=== PATIENT | female | born 1985 | race Caucasian/White ===

== ENCOUNTER 2017-09-24 00:27 | Emergency (ER) | payer BC, SELFPAY ==
[2017-09-24 00:29] VITALS: BP 145/96; PULSE 96; RESP 15; TEMP 37.1; O2SAT 97; BMI 65.5
--- NOTE | 2017-09-24 00:56 | EKG12_ITS ---
Test Reason : DIZZY Blood Pressure : / mmHG Vent. Rate : 104 BPM Atrial Rate : 104 BPM P-R Int : 134 ms QRS Dur : 080 ms QT Int : 332 ms P-R-T Axes : 062 088 037 degrees QTc Int : 436 ms Sinus tachycardia Otherwise normal ECG Confirmed by CHASE MILLS MD ([id number]), staff editor JOHNY DURAN ([id number]) on 09/26/2017 1:01:14 PM Referred By: HENRRY Confirmed By:CHASE MILLS MD
[2017-09-24] MEDS: 0.9% Normal Saline 1,000 ML 1000 ML IV (01:32)
[2017-09-24 01:40] LABS: White Blood Cells 0 SEEN /hpf (0-5)
[2017-09-24 01:45] LABS: Color, Urine Yellow (Yellow); Glucose, Dipstick Normal (Normal); Ketone-Dipstick 15 mg/dl (Negative); Leukocyte Esterase-Dipstick Negative /ul (Negative); Nitrite-Dipstick Negative (Negative); Occult Blood-Urine 250 /ul (Negative); Protein-Dipstick 15 mg/dl (Negative); Specific Gravity, Urine 1.025 (1.002-1.030); Urine Bilirubin Dipstick Negative (Negative); Urine Clarity Sl. Cloudy (Clear); Urine Urobilinogen Normal (Normal)
[2017-09-24 02:04] LABS: Bacteria RARE /hpf (None Seen); Mucous, Urine RARE /hpf (<or=2+); Red Blood Cells-Urine 10-25 SEEN /hpf (0-5); Squamous Epithelial Cells - UA 0-5 SEEN /hpf (5-10)
[2017-09-24 02:13] LABS: Absolute Lymphocyte Count 2.19 X10^3/ul (0.83-4.51); Absolute Neutrophil Count 6.4 X10^3/uL (2.0-7.7); Basophil# 0.06 X10^3/uL; Basophil% 0.7 % (0-1); Eosinophil# 0.03 X10^3/uL; Eosinophils% 0.3 % (0-5); Hematocrit 36.4 % (37-47); Hemoglobin 11.6 g/dl (12.0-15.0); Lymphocyte # 2.19 X10^3/ul (4.0); Lymphocyte % 23.7 % (19-41); Mean Corp Hgb Conc 31.9 g/gl (32-36); Mean Corpuscular Hgb 26.7 pg (27.0-32.0); Mean Corpuscular Volume 83.7 fL (81-99); Mean Platelet Vol. 10.4 fl (6.2-12.0); Monocyte# 0.54 X10^3/uL; Monocyte% 5.9 % (0-10); Neutrophil # 6.38 X10^3/uL (2.7-7.7); Neutrophil % 69.1 % (47-70); Platelet Count 305 K/mm3 (150-450); RBC Distribution Width CV 14.9 % (11.6-14.6); RBC Distribution Width SD 44.5 fl (35.1-43.9); Red Blood Count 4.35 M/mm3 (4.2-5.4); White Blood Count 9.2 K/mm3 (4.4-11.0)
[2017-09-24 02:14] LABS: POSITIVE COUNT NO; POSITIVE DIFFERENTIAL NO; POSITIVE MORPHOLOGY NO
[2017-09-24 02:32] VITALS: BP 124/73; PULSE 76; RESP 17; O2SAT 97
[2017-09-24 02:45] LABS: Anion Gap 9 (5-15); BUN 16 mg/dL (7-18); BUN/Creat Ratio 18.9 RATIO (10-20); Calcium,Total 8.5 mg/dL (8.5-10.1); Chloride 108 mmol/L (98-107); Creatinine, Serum 0.85 mg/dL (0.55-1.02); EST Glomerular Filtration Rate 83 mL/min (>60); Est Glom Filt Rate - Afr Amer 101 mL/min (>60); Estimated Creatinine Clearance 72.36 ml/min; Glucose 111 mg/dL (74-106); Potassium 3.9 mmol/L (3.5-5.1); Sodium Level 141 mmol/L (136-145)
[2017-09-24 03:27] LABS: Pregnancy, Serum, hCG Quali. NEGATIVE Negative (0-9 Nonpreg)
--- NOTE | 2017-09-24 03:27 | ED.DCSUM_ITS ---
- ER Visit Summary Date of Service: 09/24/17 Chief Complaint: I do not feel my normal self. History of Present Illness: The patient is a [address] Lino. She was reports that she has not felt her normal self for the past 3 days. States this is continuous, but it does wax and wane. States that she feels as though her heart is racing. She has a nonproductive cough. She denies any fever, chills, chest pain, or shortness of breath. She has had nausea. No abdominal pain. No vomiting or diarrhea. No melena or hematochezia. No dysuria or frequency. She reports that she has tingling in her hands bilaterally. She denies any headache or weakness. She reports she is lightheaded. Does not change with standing. She has not passed out. Patient reports to begin taking Mucinex proximally 3 days ago. States this is similar to before she had a seizure when she was 17 years old. She has not had any seizure activity. Physical Examination: Vitals: Stable. Afebrile. General: Well-nourished and well-developed. Head: Normocephalic atraumatic. Neck: Supple, no lymphadenopathy. No JVD. Nontender. Cardiovascular: Regular rate and rhythm. No murmurs. Respiratory: No respiratory distress. Clear to auscultation bilaterally. Abdominal: Soft, nontender, nondistended, normal bowel sounds. No guarding, rebound, or peritoneal signs. Back: Nontender. Extremities: Nontender, no edema. Skin: Normal color, no rash. Neurologic: Alert and oriented ?3. Cranial nerves II through XII are intact. Normal strength and sensation. Psych: Normal affect. Test Results: She is sinus tach at 104 with no acute changes. UA is negative. There are 1025 red blood cells. However, she is on her menses. Patency test is negative. Chem-7 is more for chloride 108 and glucose 111. CBC is marked for an H&H of 11.6 and 36.4. TSH is normal. Emergency Department Course and Treatment: Patient is resting comfortably. After a liter of normal saline her heart rate is decreased into the 70s. Treatment Plan: Patient will be discharged instructions to push fluids. Follow- up Dr. Lino in 3-5 days for further evaluation. I did suggest to her that this may be due to the Mucinex and to stop taking this. Return to the emergency department for any worsening symptoms. Disposition: To home in improved and stable condition. Impression: 1. Palpitations. This note was generated with Zinc software dictation software. It may contain incorrect words, spelling, and punctuation that were not noted in review of the chart prior to signing ED Disposition - Plan for ED Patient: Disposition: Home or Assisted Living Chief Complaint: Dizziness Instructions: ED Palpitations Referrals: Andra Lino DO [Primary Care Provider] - 2 Days
[2017-09-24 03:45] VITALS: BP 111/77; PULSE 76; RESP 20; O2SAT 99
== END 2017-09-24 03:45 | disposition home or self-care (01) ==
LOC: ED 00:58
PROVIDERS: Emergency Provider Emergency Medicine; Family Provider Family Medicine; PCP Family Medicine
DX: R00.2 Palpitations (principal); R05 Cough; R11.0 Nausea; Z72.0 Tobacco use
CPT/HCPCS: 80048; 81001; 84443; 84703; 85025; 93005; 99285

== ENCOUNTER → 2017-10-06 07:57 | Outpatient (CLI) | payer BC, SELFPAY ==
--- NOTE | 2017-10-06 08:00 | US_ITS ---
US Pelvis Non-OB Complete INDICATION: menorrhagia COMPARISON: None TECHNIQUE: Ultrasonographic grayscale and Doppler duplex investigation of the pelvic structures by transabdominal or transvaginal approach. FINDINGS: The uterus is anteverted and measures 8 x 4 x 4 cm. Endometrial stripe measures 1.5 cm, prominent. The endometrium is hyperechoic and slightly heterogenous. There is no evidence of abnormal flow within the endometrium. The myometrium appears within normal limits. Nabothian cyst is seen at the cervix. The right ovary was not visualized. The left ovary measures 2.2 x 1.5 x 1.6 cm and demonstrates normal flow. There is no evidence of free pelvic fluid. US/Pelvic (Non ) IMPRESSION: Thickened endometrial stripe measuring 1.5 cm diameter. No abnormal mass vascularity seen. Nonvisualization of the right ovary. at 0017 Reported and signed by: Linda Desir MD Electronically Signed: Linda Desir MD at 23:16 EST Tel , Service support ,
--- NOTE | 2017-10-06 08:00 | US_ITS ---
US Pelvis Non-OB Complete INDICATION: menorrhagia COMPARISON: None TECHNIQUE: Ultrasonographic grayscale and Doppler duplex investigation of the pelvic structures by transabdominal or transvaginal approach. FINDINGS: The uterus is anteverted and measures 8 x 4 x 4 cm. Endometrial stripe measures 1.5 cm, prominent. The endometrium is hyperechoic and slightly heterogenous. There is no evidence of abnormal flow within the endometrium. The myometrium appears within normal limits. Nabothian cyst is seen at the cervix. The right ovary was not visualized. The left ovary measures 2.2 x 1.5 x 1.6 cm and demonstrates normal flow. There is no evidence of free pelvic fluid. US/Transvaginal Non- IMPRESSION: Thickened endometrial stripe measuring 1.5 cm diameter. No abnormal mass vascularity seen. Nonvisualization of the right ovary. at 0017 Reported and signed by: Linda Desir MD Electronically Signed: Linda Desir MD at 23:16 EST Tel , Service support ,
== END ==
PROVIDERS: Family Provider Family Medicine; PCP Family Medicine; Visit Provider Family Medicine
DX: N92.0 Excessive and frequent menstruation with regular cycle (principal)
CPT/HCPCS: 76830; 76856; 93976

== ENCOUNTER → 2017-10-27 07:34 | Outpatient (CLI) | payer BC, SELFPAY ==
[2017-10-27 11:26] LABS: Hemoglobin A1c 5.7 % (4.2-6.3)
[2017-10-27 11:29] LABS: Free T3 2.8 pg/mL (2.18-3.98); Glucose 97 mg/dL (74-106); Luteinizing Hormone 6.2 mIU/mL; Prolactin 5.2 ng/mL; T4 Free Direct 0.96 ng/dL (0.76-1.46); Thyroid Stim Hormone (TSH) 3.91 uIU/mL (0.358-3.74)
[2017-10-30 14:52] LABS: HPV Reflexed? NOT INDICATED
--- NOTE | 2017-11-03 12:11 | EEG ---
- Electroencephalogram Date of service 10/27/17 This is an 18 channel echoencephalogram performed on this 32-year-old female with a one-month history of abnormal sensations. There is a history of seizures 15 years prior. International 10-20 electrode placement protocol is utilized as well as photic stimulation, hyperventilation, and EKG rhythm strip. Patient remained awake throughout the recording. Background activity is 10 Hz symmetrically in the posterior leads which attenuates with eye opening. Hyperventilation is performed for 3 minutes with good effort with no lateralizing or epileptiform changes. The post hyperventilatory phase was unremarkable. Patient remained awake throughout the recording. Impression: Normal awake electroencephalogram.
== END ==
LOC: PSN 07:34 → WOBLAB 09:50
PROVIDERS: Visit Provider Obstetrics & Gynecology
DX: Z12.4 Encounter for screening for malignant neoplasm of cervix (principal); N92.1 Excessive and frequent menstruation with irregular cycle; R56.9 Unspecified convulsions
CPT/HCPCS: 36415; 82947; 83001; 83002; 83036; 84146; 84439; 84443; 84481; 88175; G0145

== ENCOUNTER → 2019-06-24 10:50 | Outpatient (CLI) | payer BC, SELFPAY ==
[2019-05-28 07:34] VITALS: BMI 65.5
== END ==
PROVIDERS: Family Provider Family Medicine; PCP Family Medicine; Visit Provider Family Medicine
DX: R31.9 Hematuria, unspecified (principal)
CPT/HCPCS: 87086; 87088

== ENCOUNTER → 2019-07-18 09:21 | Outpatient (CLI) | payer BC, SELFPAY ==
[2019-05-28 07:34] VITALS: BMI 65.5
--- NOTE | 2019-07-18 09:24 | RAD_ITS ---
STUDY: X-RAY CHEST REASON FOR EXAM: Female, 33 years old. Persistent cough and fever. TECHNIQUE: 2 views COMPARISON: None. FINDINGS: The lung loera are expanded with patchy multifocal parenchymal infiltrate in the anterior left upper lobe and lingula. There is no demonstrated pleural abnormality. Normal size heart. Normal mediastinum and britney. Normal visualized pulmonary arteries. Normal visualized aortic arch and descending thoracic aorta. Normal visualized thoracic spine. Normal visualized ribs, clavicles, and shoulders. There is no demonstrated abnormality of the visualized soft tissue structures of the upper abdomen. RAD/Chest PA and Lateral IMPRESSION: Left upper lobe pneumonia. Electronically Signed: Katheryn Rosales MD at 23:17 EST , Service support ,
== END ==
PROVIDERS: Family Provider Family Medicine; PCP Family Medicine; Referring Provider Family Medicine; Visit Provider Family Medicine
DX: J20.9 Acute bronchitis, unspecified (principal); R50.9 Fever, unspecified
CPT/HCPCS: 71046

== ENCOUNTER → 2020-06-12 | Outpatient (CLI) | payer BC, SELFPAY ==
[2019-05-28 07:34] VITALS: BMI 65.5
[2020-06-18 17:10] LABS: HPV APTIMA, High Risk Negative (Negative); HPV Reflexed? YES, CHARGE PATIENT
== END | disposition home or self-care (01) ==
LOC: LABSPEC 13:57
PROVIDERS: PCP Family Medicine; Visit Provider Student in an Organized Health Care Education/Training Program
DX: Z12.4 Encounter for screening for malignant neoplasm of cervix (principal)
CPT/HCPCS: 87624; 88175; G0145

== ENCOUNTER → 2020-06-17 12:57 | Outpatient (CLI) | payer BC, SELFPAY ==
[2019-05-28 07:34] VITALS: BMI 65.5
--- NOTE | 2020-06-17 12:59 | BI_ITS ---
MAMMOGRAPHY - BILATERAL SCREENING REASON FOR EXAM: Female, 34 years old. Routine annual screening examination. PERTINENT HISTORY: Grandmother with breast cancer. Aunt with breast cancer. TECHNIQUE: Digital bilateral breast den (3D mammographic acquisition) in the CC and MLO projections. 2-D mediolateral oblique (MLO) and craniocaudad (CC) views of both breasts were obtained. CAD: Full Field Digital Mammography with Computer Added Detection was performed. COMPARISON: None. Baseline examination. FINDINGS: Breast Composition: There are scattered areas of fibroglandular density. There are no dominant masses or suspicious calcifications. No other significant abnormalities are identified. There has been no significant change since the prior study. BI/SCREEN MAMM (CAD) W/DEN BILAT IMPRESSION: Stable bilateral screening mammogram. Yearly follow-up mammogram recommended. (A) ASSESSMENT CATEGORY: BIRADS Category 1: Negative. A letter regarding these results will be sent to the patient by the facility within 30 days. Approximately 10% of breast cancers are not detected by mammography. A normal mammogram should not delay biopsy of a clinically suspicious abnormality. [id number] Electronically Signed: Riccardo Gamez, at 13:47 EST , Service support ,
== END ==
PROVIDERS: PCP Family Medicine; Referring Provider Student in an Organized Health Care Education/Training Program; Visit Provider Student in an Organized Health Care Education/Training Program
DX: Z12.31 Encounter for screening mammogram for malignant neoplasm of breast (principal); Z80.3 Family history of malignant neoplasm of breast
CPT/HCPCS: 77063; 77067

== ENCOUNTER → 2020-08-25 10:03 | Outpatient (CLI) | payer BC, SELFPAY ==
[2019-05-28 07:34] VITALS: BMI 65.5
--- NOTE | 2020-08-25 | EMB_PTH ---
PATIENT: YULIANA BLACKBURN LOC: [facility] U#:[id number] AGE/SX: 39/F ROOM: RE08/25/[address]: Dr. Latoya Lind DO : 1985 BED: DIS: SPEC #: [id number] RECD: 08/25/20 12:37 STATUS: MITA REQ #: [id number] LINO: 08/25/20 00:[address]: Latoya Lind DEPT: SURGICAL PATHOLOGY RECD BY: Jose Doshi ENTERED: 08/25/20 12:38 SP TYPE: ENDOM BX/C DENISSE DR: Dr. Andra Lino DO Tissues: Endometrium, NOS Procedures: Surgery Specimen Level IV HEADER OPERATION: Endometrial biopsy PRE-OP DIAGNOSIS: Irregular heavy period; pelvic ultrasound showed 13 mm inhomogeneous echo texture TISSUE SUBMITTED: Endometrial curettings MICROSCOPIC DIAGNOSIS Endometrium, biopsy: Proliferative endometrium with focal glandular breakdown. AM:phuong 08/26/2020 MICROSCOPIC DESCRIPTION Slides are reviewed. GROSS DESCRIPTION Received in fixative is one container labeled with the patient's name and designated endometrial biopsy. The specimen consists of multiple fragments of hemorrhagic soft tissue mixed with mucoid tissue that in aggregate measure 3 x 2.5 x 0.2 cm. The specimen is totally submitted in one cassette. / SJ:phuong 08/25/19 TC:5 CPT: 80363
[2020-08-26 13:58] LABS: Cancer Antigen 125 18.8 U/mL (0.0-38.1)
== END ==
PROVIDERS: PCP Family Medicine; Visit Provider Student in an Organized Health Care Education/Training Program
DX: N92.6 Irregular menstruation, unspecified (principal)
CPT/HCPCS: 36415; 86304; 88305

== ENCOUNTER → 2020-10-28 08:26 | Outpatient (CLI) | payer BC, SELFPAY ==
[2019-05-28 07:34] VITALS: BMI 65.5
[2020-10-28 09:11] LABS: ALB/GLOB Ratio 0.7 RATIO (0.9-2.4); AST(SGOT) 36 U/L (15-37); Alanine Aminotransfer ALT/SGPT 43 U/L (13-56); Albumin, Serum 3.3 g/dL (3.2-5.0); Alkaline Phosphatase 85 U/L (45-117); Anion Gap 4 (5-15); BUN 15 mg/dL (7-18); BUN/Creat Ratio 16.6 RATIO (10-20); Calcium,Total 9.5 mg/dL (8.5-10.1); Chloride 105 mmol/L (98-107); Cholesterol 229 mg/dL (200); EST Glomerular Filtration Rate 76 mL/min (>60); Est Glom Filt Rate - Afr Amer 92 mL/min (>60); Globulin 4.8 g/dL (2.2-4.2); Glucose 99 mg/dL (74-106); High Density Lipoprotein 66 mg/dL; Potassium 4.7 mmol/L (3.5-5.1); Protein, Total 8.1 g/dL (6.4-8.2); Sodium Level 137 mmol/L (136-145); Triglycerides 118 mg/dL; Very Low Density Lipoprotein 24 mg/dL (5-40)
== END ==
PROVIDERS: PCP Family Medicine; Referring Provider Family Medicine; Visit Provider Family Medicine
DX: E78.5 Hyperlipidemia, unspecified (principal); E87.1 Hypo-osmolality and hyponatremia
CPT/HCPCS: 36415; 80053; 80061

== ENCOUNTER 2021-03-31 15:36 | Outpatient (RCR) | payer BC, SELFPAY ==
[2019-05-28 07:34] VITALS: BMI 65.5
== END 2021-04-13 23:59 ==
LOC: NS 15:36
PROVIDERS: PCP Family Medicine; Visit Provider Family Medicine
DX: Z00.00 Encounter for general adult medical examination without abnormal findings (principal)
CPT/HCPCS: 97802

== ENCOUNTER → 2021-05-13 | Outpatient (CLI) | payer BC, SELFPAY ==
[2021-05-18 00:06] LABS: Chlamydia By Nucleic Acid AMP Negative (Negative)
[2021-05-18 00:41] LABS: Gonococcus By Nucleic Acid AMP Negative (Negative)
== END | disposition home or self-care (01) ==
LOC: LABSPEC 12:06
PROVIDERS: PCP Family Medicine; Visit Provider Obstetrics & Gynecology
DX: O09.519 Supervision of elderly primigravida, unspecified trimester (principal); Z11.3 Encounter for screening for infections with a predominantly sexual mode of transmission; Z3A.00 Weeks of gestation of pregnancy not specified
CPT/HCPCS: 87491; 87591

== ENCOUNTER → 2021-05-17 13:11 | Outpatient (CLI) | payer BC, SELFPAY ==
[2021-05-17 13:42] LABS: Absolute Lymphocyte Count 1.98 X10^3/uL (0.83-4.51); Basophil# 0.02 X10^3/uL; Basophil% 0.2 % (0-1); Eosinophil# 0.01 X10^3/uL; Eosinophils% 0.1 % (0-5); Hematocrit 36.6 % (37-47); Hemoglobin 11.2 g/dL (12.0-15.0); Lymphocyte # 1.98 X10^3/ul (0.83-4.51); Lymphocyte % 20.5 % (19-41); Mean Corp Hgb Conc 30.6 g/dL (32-36); Mean Corpuscular Hgb 25.7 pg (27.0-32.0); Mean Corpuscular Volume 83.9 fL (81-99); Mean Platelet Vol. 10.9 fl (6.2-12.0); Monocyte# 0.62 X10^3/uL; Monocyte% 6.4 % (0-10); NRBC Flagged by Analyzer 0 % (0-5); Neutrophil # 6.99 X10^3/uL (2.7-7.7); Neutrophil % 72.5 % (47-70); Platelet Count 321 K/mm3 (150-450); RBC Distribution Width CV 15.7 % (11.6-14.6); RBC Distribution Width SD 48.1 fl (35.1-43.9); Red Blood Count 4.36 M/mm3 (4.2-5.4); White Blood Count 9.7 K/mm3 (4.4-11.0)
[2021-05-17 14:17] LABS: Glucose Challenge Gest 1H 50g 141 mg/dL (70-140)
[2021-05-17 15:02] LABS: HIV - WCH Non-Reactive (Nonreactive); Hepatitis B Surface Antigen Non-Reactive (Nonreactive); Rubella IgG Reactive (Nonreactive); Syphilis Antibodies Non-reactive
[2021-05-17 17:14] LABS: Hepatitis C Antibody REACTIVE (Nonreactive)
== END ==
PROVIDERS: PCP Family Medicine; Visit Provider Obstetrics & Gynecology
DX: Z34.81 Encounter for supervision of other normal pregnancy, first trimester (principal); Z3A.00 Weeks of gestation of pregnancy not specified
CPT/HCPCS: 82950; 85025; 86703; 86762; 86780; 86803; 87086; 87088; 87340; 87521

== ENCOUNTER → 2021-05-26 | Outpatient (CLI) | payer BC, SELFPAY ==
[2021-05-27 15:09] LABS: HCV Quant. RNA PCR HCV Not Detected IU/mL (.)
== END | disposition home or self-care (01) ==
LOC: LABSPEC 11:01
PROVIDERS: PCP Family Medicine; Referring Provider Student in an Organized Health Care Education/Training Program; Visit Provider Student in an Organized Health Care Education/Training Program
DX: B19.10 Unspecified viral hepatitis B without hepatic coma (principal)
CPT/HCPCS: 36415; 87522

== ENCOUNTER → 2021-06-01 07:08 | Outpatient (CLI) | payer BC, SELFPAY ==
[2021-06-01 08:10] LABS: Glucose GTT-Gestation. Fasting 94 mg/dL (<105)
[2021-06-01 09:23] LABS: Glucose GTT-Gestational 1 Hr 174 mg/dL (<190)
[2021-06-01 09:55] LABS: Glucose GTT-Gestational 2 Hr 142 mg/dL (<165)
[2021-06-01 11:17] LABS: Glucose GTT-Gestational 3 Hr 67 L (<145)
== END ==
PROVIDERS: PCP Family Medicine; Referring Provider Student in an Organized Health Care Education/Training Program; Visit Provider Student in an Organized Health Care Education/Training Program
DX: O24.912 Unspecified diabetes mellitus in pregnancy, second trimester (principal)
CPT/HCPCS: 36415; 82951; 82952

== ENCOUNTER 2021-07-03 10:01 | Outpatient (CLI) | payer BC, SELFPAY ==
[2021-07-03] MEDS: 0.9% Saline Lock 10 ML Syringe IV (10:25)
[2021-07-03 10:26] VITALS: BP 151/70; PULSE 91; RESP 18; TEMP 36.7; O2SAT 98; BMI 69.9
[2021-07-03 10:48] VITALS: BP 113/65; PULSE 97; RESP 18; TEMP 36.6; O2SAT 100
--- NOTE | 2021-07-03 10:48 | NURSING ---
Pt c/o joint pain and nausea and appears anxious. VSS. No rashes/hives noted. Infusion decreased to 160cc/hr. Will cont. to monitor.
--- NOTE | 2021-07-03 10:53 | NURSING ---
Pt reports feeling much better.
[2021-07-03 11:19] VITALS: BP 129/64; PULSE 80; RESP 16; TEMP 36.7; O2SAT 99
[2021-07-03 12:14] VITALS: BP 126/64; PULSE 76; RESP 16; TEMP 36.6; O2SAT 98
== END 2021-07-03 12:23 | disposition home or self-care (01) ==
LOC: MS3OUT 10:02 → MS3 10:02
PROVIDERS: PCP Family Medicine; Referring Provider Nurse Practitioner Acute Care; Visit Provider Nurse Practitioner Acute Care
DX: Z23 Encounter for immunization (principal); U07.1 COVID-19
CPT/HCPCS: J7050; M0245; Q0245; A4216

== ENCOUNTER → 2021-07-12 17:13 | Outpatient (CLI) | payer BC, SELFPAY ==
[2021-07-12 17:44] LABS: Hematocrit 33.3 % (37-47); Hemoglobin 10.7 g/dL (12.0-15.0); Mean Corp Hgb Conc 32.1 g/dL (32-36); Mean Corpuscular Hgb 27.3 pg (27.0-32.0); Mean Corpuscular Volume 84.9 fL (81-99); Platelet Count 297 K/mm3 (150-450); RBC Distribution Width CV 16.2 % (11.6-14.6); RBC Distribution Width SD 48.9 fl (35.1-43.9); Red Blood Count 3.92 M/mm3 (4.2-5.4); White Blood Count 9.9 K/mm3 (4.4-11.0)
[2021-07-12 18:03] LABS: Protein, Urine (Random) < 6.0 mg/dL (<11.9)
[2021-07-12 18:15] LABS: ALB/GLOB Ratio 0.5 RATIO (0.9-2.4); AST(SGOT) 10 U/L (15-37); Alanine Aminotransfer ALT/SGPT 17 U/L (13-56); Albumin, Serum 2.5 g/dL (3.2-5.0); Alkaline Phosphatase 58 U/L (45-117); Anion Gap 9 (5-15); BUN 11 mg/dL (7-18); Calcium,Total 10.3 mg/dL (8.5-10.1); Chloride 104 mmol/L (98-107); Creatinine, Serum 0.58 mg/dL (0.55-1.02); EST Glomerular Filtration Rate 126 mL/min (>60); Est Glom Filt Rate - Afr Amer 153 mL/min (>60); Globulin 4.9 g/dL (2.2-4.2); Glucose 108 mg/dL (74-106); LDH 145 U/L (84-246); Potassium 3.8 mmol/L (3.5-5.1); Protein, Total 7.4 g/dL (6.4-8.2); Sodium Level 136 mmol/L (136-145)
== END ==
PROVIDERS: PCP Family Medicine; Visit Provider Student in an Organized Health Care Education/Training Program
DX: O16.9 Unspecified maternal hypertension, unspecified trimester (principal); Z3A.00 Weeks of gestation of pregnancy not specified
CPT/HCPCS: 36415; 80053; 82570; 83615; 84156; 85027; 87086; 87088

== ENCOUNTER 2021-09-10 09:03 | Outpatient (CLI) | payer BC, SELFPAY ==
[2021-09-10 11:41] LABS: Glucose GTT-Gestational 2 Hr 176 mg/dL (<165)
[2021-09-10 11:41] LABS: Glucose GTT-Gestational 1 Hr 190 mg/dL (<190)
[2021-09-10 11:48] LABS: Glucose GTT-Gestation. Fasting 86 mg/dL (<105)
[2021-09-10 13:08] LABS: Glucose GTT-Gestational 3 Hr 94 L (<145)
[2021-09-10 13:14] LABS: Hepatitis C Antibody REACTIVE (Nonreactive)
== END 2021-09-10 23:59 | disposition short-term general hospital (02) ==
LOC: WOBLAB 09:06
PROVIDERS: PCP Family Medicine; Visit Provider Student in an Organized Health Care Education/Training Program
DX: Z34.82 Encounter for supervision of other normal pregnancy, second trimester (principal)
CPT/HCPCS: 36415; 82951; 82952; 86803

== ENCOUNTER 2021-10-12 14:18 | Outpatient (CLI) | payer BC, SELFPAY ==
[2021-10-12 15:44] LABS: Hematocrit 36.1 % (37-47); Hemoglobin 11.3 g/dL (12.0-15.0); Mean Corp Hgb Conc 31.3 g/dL (32-36); Mean Corpuscular Hgb 27.4 pg (27.0-32.0); Mean Corpuscular Volume 87.4 fL (81-99); Platelet Count 289 K/mm3 (150-450); RBC Distribution Width CV 15.9 % (11.6-14.6); RBC Distribution Width SD 49.6 fl (35.1-43.9); Red Blood Count 4.13 M/mm3 (4.2-5.4); White Blood Count 11.5 K/mm3 (4.4-11.0)
[2021-10-12 16:00] LABS: ALB/GLOB Ratio 0.5 RATIO (0.9-2.4); AST(SGOT) 12 U/L (15-37); Alanine Aminotransfer ALT/SGPT 21 U/L (13-56); Albumin, Serum 2.8 g/dL (3.2-5.0); Alkaline Phosphatase 107 U/L (45-117); Anion Gap 9 (5-15); BUN 17 mg/dL (7-18); BUN/Creat Ratio 24.1 RATIO (10-20); Calcium,Total 9.3 mg/dL (8.5-10.1); Chloride 103 mmol/L (98-107); Creatinine, Serum 0.71 mg/dL (0.55-1.02); EST Glomerular Filtration Rate 100 mL/min (>60); Est Glom Filt Rate - Afr Amer 121 mL/min (>60); Globulin 5.2 g/dL (2.2-4.2); Glucose 86 mg/dL (74-106); LDH 194 U/L (84-246); Potassium 4.2 mmol/L (3.5-5.1); Sodium Level 135 mmol/L (136-145)
[2021-10-12 16:08] LABS: Protein, Urine (Random) 58.9 mg/dL (<11.9); Protein:Creat Ratio 280 mg/g CRE (0-200)
== END 2021-10-12 23:59 | disposition home or self-care (01) ==
LOC: WOBLAB 14:19
PROVIDERS: PCP Family Medicine; Visit Provider Student in an Organized Health Care Education/Training Program
DX: O16.3 Unspecified maternal hypertension, third trimester (principal)
CPT/HCPCS: 36415; 80053; 82570; 83615; 84156; 85027; 87086; 87088

== ENCOUNTER 2021-10-26 17:32 | Outpatient (CLI) | payer BC, SELFPAY | END 2021-10-26 23:59 | disposition home or self-care (01) | LOC: LABSPEC 17:33 | PROVIDERS: PCP Family Medicine; Visit Provider Student in an Organized Health Care Education/Training Program | DX: Z36.85 Encounter for antenatal screening for Streptococcus B (principal) | CPT/HCPCS: 87081 ==

== ENCOUNTER 2021-11-02 16:15 | Outpatient (CLI) | payer BC, SELFPAY ==
[2021-11-04 21:07] LABS: HCV Quant. RNA PCR HCV Not Detected IU/mL (.)
== END 2021-11-02 23:59 | disposition home or self-care (01) ==
LOC: WOBLAB 16:16
PROVIDERS: PCP Family Medicine; Visit Provider Student in an Organized Health Care Education/Training Program
DX: R89.4 Abnormal immunological findings in specimens from other organs, systems and tissues (principal)
CPT/HCPCS: 36415; 87522

== ENCOUNTER 2021-11-12 16:25 | Outpatient (CLI) | payer BC, SELFPAY ==
[2021-11-12 16:44] VITALS: BMI 74.6
[2021-11-12 16:49] VITALS: PULSE 97; O2SAT 98
[2021-11-12 16:54] VITALS: BP 146/78; PULSE 93; O2SAT 98
--- NOTE | 2021-11-12 18:26 | OB.TRI.HP_ITS ---
HPI - General HPI Narrative YULIANA BLACKBURN, is a 36 F [facility] Medical History (Updated 11/13/21 @ 06:[address] Bi Lind MD) Fatigue hx of vaginal Incontinence Seizures SOB (shortness of breath) Home Medications aspirin 81 mg PO DAILY 07/03/21 [History Last Taken 11/12/21 06:00] [id number] fumarate-FA [] tab PO 11/12/21 [History Last Taken 11/12/21 06:00] insulin detemir U-100 [Levemir Flexpen] 35 unit SUBCUT QHS 11/12/21 [History Last Taken 11/11/21 21:00] valacyclovir [Valtrex] 1,000 mg PO DAILY 11/12/21 [History Last Taken 11/12/21 06:00] Allergy/AdvReac Type Severity Reaction Status Date / Time No Known Allergies Allergy Verified 11/12/21 16:47 Surgical History (Reviewed 07/01/21 @ 11:46 by Latoya Cherry HYDROMETEOROLOGICAL TECHNICIAN, HYDROMETEOROLOGICAL TECHNICIAN-C) History of tonsillectomy and adenoidectomy Social History (Reviewed 07/01/21 @ 11:46 by Latoya Cherry HYDROMETEOROLOGICAL TECHNICIAN, HYDROMETEOROLOGICAL TECHNICIAN-C) Smoking Status: Never smoker alcohol intake: never History Elective abortions Hx Para 0 Spontaneous abortions Hx # Term Pregnancies Ectopic pregnancies Hx # Pregnancies Multiple births # of living children NST FHR Rate Baby A Baseline: 130 Variability:: Moderate Accelerations:: 15 x 15 Decelerations:: None NST Reactive:: Yes Uterine Activity:: Quiet Assessment & Plan (1) : PLAN: Patient for NST, reactive. Reassuring. Okay to discharge home of all the scheduled appointments
== END 2021-11-12 23:59 | disposition home or self-care (01) ==
LOC: WPOUT 16:30 → WP 16:30
PROVIDERS: PCP Family Medicine; Referring Provider Obstetrics & Gynecology; Visit Provider Obstetrics & Gynecology
DX: O36.8390 Maternal care for abnormalities of the fetal heart rate or rhythm, unspecified trimester, not applicable or unspecified (principal); Z3A.00 Weeks of gestation of pregnancy not specified
CPT/HCPCS: 59025; 59050; 99218; G0378

== ENCOUNTER 2021-11-16 20:50 | Inpatient (IN) | payer BC, SELFPAY ==
[2021-11-16 19:17] VITALS: BMI 75.2
[2021-11-16 19:32] VITALS: O2SAT 98
[2021-11-16 19:33] VITALS: BP 133/75; PULSE 98; TEMP 36.6
[2021-11-16] MEDS: 0.9% Saline Lock 10 ML Syringe IV ×2 (19:45→21:25)
[2021-11-16 20:08] LABS: Absolute Lymphocyte Count 1.96 X10^3/uL (0.83-4.51); Absolute Neutrophil Count 8.9 X10^3/uL (2.0-7.7); Basophil# 0.02 X10^3/uL; Basophil% 0.2 % (0-1); Eosinophil# 0.01 X10^3/uL; Eosinophils% 0.1 % (0-5); Hematocrit 38.4 % (37-47); Hemoglobin 12.3 g/dL (12.0-15.0); Lymphocyte # 1.96 X10^3/ul (0.83-4.51); Lymphocyte % 16.9 % (19-41); Mean Corpuscular Hgb 27.6 pg (27.0-32.0); Mean Corpuscular Volume 86.1 fL (81-99); Mean Platelet Vol. 12.5 fl (6.2-12.0); Monocyte# 0.67 X10^3/uL; Monocyte% 5.8 % (0-10); NRBC Flagged by Analyzer 0 % (0-5); Neutrophil # 8.87 X10^3/uL (2.7-7.7); Neutrophil % 76.5 % (47-70); Platelet Count 285 K/mm3 (150-450); RBC Distribution Width CV 16.5 % (11.6-14.6); RBC Distribution Width SD 50.5 fl (35.1-43.9); Red Blood Count 4.46 M/mm3 (4.2-5.4); White Blood Count 11.6 K/mm3 (4.4-11.0)
[2021-11-16 20:10] LABS: Bedside Glucose 107 mg/dL (74-106)
[2021-11-16 20:30] LABS: ALB/GLOB Ratio 0.6 RATIO (0.9-2.4); AST(SGOT) 17 U/L (15-37); Alanine Aminotransfer ALT/SGPT 18 U/L (13-56); Albumin, Serum 2.8 g/dL (3.2-5.0); Alkaline Phosphatase 139 U/L (45-117); Anion Gap 9 (5-15); BUN 22 mg/dL (7-18); Calcium,Total 9.9 mg/dL (8.5-10.1); Chloride 108 mmol/L (98-107); Creatinine, Serum 0.82 mg/dL (0.55-1.02); EST Glomerular Filtration Rate 85 mL/min (>60); Est Glom Filt Rate - Afr Amer 103 mL/min (>60); Estimated Creatinine Clearance 72.26 ml/min; Globulin 4.9 g/dL (2.2-4.2); Glucose 89 mg/dL (74-106); LDH 188 U/L (84-246); Potassium 3.9 mmol/L (3.5-5.1); Protein, Total 7.7 g/dL (6.4-8.2); Sodium Level 138 mmol/L (136-145); Uric Acid 3.9 mg/dL (2.6-6.0)
[2021-11-16 20:37] LABS: Protein, Urine (Random) 39.2 mg/dL (<11.9); Protein:Creat Ratio 203 mg/g CRE (0-200)
[2021-11-16] MEDS: Lactated Ringers 1,000 ML 50 ML IV (21:25)
[2021-11-16] MEDS: miSOPROStol 25 MCG TABLET VAGINAL (21:35)
[2021-11-16 21:39] VITALS: TEMP 36.3; O2SAT 98
[2021-11-16 21:40] VITALS: BP 148/73; PULSE 100
[2021-11-16] MEDS: Insulin Glargine-YFGN 100 UNIT/ML Pen 35 UNIT SC (22:34)
[2021-11-16 23:30] LABS: Bedside Glucose 81 mg/dL (74-106)
--- NOTE | 2021-11-16 23:46 | PCM.HP.OB ---
HPI - General General Date of Admission: 11/16/21 HPI Narrative YULIANA BLACKBURN, is a 36 F who presents at 38 1/7 weeks gestation for IOL with hx gestational HTN and GDMA2, remote hx HSV. Speculum exam in the office earlier today was unremarkable and patient denies sx of HSV. US today with SHERIN 11.9cm, BPP 8/8, CEPHALIC presentation. EFW on 11/09/21 3579g (>90th%) with HC/AC 0.97 Issues: -AMA -BRCA1 positive -GDMA2 -Class III Obesity -HSV PFSH PFSH Medical History (Updated 11/16/21 @ 23:[address] Mallika Ryan MD) Fatigue Gestational diabetes Gestational hypertension hx of vaginal Incontinence Seizures SOB (shortness of breath) Home Medications aspirin 81 mg PO DAILY 07/03/21 [History Last Taken 11/16/21] [id number] fumarate-FA [] tab PO DAILY 11/12/21 [History Last Taken 11/16/21] insulin detemir U-100 [Levemir Flexpen] 35 unit SUBCUT QHS 11/12/21 [History Last Taken 11/15/21] valacyclovir [Valtrex] 1,000 mg PO DAILY 11/12/21 [History Last Taken 11/16/21] Allergy/AdvReac Type Severity Reaction Status Date / Time No Known Allergies Allergy Verified 11/16/21 19:40 Family History (Updated 11/16/21 @ 23:[address] Mallika Ryan MD) Father Diabetes Mother Thyroid disorder Surgical History History of tonsillectomy and adenoidectomy Social History (Reviewed 07/01/21 @ 11:46 by Latoya Cherry FUEL RETROFITTING TECHNICIAN, FUEL RETROFITTING TECHNICIAN-C) Smoking Status: Former smoker alcohol intake: never History 2 Elective abortions Hx Para 1 Spontaneous abortions Hx # Term Pregnancies Ectopic pregnancies Hx # Pregnancies Multiple births # of living children 1 NST FHR Rate Baby A Baseline: 140 Variability:: Moderate Accelerations:: 15 x 15 Decelerations:: Variable NST Reactive:: Yes FHR Category:: Category II Uterine Activity:: 1-2 Vital Signs Vital Signs Vital Signs: 11/16/21 19:32 11/16/21 19:33 11/16/21 21:39 Temperature 97.8 F 97.3 F L Temperature Source Temporal Temporal Pulse Rate 98 Blood Pressure 133/75 H BP Systolic 133 BP Diastolic 75 Pulse Ox 98 98 11/16/21 21:40 Temperature Temperature Source Pulse Rate 100 Blood Pressure 148/73 H BP Systolic 148 BP Diastolic 73 Pulse Ox Weight Weight: 180.711 kg Body Mass Index (BMI) 75.2 Physical Exam Const alert, oriented x3 and no apparent distress HEENT normocephalic Resp normal respiratory effort, normal air movement and clear to auscultation bilaterally Cardio regular rate and regular rhythm GI normal to inspection, nondistended, normoactive bowel sounds, soft to palpation, non-tender and non-distended Inspection: gravid Labs Labs Labs: Blood Type A POSITIVE Antibody Screen NEGATIVE Hct 38.4 % (37-47) Hgb 12.3 g/dL (12.0-15.0) Syphilis Total Ab Non-reactive Rubella IgG Antibody Reactive (Nonreactive) Hep Bs Antigen Non-Reactive (Nonreactive) Chlamydia DNA (CINDY) Negative (Negative) Neisseria gonorrhoeae DNA (CINDY) Negative (Negative) HIV 1&2 Antibody Non-Reactive (Nonreactive) Glucose 1 Hr 50 gm 141 mg/dL (70-140) H Group B Strep DNA Negative (Negative) Rhogam given: No Assessment & Plan (1) Gestational hypertension: QUALIFIERS: Trimester: third trimester Qualified Code(s): O13.3 - Gestational [-induced] hypertension without significant proteinuria, third trimester PLAN: Preeclampsia labs wnl (2) Gestational diabetes: QUALIFIERS: Gestational diabetes mellitus control: insulin-controlled Trimester: third trimester Qualified Code(s): O24.414 - Gestational diabetes mellitus in , insulin controlled PLAN: well controlled on Levemir q (3) : QUALIFIERS: Weeks of gestation: 38 weeks Qualified Code(s): Z3A.38 - 38 weeks gestation of PLAN: Misoprostol
[2021-11-17] VITALS (38 sets, daily range): BP systolic 92–181; BP diastolic 46–91; PULSE 68–109; RESP 16–24; TEMP 36.1–37.3; O2SAT 91–100
[2021-11-17 01:51] LABS: Bedside Glucose 98 mg/dL (74-106)
[2021-11-17] MEDS: miSOPROStol 50 MCG TABLET VAGINAL (02:12)
[2021-11-17] MEDS: Lactated Ringers 500 ML 999 ML IV ×2 (04:32→08:25)
[2021-11-17 05:31] LABS: Bedside Glucose 90 mg/dL (74-106)
--- NOTE | 2021-11-17 06:58 | PCM.PN.OB ---
Subjective Subjective Reports mild contractions. No complaints. Denies headache, vision changes or abdominal pain. Objective Data Objective Data Vital Signs: Vital Signs Temp Pulse BP Pulse Ox 98.0 F 95 132/62 H 99 11/17/21 05:23 11/17/21 06:54 11/17/21 05:23 11/17/21 06:54 Weight: 180.711 kg Body Mass Index (BMI) 75.2 Intake & Output: Intake and Output for Last 24 Hours 11/15/21 11/16/21 11/17/21 23:59 23:59 23:59 Intake Total 855.83 / 855.83 Balance 855.83 / 855.83 Lab / Micro Data Result Diagrams: 11/16/21 19:45 11/16/21 19:45 Labs: Laboratory Results - last 24 hr 11/16/21 19:45: WBC 11.6 H, RBC 4.46, Hgb 12.3, Hct 38.4, MCV 86.1, MCH 27.6, MCHC 32.0, RDW Std Deviation 50.5 H, RDW Coeff of Zac 16.5 H, Plt Count 285, MPV 12.5 H, Immature Gran % (Auto) 0.500, Neut % (Auto) 76.5 H, Lymph % (Auto) 16.9 L, [place] % (Auto) 5.8, Eos % (Auto) 0.1, Baso % (Auto) 0.2, Absolute Neuts (auto) 8.9 H, Absolute Lymphs (auto) 1.96, Nucleated RBC % 0 11/16/21 19:45: Sodium 138, Potassium 3.9, Chloride 108 H, Carbon Dioxide 21.0, Anion Gap 9, BUN 22 H, Creatinine 0.82, Estim Creat Clear Calc 72.26, Est GFR (MDRD) Af Amer 103, Est GFR (MDRD) Non-Af 85, BUN/Creatinine Ratio 27.0 H, Glucose 89, Uric Acid 3.9, Calcium 9.9, Total Bilirubin 0.20, AST 17, ALT 18, Alkaline Phosphatase 139 H, Lactate Dehydrogenase 188, Total Protein 7.7, Albumin 2.8 L, Globulin 4.9 H, Albumin/Globulin Ratio 0.6 L 11/16/21 19:45: Blood Type A POSITIVE, Antibody Screen NEGATIVE 11/16/21 19:53: POC Glucose 107 H 11/16/21 20:05: U Random Total Protein 39.2 H, Urine Creatinine 193.00, Protein/Creatinin Ratio 203 H 11/16/21 22:34: POC Glucose 81 11/17/21 01:43: POC Glucose 98 11/17/21 05:25: POC Glucose 90 Micro: Microbiology 11/16/21 21:05 Nasal Secretion SARS-CoV-2 Antigen (Rapid) - Final Physical Exam Narrative GEN - NAD, AAO x 3 FHR 135, moderate variability, prolonged deceleration to 60 bpm TOCO 4-5/10 min SVE 3.5/60/-2, moderate and anterior Assessment & Plan (1) Gestational hypertension: QUALIFIERS: Trimester: third trimester Qualified Code(s): O13.3 - Gestational [-induced] hypertension without significant proteinuria, third trimester PLAN: stable BPs No si/sx preeclampsia (2) Gestational diabetes: QUALIFIERS: Gestational diabetes mellitus control: insulin-controlled Trimester: third trimester Qualified Code(s): O24.414 - Gestational diabetes mellitus in , insulin controlled PLAN: controlled (3) : QUALIFIERS: Weeks of gestation: 38 weeks Qualified Code(s): Z3A.38 - 38 weeks gestation of PLAN: Amniotomy performed with meconium present ISE placed
[2021-11-17] MEDS: fentaNYL-bupivacaine (epidural) 100 ML BAG EPIDURAL (09:09)
[2021-11-17] MEDS: Terbutaline 1 MG/ML Vial 0.25 MG SC (09:31)
--- NOTE | 2021-11-17 09:40 | PLAC_PTH ---
PATIENT: YULIANA BLACKBURN LOC: [facility] U#:[id number] AGE/SX: 36/F ROOM: WP006 RE11/16/[address]: Dr. Mallika Ryan MD : 1985 BED: 1 DIS: 11/18/2021 SPEC #: [id number] RECD: 11/17/21 12:23 STATUS: MITA REPreston #: [id number] LINO: 11/17/21 09:[address]: Mallika Gold DEPT: SURGICAL PATHOLOGY RECD BY: Cathleen Osborne ENTERED: 11/18/21 08:40 SP TYPE: PLACENTA OTHR DR: Dr. Andra Lino, DO Tissues: Placenta, NOS Procedures: Surgery Specimen Level V HEADER OPERATION: Primary section PRE-OP DIAGNOSIS: Gestational hypertension TISSUE SUBMITTED: Placenta MICROSCOPIC DIAGNOSIS Claire placenta (548 gm): Umbilical cord ? trivascular with no inflammation. Placental membranes - No pathologic change. Placental disc ? mild Davey-Cristopher change. Intravillous and intervillous congestion. AM:phuong 11/19/2021 MICROSCOPIC DESCRIPTION Slides are reviewed. GROSS DESCRIPTION SPECIMEN: PLACENTA / CLINICAL INFORMATION: A. Weight: 3.45 kg B. Gestational Age: 38 weeks C. Sex: Male PLACENTAL WEIGHT (POST FIXATION): 548 gm PLACENTAL DIMENSIONS: 22 x 18 x 3.5 cm PLACENTAL SHAPE: Usual ovoid PLACENTAL WEIGHT FOR GESTATIONAL AGE: Over 99th percentile MEMBRANES - Present A. Insertion: Marginal B. Site of rupture from edge: 2 cm from edge of placental disc C. Color of membrane: Jimenez-sutherland D. Abnormalities: None UMBILICAL CORD - Present A. Color: Jimenez-sutherland B. Insertion: Paracentral C. Length: 61 cm D. Diameter: 1.3 cm E. Number of vessels: Three F. Abnormalities: None PLACENTAL DISC - Present A. Color of surface: Jimenez-sutherland B. surface abnormalities: None C. Maternal cotyledons: Intact with minimal tears D. Attached retro placental clot: No clot E. Cut surface: Dark red and spongy F. Lesions: None G. Separate clot: Absent SECTIONS SUBMITTED: 1. Membrane roll 2. Cord, maternal end 3. Cord, end 4. Placental disc, and maternal surfaces 5. Placental disc, and maternal surfaces 6. Placental disc, and maternal surfaces SJ:phuong 11/18/2021 TC:5 CPT: 32155
[2021-11-17] MEDS: Methylergonovine 0.2 MG/ML Ampul IM (09:45)
--- NOTE | 2021-11-17 10:32 | EX.PCM.OBRPT ---
Assessment & Plan (1) delivery delivered: (2) Gestational hypertension: QUALIFIERS: Trimester: third trimester Qualified Code(s): O13.3 - Gestational [-induced] hypertension without significant proteinuria, third trimester (3) Gestational diabetes: QUALIFIERS: Gestational diabetes mellitus control: insulin-controlled Trimester: third trimester Qualified Code(s): O24.414 - Gestational diabetes mellitus in , insulin controlled (4) 38 weeks gestation of : Details Operative Information Date of Procedure: 11/17/21 Pre-Operative Diagnosis: 1. 38 2/7 weeks gestational age 2. Gestational hypertension 3. Gestational diabetes, insulin controlled 4. Nonreassuring heart rate tracing 5. Maternal obesity Post-Operative Diagnosis: 1. 38 2/7 weeks gestational age 2. Gestational hypertension 3. Gestational diabetes, insulin controlled 4. Nonreassuring heart rate tracing 5. 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 Patient had progressed to 3 to 4 cm following misoprostol and amniotomy was performed with early meconium noted. The patient had a prolonged deceleration down to the 60s beats per minute shortly after her epidural was placed with associated maternal hypotension. She was brought to the operating room and found to be 9 cm with anterior lip, fetus at +1 station. With maternal pushing efforts she progressed to fully dilated and I advised vacuum assistance. Vacuum was placed at the flexion point. 1 pull was done with a pop-off and 2 additional pulls were done with no significant descent. I advised patient to proceed with emergent section with review of section risks and indication. Patient agreed to proceed. The patient was transferred to the OR bed and the abdominal retraction system applied, Gardner catheter was placed and the abdomen was prepped and draped in sterile fashion. The epidural was found to be adequate. A Pfannenstiel incision was made using a scalpel and brought down to incise the subcutaneous tissue and rectus fascia at the midline. Subcutaneous tissue was bluntly dissected off the fascia laterally. The fascial incision was dissected laterally and cephalad using curved Calvin scissors. The superior leaflet of the rectus fascia was grasped using Maxime clamps and bluntly dissected and sharply dissected from the underlying rectus muscle. In a similar fashion the inferior rectus fascia was dissected from the underlying muscle. The rectus muscles were bluntly at the midline. The peritoneum was identified and entered [sharply]. The bladder blade was placed into the abdomen and the vesicouterine peritoneal fold identified. The fold was incised and a bladder flap created. Bladder blade was then repositioned to the abdomen. A low transverse hysterotomy was made using the [Metzenbaum scissors] to level of the membranes. The hysterotomy was extended bluntly cephalad and caudad. The membranes were then ruptured revealing clear fluid. The head was elevated and brought to the level of the hysterotomy and the delivered revealing a [male] infant. The cord was doubly clamped and cut immediately. The was passed to awaiting [nursery personnel]. The placenta was [expressed] from the uterus and appeared intact on inspection. The uterus was exteriorized and cleared of debris. The hysterotomy was then repaired using 0 Vicryl running lock suture. A second imbricating layer was also placed for additional hemostasis. Additional bleeding from the hysterotomy was controlled by figure of eight 0 Vicryl suture and a horizontal mattress suture. The bladder blade was removed. The anterior cul-de-sac was cleared of debris. The peritoneum and rectus muscles were reapproximated using 2-0 Vicryl running suture. The rectus fascia was closed using 0 Stratafix running suture. The subcutaneous tissue was reapproximated using 2-0 Vicryl. The skin was closed using 4-0 Monocryl subcuticularly. A Mepilex occlusive dressing was placed over the incision. The fundus was firm. The patient was then transferred to the recovery room without complication. Sponge, instrument, and needle counts were correct ?2. Infant 3600g Cord ABG pH 6.94, pCO2 90.5, pO2 6, HCO3 20, Base excess -13 Cord VBG pH 7.02, pCO2 73.9, pO2 15, HCO3 19, Base excess -12 Presentation: Positive for Vertex Amniotic Membrane Rupture Type: Artificial Amniotic Fluid Description: Lightly stained meconium Placental Delivery Description: Expressed Placenta Disposition: [facility] Specimen(s) Sent to Pathology: Placenta Cord Vessel Description: 3 Vessels Cord Entanglement: Around neck x 1, loose Nuchal Cord Compression: Without compression Cord Gases: VBG Infant A Gender: Male (1 minute): 2 (5 minute): 8 Delayed Cord Clamping: No Complications Risks of Surgery Discussed w/Patient: Bleeding, Anesthesia Risks, Infection and Injury to surrounding structure(s) including bowel and bladder
[2021-11-17] MEDS: Oxytocin 30 units/NS 500 ml 30 UNITS/500 ML IV.SOLN 167 UNITS IV (11:07)
[2021-11-17] MEDS: Ketorolac 30 MG/ML Syringe IV ×3 (11:16→23:12)
[2021-11-17] MEDS: Acetaminophen 500 MG Tablet 1000 MG PO ×3 (11:16→23:12)
[2021-11-17 11:21] LABS: Bedside Glucose 169 mg/dL (74-106)
[2021-11-17 12:22] LABS: Pathology Specimen OB SEE PATHOLOGY REPORT
[2021-11-17] MEDS: Lactated Ringers 1,000 ML 100 ML IV (14:27)
[2021-11-17] MEDS: Cefazolin 1 GM/50 ML BAG IV (17:03)
[2021-11-17] MEDS: Enoxaparin 40 MG/0.4 ML Syringe SC (22:00)
[2021-11-17] MEDS: 0.9% Saline Lock 10 ML Syringe IV (23:11)
[2021-11-18 00:55] VITALS: BP 116/51; PULSE 92; RESP 16; TEMP 36.3; O2SAT 96
[2021-11-18] MEDS: Cefazolin 1 GM/50 ML BAG IV (02:23)
[2021-11-18] MEDS: 0.9% Saline Lock 10 ML Syringe IV ×2 (02:24→05:24)
[2021-11-18 04:44] VITALS: BP 147/72; PULSE 97; RESP 18; TEMP 36.3; O2SAT 95
[2021-11-18] MEDS: Acetaminophen 500 MG Tablet 1000 MG PO ×2 (05:24→11:01)
[2021-11-18] MEDS: Ketorolac 30 MG/ML Syringe IV (05:24)
[2021-11-18 06:26] LABS: Bedside Glucose 109 mg/dL (74-106)
[2021-11-18 06:36] LABS: Hematocrit 28.7 % (37-47); Hemoglobin 9.1 g/dL (12.0-15.0); Mean Corp Hgb Conc 31.7 g/dL (32-36); Mean Corpuscular Hgb 27.4 pg (27.0-32.0); Mean Corpuscular Volume 86.4 fL (81-99); Mean Platelet Vol. 11.1 fl (6.2-12.0); Platelet Count 203 K/mm3 (150-450); RBC Distribution Width CV 16.5 % (11.6-14.6); RBC Distribution Width SD 51.3 fl (35.1-43.9); Red Blood Count 3.32 M/mm3 (4.2-5.4); White Blood Count 8.9 K/mm3 (4.4-11.0)
--- NOTE | 2021-11-18 07:05 | PCM.DC.BLA ---
Discharge Summary Date of Admission: 11/16/21 Date of Discharge: 11/18/21 Summary: Patient arrived on 11/16/2021 for induction of labor at 38 weeks for gestational hypertension. Induction of labor pursued with prolonged deceleration noted to be near complete dilation vacuum-assisted vaginal delivery was attempted with multiple pop offs and decided for primary section on 11/17/21. Blood pressures nonsevere range. Pain well controlled. Patient with routine postoperative recovery. Discharge home on 11/18/2021 Meaningful Use Info Meaningful Use Diagnoses (Choose all that apply): None applicable Discharge Plan Admission Admit Date/Time: 11/16/21 20:50 Primary Reason for Your Visit: Induction of labor Attending Provider: Mallika Gold Primary Care Provider: Andra Lino Instructions Additional Instructions / Restrictions: Okay for regular diet. No lifting over 25 pounds for 2 to 3 weeks. No tub baths for 2 weeks. No intercourse for 4 to 6 weeks. Okay to shower. Follow-up 1 week for blood pressure check, 2 weeks for postoperative visit, 4 to 6 weeks Discharge Orders/Prescriptions Prescriptions: New oxycodone 5 mg Tablet 5 mg PO Q6H PRN PRN (Reason: Pain Score 7-10) 4 Days Qty: 16 RF: 0 Discontinued aspirin 81 mg tablet,delayed release (DR/EC) 81 mg PO DAILY RF: 0 28-800 mg-mcg Tablet PO DAILY RF: 0 valacyclovir [Valtrex] 1 gram Tablet 1,000 mg PO DAILY RF: 0 Levemir Flexpen 100 unit/mL (3 mL) Insulin Pen 35 unit SUBCUT QHS RF: 0 Referrals / Follow Up: Andra Lino DO [Primary Care Provider] - Disposition Disposition (needs filled in before D/C Order can be placed): Home, Self Care
--- NOTE | 2021-11-18 07:07 | PCM.PN.OB ---
Subjective Subjective No overnight complaints. Denies headache, visual changes, chest pain, shortness of breath, nausea vomiting, right upper quadrant pain. Objective Data Objective Data Vital Signs: Vital Signs Temp Pulse Resp BP Pulse Ox 97.4 F L 97 18 147/72 H 95 11/18/21 04:44 11/18/21 04:44 11/18/21 04:44 11/18/21 04:44 11/18/21 04:44 Oxygen Delivery Method Room Air Weight: 398 lb 6.4 oz Body Mass Index (BMI) 75.2 Intake & Output: Intake and Output for Last 24 Hours 11/16/21 11/17/21 11/18/21 23:59 23:59 23:59 Intake Total 2910.66 / 2910.66 50 / 50 Output Total 605 / 605 Balance 2305.66 / 2305.66 / Lab / Micro Data Result Diagrams: 11/18/21 06:20 11/16/21 19:45 Labs: Laboratory Results - last 24 hr 11/17/21 10:59: POC Glucose 169 H 11/18/21 06:08: POC Glucose 109 H 11/18/21 06:20: WBC 8.9, RBC 3.32 L, Hgb 9.1 L, Hct 28.7 L, MCV 86.4, MCH 27.4, MCHC 31.7 L, RDW Std Deviation 51.3 H, RDW Coeff of Zac 16.5 H, Plt Count 203, MPV 11.1 Micro: Microbiology 11/16/21 21:05 Nasal Secretion SARS-CoV-2 Antigen (Rapid) - Final Physical Exam Const alert, oriented x3, no apparent distress, average body habitus, healthy appearing and well nourished HEENT normocephalic and moist oral mucous membranes Head and Scalp: atraumatic Face and Sinus: normal facial exam Neck full ROM Resp normal respiratory effort, no retractions and no use of accessory muscles GI GI Narrative: Soft, nontender, bandage clean dry and intact Extremity normal to inspection, full ROM and no clubbing, cyanosis or edema Psych mental status grossly normal, affect normal, speech normal and activity/motor behavior normal Assessment & Plan (1) delivery delivered: PLAN: Postop day 1 status post primary section. Pain well controlled. Breast-feeding. Gestational hypertension, blood pressures nonsevere range and patient asymptomatic. Okay to discharge home if okay with asset protection associate
[2021-11-18 10:47] VITALS: BP 151/68; PULSE 88; RESP 18; TEMP 37.2; O2SAT 99
[2021-11-18] MEDS: Ibuprofen 600 MG Tablet PO (11:01)
[2021-11-18] MEDS: Enoxaparin 40 MG/0.4 ML Syringe SC (11:01)
[2021-11-18] MEDS: Senna/Docusate Sodium 1 Tablet PO (11:01)
[2021-11-18 14:35] LABS: Free T3 1.6 pg/mL (2.18-3.98); Thyroid Stim Hormone (TSH) 4.63 uIU/mL (0.358-3.74)
[2021-11-18 15:43] VITALS: BP 140/71; PULSE 92; RESP 18; TEMP 36.4
== END 2021-11-18 16:00 | disposition home or self-care (01) | DRG 788 ==
LOC: WPOUT 20:53 → WP 11-17 09:25
PROVIDERS: Admitting Provider Obstetrics & Gynecology; PCP Family Medicine; Visit Provider Obstetrics & Gynecology
DX: O13.4 Gestational [pregnancy-induced] hypertension without significant proteinuria, complicating childbirth (principal); O66.5 Attempted application of vacuum extractor and forceps; O24.424 Gestational diabetes mellitus in childbirth, insulin controlled; O76 Abnormality in fetal heart rate and rhythm complicating labor and delivery; O69.81X0 Labor and delivery complicated by cord around neck, without compression, not applicable or unspecified; O99.214 Obesity complicating childbirth; E66.9 Obesity, unspecified; O77.0 Labor and delivery complicated by meconium in amniotic fluid; Z20.822 Contact with and (suspected) exposure to COVID-19; Z79.82 Long term (current) use of aspirin; Z87.891 Personal history of nicotine dependence; Z3A.38 38 weeks gestation of pregnancy; Z37.0 Single live birth
CPT/HCPCS: 59025; 59050; 80053; 82570; 82962; 83615; 84156; 84439; 84443; 84481; 84550; 85025; 85027; 86850; 86900; 86901; 87426; 88307; 99218; J7120; A4216; G0378

== ENCOUNTER → 2021-12-21 | Outpatient (CLI) | payer BC, SELFPAY ==
[2021-12-23 21:07] LABS: Chlamydia By Nucleic Acid AMP Negative (Negative)
[2021-12-24 13:40] LABS: Gonococcus By Nucleic Acid AMP Negative (Negative)
== END | disposition home or self-care (01) ==
LOC: LABSPEC 12-22 10:03
PROVIDERS: PCP Family Medicine; Visit Provider Student in an Organized Health Care Education/Training Program
DX: Z11.3 Encounter for screening for infections with a predominantly sexual mode of transmission (principal)
CPT/HCPCS: 87491; 87591

== ENCOUNTER → 2022-01-04 | Outpatient (CLI) | payer BC, SELFPAY ==
[2022-01-04 11:24] LABS: Free T3 2.3 pg/mL (2.18-3.98); T4 Free Direct 0.86 ng/dL (0.76-1.46); Thyroid Stim Hormone (TSH) 1.57 uIU/mL (0.358-3.74)
[2022-01-04 13:30] LABS: Glucose 2 Hour Postprandial 134 mg/dL (<140)
== END | disposition home or self-care (01) ==
LOC: WOBLAB 09:11
PROVIDERS: PCP Family Medicine; Visit Provider Obstetrics & Gynecology
DX: E03.9 Hypothyroidism, unspecified (principal)
CPT/HCPCS: 36415; 82950; 84439; 84443; 84481

== ENCOUNTER → 2022-02-18 | Outpatient (CLI) | payer BC, SELFPAY ==
--- NOTE | 2022-02-18 08:46 | BI_ITS ---
MAMMOGRAPHY - BILATERAL SCREENING REASON FOR EXAM: Female, 36 years old. Routine annual screening examination. PERTINENT HISTORY: Grandmother with breast cancer . Aunt with breast cancer. TECHNIQUE: Digital bilateral breast den (3D mammographic acquisition) in the CC and MLO projections. 2-D mediolateral oblique (MLO) and craniocaudad (CC) views of both breasts were obtained. CAD: Full Field Digital Mammography with Computer Added Detection was performed. COMPARISON: Comparison is made with prior study dated 06/17/2020. FINDINGS: Breast Composition: The breasts are heterogeneously dense, which may obscure small masses. There are no dominant masses or suspicious calcifications. Since prior study, there has been progressive increase in the amount of breast tissue bilaterally. Small benign-appearing bilateral axillary lymph nodes. No other significant abnormalities are identified. BI/SCRN MAMM (CAD)W/DEN BILAT IMPRESSION: There has been an increase in the amount of breast tissues in both breasts as compared to prior study. Yearly follow-up mammogram recommended. (A) ASSESSMENT CATEGORY: BIRADS Category 2: Benign. A letter regarding these results will be sent to the patient by the facility within 30 days. Approximately 10% of breast cancers are not detected by mammography. A normal mammogram should not delay biopsy of a clinically suspicious abnormality. [id number] Electronically Signed: Riccardo Gamez MD at 9:49 EDT ,
== END | disposition home or self-care (01) ==
LOC: OPBI 08:44
PROVIDERS: PCP Family Medicine; Referring Provider Student in an Organized Health Care Education/Training Program; Visit Provider Student in an Organized Health Care Education/Training Program
DX: Z12.31 Encounter for screening mammogram for malignant neoplasm of breast (principal)
CPT/HCPCS: 77063; 77067

== ENCOUNTER → 2022-06-20 | Outpatient (CLI) | payer OTHER, SELFPAY ==
[2022-06-22 19:05] LABS: Cancer Antigen 125 17.6 U/mL (0.0-38.1)
== END | disposition home or self-care (01) ==
LOC: WOBLAB 15:00
PROVIDERS: PCP Family Medicine; Visit Provider Student in an Organized Health Care Education/Training Program
DX: Z15.01 Genetic susceptibility to malignant neoplasm of breast (principal)
CPT/HCPCS: 86304

== ENCOUNTER → 2022-06-24 | Outpatient (CLI) | payer OTHER, SELFPAY ==
[2022-06-24 15:35] LABS: Free T3 2.3 pg/mL (2.18-3.98); T4 Free Direct 1.24 ng/dL (0.76-1.46); Thyroid Stim Hormone (TSH) 1.03 uIU/mL (0.358-3.74)
[2022-06-28 13:39] LABS: Anti-Thyroglobulin AB < 1.0 IU/mL (0.0-0.9); Thyroglobulin, Serum Qt. 5.9 ng/mL (1.5-38.5); Thyroid Peroxidase AB 10 IU/mL (0-34)
== END | disposition home or self-care (01) ==
LOC: BFHLAB 11:41
PROVIDERS: PCP Family Medicine; Visit Provider Family Medicine
DX: E03.9 Hypothyroidism, unspecified (principal)
CPT/HCPCS: 36415; 84432; 84439; 84443; 84481; 86376; 86800

== ENCOUNTER → 2022-12-23 | Outpatient (CLI) | payer OTHER, SELFPAY | END | disposition home or self-care (01) | LOC: MRI 13:18 | PROVIDERS: PCP Family Medicine; Referring Provider Student in an Organized Health Care Education/Training Program; Visit Provider Student in an Organized Health Care Education/Training Program | DX: R92.2 Inconclusive mammogram (principal); Z15.01 Genetic susceptibility to malignant neoplasm of breast ==

== ENCOUNTER → 2023-02-02 | Outpatient (CLI) | payer OTHER, SELFPAY ==
[2023-02-02 13:48] LABS: Hepatitis C Antibody REACTIVE (Nonreactive)
[2023-02-07 13:08] LABS: HCV Quant. RNA PCR HCV Not Detected IU/mL (.)
== END | disposition home or self-care (01) ==
LOC: LAB 11:55
PROVIDERS: PCP Family Medicine; Referring Provider Internal Medicine Gastroenterology; Visit Provider Internal Medicine Gastroenterology
DX: R76.8 Other specified abnormal immunological findings in serum (principal)
CPT/HCPCS: 36415; 86803; 87522; 87902

== ENCOUNTER → 2023-02-13 | Outpatient (CLI) | payer OTHER, SELFPAY ==
[2023-02-14 04:07] LABS: Cancer Antigen 125 17.1 U/mL (0.0-38.1)
== END | disposition home or self-care (01) ==
LOC: WOBLAB 10:32
PROVIDERS: PCP Family Medicine; Visit Provider Student in an Organized Health Care Education/Training Program
DX: Z15.01 Genetic susceptibility to malignant neoplasm of breast (principal); Z15.02 Genetic susceptibility to malignant neoplasm of ovary
CPT/HCPCS: 36415; 86304

== ENCOUNTER → 2023-03-09 | Outpatient (CLI) | payer OTHER, SELFPAY ==
--- NOTE | 2023-03-09 07:55 | US_ITS ---
STUDY: ABDOMINAL ULTRASOUND - RIGHT UPPER QUADRANT; ELASTOGRAPHY REASON FOR VISIT: Female, 37 years old. Fatty infiltration of the liver. TECHNIQUE: Ultrasound evaluation of the right upper quadrant was performed with real-time and static sutherland-scale imaging. Point quantification shear wave elastography was performed ([employer]). TECHNICAL QUALITY: Adequate. COMPARISON: None. FINDINGS: Liver: The liver is enlarged and measures 19.9 cm. There is increased echogenicity consistent with fatty infiltration. The bile ducts are within normal limits. There is hepatic color flow. The direction of portal flow is hepatopetal. There is no demonstrated mass lesion. Median liver stiffness measured 11.6 kPa. Gallbladder: Normal distended gallbladder. The gallbladder wall measures 3 mm. There is a negative sonographic Davis''s sign. There is no pericholecystic fluid. There are multiple echogenic structures within the gallbladder, consistent with multiple gallstones. Common Bile Duct (C.B.D.): The common bile duct measures 4 mm. Pancreas: There is normal echogenicity of the visualized pancreas. There is no demonstrated pancreatic mass or cyst. Right Kidney: Normal size of the right kidney. The right kidney measures 12.6 cm x 6.1 cm x 3.9 cm. Normal renal cortex. The right cortex measures 1.7 cm. There is no demonstrated renal mass or cyst. There is no right hydronephrosis. US/ABD Limited w/ Elastography IMPRESSION: 1. Liver stiffness measures 11.6 kPa compatible with F2-F3 (Mild to moderate liver fibrosis) Metavir score. Electronically Signed: Riccardo Gamez MD at 12:21 EDT ,
--- NOTE | 2023-03-09 09:45 | BI_ITS ---
MAMMOGRAPHY - BILATERAL SCREENING REASON FOR EXAM: Female, 37 years old. Routine annual screening examination. PERTINENT HISTORY: Grandmother with breast cancer. Aunt with breast cancer. TECHNIQUE: Digital bilateral breast den (3D mammographic acquisition) in the CC and MLO projections. 2-D mediolateral oblique (MLO) and craniocaudad (CC) views of both breasts were obtained. CAD: Full Field Digital Mammography with Computer Added Detection was performed. COMPARISON: Comparison is made with prior study dated February 18, 2022 and June 17, 2020. FINDINGS: Breast Composition: There are scattered areas of fibroglandular density. There are no dominant masses or suspicious calcifications. No other significant abnormalities are identified. There has been no significant change since the prior study. BI/SCRN MAMM (CAD)W/DEN BILAT IMPRESSION: Stable bilateral screening mammogram. Yearly follow-up mammogram recommended. (A) ASSESSMENT CATEGORY: BIRADS Category 1: Negative. A letter regarding these results will be sent to the patient by the facility within 30 days. Approximately 10% of breast cancers are not detected by mammography. A normal mammogram should not delay biopsy of a clinically suspicious abnormality. [id number] Electronically Signed: Riccardo Gamez MD at 10:53 EDT ,
== END | disposition home or self-care (01) ==
PROVIDERS: PCP Family Medicine; Referring Provider Internal Medicine Gastroenterology; Visit Provider Student in an Organized Health Care Education/Training Program
DX: Z12.31 Encounter for screening mammogram for malignant neoplasm of breast (principal); K76.0 Fatty (change of) liver, not elsewhere classified
CPT/HCPCS: 76705; 76981; 77063; 77067

== ENCOUNTER → 2023-05-17 | Outpatient (CLI) | payer OTHER, SELFPAY | END | disposition home or self-care (01) | LOC: SL 20:00 | PROVIDERS: PCP Family Medicine; Referring Provider Family Medicine; Visit Provider Family Medicine | DX: G47.10 Hypersomnia, unspecified (principal); R53.83 Other fatigue; E66.9 Obesity, unspecified | CPT/HCPCS: 95810 ==

== ENCOUNTER → 2023-06-07 | Outpatient (CLI) | payer OTHER, SELFPAY | END | disposition home or self-care (01) | LOC: SL 12:26 | PROVIDERS: PCP Family Medicine; Visit Provider Family Medicine | DX: Z00.00 Encounter for general adult medical examination without abnormal findings (principal) ==

== ENCOUNTER → 2023-07-13 | Outpatient (CLI) | payer OTHER, SELFPAY ==
[2023-07-13 17:16] LABS: Absolute Lymphocyte Count 2.89 X10^3/uL (0.83-4.51); Absolute Neutrophil Count 3.9 X10^3/uL (2.0-7.7); Basophil# 0.03 X10^3/uL; Basophil% 0.4 % (0-1); Eosinophil# 0.01 X10^3/uL; Eosinophils% 0.1 % (0-5); Hematocrit 42.4 % (37-47); Hemoglobin 13.4 g/dL (12.0-15.0); Lymphocyte # 2.89 X10^3/ul (0.83-4.51); Lymphocyte % 38.3 % (19-41); Mean Corp Hgb Conc 31.6 g/dL (32-36); Mean Corpuscular Hgb 27.6 pg (27.0-32.0); Mean Corpuscular Volume 87.4 fL (81-99); Mean Platelet Vol. 10.9 fl (6.2-12.0); Monocyte# 0.66 X10^3/uL; Monocyte% 8.8 % (0-10); NRBC Flagged by Analyzer 0 % (0-5); Neutrophil # 3.92 X10^3/uL (2.7-7.7); Platelet Count 327 K/mm3 (150-450); RBC Distribution Width CV 14.1 % (11.6-14.6); RBC Distribution Width SD 44.9 fl (35.1-43.9); Red Blood Count 4.85 M/mm3 (4.2-5.4); White Blood Count 7.5 K/mm3 (4.4-11.0)
[2023-07-13 17:41] LABS: Erythrocyte Sedimentation Rate 34 mm/hr (0-30)
[2023-07-13 17:47] LABS: International Normalized Ratio 1.1; Prothrombin Time (Protime)PT. 13.9 SECONDS (11.7-14.9)
[2023-07-13 17:51] LABS: ALB/GLOB Ratio 0.7 RATIO (0.9-2.4); AST(SGOT) 28 U/L (15-37); Alanine Aminotransfer ALT/SGPT 42 U/L (13-56); Albumin, Serum 3.5 g/dL (3.2-5.0); Alkaline Phosphatase 75 U/L (45-117); Anion Gap 5 (5-15); BUN 15 mg/dL (7-18); BUN/Creat Ratio 18.9 RATIO (10-20); Calcium,Total 8.9 mg/dL (8.5-10.1); Chloride 104 mmol/L (98-107); Cholesterol 209 mg/dL (200); Creatinine, Serum 0.79 mg/dL (0.55-1.02); EST Glomerular Filtration Rate 87 mL/min (>60); Est Glom Filt Rate - Afr Amer 105 mL/min (>60); Ferritin 33 ng/mL (8-252); Globulin 4.8 g/dL (2.2-4.2); Glucose 94 mg/dL (74-106); High Density Lipoprotein 41 mg/dL; Iron Binding Capacity,Total 357 ug/dL (250-450); LDH 241 U/L (84-246); Potassium 3.9 mmol/L (3.5-5.1); Protein, Total 8.3 g/dL (6.4-8.2); Sodium Level 138 mmol/L (136-145); Triglycerides 176 mg/dL; Very Low Density Lipoprotein 35 mg/dL (5-40)
[2023-07-13 17:53] LABS: Hemoglobin A1c 5.6 % (3.8-5.6)
[2023-07-13 18:19] LABS: HIV - WCH Non-Reactive (Nonreactive)
[2023-07-17 14:08] LABS: Anti-Centromere B Ab <0.2 AI (0.0-0.9); Anti-Chromatin <0.2 AI (0.0-0.9); Anti-Jo <0.2 AI (0.0-0.9); Anti-Mitochondrial AB <20.0 Units (0.0-20.0); Anti-Scleroderma-70 AB <0.2 AI (0.0-0.9); Anti-dsDNA Ab <1 IU/mL (0-9); RNP Ab <0.2 AI (0.0-0.9); SJOGREN'S Anti-SS-A test < 0.2 AI (0.0-0.9); SJOGREN'S Anti-SS-B test < 0.2 AI (0.0-0.9); Smith Ab <0.2 AI (0.0-0.9)
== END | disposition home or self-care (01) ==
LOC: LAB 15:36
PROVIDERS: PCP Family Medicine; Referring Provider Internal Medicine Gastroenterology; Visit Provider Internal Medicine Gastroenterology
DX: K76.9 Liver disease, unspecified (principal)
CPT/HCPCS: 36415; 80053; 80061; 80074; 82105; 82140; 82164; 82390; 82525; 82728; 83010; 83036; 83516; 83550; 83615; 84466; 85025; 85610; 85652; 86140; 86225; 86235; 86256; 86703

== ENCOUNTER → 2024-03-11 | Outpatient (CLI) | payer OTHER, SELFPAY ==
--- NOTE | 2024-03-11 08:10 | BI_ITS ---
MAMMOGRAPHY - BILATERAL SCREENING REASON FOR EXAM: Female, 38 years old. Routine annual screening examination. PERTINENT HISTORY: Mother with breast cancer. Grandmother with breast cancer. Aunt with breast cancer. The patient is BRCA positive. TECHNIQUE: Digital bilateral breast den (3D mammographic acquisition) in the CC and MLO projections. 2-D mediolateral oblique (MLO) and craniocaudad (CC) views of both breasts were obtained. CAD: Full Field Digital Mammography with Computer Added Detection was performed. COMPARISON: Comparison is made with prior study dated March 09, 2023 and February 18, 2022. FINDINGS: Breast Composition: There are scattered areas of fibroglandular density. There are no dominant masses or suspicious calcifications. No other significant abnormalities are identified. There has been no significant change since the prior study. BI/SCRN MAMM (CAD)W/DEN BILAT IMPRESSION: Stable bilateral screening mammogram. Yearly follow-up mammogram recommended. (A) ASSESSMENT CATEGORY: BIRADS Category 1: Negative. A letter regarding these results will be sent to the patient by the facility within 30 days. Approximately 10% of breast cancers are not detected by mammography. A normal mammogram should not delay biopsy of a clinically suspicious abnormality. [id number] Electronically Signed: Riccardo Gamez MD at 10:06 EDT ,
== END | disposition home or self-care (01) ==
LOC: OPBI 08:08
PROVIDERS: PCP Family Medicine; Referring Provider Nurse Practitioner Family; Visit Provider Nurse Practitioner Family
DX: Z12.31 Encounter for screening mammogram for malignant neoplasm of breast (principal); Z80.3 Family history of malignant neoplasm of breast
CPT/HCPCS: 77063; 77067

== ENCOUNTER → 2024-04-18 | Outpatient (CLI) | payer OTHER, SELFPAY ==
--- NOTE | 2024-04-18 08:23 | US_ITS ---
STUDY: ABDOMINAL ULTRASOUND - RIGHT UPPER QUADRANT; ELASTOGRAPHY REASON FOR VISIT: Female, 38 years old. NAFL D TECHNIQUE: Ultrasound evaluation of the right upper quadrant was performed with real-time and static sutherland-scale imaging. Point quantification shear wave elastography was performed ([employer]). TECHNICAL QUALITY: Limited. Examination limited due to obesity. COMPARISON: Comparison is made with prior study dated March 09, 2023. FINDINGS: Liver: The liver is enlarged and measures 20 cm. There is increased echogenicity consistent with fatty infiltration. The bile ducts are within normal limits. There is hepatic color flow. The direction of portal flow is hepatopetal. There is no demonstrated mass lesion. Median liver stiffness measured 6.8 kPa. Gallbladder: Normal distended gallbladder. The gallbladder wall measures 1.9 mm. There is a negative sonographic Davis''s sign. There is no pericholecystic fluid. There are multiple echogenic structures within the gallbladder, consistent with multiple gallstones. Common Bile Duct (C.B.D.): The common bile duct measures 3.2 mm. Pancreas: There is normal echogenicity of the visualized pancreas. There is no demonstrated pancreatic mass or cyst. Right Kidney: Normal size of the right kidney. The right kidney measures 12.2 cm x 5.6 cm x 4 cm. Normal renal cortex. The right cortex measures 1.4 cm. There is no demonstrated renal mass or cyst. There is no right hydronephrosis. US/ABD Limited w/ Elastography IMPRESSION: 1. Liver stiffness measures 6.8 kPa compatible with F2-F3 (Mild to moderate liver fibrosis) Metavir score. Electronically Signed: Riccardo Gamez MD at 11:11 EDT ,
[2024-04-18 09:09] LABS: Absolute Lymphocyte Count 2.37 X10^3/uL (0.83-4.51); Absolute Neutrophil Count 5.3 X10^3/uL (2.0-7.7); Basophil# 0.04 X10^3/uL; Basophil% 0.5 % (0-1); Eosinophil# 0.06 X10^3/uL; Eosinophils% 0.7 % (0-5); Hematocrit 38.6 % (37-47); Hemoglobin 12.2 g/dL (12.0-15.0); Lymphocyte # 2.37 X10^3/ul (0.83-4.51); Lymphocyte % 28.1 % (19-41); Mean Corp Hgb Conc 31.6 g/dL (32-36); Mean Corpuscular Volume 88.5 fL (81-99); Mean Platelet Vol. 11.1 fl (6.2-12.0); Monocyte# 0.58 X10^3/uL; Monocyte% 6.9 % (0-10); NRBC Flagged by Analyzer 0 % (0-5); Neutrophil # 5.33 X10^3/uL (2.7-7.7); Neutrophil % 63.1 % (47-70); Platelet Count 315 K/mm3 (150-450); RBC Distribution Width CV 13.8 % (11.6-14.6); RBC Distribution Width SD 44.3 fl (35.1-43.9); Red Blood Count 4.36 M/mm3 (4.2-5.4); White Blood Count 8.4 K/mm3 (4.4-11.0)
[2024-04-18 09:31] LABS: Vitamin D,25 Hydroxy 30.8 ng/mL
[2024-04-18 09:40] LABS: ALB/GLOB Ratio 0.7 RATIO (0.9-2.4); AST(SGOT) 17 U/L (15-37); Alanine Aminotransfer ALT/SGPT 27 U/L (13-56); Albumin, Serum 3.1 g/dL (3.2-5.0); Alkaline Phosphatase 73 U/L (45-117); Anion Gap 7 (5-15); BUN 12 mg/dL (7-18); BUN/Creat Ratio 15.6 RATIO (10-20); Calcium,Total 9.1 mg/dL (8.5-10.1); Chloride 108 mmol/L (98-107); Cholesterol 199 mg/dL (200); Creatinine, Serum 0.77 mg/dL (0.55-1.02); EST Glomerular Filtration Rate 90 mL/min (>60); Est Glom Filt Rate - Afr Amer 109 mL/min (>60); Globulin 4.6 g/dL (2.2-4.2); Glucose 109 mg/dL (74-106); High Density Lipoprotein 44 mg/dL; Potassium 3.7 mmol/L (3.5-5.1); Protein, Total 7.7 g/dL (6.4-8.2); Sodium Level 139 mmol/L (136-145); T4 Free Direct 1.08 ng/dL (0.76-1.46); Triglycerides 94 mg/dL; Very Low Density Lipoprotein 19 mg/dL (5-40)
[2024-04-18 10:12] LABS: Hemoglobin A1c 5.2 % (3.8-5.6)
[2024-04-19 14:09] LABS: ANTINUCLEAR ANTIBODIES DIRECT Negative (Negative)
[2024-04-21 01:06] LABS: Ceruloplasmin 35.9 mg/dL (19.0-39.0); Copper, Serum or Plasma 143 ug/dL (80-158); Haptoglobin 355 mg/dL (33-278)
== END | disposition home or self-care (01) ==
PROVIDERS: PCP Family Medicine; Referring Provider Internal Medicine; Visit Provider Internal Medicine
DX: K76.0 Fatty (change of) liver, not elsewhere classified (principal)
CPT/HCPCS: 36415; 76705; 76981; 80053; 80061; 82306; 82390; 82525; 83010; 83036; 84439; 84443; 85025; 86038; 86140; 86225; 86235

== ENCOUNTER → 2024-09-20 | Outpatient (CLI) | payer BC, SELFPAY ==
[2024-09-20 08:51] LABS: Absolute Neutrophil Count 6.2 X10^3/uL (2.0-7.7); Basophil# 0.04 X10^3/uL; Basophil% 0.4 % (0-1); Eosinophil# 0.03 X10^3/uL; Eosinophils% 0.3 % (0-5); Hematocrit 42.8 % (37-47); Hemoglobin 13.5 g/dL (12.0-15.0); Lymphocyte % 24.7 % (19-41); Mean Corp Hgb Conc 31.5 g/dL (32-36); Mean Corpuscular Hgb 27.9 pg (27.0-32.0); Mean Corpuscular Volume 88.4 fL (81-99); Mean Platelet Vol. 10.6 fl (6.2-12.0); Monocyte# 0.69 X10^3/uL; Monocyte% 7.4 % (0-10); NRBC Flagged by Analyzer 0 % (0-5); Neutrophil # 6.19 X10^3/uL (2.7-7.7); Neutrophil % 66.6 % (47-70); Platelet Count 351 K/mm3 (150-450); RBC Distribution Width CV 13.7 % (11.6-14.6); RBC Distribution Width SD 44.2 fl (35.1-43.9); Red Blood Count 4.84 M/mm3 (4.2-5.4); White Blood Count 9.3 K/mm3 (4.4-11.0)
[2024-09-20 09:12] LABS: International Normalized Ratio 1.1
[2024-09-20 10:06] LABS: ALB/GLOB Ratio 0.7 RATIO (0.9-2.4); AST(SGOT) 22 U/L (15-37); Alanine Aminotransfer ALT/SGPT 31 U/L (13-56); Albumin, Serum 3.5 g/dL (3.2-5.0); Alkaline Phosphatase 75 U/L (45-117); Anion Gap 7 (5-15); BUN 21 mg/dL (7-18); BUN/Creat Ratio 24.6 RATIO (10-20); Calcium,Total 9.6 mg/dL (8.5-10.1); Chloride 107 mmol/L (98-107); Creatinine, Serum 0.85 mg/dL (0.55-1.02); EST Glomerular Filtration Rate 79 mL/min (>60); Est Glom Filt Rate - Afr Amer 96 mL/min (>60); Glucose 94 mg/dL (74-106); Potassium 4.3 mmol/L (3.5-5.1); Protein, Total 8.5 g/dL (6.4-8.2); Sodium Level 139 mmol/L (136-145)
== END | disposition home or self-care (01) ==
LOC: LAB 08:31
PROVIDERS: PCP Family Medicine; Referring Provider Internal Medicine; Visit Provider Internal Medicine
DX: K76.0 Fatty (change of) liver, not elsewhere classified (principal)
CPT/HCPCS: 36415; 80053; 85025; 85610; 86140

== ENCOUNTER → 2025-03-18 | Outpatient (CLI) | payer BC, SELFPAY ==
--- NOTE | 2025-03-18 11:52 | BI_ITS ---
EXAM: SCRN MAMM (CAD)W/DEN BILAT DATE: 03/18/2025 CLINICAL HISTORY: F, Age 39 y/o , SCREENING Mother with breast cancer. Grandmother with breast cancer. Aunt with breast cancer. The patient is BRCA positive. TECHNIQUE: SCRN MAMM (CAD)W/DEN BILAT COMPARISON: Prior exam(s) dated prior study dated March 11, 2024.. FINDINGS: TISSUE DENSITY: There are scattered areas of fibroglandular density. Bilateral Breast Mammographic Findings: No significant masses, calcifications or other abnormalities are identified. No suspicious masses, areas of developing architectural distortion, or suspicious calcifications. There has been no significant interval change. BI/SCRN MAMM (CAD)W/DEN BILAT IMPRESSION: Stable examination. OVERALL FINAL ASSESSMENT BI-RADS 1: NEGATIVE. RECOMMENDATION: Routine annual follow-up in 1 Year A letter with findings and recommendations will be mailed to the patient. Reading Location: [facility]
== END | disposition home or self-care (01) ==
LOC: OPBI 11:50
PROVIDERS: PCP Family Medicine; Referring Provider Obstetrics & Gynecology; Visit Provider Obstetrics & Gynecology
DX: Z12.31 Encounter for screening mammogram for malignant neoplasm of breast (principal); Z80.3 Family history of malignant neoplasm of breast
CPT/HCPCS: 77063; 77067

== ENCOUNTER → 2025-04-05 | Outpatient (CLI) | payer BC, SELFPAY ==
--- OUTSIDE RECORDS SUMMARY | 2025-04-05 10:13 | XMS RPT_ITS | CCD ---
Author Organization [facility] Care Team Providers Care Server Assistant Name Role Phone Provider, External Unavailable Charisse Milner Unavailable Andra Lino Primary Care Provider [phone] Zoie, Dr. Silverman Primary Care Provider Zoie, Dr. Silverman Referring Provider [phone] Michael SHOTGUN SHELL ASSEMBLY MACHINE OPERATOR, SHOTGUN SHELL ASSEMBLY MACHINE OPERATOR-C Jade Attending Provider [phone] Alexandra Attending Provider [phone] Dr. Andra Lino Primary Care Provider [phone] Zoie, Dr. Silverman Referring Provider [phone] Ibrahima Bansal Attending Provider [phone] Zoie, Dr. Silverman Primary Care Provider Zoie, Dr. Silverman Referring Provider FriendDr. Alexandra Attending Provider Unavailable Primary Care Provider Unavailabl e Unavailable Primary Care Provider Unavailabl e PROVIDER, UNKNOWN Referring Unavailable PROVIDER, UNKNOWN Referring Unavailable ASTON MENESES Attending Unavailable ASTON MENESES Attending Unavailable ASTON MENESES Attending Unavailable ASTON MENESES Attending Unavailable JOCELIN CONLEY Attending Unavailable CHARISSE VERGARA Attending Unavailable JOCELIN CONLEY Attending Unavailable VIDHI SAEZ Attending Unavailable VIDHI SAEZ Attending Unavailable TOM CAROLINA Attending Unavailable Dr. Andra Lino DO Primary Care Provider Assessment, Health Risk Attending Provider Unava ilable Assessment, Health Risk Referring Provider Unava ilable Jai HERNANDEZ, Dr. Mcqueen Attending Provider Dr. Charisse Vergara MD Referring Provider [phone] Miguel Sy Attending Unavailable Yossi, Miguel Referring Unavailable Malys, Andra Primary Care Unavailable Assessment, Health Risk Attending Unavaila ble Assessment, Health Risk Referring Unavaila ble Malys, Andra Primary Care Unavailable Assessment, Health Risk Attending Unavaila ble Assessment, Health Risk Referring Unavaila ble Malys, Andra Primary Care Unavailable Yossi, Miguel Referring Unavailable Yossi, Miguel Attending Unavailable Malys, Andra Primary Care Unavailable Malys, Andra Primary Care Unavailable Malys, Andra Referring Unavailable Yossi, Miguel Attending Unavailable Malys, Andra Primary Care Unavailable Malys, Andra Referring Unavailable Yossi, Miguel Attending Unavailable Yossi, Migule Referring Unavailable Malys, Andra Primary Care Unavailable Yossi, Miguel Attending Unavailable Charisse Vergara Referring Unavailable Malys, Andra Primary Care Unavailable Charisse Vergara Attending Unavailable Medications Current Medications Medication Drug Class(es) Dates Sig (Normalized) Sig (Original) cholecalciferol 0.25 mg oral capsule (12 sources) Vitamin D Start: 09-26-2024 take 1 capsule by mouth once daily Cholecalciferol (Vitamin D3) 250 mcg (10,000 unit) capsule Active 1000 U PO daily 30 0 September 26, 2024 9:32am Start: 09-26-2024 End: 09-26-2024 take 1 capsule by mouth once daily Cholecalciferol (Vitamin D3) 25 mcg (1,000 unit) capsule Discontinued 1000 U PO daily September 26, 2024 9:15am September 26, 2024 9:33am Start: 04-23-2024 End: 09-26-2024 take 1 capsule by mouth once daily Cholecalciferol (Vitamin D3) 25 mcg (1,000 unit) capsule Discontinued 25 ug PO daily April 23, 2024 12:00am September 26, 2024 9:29am Start: 10-23-2023 End: 10-08-2024 Cholecalciferol, Vitamin D3, (D3-2000) 50 mcg (2,000 unit) cap 10/23/2023 10/08/2024 Discontinued cholecalciferol, vitD3,/vit K2 (VITAMIN D3-VITAMIN K2) 250 mcg (10,000 unit)-45 mcg cap (2 sources) cholecalciferol, vitD3,/vit K2 (VITAMIN D3-VITAMIN K2) 250 mcg (10,000 unit)-45 mcg cap Active ferrous sulfate 325 mg oral tablet (1 source) Start: take 1 tablet by mouth once daily Ferrous Sulfate 325 mg (65 mg iron) tablet Active 325 mg PO daily September 26, 2024 1:00am iron bg/vit C/vit B12/folic ac (IRON BIS GLYCINAT-VIT C-B12-FA ORAL) (2 sources) iron bg/vit C/vi t B12/folic ac (IRON BIS GLYCINAT-VIT C-B12-FA ORAL) Active levonorgestrel 0.605373 mg/hr intrauterine system (15 sources) Progestin, Progestin-containin g Intrauterine Device levonorgestrel (LILETTA) 20.4 mcg/24 hrs (8 yrs) 52 mg IUD by INTRAUTERINE route. Active Comment on above: by INTRAUTERINE rout e. multivitamin/iron/folic acid (CENTRUM WOMEN ORAL) (9 sources) Start: End: multivitamin/iron/folic acid (CENTRUM WOMEN ORAL) 10/01/2023 10/08/2024 Discontinued Start: 10-01-2023 multivitamin/i wayne/folic acid (CENTRUM WOMEN ORAL) OZEMPIC 2 mg/dose (8 mg/3 mL) pen injector (2 sources) inject 2 mg by subcutaneous injection every week OZEMPIC 2 mg/dose (8 mg/3 mL) pen injector Inject 2 mg subcutaneously one time a week. Active psyllium seed, with sugar, (FIBER ORAL) (2 sources) psyllium seed, w ith sugar, (FIBER ORAL) Take by mouth. Active 0.25 mg, 0.5 mg dose 1.5 ml semaglutide 1.34 mg/ml pen injector (12 sources) End: semaglutide (OZEMPIC) 0.25 mg or 0.5 mg(2 mg/1.5 mL) pen Inject 0.25 mg subcutaneously one time a week. 10/08/2024 Discontinued Comment on above: Inject 0.25 mg subcu taneously one time a week. Semaglutide (2 sources) Start: 02-13-2 025 Semaglutide (Ozempic) 0.25 mg or 0.5 mg (2 mg/3 mL) pen injector Active 2 mg SC EVERY WEEK September 26, 2024 9:32am for 4 weeks Start: 04-23-2024 End: 09-26-2024 Semaglutide (Ozempic) 0.25 m g or 0.5 mg (2 mg/3 mL) pen injector Discontinued 0.25 mg SC EVERY WEEK April 23, 2024 12:00am September 26, 2024 9:33am for 4 weeks Completed/Discontinued Medications Medication Drug Class(es) Dates Sig (Normalized) Sig (Original) aspirin 81 mg delayed release oral tablet (13 sources) Platelet Aggregation Inhibitor, Nonsteroidal Anti-inflammatory Drug Start: 07-03-2021 End: 11-18-2021 take 1 tablet by mouth once daily Aspirin 81 mg tablet,delayed release (DR/EC) Discontinued 81 mg PO DAILY July 03, 2021 1:00am November 18, 2021 7:02am guaiFENesin 20 mg/ml oral solution (13 sources) Start: 09-10-2014 End: 09-20-2017 take 1 mL by mouth every four hours as needed for cough Guaifenesin 10 ML liquid Discontinued 10 mL PO EVERY 4 HOURS NEEDED as needed for Cough September 10, 2014 1:00am September 20, 2017 7:42am Start: 09-10-2014 End: 09-20-2017 take 1 mL by mouth every four hours as needed Guaifenesin Discontinued 10 ML PO EVERY 4 HOURS NEEDED September 10, 2014 12:00am September 20, 2017 6:42am hydrocortisone 10 mg/ml / neomycin 3.5 mg/ml / polymyxin b [id number] unt/ml otic suspension (13 sources) Aminoglycoside Antibacterial, Polymyxin-class Antibacterial, Corticosteroid Start: 05-28-2019 End: 06-08-2019 Fknwibvl-Zawrlamoz-Zr 3.5-10,000-1 mg/mL-unit/mL-% drops,suspension Discontinued 3 NMA OTIC Q4H 10 10 0 May 28, 2019 12:00am June 06, 2019 12:00am June 08, 2019 12:08am Diffuse otitis externa, right ear apply to (cotton) wick; replace wick every 24 hours Start: 05-28-2019 End: 06-08-2019 Llhffjkv-Xgsaxgumw-No Discon tinued 3 DRP OTIC Q4H 10 May 27, 2019 11:00pm June 07, 2019 11:08pm apply to (cotton) wick; replace wick every 24 hours 3 ml insulin detemir 100 unt/ml pen injector (11 sources) Insulin Analog Start: 11-12-2021 End: 11-18-2021 Insulin Detemir U-100 (Levemir Flexpen) 100 unit/mL (3 mL) Insulin Pen Discontinued 35 U SC AT BEDTIME November 12, 2021 12:00am November 18, 2021 7:02am GDM 2 levothyroxine sodium 0.088 mg oral capsule (8 sources) l-Thyroxine Start: 12-31-2021 End: 04-23-2024 take 1 capsule by mouth once daily Levothyroxine 88 mcg capsule Discontinued 88 ug PO DAILY December 31, 2021 12:00am April 23, 2024 9:59am metFORMIN hydrochloride 500 mg oral tablet (14 sources) Biguanide Start: 11-27-2023 End: 02-26-2025 take 1 tablet by mouth twice daily Metformin 500 mg tablet Discontinued 500 mg PO TWICE A DAY 180 90 1 May 03, 2024 7:33am September 26, 2024 9:38am naproxen 250 mg oral tablet (13 sources) Nonsteroidal Anti-inflammatory Drug Start: 09-12-2014 End: 09-20-2017 take 250-500 mg by mouth every eight hours as needed for pain Naproxen 250 MG tablet Discontinued 250 - 500 mg PO EVERY 8 HOURS NEEDED as needed for MILD PAIN (1-3/10) 40 1 September 12, 2014 1:00am September 20, 2017 7:41am oxyCODONE hydrochloride 5 mg oral tablet (20 sources) Opioid Agonist Start: 11-18-2021 End: 09-26-2024 take 1 tablet by mouth every six hours as needed for pain Oxycodone 5 mg Tablet Discontinued 5 mg PO EVERY 6 HOURS NEEDED as needed for Pain Score 7-10 16 4 0 November 18, 2021 September 26, 2024 9:03am Acute postoperative pain Other acute postprocedural pain Start: 09-12-2014 End: 09-20-2017 take 5-10 mg by mouth every four hours as needed for pain Oxycodone 5 MG tablet Discontinued 5 - 10 mg PO EVERY 4 HOURS NEEDED as needed for MODERATE PAIN (4-5/10) 20 0 September 12, 2014 1:00am September 20, 2017 7:41am Iud452-Drftzxa Fumarate-Fa () 28-800 mg-mcg Tablet (11 sources) Start: 11-12-2021 End: 11-18-2021 take 1 tablet by mouth once daily Fmo306-Xarfblb Fumarate-Fa () 28-800 mg-mcg Tablet Discontinued TABLET PO DAILY November 12, 2021 4:58pm November 18, 2021 7:03am Start: 11-12-2021 Mqb330-Lfetfry Fumarate-Fa () 28-800 mg-mcg Tablet Active TABLET PO November 12, 2021 4:58pm Start: 11-12-2021 End: 11-18-2021 Jpd474-Uhbchde Fumarate-Fa ( ) 28-800 mg-mcg Tablet Discontinued {tbl} PO DAILY November 12, 2021 12:00am November 18, 2021 7:03am Start: 11-12-2021 End: 11-18-2021 take 1 tablet by mouth once daily Lyj283-Cvmiuxw Fumarate-Fa () 28-800 mg-mcg Tablet Discontinued TABLET PO DAILY November 11, 2021 11:00pm November 18, 2021 6:03am Start: 11-12-2021 End: 11-18-2021 take 1 tablet by mouth once daily Ihk384-Nsjrryv Fumarate-Fa () 28-800 mg-mcg Tablet Discontinued TABLET PO DAILY November 12, 2021 12:00am November 18, 2021 7:03am Vit,Zskc58-Balz-Zwbxh (12 sources) Start: 09-12-2014 End: 09-20-2017 take 1 tablet by mouth once daily Vit,Kzbj06-Fisl-Kqozi Discontinued 1 TABLET PO DAILY September 12, 2014 10:10am September 20, 2017 6:42am Start: 09-12-2014 End: 09-20-2017 take 1 tablet by mouth once daily Vit,Yutd54-Xfsb-Nnumd Discontinued 1 TABLET PO DAILY September 12, 2014 11:10am September 20, 2017 7:42am Vit,Ljpp85-Gyjv-Xzisw (Prenatabs Fa ) 1 TABLET tablet (13 sources) Start: 09-10-2014 End: 09-12-2014 take 1 tablet by mouth once daily Vit,Jhmp73-Vgql-Jftal (Prenatabs Fa ) 1 TABLET tablet Discontinued 1 TABLET PO DAILY September 10, 2014 9:04pm September 12, 2014 11:10am Start: 09-10-2014 End: 09-12-2014 take 1 tablet by mouth once daily Vit,Eird93-Xcpk-Mchhg (Prenatab s Fa ) 1 TABLET tablet Discontinued 1 {tbl} PO DAILY September 10, 2014 1:00am September 12, 2014 11:10am Start: 09-10-2014 End: 09-12-2014 take 1 tablet by mouth once daily Vit,Oagn89-Ffdu-Dtasd (Prenatab s Fa ) 1 TABLET tablet Discontinued 1 TABLET PO DAILY September 10, 2014 12:00am September 12, 2014 10:10am Start: 09-10-2014 End: 09-12-2014 take 1 tablet by mouth once daily Vit,Dzdy22-Uyid-Gaikz (Prenatab s Fa ) 1 TABLET tablet Discontinued 1 TABLET PO DAILY September 10, 2014 1:00am September 12, 2014 11:10am Vit,Jzlp39-Ebcw-Wdjdl 1 TABLET tablet (1 source) Start: 09-12-2014 End: 09-20-2017 take 1 tablet by mouth once daily Vit,Jnav68-Apfw-Oztbv 1 TABLET tablet Discontinued 1 {tbl} PO DAILY 30 September 12, 2014 11:10am September 20, 2017 7:42am rosuvastatin calcium 10 mg oral tablet (1 source) HMG-CoA Reductase Inhibitor Start: 04-23-2024 End: 09-26-2024 take 1 tablet by mouth once daily Rosuvastatin 10 mg tablet Discontinued 10 mg PO DAILY April 23, 2024 12:00am September 26, 2024 9:03am semaglutide (OZEMPIC) 0.25 mg or 0.5 mg (2 mg/3 mL) pen (3 sources) Start: 06-19-2023 End: 10-16-2023 semaglutide (OZEMPIC) 0.25 mg or 0.5 mg (2 mg/3 mL) pen Start: 06-19-2023 semaglutide (O ZEMPIC) 0.25 mg or 0.5 mg (2 mg/3 mL) pen spironolactone 100 mg oral tablet (15 sources) Aldosterone Antagonist Start: 04-23-2024 End: 10-08-2024 take 1 tablet by mouth once daily in the morning Spironolactone 100 mg tablet Discontinued 100 mg PO EVERY MORNING April 23, 2024 12:00am September 26, 2024 9:03am Comment on above: Take 100 mg by mouth once daily. valACYclovir 1000 mg oral tablet (20 sources) Herpesvirus Nucleoside Analog DNA Polymerase Inhibitor, Herpes Simplex Virus Nucleoside Analog DNA Polymerase Inhibitor, Herpes Zoster Virus Nucleoside Analog DNA Polymerase Inhibitor Start: 11-12-2021 End: 11-18-2021 Valacyclovir (Valtrex) 1 gram Tablet Discontinued 1000 mg PO DAILY November 12, 2021 12:00am November 18, 2021 7:03am hx of herpes; no active Start: 09-10-2014 End: 09-20-2017 take 1 tablet by mouth once daily Valacyclovir 500 MG tablet Discontinued 500 mg PO DAILY September 10, 2014 1:00am September 20, 2017 7:42am Problems Active Problems Problem Classification Problem Date Documented Date Episodic/Chronic Administrative/social admission (2 sources) Patient encounter status; Translations: [Dietary counseling and surveillance] 10-26-2023 Episodic Anxiety disorders (1 source) Social phobia, unspecified; Translations: [Social anxiety disorder] Onset: 12-19-2023 Chronic Chronic obstructive pulmonary disease and bronchiectasis (13 sources) Bronchitis; Translations: [Bronchitis, not specified as acute or chronic] 11-16-2021 Episodic Diabetes or abnormal glucose tolerance complicating ; childbirth; or the puerperium (20 sources) Gestational diabetes mellitus; Translations: [Gestational diabetes mellitus in , unspecified control] Onset: 08-25-2023 Resolved: 08-25-2023 Episodic Hypertension complicating ; childbirth and the puerperium (14 sources) -induced hypertension; Translations: [Gestational [-induced] hypertension without significant proteinuria, unspecified trimester] Episodic Immunizations and screening for infectious disease (12 sources) Hepatitis C antibody test positive; Translations: [Other specified abnormal immunological findings in serum] Episodic Miscellaneous mental health disorders (2 sources) Other specified eating disorder; Translations: [Psychological and behavioral factors associated with disorders or diseases classified elsewhere] Onset: 12-19-2023 Chronic Mood disorders (1 source) Major depressive disorder, recurrent, in full remission; Translations: [Major depressive disorder, recurrent episode, in full remission (HCC)] Onset: 12-19-2023 Chronic Other complications of ; puerperium affecting management of mother (4 sources) delivery - delivered; Translations: [Encounter for delivery without indication] Episodic Other complications of ; puerperium affecting management of mother (4 sources) Encounter for delivery without indication; Translations: [ delivery, without mention of indication, delivered, with or without mention of antepartum condition] Episodic Other complications of ; puerperium affecting management of mother (1 source) Other disorders of ; Translations: [Other disorders of , unspecified as to episode of care or not applicable] Episodic Other complications of ; puerperium affecting management of mother (6 sources) Deliveries by ; Translations: [Encounter for delivery without indication] 11-17-2021 Episodic Other ear and sense organ disorders (13 sources) Diffuse otitis externa, right ear; Translations: [Diffuse otitis externa of right ear] 11-16-2021 Episodic Other liver diseases (2 sources) Disease of liver; Translations: [Liver disease, unspecified] 07-13-2023 Chronic Other liver diseases (3 sources) Liver disease, unspecified; Translations: [Unspecified disorder of liver] Onset: 09-26-2024 07-13-2023 Chronic Other liver diseases (3 sources) Fatty (change of) liver, not elsewhere classified; Translations: [Metabolic dysfunction-associate d steatotic liver disease (MASLD)] Onset: 10-05-2024 04-23-2024 Chronic Other nervous system disorders (10 sources) Acute postoperative pain; Translations: [Other acute postprocedural pain] 11-18-2021 Episodic Other nutritional; endocrine; and metabolic disorders (16 sources) Severe obesity; Translations: [Morbid (severe) obesity due to excess calories] Onset: 10-16-2023 09-20-2023 Chronic Other nutritional; endocrine; and metabolic disorders (3 sources) Morbid obesity; Translations: [Body mass index (BMI) 70 or greater, adult] 10-26-2023 Chronic Other nutritional; endocrine; and metabolic disorders (3 sources) Morbid (severe) obesity due to excess calories; Translations: [Class 3 severe obesity due to excess calories without serious comorbidity with body mass index (BMI) greater than or equal to 70 in adult ([facility])] Onset: 10-16-2023 Chronic Other nutritional; endocrine; and metabolic disorders (1 source) Body mass index (BMI) 70 or greater, adult; Translations: [Class 3 severe obesity due to excess calories without serious comorbidity with body mass index (BMI) greater than or equal to 70 in adult ([facility])] Onset: 10-16-2023 Chronic Other and delivery including normal (20 sources) ; Translations: [Encounter for supervision of normal , unspecified, unspecified trimester] Episodic Other screening for suspected conditions (not mental disorders or infectious disease) (2 sources) Cancer cervix screening status; Translations: [Encounter for screening for malignant neoplasm of cervix] Onset: 03-23-2025 10-08-2024 Episodic Other upper respiratory infections (13 sources) Upper respiratory infection; Translations: [Acute upper respiratory infection, unspecified] 11-16-2021 Episodic Residual codes; unclassified (14 sources) Obstructive sleep apnea syndrome; Translations: [Obstructive sleep apnea (adult) (pediatric)] Onset: 10-16-2023 10-16-2023 Chronic Residual codes; unclassified (1 source) Family history of breast cancer; Translations: [Family history of breast cancer] Episodic Residual codes; unclassified (1 source) Family history of malignant neoplasm of pancreas; Translations: [Family history of pancreatic cancer] Episodic Residual codes; unclassified (10 sources) Gestation period, 38 weeks; Translations: [38 weeks gestation of ] 11-20-2021 Episodic Residual codes; unclassified (4 sources) 38 weeks gestation of ; Translations: [ state, incidental] Episodic Residual codes; unclassified (1 source) BRCA1 gene mutation positive; Translations: [Genetic susceptibility to malignant neoplasm of breast] 09-20-2023 Episodic Viral infection (15 sources) Genital herpes simplex; Translations: [Herpesviral infection of urogenital system, unspecified] Onset: 10-20-2010 10-20-2010 Chronic Viral infection (13 sources) Disease caused by 2019-nCoV; Translations: [COVID-19] 11-16-2021 Episodic Past or Other Problems Problem Classification Problem Date Documented Date Episodic/Chronic Other skin disorders (13 sources) Acne; Translations: [Acne, unspecified] Onset: 10-16-2023 10-16-2023 Episodic Residual codes; unclassified (15 sources) Breast cancer genetic marker of susceptibility positive; Translations: [Genetic susceptibility to malignant neoplasm of breast] Onset: 08-25-2023 08-25-2023 Episodic Screening and history of mental health and substance abuse codes (13 sources) Tobacco use and exposure - finding; Translations: [Personal history of nicotine dependence] Onset: 10-16-2023 10-16-2023 Episodic Unclassified (6 sources) hx of vaginal 03-03-2022 Results Test Name Value Interpretation Reference Range Facility Breast imaging reportOrdered By: Riccardo Gamez on 03-18-2025 Study report [facility] Imaging Services [address] [place] [address] SCRN MAMM (CAD)W/DEN BILAT MR#: [id number] Acct: [id number] Name: ALEXANDRIA CONTRERAS Rep #: [id number] : 1985 F 39 From: Lew Gamez MD PCP: Dr. Andra Lino, Status: [facility] Study:SCRN MAMM (CAD)W/DEN BILAT Date of Exa m: 03/18/25 Exam# [id number] Ordering Dr: Yanci Vergara MD EXAM: SCRN MAMM (CAD)W/DEN BILAT DATE: 03/18/2025 CLINICAL HISTORY: F, Age 39 y/o , SCREENING Mother with breast cancer. Grandmother with breast cancer. Aunt with breast cancer. The patient is BRCA positive. TECHNIQUE: SCRN MAMM (CAD)W/DEN BILAT COMPARISON: Prior exam(s) dated prior study dated March 11, 2024.. FINDINGS: TISSUE DENSITY: There are scattered areas of fibroglandular density. Bilateral Breast Mammographic Findings: No significant masses, calcifications or other abnormalities are identified. No suspicious masses, areas of developing architectural distortion, or suspicious calcifications. There has been no significant interval change. BI/SCRN MAMM (CAD)W/DEN BILAT IMPRESSION: Stable examination. OVERALL FINAL ASSESSMENT BI-RADS 1: NEGATIVE. RECOMMENDATION: Routine annual follow-up in 1 Year A letter with findings and recommendations will be mailed to the patient. Reading Location: [facility] CC: Dr. Charisse Vergara MD; Dr. Andra Lino DO ~ Pesticide Control Inspector: Signed [facility] SCRN MAMM (CAD)W/DEN BILATo n 03-18-2025 SCRN MAMM (CAD)W/DEN BILAT [facility] Imaging Services [address] [place] [address] SCRN MAMM (CAD)W/DEN BILAT MR#: [id number] Acct: [id number] Name: ALEXANDRIA CONTRERAS Rep #: [id number] : 1985 F 39 From: Riccardo felipe MD PCP: Dr. Andra Lino DO Status: [facility] Study: SCRN MAMM (CAD)W/DEN BILAT Date of Exam: 01/05 Exam# [id number] Ordering Dr: Charisse Vergara MD EXAM: SCRN MAMM (CAD)W/DEN BILAT DATE: 03/18/2025 CLINICAL HISTORY: F, Age 39 y/o , SCREENING Mother with breast cancer. Grandmother with breast cancer. Aunt with breast cancer. The patient is BRCA positive. TECHNIQUE: SCRN MAMM (CAD)W/DEN BILAT COMPARISON: Prior exam(s) dated prior study dated March 11, 2024.. FINDINGS: TISSUE DENSITY: There are scattered areas of fibroglandular density. Bilateral Breast Mammographic Findings: No significant masses, calcifications or other abnormalities are identified. No suspicious masses, areas of developing architectural distortion, or suspicious calcifications. There has been no significant interval change. BI/SCRN MAMM (CAD)W/DEN BILAT IMPRESSION: Stable examination. OVERALL FINAL ASSESSMENT BI-RADS 1: NEGATIVE. RECOMMENDATION: Routine annual follow-up in 1 Year A letter with findings and recommendations will be mailed to the patient. Reading Location: [facility] CC: Dr. Charisse Vergara MD; Dr. Andra Lino DO Pesticide Control Inspector: Signed Normal [facility] Absolute lymphocyte countOrd ered By: HEALTH ASSESSMENT on 03-05-2025 Lymphocytes Auto (Unsp spec) [#/Vol] 1.93 10*3/uL 0.83-4.51 [facility] Absolute neutrophil countOrd ered By: HEALTH ASSESSMENT on 03-05-2025 Neutrophils (Bld) [#/Vol] 4.6 10*3/uL 2.0-7.7 [facility] Absolute nucleated red blood cell countOrdered By: HEALTH ASSESSMENT on 03-05-2025 Nucleated RBC (Bld) [#/Vol] 0.00 10*3/uL 0-5 [facility] Anion gap in Serum or Plasma Ordered By: HEALTH ASSESSMENT on 03-05-2025 Anion gap [Moles/Vol] 12 mmol/L 5-15 [facility] BUN/creatinine ratioOrdered By: HEALTH ASSESSMENT on 03-05-2025 Urea nitrogen/Creatinine [Mass ratio] 18.2 mg/mg 10-20 [facility] Bilirubin directOrdered By: HEALTH ASSESSMENT on 03-05-2025 Bilirubin.direct [Mass/Vol] mg/dL 0.00-0.30 [facility] Bilirubin, totalOrdered By: HEALTH ASSESSMENT on 03-05-2025 Bilirubin [Mass/Vol] mg/dL 0.00-1.30 [facility] CBC, Employeeon 03-05-2025 Absolute Lymph 1.93 X10 3/uL Normal 0.83-4.51 [facility] Comment on above: Performed By: #### L 100.0200, L500.2900 #### [facility] [address] [place], [address] Absolute Neut 4.6 X10 3/uL Normal 2.0-7.7 [facility] Comment on above: Performed By: #### L 100.0200, L500.2900 #### [facility] [address] [place], [address] Basophils/100 WBC (Bld) 0.3 % Normal 0-1 [facility] Comment on above: Performed By: #### L 100.0200, L500.2900 #### [facility] [address] [place], [address] Eosinophils/100 WBC (Bld) 0.1 % Normal 0-5 [facility] Comment on above: Performed By: #### L 100.0200, L500.2900 #### [facility] [address] [place], [address] Erythrocyte distribution width (RBC) [Ratio] 13.9 % Normal 11.6-14.6 [facility] Comment on above: Performed By: #### L 100.0200, L500.2900 #### [facility] [address] [place], [address] Hematocrit (Bld) [Volume fraction] 36.8 % Low 37-47 [facility] Comment on above: Performed By: #### L 100.0200, L500.2900 #### [facility] [address] [place], [address] Hemoglobin (Bld) [Mass/Vol] 11.6 g/dL Low 12.0-15.0 [facility] Comment on above: Performed By: #### L 100.0200, L500.2900 #### [facility] [address] [place], [address] Lymphocytes/100 WBC (Bld) 27.5 % Normal 19-41 [facility] Comment on above: Performed By: #### L 100.0200, L500.2900 #### [facility] [address] [place], [address] MCH (RBC) [Entitic mass] 27.8 pg Normal 27.0-32.0 [facility] Comment on above: Performed By: #### L 100.0200, L500.2900 #### [facility] [address] [place], [address] MCHC (RBC) [Mass/Vol] 31.5 g/dL Low 32-36 [facility] Comment on above: Performed By: #### L 100.0200, L500.2900 #### [facility] [address] [place], [address] MCV (RBC) [Entitic vol] 88.0 fL Normal 81-99 [facility] Comment on above: Performed By: #### L 100.0200, L500.2900 #### [facility] [address] [place], [address] Monocytes/100 WBC (Bld) 6.1 % Normal 0-10 [facility] Comment on above: Performed By: #### L 100.0200, L500.2900 #### [facility] [address] [place], [address] Neutrophils/100 WBC (Bld) 65.6 % Normal 47-70 [facility] Comment on above: Performed By: #### L 100.0200, L500.2900 #### [facility] [address] [place], [address] NRBC # 0.00 10 3/uL Normal 0-5 [facility] Comment on above: Performed By: #### L 100.0200, L500.2900 #### [facility] [address] [place], [address] Nucleated RBC (Bld) [#/Vol] 0 10*3/uL Normal 0-5 [facility] Comment on above: Performed By: #### L 100.0200, L500.2900 #### [facility] [address] [place], [address] Platelet mean volume (Bld) [Entitic vol] 12.1 fL High 6.2-12.0 [facility] Comment on above: Performed By: #### L 100.0200, L500.2900 #### [facility] [address] [place], [address] Platelets (Bld) [#/Vol] 282 10*3/uL Normal 150-450 [facility] Comment on above: Performed By: #### L 100.0200, L500.2900 #### [facility] [address] [place], [address] RBC (Bld) [#/Vol] 4.18 10*6/uL Low 4.2-5.4 [facility] Comment on above: Performed By: #### L 100.0200, L500.2900 #### [facility] [address] [place], [address] RDW SD 44.4 fl High 35.1-43.9 [facility] Comment on above: Performed By: #### L 100.0200, L500.2900 #### [facility] [address] [place], [address] WBC (Bld) [#/Vol] 7.0 10*3/uL Normal 4.4-11.0 [facility] Comment on above: Performed By: #### L 100.0200, L500.2900 #### [facility] [address] [place], [address] Calculated very low density lipoprotein (VLDL) cholesterol measurementOrdered By: HEALTH ASSESSMENT on 03-05-2025 Calculated very low density lipoprotein (VLDL) cholesterol measurement 25 mg/dL 5-40 [facility] Carbon dioxide, total [Moles /volume] in Central venous bloodOrdered By: HEALTH ASSESSMENT on 03-05-2025 CO2 [Moles/Vol] 23.5 mmol/L 21.0-32.0 [facility] Chloride assayOrdered By: ALTH ASSESSMENT on 03-05-2025 Chloride [Moles/Vol] 103 mmol/L 98-108 [facility] Employee Profileon Cholesterol in LDL [Mass/Vol] 125 mg/dL Normal 0-130 [facility] Comment on above: Performed By: #### L 100.0200, L500.2900 #### [facility] [address] [place], [address] Erythrocyte distribution wid th ratioOrdered By: HEALTH ASSESSMENT on 03-05-2025 Erythrocyte distribution width (RBC) [Ratio] 13.9 % 11.6-14.6 [facility] Erythrocyte distribution wid th standard deviationOrdered By: HEALTH ASSESSMENT on 03-05-2025 Erythrocyte distribution width (RBC) [Ratio] 44.4 fl High 35.1-43.9 [facility] Glomerular filtration rate ( GFR) estimation/1.73 sq m using serum, plasma, or whole bOrdered By: HEALTH ASSESSMENT on 03-05-2025 GFR/1.73 sq M.predicted among non-blacks MDRD (S/P/Bld) [Vol rate/Area] 102 mL/min/{1.73_m2} >60 [facility] Comment on above: mL/min/1.73m2 CKD-EP I Creatinine Equation (2020) Hematocrit Auto (Bld) [Volum e fraction]Ordered By: HEALTH ASSESSMENT on 03-05-2025 Hematocrit (Bld) [Volume fraction] 36.8 % Low 37-47 [facility] Hemoglobin measurementOrdere d By: HEALTH ASSESSMENT on 03-05-2025 Hemoglobin (Bld) [Mass/Vol] 11.6 g/dL Low 12.0-15.0 [facility] - Chemistry and C hemistry - challengeOrdered By: HEALTH ASSESSMENT on 03-05-2025 AST [Catalytic activity/Vol] 22 U/L <32 [facility] Lactate dehydrogenase (LDH) measurementOrdered By: HEALTH ASSESSMENT on 03-05-2025 LDH [Catalytic activity/Vol] 165 U/L 84-246 [facility] MCV (mean corpuscular volume ) determinationOrdered By: HEALTH ASSESSMENT on 03-05-2025 MCV (RBC) [Entitic vol] 88.0 fL 81-99 [facility] Mean corpuscular hemoglobin (MCH) determinationOrdered By: HEALTH ASSESSMENT on 03-05-2025 MCH (RBC) [Entitic mass] 27.8 pg 27.0-32.0 [facility] Mean corpuscular hemoglobin concentration (MCHC) determinationOrdered By: HEALTH ASSESSMENT on 03-05-2025 MCHC (RBC) [Mass/Vol] 31.5 g/dL Low 32-36 [facility] Mean platelet volume determi nationOrdered By: HEALTH ASSESSMENT on 03-05-2025 Platelet mean volume (Bld) [Entitic vol] 12.1 fL High 6.2-12.0 [facility] Neutrophil percentageOrdered By: HEALTH ASSESSMENT on 03-05-2025 Neutrophils/100 WBC (Bld) 65.6 % 47-70 [facility] Nucleated red blood cell per centageOrdered By: HEALTH ASSESSMENT on 03-05-2025 Nucleated RBC/100 WBC (Bld) [Ratio] 0 % 0-5 [facility] Platelet countOrdered By: HE ALTH ASSESSMENT on 03-05-2025 Platelets (Bld) [#/Vol] 282 10*3/uL 150-450 [facility] Potassium measurement (mass/ volume)Ordered By: HEALTH ASSESSMENT on 03-05-2025 Potassium (Unsp spec) [Mass/Vol] 4.0 mmol/L 3.3-5.1 [facility] RBC Auto (Bld) [#/Vol]Ordere d By: HEALTH ASSESSMENT on 03-05-2025 RBC (Bld) [#/Vol] 4.18 10*6/uL Low 4.2-5.4 [facility] Screening total cholesterol/ high density lipoprotein (HDL) cholesterol ratioOrdered By: HEALTH ASSESSMENT on 03-05-2025 Cholesterol.total/Chol esterol in HDL [Mass ratio] 4.46 {ratio} [facility] Serum creatinine measurement (mass/volume)Ordered By: HEALTH ASSESSMENT on 03-05-2025 Creatinine [Mass/Vol] 0.76 mg/dL 0.70-1.20 [facility] Serum globulin measurementOr dered By: HEALTH ASSESSMENT on 03-05-2025 Globulin (S) [Mass/Vol] 3.3 g/dL 2.2-4.2 [facility] Serum glucose measurement (m ass/volume)Ordered By: HEALTH ASSESSMENT on 03-05-2025 Glucose [Mass/Vol] 94 mg/dL 70-99 [facility] Serum or plasma alanine singh otransferase (ALT) measurementOrdered By: HEALTH ASSESSMENT on 03-05-2025 ALT [Catalytic activity/Vol] 24 U/L <35 [facility] Serum or plasma albumin jeane urement (mass/volume)Ordered By: HEALTH ASSESSMENT on 03-05-2025 Albumin [Mass/Vol] 3.7 g/dL 3.5-5.0 [facility] Serum or plasma albumin/glob ulin mass ratioOrdered By: HEALTH ASSESSMENT on 03-05-2025 Albumin/Globulin [Mass ratio] 1.1 {ratio} 0.9-2.4 [facility] Serum or plasma alkaline debbie sphatase measurementOrdered By: HEALTH ASSESSMENT on 03-05-2025 ALP [Catalytic activity/Vol] 59 U/L 35-104 [facility] Serum or plasma calcium jeane urement (mass/volume)Ordered By: HEALTH ASSESSMENT on 03-05-2025 Calcium [Mass/Vol] 9.2 mg/dL 7.6-11.0 [facility] Serum or plasma cholesterol in HDL measurement (mass/volume)Ordered By: HEALTH ASSESSMENT on 03-05-2025 Cholesterol in HDL [Mass/Vol] 44 mg/dL >40 [facility] Comment on above: National Cholesterol Education Program (NCEP) guidelines:<40 mg/dL: Low HDL-cholesterol (major risk factor for CHD)>= 60 mg/dL: High HDL-cholesterol (negative risk factor for CHD)HDL-cholesterol is affected by a number of factors, e.g. smoking, exercise, hormones, sex and age. Serum or plasma cholesterol in LDL measurement (mass/volume)Ordered By: HEALTH ASSESSMENT on 03-05-2025 Cholesterol in LDL [Mass/Vol] 125 mg/dL 0-130 [facility] Serum or plasma cholesterol measurement (mass/volume)Ordered By: HEALTH ASSESSMENT on 03-05-2025 Cholesterol [Mass/Vol] 194 mg/dL <201 [facility] Comment on above: Cholesterol level, D esirable <200 mg/dLBorderline high cholesterol 200-239 mg/dLHigh cholesterol >=240 mg/dLRecommendations of the NCEP Adult Treatment Panel for the following risk-cutoff thresholds for the [place] population. Serum or plasma urea nitroge n measurement (mass/volume)Ordered By: HEALTH ASSESSMENT on 03-05-2025 Urea nitrogen [Mass/Vol] 14 mg/dL 4-19 [facility] Serum or plasma uric acid me asurement (mass/volume)Ordered By: HEALTH ASSESSMENT on 03-05-2025 Urate [Mass/Vol] 5.4 mg/dL 2.6-6.0 [facility] Comment on above: The drugs N-Acetylcy steine and Metamizole may falsely depress this assay. Sodium levelOrdered By: [facility] ASSESSMENT on 03-05-2025 Sodium [Moles/Vol] 139 mmol/L 133-145 [facility] Total proteinOrdered By: [facility] ASSESSMENT on 03-05-2025 Protein [Mass/Vol] 7.0 g/dL 5.9-8.4 [facility] Triglycerides measurementOrd ered By: HEALTH ASSESSMENT on 03-05-2025 Triglyceride [Mass/Vol] 124 mg/dL <199 [facility] Comment on above: The drugs N-Acetylcy steine and Metamizole may falsely depress this assay. 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 Alexandria is a 39 year old who presents for an annual gynecologic exam without complaints. Gets yearly mammogram for BRCA positive. Would like MRI but needs open MRI and has not found a facility yet Has lost 50 lbs so far. 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 PAST MEDICAL HISTORY Diagnosis Date Acne BRCA gene mutation positive in female Genital herpes 10/20/2010 Gestational diabetes mellitus (GDM) 08/25/2023 Localization-related (focal) (partial) epilepsy and epileptic syndromes with simple partial seizures, without mention of intractable epilepsy PAST SURGICAL HISTORY Procedure Laterality Date SECTION HX TONSILLECTOMY PRIMARY/SECONDARY Tonsillectomy FAMILY HISTORY Problem Relation Age of Onset Thyroid Mother Coronary Artery Disease Father Hypertension Father Lipids Father High Cholesterol Heart Father NV Diabetes Father type 2 No Known Problems Brother Stroke Maternal Grandmother Mild Stroke Breast Cancer Maternal Grandmother Diabetes Maternal Grandfather Cancer Paternal Grandmother Pancreatic Diabetes Paternal Grandmother type 2 Coronary Artery Disease Paternal Grandfather Hypertension Paternal Grandfather Heart Paternal Grandfather NV () SOCIAL HISTORY Social History Tobacco Use Smoking status: Former Current packs/day: 0.00 Types: Cigarettes Quit date: 2021 Years since quittin.1 Passive exposure: Never Smokeless tobacco: Never Tobacco comments: 5 cigs/day Vaping Use Vaping status: Never Used Substance Use Topics Alcohol use: Yes Comment: Rarely Drug use: No REVIEW OF SYSTEMS Abdomen: No abdominal pain, nausea, vomiting, diarrhea, or constipation. No bloating, early satiety, indigestion, or increased flatulence. Bladder: No dysuria, gross hematuria, urinary frequency, urinary urgency, or incontinence. Breast: No breast lumps, nipple d/c, overlying skin changes, redness or skin retraction. Allergies and current medication updated:Yes SENSITIVE EXAM: The sensitive examination was discussed with the Patient or Patient's Authorized Aerotriangulation Specialist. As applicable, any other physician, advance practice provider, medical student, or other health professional student that will be observing or involved in the sensitive examination for educational or training purposes was discussed with the Patient or Authorized Aerotriangulation Specialist. The Patient or Authorized Aerotriangulation Specialist has agreed to proceed with the sensitive examination. (Sensitive examination includes inspection and/or palpation of the breasts, pelvis, prostate and anorectal regions). EXAM: BP 110/70 Ht 5' 1 (1.55m) Wt 341 lb 12.8 oz (155.0kg) LMP 09/24/2012 BMI 64.62 kg/(m2). GENERAL: pleasant, female in no apparent distress HEENT: Normocephalic, atraumatic, mucus membranes moist, and no lesions NECK: Supple, full range of motion, no adenopathy, and thyroid normal DERMATOLOGY: Normal, without lesions, non-icteric, and non-hirsute BREAST: soft, non-tender, symmetric, no dominant mass, normal nipple-areolar complex, no lymphadenopathy, and no nipple discharge CHEST: Normal inspiratory effort ABDOMEN: soft, non-tender, and no masses PELVIC: external genitalia normal, normal Bartholin's glands, urethra, Conshohocken's glands, no vulvar lesions, no cervical lesions, good vaginal support, physiologic discharge present, normal appearing perineal body and perianal region, IUD strings visible BIMANUAL: deferred RECTOVAGINAL: deferred. NEURO: alert and oriented x3,exam grossly non-focal EXTREMITIES: normal ASSESSMENT/PLAN: 1) Health maintenance: Pap done with HPV. Mammogram ordered. 2) Contraception: IUD. Contraceptive options reviewed and information provided. 3) STD screening: Declined STD check. 4) Follow up one year or sooner as needed Charisse Vergara MD Allergies As (more content not included)... Normal [facility] HIGH RISK HUMAN PAPILLOMA NELLI (HPV), PCR FOR DETECTION AND GENOTYPINGon 10-08-2024 HPV 16 Ag Ql (Unsp spec) Not detected Normal Not detected [facility] Comment on above: Order Comment: Speci men Type: FLUID SPECIMENOrdering Facility: [facility] Address: [address] [place] [address] Performed By: #### H PVHRT ####[facility] [id number] [place] [address] [place] HPV 18 Ag Ql (Unsp spec) Not detected Normal Not detected [facility] Comment on above: Order Comment: Speci men Type: FLUID SPECIMENOrdering Facility: [facility] Address: [address] [place] [address] Performed By: #### H PVHRT ####[facility] [id number] [place] [address] [place] HPV 31+33+35+39+45+51+52+5 6+58+59+66+68 DNA CINDY+probe Ql (Cvx) Not detected Normal Not detected [facility] Comment on above: Order Comment: Speci men Type: FLUID SPECIMENOrdering Facility: [facility] Address: [address] [place] [address] Result Comment: High Risk HPV Other Type includes HPV types 31, 33, 35, 39, 45, 51, 52, 56, 58, 59, 66 and 68. Performed By: #### H PVHRT ####[facility] [id number] [place] [address] [place] PAP TESTon 10-08-2024 ADEQUACY Normal [facility] Comment on above: Order Comment: Speci men Type: FLUID SPECIMENOrdering Facility: [facility] Address: [address] [place] [address] Result Comment: Sati sfactory for interpretation. No endocervical component Performed By: #### L [id number] ####[facility] [id number] [place] [address] [place] CASE REPORT Normal [facility] Comment on above: Order Comment: Speci men Type: FLUID SPECIMENOrdering Facility: [facility] Address: [address] [place] [address] Result Comment: Gyne cologic Cytology Report Case: [id number] Authorizing Provider: Charisse Vergara MD Collected: 10/08/2024 09:00 AM Ordering Location: OB/Gynecology Received: 10/08/2024 12:02 PM First Screen: Kathie Ly Pathologist: Irene Barcenas MD Specimen: Pap Test, ThinPrep, Cervix Performed By: #### L [id number] ####[facility] [id number] [place] [address] [place] [facility] CLINICAL HISTORY, CYTOLOGY, RATTAN WORKER Routine Exam Normal [facility] Comment on above: Order Comment: Speci men Type: FLUID SPECIMENOrdering Facility: [facility] Address: [address] [place] [address] Result Comment: Intr a Uterine Device, No Menses Performed By: #### L [id number] ####[facility] [id number] [address] [place] [facility] FINAL PERFORMING LAB Normal [facility] Comment on above: Order Comment: Speci men Type: FLUID SPECIMENOrdering Facility: [facility] Address: [address] [place] [address] Result Comment: Tech nical component, pattern hanger screening performed at [facility], [address] [place] [address] CLIA# [id number] Diagnostic interpretation performed at [facility], [address] [place] [address] CLIA# [id number] Tomography Technologist: Ildefonso Hernandez M.D. Performed By: #### L [id number] ####[facility] [id number] [address] [place] [facility] INTERPRETATION, CYTOLOGY, RATTAN WORKER Normal [facility] Comment on above: Order Comment: Speci men Type: FLUID SPECIMENOrdering Facility: [facility] Address: [address] [place] [address] Result Comment: Nega tive for intraepithelial lesion or malignancy. at 1424 EST Performed By: #### L [id number] ####[facility]ORY[facility] [id number] [place] [id number] [facility] PAP DISCLAIMER COMMENT The Pap Smear is a screening test for cervical cancer. False negative results occur with all screening tests, emphasizing the need for rescreening at recommended intervals, and clinical correlation. Normal [facility] Comment on above: Order Comment: Speci men Type: FLUID SPECIMENOrdering Facility: [facility] Address: [address] [place] [address] Performed By: #### L [id number] ####[facility]ORY[facility] [id number] [place] [id number] [facility] PAP RESIDENCY PROGRAM COORDINATOR COMMENT This specimen has be en analyzed by the ThinPrep Imaging System, an automated imaging and review system, which assists the laboratory in evaluating cells on ThinPrep Pap tests. Following automated imaging, selected loera from every slide are reviewed by a pattern hanger. Normal [facility] Comment on above: Order Comment: Speci men Type: FLUID SPECIMENOrdering Facility: [facility] Address: [address] [place] [address] Performed By: #### L [id number] ####[facility]ORY[facility]IA [id number] [place] [id number] [facility] Gastroenterology Visit Repor ton 09-26-2024 Gastroenterology Visit Report [facility] [address] [place] [address] OFFICE VISIT Date of Service: 09/26/24 MR#: [id number] Acct: [id number] Name: ALEXANDRIA CONTRERAS Rep #: [id number] : 1985 Provider: Dr. Miguel trinidad MD Age/Sex: 39/F Location: [facility] Status: Signed with Addenda ADDENDUM by Dr. Miguel Sy MD on 09/30/24 at 0721 HPI Details: ALEXANDRIA CONTRERAS, is a 39 F who presents to the office today for Addendum Addendum for typographical mistake In ROS: Patient does not have loss of appetite. She lost 13 pounds in 5 months since last visit Physical exam: There is no rash. No wound noted. Normal skin 09/30/24719 Date Miguel Sy MD cc: Dr. Andra Lino, DO * Signed Intake Vital Signs 04/23/24 09:08 09/26/24 08:00 Height 5 ft 1 in 5 ft 1 in Weight: 355 lb 342 lb BMI 67.1 64.6 BP 138/79 H 138/88 H Blood Pressure Location Lt radial Rt radial Position Sitting Sitting Pulse 90 96 Pulse Oximetry (%) 97 96 Oxygen Delivery Method room air room air Intake Visit Reasons: 5 M FU Chief Complaint: NAFLD Allergies No Known Allergies Allergy (Verified 09/26/24 08:00) Medications ???Medication ???Instructions ???Recorded ???Confirmed ???Type metformin 500 mg tablet 500 mg PO BID 90 days #180 tabs 09/26/24 Rx cholecalciferol (vitamin D3) 250 1,000 unit PO QDAY #30 caps 09/26/24 Rx mcg (10,000 unit) capsule ferrous sulfate 325 mg (65 mg 325 mg PO QDAY 09/26/24 09/26/24 H istory iron) tablet semaglutide 0.25 mg or 0.5 mg (2 2 mg subcut QWEEK 09/26/24 5 History mg/3 mL) subcutaneous pen injector (Ozempic) COUNT INCLUDES THE [facility] Medical History HCV antibody positive Gestational diabetes Gestational hypertension hx of vaginal Incontinence Seizures Fatigue SOB (shortness of breath) Surgical History History of tonsillectomy and adenoidectomy Family History Father Diabetes Hyperlipidemia Mother Thyroid disorder Grandmother Pancreatic cancer Aunt Breast cancer Social History Smoking Status: Former smoker alcohol intake: never HPI HPI Chief Complaint: NAFLD Details: ALEXANDRIA CONTRERAS, is a 39 F who presents to the office today for follow up. *I established 02.11.22 for further evaluation of HCV antibody (reactive on 05.17.21 and 09.10.21), RNA quantitative (not detected), HCV RNA qualitative (not detected). HCV detected during workup for . One tattoo received in a parlor that she feels was reputable. No previous knowledge of this or treatment. No FH of HCV. She is BRCA1 gene mutation +. Biochemical HCV ab +, Quant neg. Genotype not performed. OV 7.. doing well without active symptoms. US/elastography 03.09. hepatomegaly 19.9cm fatty infiltration, stiffness 11.6kPa OV 11.30.23 reports she is doing well without active symptoms. OV 4..24 Patient came for follow-up for lab tests and evaluation. Morbid obesity. No acute issues. No abdominal pain. Patient has been started on Ozempic 0.25 mg q. weekly by PCP 9.5.24- Fib-4 0.38 US abd/ elastography 9..24- Liver measures 20cm Stiffness 6.8 kPa OV 9.10.24- Pt well since last visit. Denies any active GI issues. BM are normal. Continues with Ozempic and Metformin. No acute complaint or symptoms 2.7.7.25 Fib-4 0.43 OV 2.13.25- Pt well since last visit. Denies abdominal pain, heartburn, nausea or bowel changes. No concerns today. The patient on semaglutide 2 mg weekly dose ROS Const Constitutional: Positive for anorexia and weight change (Positive loss of weight); No fatigue or weakness Eyes Eyes: No blurry vision, change in vision or double vision ENT ENT: No difficulty swallowing Resp Respiratory: No shortness of breath or wheezing Cardio Cardiology: No chest pain at rest or dyspnea on exertion Gastro GI: No abdominal pain, belching, bloating, change in bowel habits, change in stool character, coffee ground emesis, constipation, cramping, diarrhea, heartburn, difficulty swallowing, feeling full early, excessive flatus, incontinent of stools, Vomiting blood/hematemesis, Blood in stool, loose stools, Black,tarry stools, nausea/dyspepsia, pain with swallowing, vomiting or other Genitourinary-Female: No difficulty urinating or burning urination Musc Musculoskeletal: No joint pain Skin Skin: No yellowing of the eye or itchy eyes Neuro Neurology: No abnormal movements, behavioral changes, weakness or lack of coordination Psych Psychiatric: No anxiety, No beh (more content not included)... Normal [facility] CBC W/Diff, Automatedon 020 -2024 Absolute Lymph 2.30 X10 3/uL Normal 0.83-4.51 [facility] Comment on above: Performed By: #### L 100.0200, L500.2900 #### [facility] [address] [place], [address] Absolute Neut 6.2 X10 3/uL Normal 2.0-7.7 [facility] Comment on above: Performed By: #### L 100.0200, L500.2900 #### [facility] [address] [place], [address] Basophils/100 WBC (Bld) 0.4 % Normal 0-1 [facility] Comment on above: Performed By: #### L 100.0200, L500.2900 #### [facility] [address] [place], [address] Eosinophils/100 WBC (Bld) 0.3 % Normal 0-5 [facility] Comment on above: Performed By: #### L 100.0200, L500.2900 #### [facility] [address] [place], [address] Erythrocyte distribution width (RBC) [Ratio] 13.7 % Normal 11.6-14.6 [facility] Comment on above: Performed By: #### L 100.0200, L500.2900 #### [facility] [address] [place], [address] Hematocrit (Bld) [Volume fraction] 42.8 % Normal 37-47 [facility] Comment on above: Performed By: #### L 100.0200, L500.2900 #### [facility] [address] [place], [address] Hemoglobin (Bld) [Mass/Vol] 13.5 g/dL Normal 12.0-15.0 [facility] Comment on above: Performed By: #### L 100.0200, L500.2900 #### [facility] [address] [place], [address] IG% 0.600 Normal 0.0-0.9 [facility] Comment on above: Result Comment: IG% - Immature Granulocytes (promyelocytes, myelocytes and metamyelocytes) > 1% indicates that a LEFT SHIFT is Present. Performed By: #### L 100.0200, L500.2900 #### [facility] [address] [place], [address] Lymphocytes/100 WBC (Bld) 24.7 % Normal 19-41 [facility] Comment on above: Performed By: #### L 100.0200, L500.2900 #### [facility] [address] [place], [address] MCH (RBC) [Entitic mass] 27.9 pg Normal 27.0-32.0 [facility] Comment on above: Performed By: #### L 100.0200, L500.2900 #### [facility] [address] [place], [address] MCHC (RBC) [Mass/Vol] 31.5 g/dL Low 32-36 [facility] Comment on above: Performed By: #### L 100.0200, L500.2900 #### [facility] [address] [place], [address] MCV (RBC) [Entitic vol] 88.4 fL Normal 81-99 [facility] Comment on above: Performed By: #### L 100.0200, L500.2900 #### [facility] [address] [place], [address] Monocytes/100 WBC (Bld) 7.4 % Normal 0-10 [facility] Comment on above: Performed By: #### L 100.0200, L500.2900 #### [facility] [address] [place], [address] Neutrophils/100 WBC (Bld) 66.6 % Normal 47-70 [facility] Comment on above: Performed By: #### L 100.0200, L500.2900 #### [facility] [address] [place], [address] Nucleated RBC (Bld) [#/Vol] 0 10*3/uL Normal 0-5 [facility] Comment on above: Performed By: #### L 100.0200, L500.2900 #### [facility] [address] [place], [address] Platelet mean volume (Bld) [Entitic vol] 10.6 fL Normal 6.2-12.0 [facility] Comment on above: Performed By: #### L 100.0200, L500.2900 #### [facility] [address] [place], [address] Platelets (Bld) [#/Vol] 351 10*3/uL Normal 150-450 [facility] Comment on above: Performed By: #### L 100.0200, L500.2900 #### [facility] [address] [place], [address] RBC (Bld) [#/Vol] 4.84 10*6/uL Normal 4.2-5.4 [facility] Comment on above: Performed By: #### L 100.0200, L500.2900 #### [facility] [address] [place], [address] RDW SD 44.2 fl High 35.1-43.9 [facility] Comment on above: Performed By: #### L 100.0200, L500.2900 #### [facility] [address] [place], [address] WBC (Bld) [#/Vol] 9.3 10*3/uL Normal 4.4-11.0 [facility] Comment on above: Performed By: #### L 100.0200, L500.2900 #### [facility] [address] [place], [address] CRPon 09-20-2024 C-REACTIVE PROT 45.70 mg/L High 0.0-3.0 [facility] Comment on above: Result Comment: C-Re active Protein (CRP) provides useful information for the diagnosis, therapy and monitoring of inflammatory processes and associated diseases. For the evaluation of Relative Risk for Cardiovascular Disease, a High Sensitivity CRP (HSCRP) should be ordered. Performed By: #### L 100.0100, L300.3900, L500.4050, L501.6710 ####[facility] [address] [place], [address] Comprehensive Metabolic Prof ilon 09-20-2024 Albumin [Mass/Vol] 3.5 g/dL Normal 3.2-5.0 [facility] Comment on above: Performed By: #### L 100.0100, L300.3900, L500.4050, L501.6710 ####[facility] [address] [place], [address] Albumin/Globulin [Mass ratio] 0.7 {ratio} Low 0.9-2.4 [facility] Comment on above: Performed By: #### L 100.0100, L300.3900, L500.4050, L501.6710 ####[facility] [address] [place], [address] ALK P 75 U/L Normal 45-117 [facility] Comment on above: Performed By: #### L 100.0100, L300.3900, L500.4050, L501.6710 ####[facility] [address] [place], [address] ALT [Catalytic activity/Vol] 31 U/L Normal 13-56 [facility] Comment on above: Performed By: #### L 100.0100, L300.3900, L500.4050, L501.6710 ####[facility] [address] [place], [address] AST [Catalytic activity/Vol] 22 U/L Normal 15-37 [facility] Comment on above: Performed By: #### L 100.0100, L300.3900, L500.4050, L501.6710 ####[facility] [address] [place], [address] Bilirubin [Mass/Vol] 0.20 mg/dL Normal 0.20-1.00 [facility] Comment on above: Result Comment: For patients on eltrombopag therapy, use of Dimension [place] TBIL is not recommended. Performed By: #### L 100.0100, L300.3900, L500.4050, L501.6710 ####[facility] [address] [place], [address] BUN/CRE 24.6 RATIO High 10-20 [facility] Comment on above: Performed By: #### L 100.0100, L300.3900, L500.4050, L501.6710 ####[facility] [address] [place], [address] CA,Total 9.6 mg/dL Normal 8.5-10.1 [facility] Comment on above: Performed By: #### L 100.0100, L300.3900, L500.4050, L501.6710 ####[facility] [address] [place], [address] Chloride [Moles/Vol] 107 mmol/L Normal 98-107 [facility] Comment on above: Performed By: #### L 100.0100, L300.3900, L500.4050, L501.6710 ####[facility] [address] [place], [address] CO2 [Moles/Vol] 25.0 mmol/L Normal 21.0-32.0 [facility] Comment on above: Performed By: #### L 100.0100, L300.3900, L500.4050, L501.6710 ####[facility] [address] [place], [address] Creatinine [Mass/Vol] 0.85 mg/dL Normal 0.55-1.02 [facility] Comment on above: Result Comment: The validity of the calculated GFR GFRAA in patients over 70 years has not been determined. Clinical correlation is essential. Performed By: #### L 100.0100, L300.3900, L500.4050, L501.6710 ####[facility] [address] [place], [address] EST GFR - AA 96 mL/min Normal >60 [facility] Comment on above: Result Comment: Afri can Moz[place]ican GFR Calc Performed By: #### L 100.0100, L300.3900, L500.4050, L501.6710 ####[facility] [address] [place], [address] GAP 7 Normal 5-15 [facility] Comment on above: Performed By: #### L 100.0100, L300.3900, L500.4050, L501.6710 ####[facility] [address] [place], [address] GFR/1.73 sq M.predicted among non-blacks MDRD (S/P/Bld) [Vol rate/Area] 79 mL/min/{1.73_m2} Normal >60 [facility] Comment on above: Result Comment: Non- GFR Calc Performed By: #### L 100.0100, L300.3900, L500.4050, L501.6710 ####[facility] [address] [place], [address] Globulin (S) [Mass/Vol] 5.0 g/dL High 2.2-4.2 [facility] Comment on above: Performed By: #### L 100.0100, L300.3900, L500.4050, L501.6710 ####[facility] [address] [place], [address] Glucose [Mass/Vol] 94 mg/dL Normal 74-106 [facility] Comment on above: Performed By: #### L 100.0100, L300.3900, L500.4050, L501.6710 ####[facility] [address] [place], [address] Potassium [Moles/Vol] 4.3 mmol/L Normal 3.5-5.1 [facility] Comment on above: Performed By: #### L 100.0100, L300.3900, L500.4050, L501.6710 ####[facility] [address] [place], [address] Sodium [Moles/Vol] 139 mmol/L Normal 136-145 [facility] Comment on above: Performed By: #### L 100.0100, L300.3900, L500.4050, L501.6710 ####[facility] [address] [place], [address] T PROT 8.5 g/dL High 6.4-8.2 [facility] Comment on above: Performed By: #### L 100.0100, L300.3900, L500.4050, L501.6710 ####[facility] [address] [place], [address] Urea nitrogen [Mass/Vol] 21 mg/dL High 7-18 [facility] Comment on above: Performed By: #### L 100.0100, L300.3900, L500.4050, L501.6710 ####[facility] [address] [place], [address] Prothrombin Time w/INRon INR Coag (PPP) [Relative time] 1.1 {INR} Normal [facility] Comment on above: Performed By: #### L 100.0200, L500.2900 #### [facility] [address] [place], [address] PT Coag (PPP) [Time] 14.0 s Normal 11.7-14.9 [facility] Comment on above: Performed By: #### L 100.0200, L500.2900 #### [facility] [address] [place], [address] Gastroenterology Visit Repor ton 04-23-2024 Gastroenterology Visit Report [facility] [address] [place] [address] OFFICE VISIT Date of Service: 04/23/24 MR#: [id number] Acct: [id number] Name: ALEXANDRIA CONTRERAS Rep #: [id number] : 1985 Provider: Dr. Miguel trinidad MD Age/Sex: 38/F Location: [facility] Status: Signed Intake Vital Signs 11/16/21 19:17 04/23/24 09:08 Height 5 ft 1 in 5 ft 1 in Weight: 355 lb BMI 67.1 BP 138/79 H Blood Pressure Location Lt radial Position Sitting Pulse 90 Pulse Oximetry (%) 97 Oxygen Delivery Method room air Intake Visit Reasons: 5M FU Chief Complaint: NAFLD Accompanied by: Self Allergies No Known Allergies Allergy (Verified 04/23/24 09:08) Medications ???Medication ???Instructions ???Recorded ???Confirmed ???Type oxycodone 5 mg tablet 5 mg PO Q6H PRN PRN Pain Score 11/18/21 04/23/24 Rx 7-10 4 days #16 tabs metformin 500 mg tablet 500 mg PO BID 90 days #180 tabs 11/27/23 04/23/24 Rx cholecalciferol (vitamin D3) 25 25 mcg PO QDAY 04/23/24 04/23/24 History mcg (1,000 unit) capsule rosuvastatin 10 mg tablet 10 mg PO DAILY 1 month #30 tabs 04/23/24 04/23/24 Rx semaglutide 0.25 mg or 0.5 mg (2 0.25 mg subcut QWEEK 04/23/24 04/23/24 History mg/3 mL) subcutaneous pen injector (Ozempic) spironolactone 100 mg tablet 100 mg PO QAM 04/23/24 04/23/24 History PFSH Medical History HCV antibody positive Gestational diabetes Gestational hypertension hx of vaginal Incontinence Seizures Fatigue SOB (shortness of breath) Surgical History History of tonsillectomy and adenoidectomy Family History Father Diabetes Hyperlipidemia Mother Thyroid disorder Grandmother Pancreatic cancer Aunt Breast cancer Social History Smoking Status: Former smoker alcohol intake: never HPI HPI Chief Complaint: NAFLD Details: ALEXANDRIA CONTRERAS, is a 38 F who presents to the office today for follow up. *BGI established 02.11.22 for further evaluation of HCV antibody (reactive on 05.17.21 and 09.10.21), RNA quantitative (not detected), HCV RNA qualitative (not detected). HCV detected during workup for . One tattoo received in a parlor that she feels was reputable. No previous knowledge of this or treatment. No FH of HCV. She is BRCA1 gene mutation +. Biochemical HCV ab +, Quant neg. Genotype not performed. OV 7 doing well without active symptoms. US/elastography 03.09.23 hepatomegaly 19.9cm fatty infiltration, stiffness 11.6kPa OV 07.13.23 reports she is doing well without active symptoms. OV 11.26.23 Patient came for follow-up for lab tests and evaluation. Morbid obesity. No acute issues. No abdominal pain. Patient has been started on Ozempic 0.25 mg q. weekly by PCP 04.18.24- Fib-4 0.38 US abd/ elastography 04.18.24- Liver measures 20cm Stiffness 6.8 kPa OV 9- Pt well since last visit. Denies any active GI issues. BM are normal. Continues with Ozempic and Metformin. No acute complaint or symptoms ROS Const Constitutional: No fatigue, fever(s), weakness or weight change Eyes Eyes: No blurry vision, change in vision or double vision ENT ENT: No difficulty swallowing Resp Respiratory: No shortness of breath or wheezing Cardio Cardiology: No chest pain at rest or dyspnea on exertion Gastro GI: No abdominal pain, belching, bloating, change in bowel habits, change in stool character, coffee ground emesis, constipation, cramping, diarrhea, heartburn, difficulty swallowing, feeling full early, excessive flatus, incontinent of stools, Vomiting blood/hematemesis, Blood in stool, loose stools, Black,tarry stools, nausea/dyspepsia, pain with swallowing, vomiting or other Genitourinary-Female: No difficulty urinating or burning urination Musc Musculoskeletal: No joint pain Skin Skin: No yellowing of the eye or itchy eyes Neuro Neurology: No abnormal movements, behavioral changes, weakness or lack of coordination Psych Psychiatric: No anxiety, No behavioral changes and No depression Endo Endocrine: No fatigue or weight change Aller/Imm Allergy/Immunologic: No itchy eyes or wheezing Valente/Lymp Hematologic/Lymphatic: No easy bleeding or easy bruising Exam Const General: cooperative, no acute distress and well developed Nutritional Appearance: overweight Orientation: alert, awake and oriented x3 Other: Weight 395 BMI high 72.4 kg/m??? in November 2023. Current 67.1 kg/m???, weight 355 pounds. Patient stated she was feeling 90 pounds in June 2023. She lost about 50 pounds in 5 to 6 months. [facility] Head: normocephalic and atraumatic Nose: (more content not included)... Normal [facility] Ceruloplasminon 04-21-2024 CERULOPLASMIN 35.9 mg/dL Normal 19.0-39.0 [facility] Comment on above: Order Comment: Test( s) 113185-Fhneji, Serum or Plasmawas developed and its performance characteristicsdetermined by mig33. It has not been cleared or approvedby the Food and Drug Administration. Performed By: #### L 100.0200, L500.2900 #### [facility] [address] [place], [address] Copper, Serum or Plasmaon COPPER, SERUM 143 ug/dL Normal 80-158 [facility] Comment on above: Order Comment: Test( s) 218199-Cfrlwr, Serum or Plasmawas developed and its performance characteristicsdetermined by mig33. It has not been cleared or approvedby the Food and Drug Administration. Result Comment: Dete ction Limit = 5 Performed By: #### L 100.0200, L500.2900 #### [facility] [address] [place], [address] Haptoglobinon 04-21-2024 HAPTOGLOBIN 355 mg/dL High 33-278 [facility] Comment on above: Order Comment: Test( s) 504624-Fcmjlw, Serum or Plasmawas developed and its performance characteristicsdetermined by mig33. It has not been cleared or approvedby the Food and Drug Administration. Result Comment: Perf ormed at: [facility] [address] [id number] Fleecer: Wayne Norton PhD, Phone: [phone] Performed at: [facility] [address] [id number] Fleecer: Ana María Romo MD, Phone: [phone] Performed By: #### L 100.0200, L500.2900 #### [facility] [address] [place], [place], [address] ROXANNE w/ Reflex Mult Confirmon 04-19-2024 ROXANNE,DIRECT Negative Normal Negative [facility] Comment on above: Result Comment: Perf ormed at: - [facility] [address] [id number] Fleecer: Wayne Norton PhD, Phone: [phone] Performed By: #### L 100.2555, L591.4543 #### [facility] [address] [place], [place], [address] ABD Limited w/ Elastographyo n 04-18-2024 ABD Limited w/ Elastography [facility] [address] [place] [address] ABD Limited w/ Elastography MR#: [id number] Acct: [id number] Name: ALEXANDRIA CONTRERAS Rep #: [id number] : 1985 F 38 From: Riccardo felipe MD PCP: Dr. Andra Lino, DO Status: [facility] Study: ABD Limited w/ Elastography Date of Exam: 01/04 Exam# [id number] Ordering Dr: Miguel Sy MD [id number] STUDY: ABDOMINAL ULTRASOUND - RIGHT UPPER QUADRANT; ELASTOGRAPHY REASON FOR VISIT: Female, 38 years old. NAFL D TECHNIQUE: Ultrasound evaluation of the right upper quadrant was performed with real-time and static sutherland-scale imaging. Point quantification shear wave elastography was performed ([email or web address]). TECHNICAL QUALITY: Limited. Examination limited due to obesity. COMPARISON: Comparison is made with prior study dated March 09, 2023. FINDINGS: Liver: The liver is enlarged and measures 20 cm. There is increased echogenicity consistent with fatty infiltration. The bile ducts are within normal limits. There is hepatic color flow. The direction of portal flow is hepatopetal. There is no demonstrated mass lesion. Median liver stiffness measured 6.8 kPa. Gallbladder: Normal distended gallbladder. The gallbladder wall measures 1.9 mm. There is a negative sonographic Davis''s sign. There is no pericholecystic fluid. There are multiple echogenic structures within the gallbladder, consistent with multiple gallstones. Common Bile Duct (C.B.D.): The common bile duct measures 3.2 mm. Pancreas: There is normal echogenicity of the visualized pancreas. There is no demonstrated pancreatic mass or cyst. Right Kidney: Normal size of the right kidney. The right kidney measures 12.2 cm x 5.6 cm x 4 cm. Normal renal cortex. The right cortex measures 1.4 cm. There is no demonstrated renal mass or cyst. There is no right hydronephrosis. US/ABD Limited w/ Elastography IMPRESSION: 1. Liver stiffness measures 6.8 kPa compatible with F2-F3 (Mild to moderate liver fibrosis) Metavir score. Electronically Signed: Riccardo Gamez MD at 11:11 EDT Reading Location ID and State: [facility] / [place] , Service support , CC: Dr. Andra Lino DO; Dr. Miguel Sy MD Pesticide Control Inspector: Signed Normal [facility] CBC W/Diff, Automatedon 09 Absolute Lymph 2.37 X10 3/uL Normal 0.83-4.51 [facility] Comment on above: Performed By: #### L 501.9520, L506.0400, L501.9985, L3100.5450, L3100.1850, L3300.0100, L3400.0700, L100.0100, L506.1000, L500.4050, L500.4100, L501.6710 #### [facility] [address] [place], [address] Absolute Neut 5.3 X10 3/uL Normal 2.0-7.7 [facility] Comment on above: Performed By: #### L 501.9520, L506.0400, L501.9985, L3100.5450, L3100.1850, L3300.0100, L3400.0700, L100.0100, L506.1000, L500.4050, L500.4100, L501.6710 #### [facility] [address] [place], [place], [phone] ([phone]) Basophils/100 WBC (Bld) 0.5 % Normal 0-1 [facility] Comment on above: Performed By: #### L 501.9520, L506.0400, L501.9985, L3100.5450, L3100.1850, L3300.0100, L3400.0700, L100.0100, L506.1000, L500.4050, L500.4100, L501.6710 #### [facility] [address] [place], [place], [phone] (122) Eosinophils/100 WBC (Bld) 0.7 % Normal 0-5 [facility] Comment on above: Performed By: #### L 501.9520, L506.0400, L501.9985, L3100.5450, L3100.1850, L3300.0100, L3400.0700, L100.0100, L506.1000, L500.4050, L500.4100, L501.6710 #### [facility] [address] [place], [place], [phone] ([address]) Erythrocyte distribution width (RBC) [Ratio] 13.8 % Normal 11.6-14.6 [facility] Comment on above: Performed By: #### L 501.9520, L506.0400, L501.9985, L3100.5450, L3100.1850, L3300.0100, L3400.0700, L100.0100, L506.1000, L500.4050, L500.4100, L501.6710 #### [facility] [address] [place], [address] Hematocrit (Bld) [Volume fraction] 38.6 % Normal 37-47 [facility] Comment on above: Performed By: #### L 501.9520, L506.0400, L501.9985, L3100.5450, L3100.1850, L3300.0100, L3400.0700, L100.0100, L506.1000, L500.4050, L500.4100, L501.6710 #### [facility] [address] [place], [address] Hemoglobin (Bld) [Mass/Vol] 12.2 g/dL Normal 12.0-15.0 [facility] Comment on above: Performed By: #### L 501.9520, L506.0400, L501.9985, L3100.5450, L3100.1850, L3300.0100, L3400.0700, L100.0100, L506.1000, L500.4050, L500.4100, L501.6710 #### [facility] [address] [place], [address] IG% 0.700 Normal 0.0-0.9 [facility] Comment on above: Result Comment: IG% - Immature Granulocytes (promyelocytes, myelocytes and metamyelocytes) > 1% indicates that a LEFT SHIFT is Present. Performed By: #### L 501.9520, L506.0400, L501.9985, L3100.5450, L3100.1850, L3300.0100, L3400.0700, L100.0100, L506.1000, L500.4050, L500.4100, L501.6710 #### [facility] [address] [place], [address] Lymphocytes/100 WBC (Bld) 28.1 % Normal 19-41 [facility] Comment on above: Performed By: #### L 501.9520, L506.0400, L501.9985, L3100.5450, L3100.1850, L3300.0100, L3400.0700, L100.0100, L506.1000, L500.4050, L500.4100, L501.6710 #### [facility] [address] [place], [address] MCH (RBC) [Entitic mass] 28.0 pg Normal 27.0-32.0 [facility] Comment on above: Performed By: #### L 501.9520, L506.0400, L501.9985, L3100.5450, L3100.1850, L3300.0100, L3400.0700, L100.0100, L506.1000, L500.4050, L500.4100, L501.6710 #### [facility] [address] [place], [address] MCHC (RBC) [Mass/Vol] 31.6 g/dL Low 32-36 [facility] Comment on above: Performed By: #### L 501.9520, L506.0400, L501.9985, L3100.5450, L3100.1850, L3300.0100, L3400.0700, L100.0100, L506.1000, L500.4050, L500.4100, L501.6710 #### [facility] [address] [place], [address] MCV (RBC) [Entitic vol] 88.5 fL Normal 81-99 [facility] Comment on above: Performed By: #### L 501.9520, L506.0400, L501.9985, L3100.5450, L3100.1850, L3300.0100, L3400.0700, L100.0100, L506.1000, L500.4050, L500.4100, L501.6710 #### [facility] [address] [place], [address] Monocytes/100 WBC (Bld) 6.9 % Normal 0-10 [facility] Comment on above: Performed By: #### L 501.9520, L506.0400, L501.9985, L3100.5450, L3100.1850, L3300.0100, L3400.0700, L100.0100, L506.1000, L500.4050, L500.4100, L501.6710 #### [facility] [address] [place], [place], [phone] ([address]) Neutrophils/100 WBC (Bld) 63.1 % Normal 47-70 [facility] Comment on above: Performed By: #### L 501.9520, L506.0400, L501.9985, L3100.5450, L3100.1850, L3300.0100, L3400.0700, L100.0100, L506.1000, L500.4050, L500.4100, L501.6710 #### [facility] [address] [place], [place], [phone] Nucleated RBC (Bld) [#/Vol] 0 10*3/uL Normal 0-5 [facility] Comment on above: Performed By: #### L 501.9520, L506.0400, L501.9985, L3100.5450, L3100.1850, L3300.0100, L3400.0700, L100.0100, L506.1000, L500.4050, L500.4100, L501.6710 #### [facility] [address] [place], [place], [id number] Platelet mean volume (Bld) [Entitic vol] 11.1 fL Normal 6.2-12.0 [facility] Comment on above: Performed By: #### L 501.9520, L506.0400, L501.9985, L3100.5450, L3100.1850, L3300.0100, L3400.0700, L100.0100, L506.1000, L500.4050, L500.4100, L501.6710 #### [facility] [address] [place], [address] Platelets (Bld) [#/Vol] 315 10*3/uL Normal 150-450 [facility] Comment on above: Performed By: #### L 501.9520, L506.0400, L501.9985, L3100.5450, L3100.1850, L3300.0100, L3400.0700, L100.0100, L506.1000, L500.4050, L500.4100, L501.6710 #### [facility] [address] [place], [address] RBC (Bld) [#/Vol] 4.36 10*6/uL Normal 4.2-5.4 [facility] Comment on above: Performed By: #### L 501.9520, L506.0400, L501.9985, L3100.5450, L3100.1850, L3300.0100, L3400.0700, L100.0100, L506.1000, L500.4050, L500.4100, L501.6710 #### [facility] [address] [place], [address] RDW SD 44.3 fl High 35.1-43.9 [facility] Comment on above: Performed By: #### L 501.9520, L506.0400, L501.9985, L3100.5450, L3100.1850, L3300.0100, L3400.0700, L100.0100, L506.1000, L500.4050, L500.4100, L501.6710 #### [facility] [address] [place], [address] WBC (Bld) [#/Vol] 8.4 10*3/uL Normal 4.4-11.0 [facility] Comment on above: Performed By: #### L 501.9520, L506.0400, L501.9985, L3100.5450, L3100.1850, L3300.0100, L3400.0700, L100.0100, L506.1000, L500.4050, L500.4100, L501.6710 #### [facility] [address] [place], [address] CBC, Employeeon 04-18-2024 Absolute Lymph 2.34 X10 3/uL Normal 0.83-4.51 [facility] Comment on above: Result Comment: . Performed By: #### L 400.0100, L100.0200, L500.2900 ####[facility] [address] [place], [address] Absolute Neut 5.2 X10 3/uL Normal 2.0-7.7 [facility] Comment on above: Result Comment: . Performed By: #### L 400.0100, L100.0200, L500.2900 ####[facility] [address] [place], [address] BASO# 0.03 X10 3/uL Normal [facility] Comment on above: Result Comment: . Performed By: #### L 400.0100, L100.0200, L500.2900 ####[facility] [address] [place], [address] Basophils/100 WBC (Bld) 0.4 % Normal 0-1 [facility] Comment on above: Result Comment: . Performed By: #### L 400.0100, L100.0200, L500.2900 ####[facility] [address] [place], [address] EOS# 0.06 X10 3/uL Normal [facility] Comment on above: Result Comment: . Performed By: #### L 400.0100, L100.0200, L500.2900 ####[facility] [address] [place], [address] Eosinophils/100 WBC (Bld) 0.7 % Normal 0-5 [facility] Comment on above: Result Comment: . Performed By: #### L 400.0100, L100.0200, L500.2900 ####[facility] [address] [place], [address] Erythrocyte distribution width (RBC) [Ratio] 13.8 % Normal 11.6-14.6 [facility] Comment on above: Result Comment: . Performed By: #### L 400.0100, L100.0200, L500.2900 ####[facility] [address] [place], [address] Hematocrit (Bld) [Volume fraction] 38.9 % Normal 37-47 [facility] Comment on above: Result Comment: . Performed By: #### L 400.0100, L100.0200, L500.2900 ####[facility] [address] [place], [address] Hemoglobin (Bld) [Mass/Vol] 12.2 g/dL Normal 12.0-15.0 [facility] Comment on above: Result Comment: . Performed By: #### L 400.0100, L100.0200, L500.2900 ####[facility] [address] [place], [address] LYMPH# 2.34 X10 3/ul Normal [facility] Comment on above: Result Comment: . Performed By: #### L 400.0100, L100.0200, L500.2900 ####[facility] [address] [place], [address] Lymphocytes/100 WBC (Bld) 28.6 % Normal 19-41 [facility] Comment on above: Result Comment: . Performed By: #### L 400.0100, L100.0200, L500.2900 ####[facility] [address] [place], [address] MCH (RBC) [Entitic mass] 27.9 pg Normal 27.0-32.0 [facility] Comment on above: Result Comment: . Performed By: #### L 400.0100, L100.0200, L500.2900 ####[facility] [address] [place], [address] MCHC (RBC) [Mass/Vol] 31.4 g/dL Low 32-36 [facility] Comment on above: Result Comment: . Performed By: #### L 400.0100, L100.0200, L500.2900 ####[facility] [address] [place], [address] MCV (RBC) [Entitic vol] 89.0 fL Normal 81-99 [facility] Comment on above: Result Comment: . Performed By: #### L 400.0100, L100.0200, L500.2900 ####[facility] [address] [place], [address] MONO # 0.52 X10 3/uL Normal [facility] Comment on above: Result Comment: . Performed By: #### L 400.0100, L100.0200, L500.2900 ####[facility] [address] [place], [address] Monocytes/100 WBC (Bld) 6.4 % Normal 0-10 [facility] Comment on above: Result Comment: . Performed By: #### L 400.0100, L100.0200, L500.2900 ####[facility] [address] [place], [address] Neutrophil # 5.18 X10 3/uL Normal 2.7-7.7 [facility] Comment on above: Result Comment: . Performed By: #### L 400.0100, L100.0200, L500.2900 ####[facility] [address] [place], [address] Neutrophils/100 WBC (Bld) 63.4 % Normal 47-70 [facility] Comment on above: Result Comment: . Performed By: #### L 400.0100, L100.0200, L500.2900 ####[facility] [address] [place], [address] NRBC # 0.00 10 3/uL Normal 0-5 [facility] Comment on above: Result Comment: . Performed By: #### L 400.0100, L100.0200, L500.2900 ####[facility] [address] [place], [address] Nucleated RBC (Bld) [#/Vol] 0 10*3/uL Normal 0-5 [facility] Comment on above: Result Comment: . Performed By: #### L 400.0100, L100.0200, L500.2900 ####[facility] [address] [place], [address] Platelet mean volume (Bld) [Entitic vol] 10.9 fL Normal 6.2-12.0 [facility] Comment on above: Result Comment: . Performed By: #### L 400.0100, L100.0200, L500.2900 ####[facility] [address] [place], [address] Platelets (Bld) [#/Vol] 318 10*3/uL Normal 150-450 [facility] Comment on above: Result Comment: . Performed By: #### L 400.0100, L100.0200, L500.2900 ####[facility] [address] [place], [address] RBC (Bld) [#/Vol] 4.37 10*6/uL Normal 4.2-5.4 [facility] Comment on above: Result Comment: . Performed By: #### L 400.0100, L100.0200, L500.2900 ####[facility] [address] [place], [address] RDW SD 44.7 fl High 35.1-43.9 [facility] Comment on above: Result Comment: . Performed By: #### L 400.0100, L100.0200, L500.2900 ####[facility] [address] [place], [address] WBC (Bld) [#/Vol] 8.2 10*3/uL Normal 4.4-11.0 [facility] Comment on above: Result Comment: . Performed By: #### L 400.0100, L100.0200, L500.2900 ####[facility] [address] [place], [address] CRPon 04-18-2024 C-REACTIVE PROT 42.80 mg/L High 0.0-3.0 [facility] Comment on above: Result Comment: C-Re active Protein (CRP) provides useful information for the diagnosis, therapy and monitoring of inflammatory processes and associated diseases. For the evaluation of Relative Risk for Cardiovascular Disease, a High Sensitivity CRP (HSCRP) should be ordered. Performed By: #### L 100.0200, L500.2900 #### [facility] [address] [place], [address] Comprehensive Metabolic Prof ilon 04-18-2024 Albumin [Mass/Vol] 3.1 g/dL Low 3.2-5.0 [facility] Comment on above: Performed By: #### L 501.9520, L506.0400, L501.9985, L3100.5450, L3100.1850, L3300.0100, L3400.0700, L100.0100, L506.1000, L500.4050, L500.4100, L501.6710 #### [facility] [address] [place], [address] Albumin/Globulin [Mass ratio] 0.7 {ratio} Low 0.9-2.4 [facility] Comment on above: Performed By: #### L 501.9520, L506.0400, L501.9985, L3100.5450, L3100.1850, L3300.0100, L3400.0700, L100.0100, L506.1000, L500.4050, L500.4100, L501.6710 #### [facility] [address] [place], [place], [address] ALK P 73 U/L Normal 45-117 [facility] Comment on above: Performed By: #### L 501.9520, L506.0400, L501.9985, L3100.5450, L3100.1850, L3300.0100, L3400.0700, L100.0100, L506.1000, L500.4050, L500.4100, L501.6710 #### [facility] [address] [place], [place], [address] ALT [Catalytic activity/Vol] 27 U/L Normal 13-56 [facility] Comment on above: Performed By: #### L 501.9520, L506.0400, L501.9985, L3100.5450, L3100.1850, L3300.0100, L3400.0700, L100.0100, L506.1000, L500.4050, L500.4100, L501.6710 #### [facility] [address] [place], [place], [id number] AST [Catalytic activity/Vol] 17 U/L Normal 15-37 [facility] Comment on above: Performed By: #### L 501.9520, L506.0400, L501.9985, L3100.5450, L3100.1850, L3300.0100, L3400.0700, L100.0100, L506.1000, L500.4050, L500.4100, L501.6710 #### [facility] [address] [place], [place], [address] Bilirubin [Mass/Vol] 0.20 mg/dL Normal 0.20-1.00 [facility] Comment on above: Result Comment: For patients on eltrombopag therapy, use of Dimension [place] TBIL is not recommended. Performed By: #### L 501.9520, L506.0400, L501.9985, L3100.5450, L3100.1850, L3300.0100, L3400.0700, L100.0100, L506.1000, L500.4050, L500.4100, L501.6710 #### [facility] [address] [place], [address] (914) BUN/CRE 15.6 RATIO Normal 10-20 [facility] Comment on above: Performed By: #### L 501.9520, L506.0400, L501.9985, L3100.5450, L3100.1850, L3300.0100, L3400.0700, L100.0100, L506.1000, L500.4050, L500.4100, L501.6710 #### [facility] [address] [place], [address] (373) CA,Total 9.1 mg/dL Normal 8.5-10.1 [facility] Comment on above: Performed By: #### L 501.9520, L506.0400, L501.9985, L3100.5450, L3100.1850, L3300.0100, L3400.0700, L100.0100, L506.1000, L500.4050, L500.4100, L501.6710 #### [facility] [address] [place], [address] (834) Chloride [Moles/Vol] 108 mmol/L High 98-107 [facility] Comment on above: Performed By: #### L 501.9520, L506.0400, L501.9985, L3100.5450, L3100.1850, L3300.0100, L3400.0700, L100.0100, L506.1000, L500.4050, L500.4100, L501.6710 #### [facility] [address] [place], [place], [id number] (494) CO2 [Moles/Vol] 24.0 mmol/L Normal 21.0-32.0 [facility] Comment on above: Performed By: #### L 501.9520, L506.0400, L501.9985, L3100.5450, L3100.1850, L3300.0100, L3400.0700, L100.0100, L506.1000, L500.4050, L500.4100, L501.6710 #### [facility] [address] [place], [address] (110) Creatinine [Mass/Vol] 0.77 mg/dL Normal 0.55-1.02 [facility] Comment on above: Result Comment: The validity of the calculated GFR GFRAA in patients over 70 years has not been determined. Clinical correlation is essential. Performed By: #### L 501.9520, L506.0400, L501.9985, L3100.5450, L3100.1850, L3300.0100, L3400.0700, L100.0100, L506.1000, L500.4050, L500.4100, L501.6710 #### [facility] [address] [place], [place], [address] EST GFR - AA 109 mL/min Normal >60 [facility] Comment on above: Result Comment: Afri can [place] GFR Calc Performed By: #### L 501.9520, L506.0400, L501.9985, L3100.5450, L3100.1850, L3300.0100, L3400.0700, L100.0100, L506.1000, L500.4050, L500.4100, L501.6710 #### [facility] [address] [place], [address] GAP 7 Normal 5-15 [facility] Comment on above: Performed By: #### L 501.9520, L506.0400, L501.9985, L3100.5450, L3100.1850, L3300.0100, L3400.0700, L100.0100, L506.1000, L500.4050, L500.4100, L501.6710 #### [facility] [address] [place], [address] GFR/1.73 sq M.predicted among non-blacks MDRD (S/P/Bld) [Vol rate/Area] 90 mL/min/{1.73_m2} Normal >60 [facility] Comment on above: Result Comment: Non- GFR Calc Performed By: #### L 501.9520, L506.0400, L501.9985, L3100.5450, L3100.1850, L3300.0100, L3400.0700, L100.0100, L506.1000, L500.4050, L500.4100, L501.6710 #### [facility] [address] [place], [address] Globulin (S) [Mass/Vol] 4.6 g/dL High 2.2-4.2 [facility] Comment on above: Performed By: #### L 501.9520, L506.0400, L501.9985, L3100.5450, L3100.1850, L3300.0100, L3400.0700, L100.0100, L506.1000, L500.4050, L500.4100, L501.6710 #### [facility] [address] [place], [address] Glucose [Mass/Vol] 109 mg/dL High 74-106 [facility] Comment on above: Result Comment: Fast ing Glucose result from 100 to 125 mg/dL suggests IMPAIRED HOMEOSTASIS per A.D.A. criteria. Performed By: #### L 501.9520, L506.0400, L501.9985, L3100.5450, L3100.1850, L3300.0100, L3400.0700, L100.0100, L506.1000, L500.4050, L500.4100, L501.6710 #### [facility] [address] [place], [place], [phone] (054) Potassium [Moles/Vol] 3.7 mmol/L Normal 3.5-5.1 [facility] Comment on above: Performed By: #### L 501.9520, L506.0400, L501.9985, L3100.5450, L3100.1850, L3300.0100, L3400.0700, L100.0100, L506.1000, L500.4050, L500.4100, L501.6710 #### [facility] [address] [place], [place], [id number] (211) Sodium [Moles/Vol] 139 mmol/L Normal 136-145 [facility] Comment on above: Performed By: #### L 501.9520, L506.0400, L501.9985, L3100.5450, L3100.1850, L3300.0100, L3400.0700, L100.0100, L506.1000, L500.4050, L500.4100, L501.6710 #### [facility] [address] [place], [place], [phone] (041) T PROT 7.7 g/dL Normal 6.4-8.2 [facility] Comment on above: Performed By: #### L 501.9520, L506.0400, L501.9985, L3100.5450, L3100.1850, L3300.0100, L3400.0700, L100.0100, L506.1000, L500.4050, L500.4100, L501.6710 #### [facility] [address] [place], [address] (326) Urea nitrogen [Mass/Vol] 12 mg/dL Normal 7-18 [facility] Comment on above: Performed By: #### L 501.9520, L506.0400, L501.9985, L3100.5450, L3100.1850, L3300.0100, L3400.0700, L100.0100, L506.1000, L500.4050, L500.4100, L501.6710 #### [facility] [address] [place], [address] Employee Profile[employer] 4 Albumin [Mass/Vol] 3.1 g/dL Low 3.2-5.0 [facility] Comment on above: Result Comment: . Performed By: #### L 400.0100, L100.0200, L500.2900 ####[facility] [address] [place], [address] Albumin/Globulin [Mass ratio] 0.7 {ratio} Low 0.9-2.4 [facility] Comment on above: Result Comment: . Performed By: #### L 400.0100, L100.0200, L500.2900 ####[facility] [address] [place], [address] ALK P 72 U/L Normal 45-117 [facility] Comment on above: Result Comment: . Performed By: #### L 400.0100, L100.0200, L500.2900 ####[facility] [address] [place], [address] ALT [Catalytic activity/Vol] 29 U/L Normal 13-56 [facility] Comment on above: Result Comment: . Performed By: #### L 400.0100, L100.0200, L500.2900 ####[facility] [address] [place], [address] AST [Catalytic activity/Vol] 19 U/L Normal 15-37 [facility] Comment on above: Result Comment: . Performed By: #### L 400.0100, L100.0200, L500.2900 ####[facility] [address] [place], [address] Bilirubin [Mass/Vol] 0.30 mg/dL Normal 0.20-1.00 [facility] Comment on above: Result Comment: . For patients on eltrombopag therapy, use of Dimension [place] TBIL is not recommended. Performed By: #### L 400.0100, L100.0200, L500.2900 ####[facility] [address] [place], [address] Bilirubin.direct [Mass/Vol] 0.11 mg/dL Normal 0.00-0.30 [facility] Comment on above: Result Comment: . Performed By: #### L 400.0100, L100.0200, L500.2900 ####[facility] [address] [place], [address] BUN/CRE 14.3 RATIO Normal 10-20 [facility] Comment on above: Result Comment: . Performed By: #### L 400.0100, L100.0200, L500.2900 ####[facility] [address] [place], [address] CA,Total 9.2 mg/dL Normal 8.5-10.1 [facility] Comment on above: Result Comment: . Performed By: #### L 400.0100, L100.0200, L500.2900 ####[facility] [address] [place], [address] Chloride [Moles/Vol] 108 mmol/L High 98-107 [facility] Comment on above: Result Comment: . Performed By: #### L 400.0100, L100.0200, L500.2900 ####[facility] [address] [place], [address] CHOL:HDL 4.30 Normal [facility] Comment on above: Result Comment: . Performed By: #### L 400.0100, L100.0200, L500.2900 ####[facility] [address] [place], [address] Cholesterol [Mass/Vol] 196 mg/dL Normal 200 [facility] Comment on above: Result Comment: . <200 mg/dL Desirable 200-240 mg/dL Borderline >240 mg/dL High Risk Performed By: #### L 400.0100, L100.0200, L500.2900 ####[facility] [address] [place], [address] Cholesterol in HDL [Mass/Vol] 46 mg/dL Normal [facility] Comment on above: Result Comment: . The drugs N-Acetylcysteine and Metamizole may falsely depress this assay. Reference Range HDL <40 mg/dL Low HDL Cholesterol HDL >or= 60 mg/dL High HDL Cholesterol Performed By: #### L 400.0100, L100.0200, L500.2900 ####[facility] [address] [place], [address] Cholesterol in LDL [Mass/Vol] 131 mg/dL High 0-130 [facility] Comment on above: Result Comment: . Performed By: #### L 400.0100, L100.0200, L500.2900 ####[facility] [address] [place], [address] Cholesterol in VLDL [Mass/Vol] 19 mg/dL Normal 5-40 [facility] Comment on above: Result Comment: . Performed By: #### L 400.0100, L100.0200, L500.2900 ####[facility] [address] [place], [address] CO2 [Moles/Vol] 25.0 mmol/L Normal 21.0-32.0 [facility] Comment on above: Result Comment: . Performed By: #### L 400.0100, L100.0200, L500.2900 ####[facility] [address] [place], [address] Creatinine [Mass/Vol] 0.84 mg/dL Normal 0.55-1.02 [facility] Comment on above: Result Comment: . The validity of the calculated GFR GFRAA in patients over 70 years has not been determined. Clinical correlation is essential. Performed By: #### L 400.0100, L100.0200, L500.2900 ####[facility] [address] [place], [address] EST GFR - AA 98 mL/min Normal >60 [facility] Comment on above: Result Comment: . GFR Calc Performed By: #### L 400.0100, L100.0200, L500.2900 ####[facility] [address] [place], [address] GAP 7 Normal 5-15 [facility] Comment on above: Result Comment: . Performed By: #### L 400.0100, L100.0200, L500.2900 ####[facility] [address] [place], [address] GFR/1.73 sq M.predicted among non-blacks MDRD (S/P/Bld) [Vol rate/Area] 81 mL/min/{1.73_m2} Normal >60 [facility] Comment on above: Result Comment: . Non- GFR Calc Performed By: #### L 400.0100, L100.0200, L500.2900 ####[facility] [address] [place], [address] Globulin (S) [Mass/Vol] 4.7 g/dL High 2.2-4.2 [facility] Comment on above: Result Comment: . Performed By: #### L 400.0100, L100.0200, L500.2900 ####[facility] [address] [place], [address] Glucose [Mass/Vol] 113 mg/dL High 74-106 [facility] Comment on above: Result Comment: . Fasting Glucose result from 100 to 125 mg/dL suggests IMPAIRED HOMEOSTASIS per A.D.A. criteria. Performed By: #### L 400.0100, L100.0200, L500.2900 ####[facility] [address] [place], [address] LDH 272 U/L High 84-246 [facility] Comment on above: Result Comment: . Performed By: #### L 400.0100, L100.0200, L500.2900 ####[facility] [address] [place], [address] Phosphate [Mass/Vol] 2.9 mg/dL Normal 2.5-4.9 [facility] Comment on above: Result Comment: . Performed By: #### L 400.0100, L100.0200, L500.2900 ####[facility] [address] [place], [address] Potassium [Moles/Vol] 3.7 mmol/L Normal 3.5-5.1 [facility] Comment on above: Result Comment: . Performed By: #### L 400.0100, L100.0200, L500.2900 ####[facility] [address] [place], [address] Sodium [Moles/Vol] 140 mmol/L Normal 136-145 [facility] Comment on above: Result Comment: . Performed By: #### L 400.0100, L100.0200, L500.2900 ####[facility] [address] [place], [address] T PROT 7.8 g/dL Normal 6.4-8.2 [facility] Comment on above: Result Comment: . Performed By: #### L 400.0100, L100.0200, L500.2900 ####[facility] [address] [place], [address] Triglyceride [Mass/Vol] 97 mg/dL Normal [facility] Comment on above: Result Comment: . The drugs N-Acetylcysteine and Metamizole may falsely depress this assay. Serum Triglycerides Reference Interval Normal <150 mg/dL Borderline high 150 - 199 mg/dL High 200 - 499 mg/dL Very High > or = 500 mg/dL Performed By: #### L 400.0100, L100.0200, L500.2900 ####[facility] [address] [place], [address] Urea nitrogen [Mass/Vol] 12 mg/dL Normal 7-18 [facility] Comment on above: Result Comment: . Performed By: #### L 400.0100, L100.0200, L500.2900 ####[facility] [address] [place], [address] URIC 5.3 mg/dL Normal 2.6-6.0 [facility] Comment on above: Result Comment: . The drugs N-Acetylcysteine and Metamizole may falsely depress this assay. Performed By: #### L 400.0100, L100.0200, L500.2900 ####[facility] [address] [place], [address] Hemoglobin A1con 04-18-2024 HbA1c (Bld) [Mass fraction] 5.2 % Normal 3.8-5.6 [facility] Comment on above: Result Comment: Norm al < 5.7 % Prediabetic 5.7 - 6.4 % Diabetic >or= 6.5 % Please note range changes. Performed By: #### L 100.0200, L500.2900 #### [facility] [address] [place], [address] Lipid Profileon 04-18-2024 Cholesterol [Mass/Vol] 199 mg/dL Normal 200 [facility] Comment on above: Result Comment: <200 mg/dL Desirable 200-240 mg/dL Borderline >240 mg/dL High Risk Performed By: #### L 501.9520, L506.0400, L501.9985, L3100.5450, L3100.1850, L3300.0100, L3400.0700, L100.0100, L506.1000, L500.4050, L500.4100, L501.6710 #### [facility] [address] [place], [address] Cholesterol in HDL [Mass/Vol] 44 mg/dL Normal [facility] Comment on above: Result Comment: The drugs N-Acetylcysteine and Metamizole may falsely depress this assay. Reference Range HDL <40 mg/dL Low HDL Cholesterol HDL >or= 60 mg/dL High HDL Cholesterol Performed By: #### L 501.9520, L506.0400, L501.9985, L3100.5450, L3100.1850, L3300.0100, L3400.0700, L100.0100, L506.1000, L500.4050, L500.4100, L501.6710 #### [facility] [address] [place], [address] Cholesterol in LDL [Mass/Vol] 136 mg/dL High 0-130 [facility] Comment on above: Performed By: #### L 501.9520, L506.0400, L501.9985, L3100.5450, L3100.1850, L3300.0100, L3400.0700, L100.0100, L506.1000, L500.4050, L500.4100, L501.6710 #### [facility] [address] [place], [address] Cholesterol in VLDL [Mass/Vol] 19 mg/dL Normal 5-40 [facility] Comment on above: Performed By: #### L 501.9520, L506.0400, L501.9985, L3100.5450, L3100.1850, L3300.0100, L3400.0700, L100.0100, L506.1000, L500.4050, L500.4100, L501.6710 #### [facility] [address] [place], [address] Triglyceride [Mass/Vol] 94 mg/dL Normal [facility] Comment on above: Result Comment: The drugs N-Acetylcysteine and Metamizole may falsely depress this assay. Serum Triglycerides Reference Interval Normal <150 mg/dL Borderline high 150 - 199 mg/dL High 200 - 499 mg/dL Very High > or = 500 mg/dL Performed By: #### L 501.9520, L506.0400, L501.9985, L3100.5450, L3100.1850, L3300.0100, L3400.0700, L100.0100, L506.1000, L500.4050, L500.4100, L501.6710 #### [facility] [address] [place], [address] T4 Free Directon 04-18-2024 T4 FREE DIRECT 1.08 ng/dL Normal 0.76-1.46 [facility] Comment on above: Performed By: #### L 100.0200, L500.2900 #### [facility] [address] [place], [address] Thyroid Stim Hormone (TSH)on 04-18-2024 TSH 3.780 uIU/mL High 0.358-3.740 [facility] Comment on above: Performed By: #### L 100.0200, L500.2900 #### [facility] [address] [place], [address] Urinalysis, Employeeon 04-18 BILIRUBIN URINE Normal Negative [facility] Comment on above: Result Comment: . Performed By: #### L 400.0100, L100.0200, L500.2900 ####[facility] [address] [place], [address] Clarity (U) Normal Clear [facility] Comment on above: Result Comment: . Performed By: #### L 400.0100, L100.0200, L500.2900 ####[facility] [address] [place], [address] Color (U) Normal Yellow [facility] Comment on above: Result Comment: . Performed By: #### L 400.0100, L100.0200, L500.2900 ####[facility] [address] [place], [address] GLUCOSE, UR Normal Normal [facility] Comment on above: Result Comment: . Performed By: #### L 400.0100, L100.0200, L500.2900 ####[facility] [address] [place], [address] KETONE UR Normal Negative [facility] Comment on above: Result Comment: . Performed By: #### L 400.0100, L100.0200, L500.2900 ####[facility] [address] [place], [address] LEUK ESTERASE Normal Negative [facility] Comment on above: Result Comment: . Performed By: #### L 400.0100, L100.0200, L500.2900 ####[facility] [address] [place], [address] Nitrite Ql (U) Normal Negative [facility] Comment on above: Result Comment: . Performed By: #### L 400.0100, L100.0200, L500.2900 ####[facility] [address] [place], [address] OCCULT BLOOD-UR Normal Negative [facility] Comment on above: Result Comment: . Performed By: #### L 400.0100, L100.0200, L500.2900 ####[facility] [address] [place], [address] pH UR Normal 5.0 - 8.0 [facility] Comment on above: Result Comment: . Performed By: #### L 400.0100, L100.0200, L500.2900 ####[facility] [address] [place], [address] PROT DIPSTX Normal Negative [facility] Comment on above: Result Comment: . Performed By: #### L 400.0100, L100.0200, L500.2900 ####[facility] [address] [place], [address] SP.GR. DIPSTX Normal 1.002-1.030 [facility] Comment on above: Result Comment: . Performed By: #### L 400.0100, L100.0200, L500.2900 ####[facility] [address] [place], [address] UR Preservative Normal [facility] Comment on above: Result Comment: . Performed By: #### L 400.0100, L100.0200, L500.2900 ####[facility] [address] [place], [address] UROBILI Normal Normal [facility] Comment on above: Result Comment: . Performed By: #### L 400.0100, L100.0200, L500.2900 ####[facility] [address] [place], [address] Vitamin D,25 Hydroxyon 04-18 Vitamin D 25-OH 30.8 ng/mL Normal [facility] Comment on above: Result Comment: Frida min D 25(OH) Status Range Deficiency <20 ng/mL (50nmol/L) Insufficiency 20 - 30 ng/mL (50 - 75 nmol/L) Sufficiency 30 - 100 ng/mL (75 - 250 nmol/L) Toxicity >100 ng/mL (>250 nmol/L) Performed By: #### L 501.6108, L506.0400, L501.9985, L3100.5450, L3100.1850, L3300.0100, L3400.0700, L100.0100, L506.1000, L500.4050, L500.4100, L501.6710 #### [facility] [place], [address] [facility] 02-20-2024 [facility] Telephone (GENBMI) -- ALEXANDRIA CONTRERAS ([id number]) 1985 F Date Time Provider Department 02/20/24 REINA ADAN [facility] During your visit today, we recorded the following information about you: Reina Adan, RN 02/20/2024 4:29 PM Signed [facility] SPECIALTY CARE COORDINATION TELEPHONE ENCOUNTER Third attempt to contact pt and r/s bariatric procedure. Pt was scheduled and cxd and asked project scheduler to be given another date. Unable to reach pt. LVM and contact info requesting to be notified if still interested in surgical intervention. Updated navigator and scheduling team. Allergies As of Date: 02/20/2024 (No Known Allergies) Date Reviewed: 12/08/2023 Reviewed by: Daysi Washington MA - Fully Assessed Prescriptions as of 02/20/2024 - metFORMIN (GLUCOPHAGE) 500 mg tablet - Cholecalciferol, Vitamin D3, (D3-2000) 50 mcg (2,000 unit) cap - multivitamin/iron/folic acid (CENTRUM WOMEN ORAL) - semaglutide (OZEMPIC) 0.25 mg or 0.5 mg(2 mg/1.5 mL) pen Inject 0.25 mg subcutaneously one time a week. - spironolactone (ALDACTONE) 100 mg tablet Take 100 mg by mouth once daily. - levonorgestrel (LILETTA) 20.4 mcg/24 hrs (8 yrs) 52 mg IUD by INTRAUTERINE route. Problem List As Of Date 02/20/2024 Noted Resolved Genital herpes [A60.00] 10/20/2010 BRCA gene mutation positive [Z15.01, Z15.09] 08/25/2023 Gestational diabetes mellitus (GDM) [O24.419] 08/25/2023 08/25/2023 Class 3 severe obesity due to excess calories w*10/16/2023 Acne [L70.9] 10/16/2023 Smoking history [Z87.891] 10/16/2023 MUSHTAQ on CPAP [G47.33] 10/16/2023 Encounter Status:Closed [facility]GENBMI[facility] -- ALEX[place]RIA CONTRERAS ([id number]) 1985 F Date Time Provider Department 02/19/24 REINA ADAN [facility] During your visit today, we recorded the following information about you: Reina Adan, RN 02/19/2024 5:13 PM Signed [facility] SPECIALTY CARE COORDINATION TELEPHONE ENCOUNTER Second attempt to r/s sleeve gastrectomy. Pt contacted the office to request procedure be cancelled. LVM x2 without return call. Will try again. Team advised. Allergies As of Date: 02/19/2024 (No Known Allergies) Date Reviewed: 12/08/2023 Reviewed by: Daysi Washington MA - Fully Assessed Prescriptions as of 02/19/2024 - metFORMIN (GLUCOPHAGE) 500 mg tablet - Cholecalciferol, Vitamin D3, (D3-2000) 50 mcg (2,000 unit) cap - multivitamin/iron/folic acid (CENTRUM WOMEN ORAL) - semaglutide (OZEMPIC) 0.25 mg or 0.5 mg(2 mg/1.5 mL) pen Inject 0.25 mg subcutaneously one time a week. - spironolactone (ALDACTONE) 100 mg tablet Take 100 mg by mouth once daily. - levonorgestrel (LILETTA) 20.4 mcg/24 hrs (8 yrs) 52 mg IUD by INTRAUTERINE route. Problem List As Of Date 02/19/2024 Noted Resolved Genital herpes [A60.00] 10/20/2010 BRCA gene mutation positive [Z15.01, Z15.09] 08/25/2023 Gestational diabetes mellitus (GDM) [O24.419] 08/25/2023 08/25/2023 Class 3 severe obesity due to excess calories w*10/16/2023 Acne [L70.9] 10/16/2023 Smoking history [Z87.891] 10/16/2023 MUSHTAQ on CPAP [G47.33] 10/16/2023 Encounter Status:Closed by REINA ADAN on 02/19/24 [facility] 01-22-2024 CNPN Telephone (GENBMI) -- BENALEXANDRIA ([id number]) 1985 F Date Time Provider Department 01/22/24 REINA ADAN GENI During your visit today, we recorded the following information about you: Reina Adan RN 01/23/2024 11:03 AM Signed [facility] SPECIALTY CARE COORDINATION SURGERY APPROVAL CALL Received e-mail confirmation of insurance approval for bariatric surgery.Pre-operative call placed to the patient, this RN spoke with patient and agreed upon a surgery date of March 04 2024. Surgical episode request sent to [facility] surgery scheduling. Patient understands that the surgery type is Sleeve Gastrectomy as approved by insurance. Creatinine level 0.72 Patient instructed to start pre-op 800 calorie total protein liquid diet Atkins (5) daily beginning 2 weeks prior to surgery. - Stop all ASA and NSAID products, [place] 3 fish oil, herbal products such as ginko etc. Stop vitamins EXCEPT B COMPLEX- take this up to the day before surgery - Medication List reviewed and patient will contact prescribing physician regarding use of diuretics - Talk with your prescribing MD- stop when doing the unaltered LD because of ketosis while on pre-operative diet. - Patient denies use of estrogen products . IUD Talk with your prescribing MD if you take the following - should be monitored closely during the preoperative liquid diet with most held at the start of the diet given them. ALL of these medications should AT LEAST be held the day prior to surgery Actos Amaryl Glipizide Glucophage Metformin Anti-obesity medications - stop 1 week before surgery Phentermine Qsymia Contrave Vyvanse Diethylproprion Phendimetrazine Saxenda Wegovy SGLT2 inhibitors should be stopped 3-4 days before surgery - avoid using during the first weeks following bariatric surgery because of the risk of dehydration Jardiance Farxiga Invokana Sleep apnea requiring treatment? Yes, Patient tolerating C-PAP and advised to bring C-PAP mask and tubing DOS. If you have been diagnosed with moderate/severe sleep apnea you must wear CPAP/BIPAP a minimum of 4 hours nightly 2 weeks before surgery,. It is very important to treat MUSHTAQ pre op as well as continuing to use the CPAP post operatively- Do not stop using the machine without prior testing. Patient will require FMLA forms to be completed? Yes, Pt instructed to fax FMLA forms to [phone] and allow 7-10 days for completion. - Helen video assigned. 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 - Patient case reviewed. All nutrition appointments completed, psychology clearance obtained, surgeon visit and procedure type verified, medical optimization obtained and all testing complete. Does patient have Con ABO? No, patient does not have Con ABO and it has been ordered. [facility] BioRepository - a research program mentioned to patient and the [place] points below reviewed: o Voluntary participation won?t impact your care o You are being asked to donate your leftover blood and other bodily fluids that are collected during treatment and are normally thrown out to instead be collected and stored for future research o Future research could include genetic testing o Future research with your samples may be done by scientists or scientists at other institutions o All samples are stored without any identifiable private information, and your identity will not be released to anyone outside of without a special review process that is required by law Study Explained: Yes Patient info sent via My Chart: Yes Reina Adan RN Allergies As of Date: 01/22/2024 (No Known Allergies) Date Reviewed: 12/08/2023 Reviewed by: Daysi Washington MA - Fully Assessed Reason for Visit: Approval [Other] Prescriptions as of 01/31/2024 - metFORMIN (GLUCOPHAGE) 500 mg tablet - Cholecalciferol, Vitamin D3, (D3-2000) 50 mcg (2,000 unit) cap - multivitamin/iron/folic acid (CENTRUM WOMEN ORAL) - semaglutide (OZEMPIC) 0.25 mg or 0.5 mg(2 mg/1.5 mL) pen Inject 0.25 mg subcutaneously one time a week. - spironolactone (ALDACTONE) 100 mg tablet Take 100 mg by mouth once daily. - levonorgestrel (LILETTA) 20.4 mcg/24 hrs (8 yrs) 52 mg IUD by INTRAUTERINE route. Problem List As Of Date 01/22/2024 Noted Resolved Genital herpes [A60.00] 10/20/2010 BRCA gene mutation positive [Z15.01, Z15.09] 08/25/2023 Gestational diabetes mellitus (GDM) [O24.419] 08/25/2023 08/25/2023 Class 3 severe obesity due to excess calories w*10/16/2023 Acne [L70.9] 10/16/2023 Smoking history [Z87.891] 10/16/2023 MUSHTAQ on CPAP [G47.33] 10/16/2023 Encounter Status:Closed by REINA ADAN on 01/31/24 [facility]CO[facility] 01-17-2024 CNCO Letter Text [facility] CNOVon 12-08-2023 CNOV Office Visit (GENBMI ) -- ALEXANDRIA CONTRERAS ([id number]) 1985 F Date Time Provider Department 12/08/23 10:10 AM TOM CAROLINA During your visit today, we recorded the following information about you: Pulse Blood pressure Weight Height 113/minute 133/80 169.3 kg 1.57 m Tom Carolina MD 12/08/2023 1:21 PM Signed BARIATRIC SURGERY NEW PATIENT CONSULTATION HISTORY AND PHYSICAL Date: December 08, 2023 Name: Alexandria Contreras BMI Surgical Pathway Visit type: Bariatric Surgeon Visit This is a 38 year old female with obesity (Body mass index is 68.72 kg/m?.) who presents to clinic for consideration of bariatric surgery. Past medical history significant for MUSHTAQ on CPAP, preDM. Past surgical history significant for x1. Denies reflux. Not a smoker, or exposed to secondhand smoke. Occasionally takes NSAIDs, but believes she is able to stop. Currently undecided on procedure PAST MEDICAL HISTORY: PAST MEDICAL HISTORY Diagnosis Date Acne BRCA gene mutation positive in female Genital herpes 10/20/2010 Gestational diabetes mellitus (GDM) 08/25/2023 Localization-related (focal) (partial) epilepsy and epileptic syndromes with simple partial seizures, without mention of intractable epilepsy PAST SURGICAL HISTORY: PAST SURGICAL HISTORY Procedure Laterality Date SECTION HX TONSILLECTOMY PRIMARY/SECONDARY Tonsillectomy FAMILY HISTORY: FAMILY HISTORY Problem Relation Age of Onset Thyroid Mother Coronary Artery Disease Father Hypertension Father Lipids Father High Cholesterol Heart Father NV Diabetes Father type 2 No Known Problems Brother Stroke Maternal Grandmother Mild Stroke Breast Cancer Maternal Grandmother Diabetes Maternal Grandfather Cancer Paternal Grandmother Pancreatic Diabetes Paternal Grandmother type 2 Coronary Artery Disease Paternal Grandfather Hypertension Paternal Grandfather Heart Paternal Grandfather NV () SOCIAL HISTORY: Social History Tobacco Use Smoking status: Former Packs/day: .5 Types: Cigarettes Quit date: 2021 Years since quittin.3 Passive exposure: Never Smokeless tobacco: Never Tobacco comments: 5 cigs/day Vaping Use Vaping Use: Never used Substance Use Topics Alcohol use: Yes Comment: Rarely Drug use: No MEDICATIONS: Prior to Admission Medications: metFORMIN (GLUCOPHAGE) 500 mg tablet Cholecalciferol, Vitamin D3, (D3-2000) 50 mcg (2,000 unit) cap multivitamin/iron/folic acid (CENTRUM WOMEN ORAL) semaglutide (OZEMPIC) 0.25 mg or 0.5 mg(2 mg/1.5 mL) pen Inject 0.25 mg subcutaneously one time a week. spironolactone (ALDACTONE) 100 mg tablet Take 100 mg by mouth once daily. levonorgestrel (LILETTA) 20.4 mcg/24 hrs (8 yrs) 52 mg IUD by INTRAUTERINE route. ALLERGIES: ALLERGIES No Known Allergies REVIEW OF SYSTEMS: Negative other than in HPI PHYSICAL EXAM: BP 133/80 Pulse 113 Ht 157 cm (5' 1.8) Wt (!) 169.3 kg (373 lb 4.8 oz) LMP 09/24/2012 BMI 68.72 kg/m? Physical Exam Constitutional: Appearance: She is obese. HENT: Head: Normocephalic and atraumatic. Mouth/Throat: Mouth: Mucous membranes are moist. Pharynx: Oropharynx is clear. Eyes: Extraocular Movements: Extraocular movements intact. Conjunctiva/sclera: Conjunctivae normal. Cardiovascular: Rate and Rhythm: Normal rate and regular rhythm. Pulmonary: Effort: Pulmonary effort is normal. Breath sounds: Normal breath sounds. Abdominal: General: Abdomen is flat. Palpations: Abdomen is soft. Musculoskeletal: General: Normal range of motion. Cervical back: Normal range of motion. Skin: General: Skin is warm. Neurological: Mental Status: She is alert. Mental status is at baseline. LABS AND IMAGING: WBC (k/uL) Date Value 10/17/2023 8.79 RBC (m/uL) Date Value 10/17/2023 4.52 Hemoglobin (g/dL) Date Value 10/17/2023 12.4 Hematocrit (%) Date Value 10/17/2023 40.1 MCV (fL) Date Value 10/17/2023 88.7 MCH (pg) Date Value 10/17/2023 27.4 MCHC (g/dL) Date Value 10/17/2023 30.9 RDW-CV (%) Date Value 10/17/2023 14.6 Platelet Count (k/uL) Date Value 10/17/2023 334 MPV (fL) Date Value 10/17/2023 11.6 Glucose (mg/dL) Date Value 10/17/2023 104 (H) BUN (mg/dL) Date Value 10/17/2023 16 Creatinine (mg/dL) Date Value 10/17/2023 0.72 Sodium (mmol/L) Date Value 10/17/2023 138 Potassium (mmol/L) Date Value 10/17/2023 4.3 Chloride (mmol/L) Date Value 10/17/2023 103 CO2 (mmol/L) Date Value 10/17/2023 22 Protein, Total (g/dL) Date Value 10/17/2023 7.6 Albumin (g/dL) Date Value 10/17/2023 3.9 Calcium, Total (mg/dL) Date Value 10/17/2023 9.4 Alkaline Phosphatase (U/L) Date Value 10/17/2023 75 Bilirubin, Total (mg/dL) Date Value 10/17/2023 0.3 AST (U/L) Date Value 10/17/2023 27 (more content not included)... Normal [facility] EKGon 11-10-2023 Electrocardiogram Ventricular Rate : 8 8 BPM Atrial Rate : 88 BPM P-R Interval : 144 ms QRS Duration : 84 ms Q-T Interval : 346 ms QTC Calculation(Bazett) : 418 ms Calculated P [place] : 60 degrees Calculated R [place] : 68 degrees Calculated T [place] : 11 degrees NORMAL SINUS RHYTHM NORMAL ECG NO PREVIOUS ECGS AVAILABLE Confirmed by MD RAI GREGORY () on 01/07/2024 3:34:11 PM NAME : ALEXANDRIA CONTRERAS PID : [id number] : 1985 Gender : Female Race : ORD : Procedure Date : Nov 10 2023 09:19:54 Edit Date : Jan 07 2024 15:34:12 Diagnosis: NORMAL SINUS RHYTHM NORMAL ECG NO PREVIOUS ECGS AVAILABLE Confirmed by MD RAI GREGORY () on 01/07/2024 3:34:11 PM Test Reason : Location : 0 : CARD Overread By : MD RAI GREGORY Edited By : MD RAI GREGORY Referred By : INES JAFFE Acquired by : Dawn Prescott [facility] XR CHEST 2V FRONTAL/LATon XR CHEST 2V FRONTAL/LAT * * *Final Report* * * DATE OF EXAM: Nov 10 2023 9:00AM MDX [id number] - XR CHEST 2V FRONTAL/LAT / PROCEDURE REASON: multiple diagnoses * * * * Physician Interpretation * * * * EXAMINATION: CHEST RADIOGRAPH (2 VIEW FRONTAL and LATERAL) CLINICAL HISTORY: Class 3 severe obesity due to excess calories without serious comorbidity with body mass index (BMI) greater than or equal to 70 in adult (HCC) Class 3 severe obesity due to excess calories without serious comorbidity with body mass index (BMI) greater than or equal to 70 in adult (HCC) MQ: XC2_6 EXAM DATE/TIME: 11/10/2023 9:00 AM COMPARISON: No relevant prior studies available. RESULT: Lines, tubes, and devices: None. Lungs and pleura: No consolidation. No lung mass. No pleural effusion. No pneumothorax. Cardiomediastinal silhouette: Normal cardiomediastinal silhouette. Bones and soft tissues: Unremarkable. IMPRESSION: No acute radiographic abnormality. Pesticide Control Inspector: CHIQUITA Transcribe Date/Time: Nov 11 2023 1:21P Dictated by : LALO ELI MD This examination was interpreted and the report reviewed and electronically signed by: LALO ELI MD on Nov 11 2023 1:21PM EST [id number] Normal [facility] Absolute lymphocyte countOrd ered By: Ibrahima Bansal on 07-13-2023 Lymphocytes Auto (Unsp spec) [#/Vol] 2.89 10*3/uL 0.83-4.51 [facility] Basophil percentageOrdered B y: Ibrahima Bansal on 07-13-2023 Ammonia (P) [Moles/Vol] 25.0 umol/L -32 [facility] Basophil percentage < 0.2 AI 0.0-0.9 [facility] Basophils/100 WBC (Bld) 0.4 % 0-1 [facility] Bilirubin [Mass/Vol] 0.20 mg/dL 0.20-1.00 [facility] Comment on above: For patients on eltr ombopag therapy, use of Dimension [place] TBIL is not recommended. Chloride [Moles/Vol] 104 mmol/L 98-107 [facility] Cholesterol [Mass/Vol] 209 mg/dL <200 [facility] Comment on above: <200 mg/dL Desirable 200-240 mg/dL Borderline >240 mg/dL High Risk Eosinophils/100 WBC (Bld) 0.1 % 0-5 [facility] Glucose [Mass/Vol] 94 mg/dL 74-106 [facility] LDH [Catalytic activity/Vol] 241 U/L 84-246 [facility] Neutrophils (Bld) [#/Vol] 3.9 10*3/uL 2.0-7.7 [facility] Neutrophils/100 WBC (Bld) 52.0 % 47-70 [facility] Potassium [Moles/Vol] 3.9 mmol/L 3.5-5.1 [facility] Protein [Mass/Vol] 8.3 g/dL 6.4-8.2 [facility] Sodium [Moles/Vol] 138 mmol/L 136-145 [facility] Triglyceride [Mass/Vol] 176 mg/dL <199 [facility] Comment on above: The drugs N-Acetylcy steine and Metamizole may falsely depress this assay.Serum Triglycerides Reference Interval Normal <150 mg/dL Borderline high 150 - 199 mg/dL High 200 - 499 mg/dL Very High > or = 500 mg/dL WBC (Bld) [#/Vol] 7.5 10*3/uL 4.4-11.0 [facility] Blood erythrocytes count (nu mber/volume)Ordered By: Ibrahima Bansal on 07-13-2023 RBC (Bld) [#/Vol] 4.85 10*6/uL 4.2-5.4 [facility] Blood hemoglobin measurement (mass/volume)Ordered By: Ibrahima Bansal on 07-13-2023 Hemoglobin (Bld) [Mass/Vol] 13.4 g/dL 12.0-15.0 [facility] Blood lymphocytes/100 leukoc ytesOrdered By: Ibrahima Bansal on 07-13-2023 Lymphocytes/100 WBC (Bld) 38.3 % 19-41 [facility] Blood monocytes/100 leukocyt esOrdered By: Ibrahima Bansal on 07-13-2023 Monocytes/100 WBC (Bld) 8.8 % 0-10 [facility] Blood platelet mean volumeOr dered By: Ibrahima Bansal on 07-13-2023 Platelet mean volume (Bld) [Entitic vol] 10.9 fL 6.2-12.0 [facility] Determination of erythrocyte mean corpuscular volume (MCV)Ordered By: Ibrahima Bansal on 07-13-2023 MCV (RBC) [Entitic vol] 87.4 fL 81-99 [facility] Erythrocyte sedimentation ra teOrdered By: Ibrahima Bansal on 07-13-2023 ESR (Bld) [Velocity] 34 mm/h 0-30 [facility] HIV 1 and HIV-2 antibody ass ay with HIV-1 p24 antigen detectionOrdered By: Ibrahima Bansal on 07-13-2023 HIV 1+2 Ab+HIV1 p24 Ag IA Ql Non-Reactive Nonreactive [facility] Hematocrit Auto (Bld) [Volum e fraction]Ordered By: Ibrahima Bansal on 07-13-2023 Hematocrit (Bld) [Volume fraction] 42.4 % 37-47 [facility] INR in Blood by Coagulation assayOrdered By: Ibrahima Bansal on 07-13-2023 INR Coag (Bld) [Relative time] 1.1 {INR} [facility] - Chemistry and C hemistry - challengeOrdered By: Ibrahima Bansal on 07-13-2023 ALP [Catalytic activity/Vol] 75 U/L 45-117 [facility] ALT [Catalytic activity/Vol] 42 U/L 13-56 [facility] CO2 [Moles/Vol] 29.0 mmol/L 21.0-32.0 [facility] Globulin (S) [Mass/Vol] 4.8 g/dL 2.2-4.2 [facility] Urea nitrogen/Creatinine [Mass ratio] 18.9 mg/mg 10-20 [facility] - CoagulationOrde red By: Ibrahima Bansal on 07-13-2023 PT Coag (PPP) [Time] 13.9 s 11.7-14.9 [facility] - Hematology and Cell countsOrdered By: Ibrahima Bansal on 07-13-2023 Erythrocyte distribution width (RBC) [Entitic vol] 44.9 fL 35.1-43.9 [facility] Erythrocyte distribution width (RBC) [Ratio] 14.1 % 11.6-14.6 [facility] Immature granulocytes/100 WBC (Bld) 0.400 % 0.0-0.9 [facility] Comment on above: IG% - Immature Granu locytes (promyelocytes, myelocytes and metamyelocytes) > 1% indicates that a LEFT SHIFT is Present. MCH (RBC) [Entitic mass] 27.6 pg 27.0-32.0 [facility] Nucleated RBC/100 WBC (Bld) [Ratio] 0 % 0-5 [facility] MCHC Auto (RBC) [Mass/Vol]Or dered By: Ibrahima Bansal on 07-13-2023 MCHC (RBC) [Mass/Vol] 31.6 g/dL 32-36 [facility] No Panel InformationOrdered By: Ibrahima Bansal on 07-13-2023 Centromere B Antibody <0.2 AI 0.0-0.9 [facility] Estimated GFR (MDRD) Amer 105 mL/min >60 [facility] Comment on above: GFR Calc Estimated GFR (MDRD) Non-Af Amer 87 mL/min >60 [facility] Comment on above: Non- GFR Calc COMMERCIAL ATTORNEY Antibody <0.2 AI 0.0-0.9 [facility] Total Iron Binding Capacity 357 ug/dL 250-450 [facility] Platelets bldOrdered By: Lius Bansal on 07-13-2023 Platelets (Bld) [#/Vol] 327 10*3/uL 150-450 [facility] Serum DNA double strand anti body assay (units/volume)Ordered By: Ibrahima Bansal on 07-13-2023 DNA double strand Ab Qn (S) [IU]/mL 0-9 [facility] Comment on above: Negative <5 Equivoca l 5 - 9 Positive >9 Serum Sugey-1 antibody assay (u nits/volume)Ordered By: Ibrahima Bansal on 07-13-2023 Sugey-1 extractable nuclear Ab Qn (S) <0.2 AI 0.0-0.9 [facility] Serum Scl-70 extractable nuc lear antibody assay (units/volume)Ordered By: Ibrahima Bansal on 07-13-2023 SCL-70 extractable nuclear Ab Qn (S) <0.2 AI 0.0-0.9 [facility] Serum Hernandez extractable nucl ear antibody detectionOrdered By: Ibrahima Bansal on 07-13-2023 Hernandez extractable nuclear Ab Ql (S) <0.2 AI 0.0-0.9 [facility] Serum mitochondria antibody detectionOrdered By: Ibrahima Bansal on 07-13-2023 Mitochondria Ab Ql (S) <20.0 Units 0.0-20.0 [facility] Comment on above: Negative 0.0 - 20.0 Equivocal 20.1 - 24.9 Positive >24.9Mitochondrial (M2) Antibodies are found in 90-96% ofpatients with primary biliary cirrhosis.Performed at: [facility] [id number] Director: Wayne Norton PhD, Phone: [phone] Serum or plasma C reactive p rotein measurement (mass/volume)Ordered By: Ibrahima Bansal on 07-13-2023 CRP [Mass/Vol] 44.20 mg/L 0.0-3.0 [facility] Comment on above: C-Reactive Protein ( CRP) provides useful information for thediagnosis, therapy and monitoring of inflammatory processesand associated diseases. For the evaluation of Relative Riskfor Cardiovascular Disease, a High Sensitivity CRP (HSCRP)should be ordered. Serum or plasma albumin jeane urement (mass/volume)Ordered By: Ibrahima Bansal on 07-13-2023 Albumin [Mass/Vol] 3.5 g/dL 3.2-5.0 [facility] Serum or plasma albumin/glob ulin mass ratioOrdered By: Ibrahima Bansal on 07-13-2023 Albumin/Globulin [Mass ratio] 0.7 {ratio} 0.9-2.4 [facility] Serum or plasma calcium jeane urement (mass/volume)Ordered By: Ibrahima Bansal on 07-13-2023 Calcium [Mass/Vol] 8.9 mg/dL 8.5-10.1 [facility] Serum or plasma cholesterol in HDL measurement (mass/volume)Ordered By: Ibrahima Bansal on 07-13-2023 Cholesterol in HDL [Mass/Vol] 41 mg/dL >40 [facility] Comment on above: The drugs N-Acetylcy steine and Metamizole may falsely depress this assay. Reference Range HDL <40 mg/dL Low HDL Cholesterol HDL >or= 60 mg/dL High HDL Cholesterol Serum or plasma cholesterol in VLDL measurement (mass/volume)Ordered By: Ibrahima Bansal on 07-13-2023 Cholesterol in VLDL [Mass/Vol] 35 mg/dL 5-40 [facility] Serum or plasma creatinine m easurement (mass/volume)Ordered By: Ibrahima Bansal on 07-13-2023 Creatinine [Mass/Vol] 0.79 mg/dL 0.55-1.02 [facility] Comment on above: The validity of the calculated GFR & GFRAA in patients over 70 years has not been determined. Clinical correlation is essential. Serum or plasma ferritin kevin surement (mass/volume)Ordered By: Ibrahima Bansal on 07-13-2023 Ferritin [Mass/Vol] 33 ng/mL 8-252 [facility] Serum or plasma low density lipoprotein (LDL) cholesterol measurement (mass/volume)Ordered By: Ibrahima Bansal on 07-13-2023 Cholesterol in LDL [Mass/Vol] 133 mg/dL 0-130 [facility] Serum or plasma urea nitroge n measurement (mass/volume)Ordered By: Ibrahima Bansal on 07-13-2023 Urea nitrogen [Mass/Vol] 15 mg/dL 7-18 [facility] Thin prep Papanicolaou smear with manual screeningOrdered By: Ibrahima Bansal on 07-13-2023 Thin prep Papanicolaou smear with manual screening 28 U/L 15-37 [facility] Thin prep Papanicolaou smear with manual screening 5 5-15 [facility] Whole blood hemoglobin A1c/t otal hemoglobin ratio (mass fraction)Ordered By: Ibrahima Bansal on 07-13-2023 HbA1c (Bld) [Mass fraction] 5.6 % 3.8-5.6 [facility] Comment on above: Normal < 5.7 % Predi abetic 5.7 - 6.4 % Diabetic >or= 6.5 % Please note range changes. Absolute lymphocyte countOrd ered By: HEALTH ASSESSMENT on 03-10-2023 Lymphocytes Auto (Unsp spec) [#/Vol] 2.90 10*3/uL 0.83-4.51 [facility] Absolute reticulocyte countO rdered By: HEALTH ASSESSMENT on 03-10-2023 Reticulocytes (Bld) [#/Vol] 0.00 10*3/uL 0-5 [facility] Basophil percentageOrdered B y: HEALTH ASSESSMENT on 03-10-2023 Basophil percentage 3.4 mg/dL 2.5-4.9 [facility] Bilirubin [Mass/Vol] 0.30 mg/dL 0.20-1.00 [facility] Comment on above: For patients on eltr ombopag therapy, use of Dimension [place] TBIL is not recommended. Chloride [Moles/Vol] 103 mmol/L 98-107 [facility] Cholesterol [Mass/Vol] 220 mg/dL <200 [facility] Comment on above: <200 mg/dL Desirable 200-240 mg/dL Borderline >240 mg/dL High Risk Glucose [Mass/Vol] 78 mg/dL 74-106 [facility] LDH [Catalytic activity/Vol] 199 U/L 84-246 [facility] Neutrophils (Bld) [#/Vol] 6.4 10*3/uL 2.0-7.7 [facility] Potassium [Moles/Vol] 4.0 mmol/L 3.5-5.1 [facility] Protein [Mass/Vol] 8.2 g/dL 6.4-8.2 [facility] Sodium [Moles/Vol] 138 mmol/L 136-145 [facility] Triglyceride [Mass/Vol] 122 mg/dL <199 [facility] Comment on above: The drugs N-Acetylcy steine and Metamizole may falsely depress this assay.Serum Triglycerides Reference Interval Normal <150 mg/dL Borderline high 150 - 199 mg/dL High 200 - 499 mg/dL Very High > or = 500 mg/dL WBC (Bld) [#/Vol] 10.0 10*3/uL 4.4-11.0 [facility] Bilirubin Test strip Ql (U)O rdered By: HEALTH ASSESSMENT on 03-10-2023 Bilirubin Ql (U) Negative Negative [facility] Blood erythrocytes count (nu mber/volume)Ordered By: HEALTH ASSESSMENT on 03-10-2023 RBC (Bld) [#/Vol] 4.74 10*6/uL 4.2-5.4 [facility] Blood hemoglobin measurement (mass/volume)Ordered By: HEALTH ASSESSMENT on 03-10-2023 Hemoglobin (Bld) [Mass/Vol] 12.5 g/dL 12.0-15.0 [facility] Blood platelet mean volumeOr dered By: HEALTH ASSESSMENT on 03-10-2023 Platelet mean volume (Bld) [Entitic vol] 11.5 fL 6.2-12.0 [facility] Determination of erythrocyte mean corpuscular volume (MCV)Ordered By: HEALTH ASSESSMENT on 03-10-2023 MCV (RBC) [Entitic vol] 87.3 fL 81-99 [facility] Direct bilirubinOrdered By: HEALTH ASSESSMENT on 03-10-2023 Bilirubin.direct [Mass/Vol] 0.11 mg/dL 0.00-0.30 [facility] Hematocrit Auto (Bld) [Volum e fraction]Ordered By: HEALTH ASSESSMENT on 03-10-2023 Hematocrit (Bld) [Volume fraction] 41.4 % 37-47 [facility] Ketones Test strip Ql (U)Ord ered By: HEALTH ASSESSMENT on 03-10-2023 Ketones Ql (U) Negative Negative [facility] Laboratory - Chemistry and C hemistry - challengeOrdered By: HEALTH ASSESSMENT on 03-10-2023 ALP [Catalytic activity/Vol] 82 U/L 45-117 [facility] ALT [Catalytic activity/Vol] 39 U/L 13-56 [facility] Cholesterol.total/Chol esterol in HDL [Mass ratio] 4.40 {ratio} [facility] CO2 [Moles/Vol] 26.0 mmol/L 21.0-32.0 [facility] Globulin (S) [Mass/Vol] 4.9 g/dL 2.2-4.2 [facility] Urea nitrogen/Creatinine [Mass ratio] 19.1 mg/mg 10-20 [facility] Laboratory - Hematology and Cell countsOrdered By: HEALTH ASSESSMENT on 03-10-2023 Erythrocyte distribution width (RBC) [Entitic vol] 46.9 fL 35.1-43.9 [facility] Erythrocyte distribution width (RBC) [Ratio] 14.6 % 11.6-14.6 [facility] MCH (RBC) [Entitic mass] 26.4 pg 27.0-32.0 [facility] Nucleated RBC/100 WBC (Bld) [Ratio] 0 % 0-5 [facility] MCHC Auto (RBC) [Mass/Vol]Or dered By: HEALTH ASSESSMENT on 03-10-2023 MCHC (RBC) [Mass/Vol] 30.2 g/dL 32-36 [facility] Nitrite Test strip Ql (U)Ord ered By: HEALTH ASSESSMENT on 03-10-2023 Nitrite Ql (U) Negative Negative [facility] No Panel InformationOrdered By: HEALTH ASSESSMENT on 03-10-2023 Estimated GFR (MDRD) Amer 115 mL/min >60 [facility] Comment on above: GFR Calc Estimated GFR (MDRD) Non-Af Amer 95 mL/min >60 [facility] Comment on above: Non- GFR Calc Platelets bldOrdered By: [facility] ASSESSMENT on 03-10-2023 Platelets (Bld) [#/Vol] 333 10*3/uL 150-450 [facility] Protein Test strip Ql (U)Ord ered By: HEALTH ASSESSMENT on 03-10-2023 Protein Ql (U) 15 mg/dl Negative [facility] Segmented neutrophils/100 WB C Auto (Bld)Ordered By: HEALTH ASSESSMENT on 03-10-2023 Segmented neutrophils/100 WBC (Bld) 63.7 % 47-70 [facility] Serum or plasma albumin jeane urement (mass/volume)Ordered By: HEALTH ASSESSMENT on 03-10-2023 Albumin [Mass/Vol] 3.3 g/dL 3.2-5.0 [facility] Serum or plasma albumin/glob ulin mass ratioOrdered By: HEALTH ASSESSMENT on 03-10-2023 Albumin/Globulin [Mass ratio] 0.7 {ratio} 0.9-2.4 [facility] Serum or plasma calcium jeane urement (mass/volume)Ordered By: HEALTH ASSESSMENT on 03-10-2023 Calcium [Mass/Vol] 9.3 mg/dL 8.5-10.1 [facility] Serum or plasma cholesterol in HDL measurement (mass/volume)Ordered By: HEALTH ASSESSMENT on 03-10-2023 Cholesterol in HDL [Mass/Vol] 50 mg/dL >40 [facility] Comment on above: The drugs N-Acetylcy steine and Metamizole may falsely depress this assay. Reference Range HDL <40 mg/dL Low HDL Cholesterol HDL >or= 60 mg/dL High HDL Cholesterol Serum or plasma cholesterol in VLDL measurement (mass/volume)Ordered By: HEALTH ASSESSMENT on 03-10-2023 Cholesterol in VLDL [Mass/Vol] 24 mg/dL 5-40 [facility] Serum or plasma creatinine m easurement (mass/volume)Ordered By: HEALTH ASSESSMENT on 03-10-2023 Creatinine [Mass/Vol] 0.73 mg/dL 0.55-1.02 [facility] Comment on above: The validity of the calculated GFR & GFRAA in patients over 70 years has not been determined. Clinical correlation is essential. Serum or plasma low density lipoprotein (LDL) cholesterol measurement (mass/volume)Ordered By: HEALTH ASSESSMENT on 03-10-2023 Cholesterol in LDL [Mass/Vol] 146 mg/dL 0-130 [facility] Serum or plasma urea nitroge n measurement (mass/volume)Ordered By: HEALTH ASSESSMENT on 03-10-2023 Urea nitrogen [Mass/Vol] 14 mg/dL 7-18 [facility] Serum or plasma uric acid me asurement (mass/volume)Ordered By: HEALTH ASSESSMENT on 03-10-2023 Urate [Mass/Vol] 5.9 mg/dL 2.6-6.0 [facility] Comment on above: The drugs N-Acetylcy steine and Metamizole may falsely depress this assay. Thin prep Papanicolaou smear with manual screeningOrdered By: HEALTH ASSESSMENT on 03-10-2023 Thin prep Papanicolaou smear with manual screening 30 U/L 15-37 [facility] Thin prep Papanicolaou smear with manual screening 9 5-15 [facility] Urine blood detectionOrdered By: HEALTH ASSESSMENT on 03-10-2023 RBC Ql (U) 10 /ul Negative [facility] Urine clarityOrdered By: [facility] ASSESSMENT on 03-10-2023 Clarity (U) Sl. Cloudy Clear [facility] Urine color determinationOrd ered By: HEALTH ASSESSMENT on 03-10-2023 Color (U) Yellow Yellow [facility] Urine glucose detectionOrder ed By: HEALTH ASSESSMENT on 03-10-2023 Glucose Ql (U) Normal mg/dl Normal [facility] Urine leukocyte esterase det ection by dipstickOrdered By: HEALTH ASSESSMENT on 03-10-2023 Leukocyte esterase Test strip Ql (U) 500 /ul Negative [facility] Urine pHOrdered By: HEALTH A SSESSMENT on 03-10-2023 pH (U) 6.0 [pH] 5.0 - 8.0 [facility] Urine specific gravity measu rementOrdered By: [facility] ASSESSMENT on 03-10-2023 Specific gravity (U) [Rel density] 1.015 1.002-1.030 [facility] Urobilinogen Auto test strip Ql (U)Ordered By: HEALTH ASSESSMENT on 03-10-2023 Urobilinogen Ql (U) Normal mg/dl Normal [facility] No Panel InformationOrdered By: Latoya Lind on 02-13-2023 CA 125 Antigen 17.1 U/mL 0.0-38.1 [facility] Comment on above: [employer] El ectrochemiluminescence Immunoassay(ECLIA)Values obtained with different assay methods or kits cannotbe used interchangeably. Results cannot be interpreted asabsolute evidence of the presence or absence of malignantdisease.Performed at: [facility] [employer] [id number] Director: Wayne Norton PhD, Phone: [phone] Basophil percentageOrdered B y: Ibrahima Bansal on 02-02-2023 Basophil percentage TNP [facility] Comment on above: Test not performed Laboratory - Miscellaneous t estsOrdered By: Ibrahima Bansal on 02-02-2023 Service comment (Unsp spec) [Interp] Comment . [facility] Comment on above: This test was develo ped and its performance characteristicsdetermined by [employer]. It has not been cleared or approvedby the U.S. Food and Drug Administration.The FDA has determined that such clearance or approval isnot necessary. This test is used for clinical purposes. Itshould not be regarded as investigational or for research.Performed at: [address] [id number] Director: Ana María Romo MD, Phone: [phone] No Panel InformationOrdered By: Ibrahima Bansal on 02-02-2023 Addendum Document Comment . [facility] Comment on above: The quantitative ran ge of this assay is 15 IU/mL to 100million IU/mL. Hepatitis C Antibody Reactive Nonreactive [facility] Comment on above: Non Reactive: < 0.8 Equivocal: >/= 0.8 to < 1.0 Reactive: >/= 1.0The CDC recommends that a reactive/equivocal HCV antibody result be followed up by the HCV Nucleic Acid Amplificationtest (238230) Hepatitis C Genotype TNP [facility] Comment on above: Test not performedTe st not performed. Unable to provide an HCV genotype forthis sample. The most common reason an HCV genotype cannotbe determined is due to a viral load of <1,000 IU/mL, ormore rarely, the presence of an untypable HCV genotype. Serum or plasma hepatitis C virus RNA measurement by probe and target amplification mOrdered By: Ibrahima Bansal on 02-02-2023 HCV RNA CINDY+probe Qn Not detected . [facility] Laboratory - Chemistry and C hemistry - challengeon 01-04-2022 Free T4 [Mass/Vol] 0.86 ng/dL 0.76-1.46 [facility] Work Phone: No Panel Informationon 01-04 Free Triiodothyronine (T3) pg/dL 2.3 pg/mL 2.18-3.98 [facility] Work Phone: Glucose 2 Hour 75 gm Load See comment [facility] Work Phone: Comment on above: GLUC PPG 134 Col: 1112 Thyroid Stimulating Hormone (TSH) 1.57 uIU/mL 0.358-3.74 [facility] Work Phone: Chlamydia trachomatis rRNA d etection by probe and target amplification methodon 12-21-2021 C. trachomatis rRNA CINDY+probe Ql (Unsp spec) Negative Negative [facility] Work Phone: Laboratory - Microbiology an d Antimicrobial susceptibilityon 12-21-2021 N. gonorrhoeae DNA CINDY+probe Ql (Unsp spec) Negative Negative [facility] Work Phone: Comment on above: Performed at: =[facility] [address], [place] [id number] Director: Ema Sales MD, Phone: [phone] Basophil percentageon 2021 WBC (Bld) [#/Vol] 8.9 10*3/uL 4.4-11.0 [facility] Work Phone: Blood erythrocytes count (nu mber/volume)on 11-18-2021 RBC (Bld) [#/Vol] 3.32 10*6/uL 4.2-5.4 [facility] Work Phone: Blood hemoglobin measurement (mass/volume)on 11-18-2021 Hemoglobin (Bld) [Mass/Vol] 9.1 g/dL 12.0-15.0 [facility] Work Phone: Blood platelet mean volumeon 11-18-2021 Platelet mean volume (Bld) [Entitic vol] 11.1 fL 6.2-12.0 [facility] Work Phone: Determination of erythrocyte mean corpuscular volume (MCV)on 11-18-2021 MCV (RBC) [Entitic vol] 86.4 fL 81-99 [facility] Work Phone: Glucose Glucometer (dC) [M ass/Vol]on 11-18-2021 Glucose [Mass/Vol] 109 mg/dL 74-106 [facility] Work Phone: Comment on above: MANAGEMENT OF PATIEN T CARE PER NURSING PROTOCOL Hematocrit Auto (Bld) [Volum e fraction]on 11-18-2021 Hematocrit (Bld) [Volume fraction] 28.7 % 37-47 [facility] Work Phone: Laboratory - Chemistry and C hemistry - challengeon 11-18-2021 Free T4 [Mass/Vol] 0.80 ng/dL 0.76-1.46 [facility] Work Phone: Laboratory - Hematology and Cell countson 11-18-2021 Erythrocyte distribution width (RBC) [Entitic vol] 51.3 fL 35.1-43.9 [facility] Work Phone: Erythrocyte distribution width (RBC) [Ratio] 16.5 % 11.6-14.6 [facility] Work Phone: [phone] MCH (RBC) [Entitic mass] 27.4 pg 27.0-32.0 [facility] Work Phone: MCHC Auto (RBC) [Mass/Vol]on 11-18-2021 MCHC (RBC) [Mass/Vol] 31.7 g/dL 32-36 [facility] Work Phone: No Panel Informationon 11-18 Free Triiodothyronine (T3) pg/dL 1.6 pg/mL 2.18-3.98 [facility] Work Phone: [phone] Thyroid Stimulating Hormone (TSH) 4.63 uIU/mL 0.358-3.74 [facility] Work Phone: Platelets bldon 11-18-2021 Platelets (Bld) [#/Vol] 203 10*3/uL 150-450 [facility] Work Phone: Absolute lymphocyte counton 11-16-2021 Lymphocytes Auto (Unsp spec) [#/Vol] 1.96 10*3/uL 0.83-4.51 [facility] Work Phone: Basophil percentageon 2021 Basophils/100 WBC (Bld) 0.2 % 0-1 [facility] Work Phone: [phone] Bilirubin [Mass/Vol] 0.20 mg/dL 0.20-1.00 [facility] Work Phone: Comment on above: For patients on eltr ombopag therapy, use of Dimension [place] TBIL is not recommended. Chloride [Moles/Vol] 108 mmol/L 98-107 [facility] Work Phone: Eosinophils/100 WBC (Bld) 0.1 % 0-5 [facility] Work Phone: Glucose [Mass/Vol] 89 mg/dL 74-106 [facility] Work Phone: Neutrophils (Bld) [#/Vol] 8.9 10*3/uL 2.0-7.7 [facility] Work Phone: Neutrophils/100 WBC (Bld) 76.5 % 47-70 [facility] Work Phone: Potassium [Moles/Vol] 3.9 mmol/L 3.5-5.1 [facility] Work Phone: Protein [Mass/Vol] 7.7 g/dL 6.4-8.2 [facility] Work Phone: Sodium [Moles/Vol] 138 mmol/L 136-145 [facility] Work Phone: Blood lymphocytes/100 leukoc yteson 11-16-2021 Lymphocytes/100 WBC (Bld) 16.9 % 19-41 [facility] Work Phone: Blood monocytes/100 leukocyt eson 11-16-2021 Monocytes/100 WBC (Bld) 5.8 % 0-10 [facility] Work Phone: [phone] Laboratory - Chemistry and C hemistry - challengeon 11-16-2021 ALP [Catalytic activity/Vol] 139 U/L 45-117 [facility] Work Phone: ALT [Catalytic activity/Vol] 18 U/L 13-56 [facility] Work Phone: CO2 [Moles/Vol] 21.0 mmol/L 21.0-32.0 [facility] Work Phone: Globulin (S) [Mass/Vol] 4.9 g/dL 2.2-4.2 [facility] Work Phone: Urea nitrogen/Creatinine [Mass ratio] 27.0 mg/mg 10-20 [facility] Work Phone: Laboratory - Hematology and Cell countson 11-16-2021 Immature granulocytes/100 WBC (Bld) 0.500 % 0.0-0.9 [facility] Work Phone: Comment on above: IG% - Immature Granu locytes (promyelocytes, myelocytes and metamyelocytes) > 1% indicates that a LEFT SHIFT is Present. Nucleated RBC/100 WBC (Bld) [Ratio] 0 % 0-5 [facility] Work Phone: No Panel Informationon 11-16 Estimated Creatinine Clearance Calc 72.26 ml/min [facility] Work Phone: Estimated GFR (MDRD) Amer 103 mL/min >60 [facility] Work Phone: Comment on above: GFR Calc Estimated GFR (MDRD) Non-Af Amer 85 mL/min >60 [facility] Work Phone: Comment on above: Non- GFR Calc Serum or plasma albumin jeane urement (mass/volume)on 11-16-2021 Albumin [Mass/Vol] 2.8 g/dL 3.2-5.0 [facility] Work Phone: Serum or plasma albumin/glob ulin mass ratioon 11-16-2021 Albumin/Globulin [Mass ratio] 0.6 {ratio} 0.9-2.4 [facility] Work Phone: Serum or plasma calcium jeane urement (mass/volume)on 11-16-2021 Calcium [Mass/Vol] 9.9 mg/dL 8.5-10.1 [facility] Work Phone: Serum or plasma creatinine m easurement (mass/volume)on 11-16-2021 Creatinine [Mass/Vol] 0.82 mg/dL 0.55-1.02 [facility] Work Phone: Comment on above: The validity of the calculated GFR & GFRAA in patients over 70 years has not been determined. Clinical correlation is essential. Serum or plasma urea nitroge n measurement (mass/volume)on 11-16-2021 Urea nitrogen [Mass/Vol] 22 mg/dL 7-18 [facility] Work Phone: Serum or plasma uric acid me asurement (mass/volume)on 11-16-2021 Urate [Mass/Vol] 3.9 mg/dL 2.6-6.0 [facility] Work Phone: Comment on above: The drugs N-Acetylcy steine and Metamizole may falsely depress this assay. Thin prep Papanicolaou smear with manual screeningon 11-16-2021 Thin prep Papanicolaou smear with manual screening 17 U/L 15-37 [facility] Work Phone: Thin prep Papanicolaou smear with manual screening 9 5-15 [facility] Work Phone: Thin prep Papanicolaou smear with manual screening 188 U/L 84-246 [facility] Work Phone: Urine creatinine measurement (mass/volume)on 11-16-2021 Creatinine (U) [Mass/Vol] 193.00 mg/dL NO RANGE EST. [facility] Work Phone: Urine protein measurement (m ass/volume)on 11-16-2021 Protein (U) [Mass/Vol] 39.2 mg/dL 0.0-11.8 [facility] Work Phone: Urine protein/creatinine mas s ratioon 11-16-2021 Protein/Creatinine (U) [Mass ratio] 203 mg/g CRE 0-200 [facility] Work Phone: Basophil percentageon 2021 Basophil percentage TNP [facility] Work Phone: Comment on above: Test not performed No Panel Informationon 11-02 Addendum Document Comment . [facility] Work Phone: Comment on above: The quantitative ran ge of this assay is 15 IU/mL to 100million IU/mL.Performed at: - [facility] [id number] Director: Ana María Romo MD, Phone: [phone] Serum or plasma hepatitis C virus RNA measurement by probe and target amplification mon 11-02-2021 HCV RNA CINDY+probe Qn Not detected . [facility] Work Phone: No Panel Informationon 10-26 Group B Streptococcus Culture Group B Beta Streptococcus is not isolated. [facility] Work Phone: Basophil percentageon 2021 Bilirubin [Mass/Vol] 0.30 mg/dL 0.20-1.00 [facility] Work Phone: Comment on above: For patients on eltr ombopag therapy, use of Dimension [place] TBIL is not recommended. Chloride [Moles/Vol] 103 mmol/L 98-107 [facility] Work Phone: Glucose [Mass/Vol] 86 mg/dL 74-106 [facility] Work Phone: Potassium [Moles/Vol] 4.2 mmol/L 3.5-5.1 [facility] Work Phone: Protein [Mass/Vol] 8.0 g/dL 6.4-8.2 [facility] Work Phone: Sodium [Moles/Vol] 135 mmol/L 136-145 [facility] Work Phone: WBC (Bld) [#/Vol] 11.5 10*3/uL 4.4-11.0 [facility] Work Phone: Blood erythrocytes count (nu mber/volume)on 10-12-2021 RBC (Bld) [#/Vol] 4.13 10*6/uL 4.2-5.4 [facility] Work Phone: Blood hemoglobin measurement (mass/volume)on 10-12-2021 Hemoglobin (Bld) [Mass/Vol] 11.3 g/dL 12.0-15.0 [facility] Work Phone: Blood platelet mean volumeon 10-12-2021 Platelet mean volume (Bld) [Entitic vol] 11.0 fL 6.2-12.0 [facility] Work Phone: Culture, urineon 10-12-2021 Bacteria identified Cx Nom (U) Positive [facility] Work Phone: Determination of erythrocyte mean corpuscular volume (MCV)on 10-12-2021 MCV (RBC) [Entitic vol] 87.4 fL 81-99 [facility] Work Phone: Hematocrit Auto (Bld) [Volum e fraction]on 10-12-2021 Hematocrit (Bld) [Volume fraction] 36.1 % 37-47 [facility] Work Phone: Laboratory - Chemistry and C hemistry - challengeon 10-12-2021 ALP [Catalytic activity/Vol] 107 U/L 45-117 [facility] Work Phone: ALT [Catalytic activity/Vol] 21 U/L 13-56 [facility] Work Phone: CO2 [Moles/Vol] 23.0 mmol/L 21.0-32.0 [facility] Work Phone: Globulin (S) [Mass/Vol] 5.2 g/dL 2.2-4.2 [facility] Work Phone: Urea nitrogen/Creatinine [Mass ratio] 24.1 mg/mg 10-20 [facility] Work Phone: Laboratory - Hematology and Cell countson 10-12-2021 Erythrocyte distribution width (RBC) [Entitic vol] 49.6 fL 35.1-43.9 [facility] Work Phone: Erythrocyte distribution width (RBC) [Ratio] 15.9 % 11.6-14.6 [facility] Work Phone: MCH (RBC) [Entitic mass] 27.4 pg 27.0-32.0 [facility] Work Phone: MCHC Auto (RBC) [Mass/Vol]on 10-12-2021 MCHC (RBC) [Mass/Vol] 31.3 g/dL 32-36 [facility] Work Phone: No Panel Informationon 10-12 Estimated GFR (MDRD) Amer 121 mL/min >60 [facility] Work Phone: Comment on above: GFR Calc Estimated GFR (MDRD) Non-Af Amer 100 mL/min >60 [facility] Work Phone: Comment on above: Non- GFR Calc Platelets bldon 10-12-2021 Platelets (Bld) [#/Vol] 289 10*3/uL 150-450 [facility] Work Phone: Serum or plasma albumin jeane urement (mass/volume)on 10-12-2021 Albumin [Mass/Vol] 2.8 g/dL 3.2-5.0 [facility] Work Phone: Serum or plasma albumin/glob ulin mass ratioon 10-12-2021 Albumin/Globulin [Mass ratio] 0.5 {ratio} 0.9-2.4 [facility] Work Phone: Serum or plasma calcium jeane urement (mass/volume)on 10-12-2021 Calcium [Mass/Vol] 9.3 mg/dL 8.5-10.1 [facility] Work Phone: Serum or plasma creatinine m easurement (mass/volume)on 10-12-2021 Creatinine [Mass/Vol] 0.71 mg/dL 0.55-1.02 [facility] Work Phone: Comment on above: The validity of the calculated GFR & GFRAA in patients over 70 years has not been determined. Clinical correlation is essential. Serum or plasma urea nitroge n measurement (mass/volume)on 10-12-2021 Urea nitrogen [Mass/Vol] 17 mg/dL 7-18 [facility] Work Phone: Thin prep Papanicolaou smear with manual screeningon 10-12-2021 Thin prep Papanicolaou smear with manual screening 12 U/L 15-37 [facility] Work Phone: Thin prep Papanicolaou smear with manual screening 9 5-15 [facility] Work Phone: Thin prep Papanicolaou smear with manual screening 194 U/L 84-246 [facility] Work Phone: Urine creatinine measurement (mass/volume)on 10-12-2021 Creatinine (U) [Mass/Vol] 210.00 mg/dL NO RANGE EST. [facility] Work Phone: Urine protein measurement (m ass/volume)on 10-12-2021 Protein (U) [Mass/Vol] 58.9 mg/dL 0.0-11.8 [facility] Work Phone: Urine protein/creatinine mas s ratioon 10-12-2021 Protein/Creatinine (U) [Mass ratio] 280 mg/g CRE 0-200 [facility] Work Phone: No Panel Informationon 09-10 Hepatitis C Antibody Reactive Nonreactive [facility] Work Phone: Comment on above: CRITICAL VALUE VERIF IED. CALLED TO MYAEOSEBQ35/28/22 Danny3 Kailyn Donis.RESULTS READ BACK BY SAME . Non Reactive: < 0.8 Equivocal: >/= 0.8 to < 1.0 Reactive: >/= 1.0The [facility] recommends that a reactive/equivocal HCV antibody result be followed up by the HCV Nucleic Acid Amplificationtest (052051) Quantitative serum or plasma 3 hour gestational glucose tolerance panelon 09-10-2021 Glucose tolerance 3 hours gestational panel See comment [facility] Work Phone: Comment on above: FASTING 86 Col: 08/15 04/04 0847GLUCOSE TOLERANCE TEST FOR Reference Interval GESTATIONAL DIABETES Fasting <105 mg/dL 1 hour <190 mg/dl 2 hour <165 mg/dl 3 hour <145 mg/dl 1 HR GLU 190 Col: 09/10/21 0947 2 HR GLU 176 H Col: 09/10/21 1047 3 HR GLU 94 Col: 09/10/21 1147 Basophil percentageon 2020 Bilirubin [Mass/Vol] 0.20 mg/dL 0.20-1.00 [facility] Work Phone: Comment on above: For patients on eltr ombopag therapy, use of Dimension [place] TBIL is not recommended. Chloride [Moles/Vol] 104 mmol/L 98-107 [facility] Work Phone: Glucose [Mass/Vol] 108 mg/dL 74-106 [facility] Work Phone: Comment on above: Fasting Glucose resu lt from 100 to 125 mg/dL suggests IMPAIRED HOMEOSTASIS per A.D.A. criteria.Please note revised GLUCOSE reference range effective 2017. Potassium [Moles/Vol] 3.8 mmol/L 3.5-5.1 [facility] Work Phone: Protein [Mass/Vol] 7.4 g/dL 6.4-8.2 [facility] Work Phone: Sodium [Moles/Vol] 136 mmol/L 136-145 [facility] Work Phone: WBC (Bld) [#/Vol] 9.9 10*3/uL 4.4-11.0 [facility] Work Phone: Blood erythrocytes count (nu mber/volume)on 07-12-2021 RBC (Bld) [#/Vol] 3.92 10*6/uL 4.2-5.4 [facility] Work Phone: Blood hemoglobin measurement (mass/volume)on 07-12-2021 Hemoglobin (Bld) [Mass/Vol] 10.7 g/dL 12.0-15.0 [facility] Work Phone: Blood platelet mean volumeon 07-12-2021 Platelet mean volume (Bld) [Entitic vol] 11.0 fL 6.2-12.0 [facility] Work Phone: Culture, urineon 07-12-2021 Bacteria identified Cx Nom (U) Positive [facility] Work Phone: Determination of erythrocyte mean corpuscular volume (MCV)on 07-12-2021 MCV (RBC) [Entitic vol] 84.9 fL 81-99 [facility] Work Phone: Hematocrit Auto (Bld) [Volum e fraction]on 07-12-2021 Hematocrit (Bld) [Volume fraction] 33.3 % 37-47 [facility] Work Phone: Laboratory - Chemistry and C hemistry - challengeon 07-12-2021 ALP [Catalytic activity/Vol] 58 U/L 45-117 [facility] Work Phone: ALT [Catalytic activity/Vol] 17 U/L 13-56 [facility] Work Phone: [phone] CO2 [Moles/Vol] 23.0 mmol/L 21.0-32.0 [facility] Work Phone: [phone] Globulin (S) [Mass/Vol] 4.9 g/dL 2.2-4.2 [facility] Work Phone: Urea nitrogen/Creatinine [Mass ratio] 19.0 mg/mg 10-20 [facility] Work Phone: Laboratory - Hematology and Cell countson 07-12-2021 Erythrocyte distribution width (RBC) [Entitic vol] 48.9 fL 35.1-43.9 [facility] Work Phone: Erythrocyte distribution width (RBC) [Ratio] 16.2 % 11.6-14.6 [facility] Work Phone: MCH (RBC) [Entitic mass] 27.3 pg 27.0-32.0 [facility] Work Phone: MCHC Auto (RBC) [Mass/Vol]on 07-12-2021 MCHC (RBC) [Mass/Vol] 32.1 g/dL 32-36 [facility] Work Phone: No Panel Informationon 07-12 Estimated GFR (MDRD) Amer 153 mL/min >60 [facility] Work Phone: Comment on above: GFR Calc Estimated GFR (MDRD) Non-Af Amer 126 mL/min >60 [facility] Work Phone: Comment on above: Non- GFR Calc Platelets bldon 07-12-2021 Platelets (Bld) [#/Vol] 297 10*3/uL 150-450 [facility] Work Phone: Serum or plasma albumin jeane urement (mass/volume)on 07-12-2021 Albumin [Mass/Vol] 2.5 g/dL 3.2-5.0 [facility] Work Phone: Serum or plasma albumin/glob ulin mass ratioon 07-12-2021 Albumin/Globulin [Mass ratio] 0.5 {ratio} 0.9-2.4 [facility] Work Phone: Serum or plasma calcium jeane urement (mass/volume)on 07-12-2021 Calcium [Mass/Vol] 10.3 mg/dL 8.5-10.[address] [facility] Work Phone: Serum or plasma creatinine m easurement (mass/volume)on 07-12-2021 Creatinine [Mass/Vol] 0.58 mg/dL 0.55-1.[address] [facility] Work Phone: Comment on above: The validity of the calculated GFR & GFRAA in patients over 70 years has not been determined. Clinical correlation is essential. Serum or plasma urea nitroge n measurement (mass/volume)on 07-12-2021 Urea nitrogen [Mass/Vol] 11 mg/dL 7-18 [facility] Work Phone: Thin prep Papanicolaou smear with manual screeningon 07-12-2021 Thin prep Papanicolaou smear with manual screening 10 U/L 15-37 [facility] Work Phone: Thin prep Papanicolaou smear with manual screening 9 5-15 [facility] Work Phone: Thin prep Papanicolaou smear with manual screening 145 U/L 84-246 [facility] Work Phone: Urine creatinine measurement (mass/volume)on 07-12-2021 Creatinine (U) [Mass/Vol] 18.20 mg/dL NO RANGE EST. [facility] Work Phone: [phone] Urine protein measurement (m ass/volume)on 07-12-2021 Protein (U) [Mass/Vol] mg/dL 0.0-11.8 [facility] Work Phone: Urine protein/creatinine mas s ratioon 07-12-2021 Protein/Creatinine (U) [Mass ratio] TNP [facility] Work Phone: Comment on above: Test not performed No Panel Information Group B Streptococcus Culture Group B Beta Streptococcus is not isolated. [facility] Work Phone: Vital Signs Date Time Vital Sign Value Performing Clinician Facility 10-08-2024 08:32-0500 Body height 154.9 cm Charisse Vergara MD Work Phone: [facility] 10-08-2024 08:32-0500 Body mass index (BMI) [Ratio] 64.58 kg/m2 Charisse Vergara MD Work Phone: [facility] 10-08-2024 08:32-0500 Body weight 155.04 kg Charisse Vergara MD Work Phone: [facility] 10-08-2024 08:32-0500 Diastolic blood pressure 70 mm[Hg] Charisse Vergara MD Work Phone: [facility] 10-08-2024 08:32-0500 Systolic blood pressure 110 mm[Hg] Charisse Vergara MD Work Phone: [facility] 12-08-2023 10:39-0400 Body height 157 cm Tom Carolina MD Work Phone: [facility] 12-08-2023 10:39-0400 Body mass index (BMI) [Ratio] 68.72 kg/m2 Tom Carolina MD Work Phone: [facility] 12-08-2023 10:39-0400 Body weight 169.33 kg Tom Carolina MD Work Phone: [facility] 12-08-2023 10:39-0400 Diastolic blood pressure 80 mm[Hg] Tom Carolina MD Work Phone: [facility] 12-08-2023 10:39-0400 Heart rate 113 /min Tom Carolina MD Work Phone: [facility] 12-08-2023 10:39-0400 Systolic blood pressure 133 mm[Hg] Tom Carolina MD Work Phone: [facility] 12-07-2023 10:27-0400 Body height 153.[address] Work Phone: [facility] 12-07-2023 10:27-0400 Body mass index (BMI) [Ratio] 70.66 kg/m2 Vidhi Nadja RD Work Phone: [facility] 12-07-2023 10:27-0400 Body weight 166.[address] Work Phone: [facility] Comment on above: verbal 10-26-2023 14:04-0400 Body height 153.[address] Work Phone: [facility] 10-26-2023 14:04-0400 Body weight 168.[address] Work Phone: [facility] 10-16-2023 09:59-0500 Body weight 168.74 kg Ines Jaffe APRN.CNP Work Phone: [facility] 09-20-2023 08:45-0500 Body weight 172.55 kg Belkys Nj MD Work Phone: [facility] 09-20-2023 08:45-0500 Diastolic blood pressure 74 mm[Hg] Belkys Nj MD Work Phone: [facility] 09-20-2023 08:45-0500 Systolic blood pressure 110 mm[Hg] Belkys Nj MD Work Phone: [facility] 11-18-2021 15:43-0400 Body temperature 97.5 [degF] [facility] Work Phone: 11-18-2021 15:43-0400 Diastolic blood pressure 71 mm[Hg] [facility] Work Phone: 11-18-2021 15:43-0400 Heart rate 92 /min [facility] Work Phone: 11-18-2021 15:43-0400 Respiratory rate 18 /min [facility] Work Phone: 11-18-2021 15:43-0400 Systolic blood pressure 140 mm[Hg] [facility] Work Phone: 11-18-2021 10:47-0400 SaO2% (BldA) [Mass fraction] 99 % [facility] Work Phone: 11-16-2021 19:17-0400 Body height 154.94 cm [facility] Work Phone: 11-16-2021 19:17-0400 Body mass index (BMI) [Ratio] 75.2 kg/m2 [facility] Work Phone: 11-16-2021 19:17-0400 Body weight 180.71 kg [facility] Work Phone: 11-12-2021 16:54-0400 Diastolic blood pressure 78 mm[Hg] [facility] Work Phone: 11-12-2021 16:54-0400 Heart rate 93 /min [facility] Work Phone: 11-12-2021 16:54-0400 SaO2% (BldA) [Mass fraction] 98 % [facility] Work Phone: 11-12-2021 16:54-0400 Systolic blood pressure 146 mm[Hg] [facility] Work Phone: 11-12-2021 16:44-0400 Body height 154.94 cm [facility] Work Phone: 11-12-2021 16:44-0400 Body mass index (BMI) [Ratio] 74.6 kg/m2 [facility] Work Phone: 11-12-2021 16:44-0400 Body weight 179.16 kg [facility] Work Phone: Encounters Encounter Date Encounter Type Care Provider Facility Start: 04-11-2025 ambulatory [facility] Facility: [facility] Start: 03-18-2025 End: 03-18-[address] Andra Lino DO Work Phone: -Outpatient Breast Imaging Start: 03-18-2025 End: 03-18-[address] Charisse Vergara MD -Outpatient Breast Imaging Work Phone: Start: 03-18-2025 End: 03-18-2025 ambulatory Charisse Vergara Facility:[facility] Start: 03-05-2025 Registered [facility] R[facility] K ASSESSMENT -[facility] [place] Work Phone: Start: 03-05-2025 ambulatory Health Risk Assessment Facility:[facility] Start: 10-17-2024 End: 12-17-2024 Follow-up encounter Charisse Vergara MD Work Phone: OB/Gynecology Start: 10-08-2024 End: 10-08-2024 ambulatory CHARISSE VERGARA Facility:[facility] Start: 10-08-2024 End: 10-08-2024 Patient encounter status Charisse Vergara MD Work Phone: [facility] Start: 10-08-2024 End: 10-08-2024 Periodic preventive med est patient 18-39 yrs Charisse Vergara MD Work Phone: OB/Gynecology Comment on above: Encounter for gyneco logical examination (general) (routine) without abnormal findings (Primary Dx); Screening for cervical cancer; Encounter for screening for human papillomavirus (HPV) Start: 09-26-2024 End: 09-26-2024 ambulatory [facility] Facility:[facility] Start: 09-20-2024 End: 09-20-2024 ambulatory [facility] Facility:[facility] Start: 04-23-2024 End: 04-23-2024 ambulatory [facility] Facility:[facility] Start: 04-18-2024 ambulatory Health Risk Assessment Facility:[facility] Start: 04-18-2024 End: 04-18-2024 ambulatory [facility] Facility:[facility] Start: 02-20-2024 Telephone encounter Reina Adan RN General Surgery Start: 02-19-2024 Telephone encounter Reina Adan RN General Surgery Start: 01-22-2024 Telephone encounter Reina Adan RN General Surgery Comment on above: Approval Start: 01-15-2024 Admission to [facility] Reina Adan RN General Surgery Comment on above: 03/04/2024 Start: 01-15-2024 End: 01-15-2024 ambulatory Reina Adan RN General Surgery Start: 01-15-2024 Preprocedural examination done Reina Adan RN [facility] Start: 01-11-2024 End: 01-11-2024 ambulatory [facility] Facility:[facility] Start: 01-04-2024 Admission to [facility] center Edith Mitchell RN General Surgery Comment on above: Scheduling EGD Start: 01-04-2024 E-mail encounter fro m caregiver Edith Mitchell RN General Surgery Start: 01-03-2024 Admission to [facility] da surgery la jose Ines Jaffe APRN.DEPARTMENT HELPER Work Phone: General Surgery Comment on above: Clearance Start: 01-03-2024 ambulatory [facility] TOBACCO CHECKOUT CLERK.DEPARTMENT HELPER Work Phone: General Surgery Start: 01-02-2024 [facility] Tom Carolina MD Work Phone: General Surgery Comment on above: Requirements Start: 01-02-2024 End: 01-02-2024 ambulatory Tom Carolina MD Work Phone: General Surgery Start: 12-26-2023 End: 12-26-2023 ambulatory [facility] Facility:[facility] Start: 12-19-2023 End: 12-19-2023 ambulatory [facility] Facility:[facility] Start: 12-08-2023 End: 12-08-2023 Patient encounter procedure Tom Carolina MD Work Phone: General Surgery Comment on above: Morbid obesity due t o excess calories (HCC) (Primary Dx) Start: 12-08-2023 End: 12-08-2023 ambulatory TOM CAROLINA Facility:[facility] Start: 12-07-2023 End: 12-07-2023 Admission to same day surgery center Vidhi Saez RD Work Phone: General Surgery Comment on above: Body mass index (BMI ) greater than 70 in adult (HCC) (Primary Dx); Dietary counseling and surveillance Start: 12-07-2023 End: 12-07-2023 ambulatory VIDHI SAEZ Facility:[facility] Start: 12-07-2023 End: 12-07-2023 Telemedicine consultation with patient Vidhi Saez RD Work Phone: General Surgery Start: 11-10-2023 ambulatory UNKNOWN PROVIDER Facili ty:[facility] Start: 11-10-2023 Encounter for other preprocedural examination UNKNOWN PROVIDER [facility] Start: 10-26-2023 End: 10-26-[address] Work Phone: General Surgery Comment on above: Body mass index (BMI ) greater than 70 in adult (HCC) (Primary Dx); Dietary counseling and surveillance Start: 10-26-2023 End: 10-26-2023 Telemedicine consultation with patient Vidhi Saez RD Work Phone: [facility] Start: 10-24-2023 End: 10-24-2023 ambulatory JOCELIN CONLEY Facility:[facility] Start: 10-16-2023 End: 10-16-2023 ambulatory Ines Luisshama DEPARTMENT HELPER Work Phone: General Surgery Comment on above: Class 3 severe obesi ty due to excess calories without serious comorbidity with body mass index (BMI) greater than or equal to 70 in adult (HCC) (Primary Dx); Pre-op testing; MUSHTAQ on CPAP Start: 10-16-2023 End: 10-16-2023 Patient encounter status Ines Ld GRIFFINDEPARTMENT HELPER Work Phone: [facility] Work Phone: Start: 10-16-2023 End: 10-16-2023 Telemedicine consultation with patient Ines Lemega RAMESH.DEPARTMENT HELPER Work Phone: [facility] Start: 09-21-2023 Telephone encounter Belkys Nj MD Work Phone: OB/Gynecology Comment on above: Received Outside [facility] Records Start: 09-20-2023 End: 09-20-2023 Patient encounter procedure Belkys Nj MD Work Phone: OB/Gynecology Comment on above: Class 3 severe obesi ty due to excess calories without serious comorbidity with body mass index (BMI) greater than or equal to 70 in adult (HCC) (Primary Dx); BRCA1 genetic carrier Start: 07-13-2023 End: 07-13-[address] Andra Lino Work Phone: [facility] Work Phone: Start: 07-13-2023 End: 07-13-[address] Andra Lino Work Phone: [facility] Gastroenterology Work Phone: Start: 06-07-2023 End: 06-07-[address] Andra Lino Work Phone: [facility] Work Phone: Start: 06-07-2023 End: 06-07-[address] Andra Lino Work Phone: [facility] Work Phone: Start: 05-17-2023 End: 05-17-[address] Andra Lino Work Phone: [facility] Work Phone: Start: 03-10-[address] Andra pineda Work Phone: [facility] Start: 03-09-2023 End: 03-09-[address] Andra Lino Work Phone: [facility] Work Phone: Start: 03-09-2023 End: 03-09-[address] Andra Lino Work Phone: [facility] Work Phone: Start: 02-13-2023 End: 02-13-[address] Andra Lino Work Phone: [facility] Gastroenterology Work Phone: Start: 02-13-2023 End: 02-13-[address] Andra Lino Work Phone: [facility] Work Phone: Start: 02-13-2023 End: 02-13-[address] Andra Lino Work Phone: [facility]-Laboratory, [place] purchasing engineer Off Start: 02-02-2023 End: 02-02-2023 ambulatory [facility] Work Phone: Start: 02-02-2023 End: 02-02-2023 Patient encounter procedure [facility] Start: 12-23-2022 End: 12-23-2022 Patient encounter procedure [facility] - [facility] Start: 02-18-2022 End: 02-18-[address] Andra Lino Work Phone: [facility]-Outpatient Breast Imaging Start: 02-11-2022 End: 02-11-[address] Andra Lino Work Phone: [facility] Gastroenterology Start: 01-04-2022 End: 01-04-[address] Andra Lino Work Phone: [facility]-Laboratory, [place] purchasing engineer Off Start: 12-21-2021 End: 12-21-[address] [facility] Start: 11-21-2021 End: 11-21-[address] Andra Lino Work Phone: [facility] Care Start: 11-16-2021 End: 11-18-2021 Evaluation and management of inpatient [facility] Start: 11-12-2021 End: 11-12-2021 Patient encounter procedure [facility], Outpatients Start: 11-02-2021 End: 11-02-2021 Patient encounter procedure [facility], [place] purchasing engineer Off Start: 10-26-2021 End: 10-26-2021 Patient encounter procedure [facility], Specimen Start: 10-12-2021 End: 10-12-2021 Patient encounter procedure [facility], [place] purchasing engineer Off Start: 09-10-2021 End: 09-10-2021 Patient encounter procedure [facility], [place] purchasing engineer Off Start: 07-12-2021 Patient encounter procedure [facility], [place] purchasing engineer Off Start: 06-25-2020 End: 06-25-2020 Subsequent hospital visit by physician Delores Dominguez Work Phone: [facility] Comment on above: Family history of br east cancer; Family history of pancreatic cancer Procedures Date Procedure Procedure Detail Performing Clinician Start: 03-18-2025 Screening mammography Ki Lino DO Work Phone: Start: 03-05-2025 Serum inorganic phos phate measurement Dr. Andra Lino DO Work Phone: Start: 01-11-2024 Adult depression scr eening assessment Charisse Vergara MD Work Phone: Start: 03-09-2023 Screening mammography Ki Lino Work Phone: Start: 03-09-[address] Ul[address]ound elastogra phy of liver Dr. Andra Lino Work Phone: Start: 02-18-2022 Screening mammography Ki Lino Work Phone: Start: 11-16-2021 End: 11-16-2021 Viral antigen assay Start: 10-26-2021 Group B Streptococcu s Culture Start: 10-12-2021 Urine culture Start: 07-12-2021 Urine culture Group B Streptococcu s Culture Dr. Andra Lino Work Phone: Viral antigen assay Dr. Andra Lino Work Phone: Plan of Treatment Date Care Activity Detail Author Start: 10-08-2029 Screening for malign ant neoplasm of cervix Cervical Cancer Screening [facility] Start: 10-09-2025 End: 10-09-2025 Patient encounter procedure 10/09/2025 9:40 AM EST Office Visit OB/Gynecology [address] [place] [address] Otilia Pat MD [address] [place] [address] Annual OB/Gynecology Comment on above: Annual Start: 03-11-2025 Screening for malign ant neoplasm of breast Mammogram Screening [facility] Start: 01-10-2025 Anxiety Screening Anxiety Screening [facility] Start: 01-10-2025 Depression Screening Depression Scre ening [facility] Start: 08-27-2024 End: 08-27-2024 Patient encounter procedure 08/27/2024 10:00 AM EST Office Visit OB/Gynecology [address] [place] [address] Jazmyn Pope, TOBACCO CHECKOUT CLERK.DEPARTMENT HELPER [address] [place] [address] ANNUAL OB/Gynecology Comment on above: ANNUAL Start: 06-03-2024 End: 06-03-2024 Admission to same day surgery center 06/03/2024 3:[address] PM [address] [facility] General Surgery [address] [place] [address] Kary Burrell, TOBACCO CHECKOUT CLERK.[facility] [address] [place], [place] [id number] post op three months/ lap sleeve gastrectomy 03/04/2024 General Surgery Comment on above: post op three months / lap sleeve gastrectomy 03/04/2024 Start: 04-14-2024 Covid-19 Vaccine ( season) Covid-19 Vaccine ( season) [facility] Start: 04-14-2024 Influenza vaccination Influenza Vacc ine (#1) [facility] Start: 04-05-2024 End: 04-05-2024 Admission to same day surgery center 04/05/2024 1:00 PM EDT [facility] Surgery [address] [place] [address] Mynor Harrison PA-C [address] [place] [address] post op one month/ lap sleeve gastectomy 03/04/2024 General Surgery Comment on above: post op one month/ l ap sleeve gastectomy 03/04/2024 Start: 04-04-2024 End: 04-04-2024 Admission to same day surgery center 04/04/2024 1:45 PM EDT [facility] General Surgery [address] [place] [id number] Bassam Gallegos, RD [address] [place] [address] post op one month/ lap sleeve gastrectomy 03/04/2024 General Surgery Comment on above: post op one month/ l ap sleeve gastrectomy 03/04/2024 Start: 03-18-2024 End: 03-18-2024 Admission to same day surgery center 03/18/2024 2:45 PM EDT [facility] General Surgery [address] [place] [address] Vidhi Saez, RD [address] [address] post op refresher General Surgery Comment on above: post op refresher Start: 03-13-2024 End: 03-13-2024 Admission to same day surgery center 03/13/2024 9:30 AM EDT [address] [address] Mynor Harrison PA-C [address] [place] [address] post op 7-10 day/ lrygb 03/04/2024 General Surgery Comment on above: post op 7-10 day/ lr ygb 03/04/2024 Start: 03-04-2024 End: 03-04-2024 Admission to same day surgery center 03/04/2024 7:30 AM EDT - 03/04/2024 10:11 AM EDT Surgery Admitting [address] [place] [address] Tom Carolina MD [address] [place] [address] LAPAROSCOPIC LONGITUDINAL GASTRECTOMY, GASTRIC RESTRICTIVE PROCEDURE Admitting Comment on above: LAPAROSCOPIC LONGITU DINAL GASTRECTOMY, GASTRIC RESTRICTIVE PROCEDURE Start: 03-04-2024 End: 03-04-2024 Laps gstrc rstrictiv px longitudinal gastrectomy LAPAROSCOPIC LONGITUDINAL GASTRECTOMY, GASTRIC RESTRICTIVE PROCEDURE Class 3 severe obesity due to excess calories with body mass index (BMI) of 60.0 to 69.9 in adult, unspecified whether serious comorbidity present (HCC) Preoperative examination 03/04/2024 7:30 AM EDT [facility] Start: 03-04-2024 Subsequent hospital visit by physician 03/04/2024 7:30 AM EDT Hospital Encounter Admitting [address] [place] [address] Tom Carolina MD [address] [place] [address] Class 3 severe obesity due to excess calories with body mass index (BMI) of 60.0 to 69.9 in adult, unspecified whether serious comorbidity present (HCC) [E66.01, Z68.44] Admitting Comment on above: Class 3 severe obesi ty due to excess calories with body mass index (BMI) of 60.0 to 69.9 in adult, unspecified whether serious comorbidity present (HCC) [E66.01, Z68.44] Start: 02-16-2024 End: 02-16-2024 Patient encounter procedure 02/16/2024 1:45 PM EDT [facility] Draw Station [address] [address] preop/ lap sleeve gastrectomy 03/04/2024 [place] [id number] Draw Station Comment on above: preop/ lap sleeve ga strectomy 03/04/2024 Start: 02-16-2024 End: 02-16-2024 Anesthesia consultation 02/16/2024 12:50 PM EDT PAT Pre Anesthesia [address] [place] [address] 3, Pacc Main [address] [place] [address] preop/ lap sleeve gastrectomy 03/04/2024 Pre Anesthesia Comment on above: preop/ lap sleeve ga strectomy 03/04/2024 Start: 02-16-2024 End: 02-16-2024 Patient encounter procedure General Surgery Comment on above: preop/ lap sleeve ga strectomy 03/04/2024 + RUQ asymptomatic preop/ lap sleeve ga strectomy 03/04/2024 Start: 02-16-2024 End: 02-16-2024 Nursing evaluation of patient and report 02/16/2024 11:00 AM EDT Nurse Visit General Surgery [address] [place] [address] Bmi, Nurse [facility] [address] [place] [address] preop/ lap sleeve gastrectomy 03/04/2024 General Surgery Comment on above: preop/ lap sleeve ga strectomy 03/04/2024 Start: 02-14-2024 End: 02-14-2024 Patient encounter procedure 02/14/2024 9:45 AM EDT Office Visit Financial Clearance Phone Screening [facility] preop/lap sleeve gastectomy 03/04/2024 Financial Clearance Phone Screening Comment on above: preop/lap sleeve gas tectomy 03/04/2024 Start: 02-13-2024 End: 02-13-2024 Admission to same day surgery center 02/13/2024 12:45 PM EDT Education General Surgery [address] [place] [address] Patricia Cross, RD [address] [place] [address] preop refresher General Surgery Comment on above: preop refresher Start: 02-03-2024 End: 02-03-2024 ambulatory 02/03/2024 8:30 AM EDT Results Only [place] [facility] Draw Station [address] [facility] [place] [address] N[place] [facility] Draw Station Start: 01-24-2024 End: 01-23-2025 CBC W Auto Differential panel - Blood COMPLETE BLOOD COUNT AND DIFFERENTIAL Lab Routine Class 3 severe obesity due to excess calories with body mass index (BMI) of 60.0 to 69.9 in adult, unspecified whether serious comorbidity present (HCC) Preoperative examination Expected: 01/24/2024 (Approximate), Expires: 01/23/2025 [facility] Comment on above: Expected: 01/24/2024 (Approximate), Expires: 01/23/2025 Start: 01-24-2024 End: 01-23-2025 Comprehensive metabolic 2000 panel - Serum or Plasma COMPREHENSIVE METABOLIC PANEL Lab Routine Class 3 severe obesity due to excess calories with body mass index (BMI) of 60.0 to 69.9 in adult, unspecified whether serious comorbidity present (HCC) Preoperative examination Expected: 01/24/2024 (Approximate), Expires: 01/23/2025 [facility] Work Phone: Comment on above: Expected: 01/24/2024 (Approximate), Expires: 01/23/2025 Start: 01-24-2024 End: 01-23-2025 CONFIRM BLOOD TYPE CONFIRM BLOOD TYPE Blood Bank Routine Class 3 severe obesity due to excess calories with body mass index (BMI) of 60.0 to 69.9 in adult, unspecified whether serious comorbidity present (HCC) Preoperative examination Expected: 01/24/2024, Expires: 01/23/2025 [facility] Comment on above: Expected: 01/24/2024 , Expires: 01/23/2025 Start: 01-24-2024 End: 01-23-2025 TYPE AND SCREEN,30 DAY TYPE AND SCREEN,30 DAY Blood Bank Routine Class 3 severe obesity due to excess calories with body mass index (BMI) of 60.0 to 69.9 in adult, unspecified whether serious comorbidity present (HCC) Preoperative examination Expected: 01/24/2024, Expires: 01/23/2025 [facility] Comment on above: Expected: 01/24/2024 , Expires: 01/23/2025 Start: 12-08-2023 End: 12-08-2023 Patient encounter procedure 12/08/2023 10:10 AM EDT Office Visit General Surgery [address] [place] [address] Tom Carolina MD [address] [place] [address] Red/Kroh/0 Diet/Cigna BMI 71 h/o MUSHTAQ-CPAP General Surgery Comment on above: Red/Kroh/0 Diet/Cign a BMI 71 h/o MUSHTAQ-CPAP Start: 10-16-2023 End: 01-15-2024 25-hydroxyvitamin D3 [Mass/volume] in Serum or Plasma VITAMIN D 25 HYDROXY Lab Routine Class 3 severe obesity due to excess calories without serious comorbidity with body mass index (BMI) greater than or equal to 70 in adult ([facility]) Pre-op testing Expected: 10/16/2023, Expires: 01/15/2024 [facility] Work Phone: Comment on above: Expected: 10/16/2023 , Expires: 01/15/2024 Start: 10-16-2023 End: 01-15-2024 CBC W Auto Differential panel - Blood CBC + DIFF Lab Routine Class 3 severe obesity due to excess calories without serious comorbidity with body mass index (BMI) greater than or equal to 70 in adult ([facility]) Pre-op testing Expected: 10/16/2023, Expires: 01/15/2024 [facility] Work Phone: Comment on above: Expected: 10/16/2023 , Expires: 01/15/2024 Start: 10-16-2023 End: 01-15-2024 Cobalamin (Vitamin B12) [Mass/volume] in Serum or Plasma VITAMIN B12 BLOOD Lab Routine Class 3 severe obesity due to excess calories without serious comorbidity with body mass index (BMI) greater than or equal to 70 in adult ([facility]) Pre-op testing Expected: 10/16/2023, Expires: 01/15/2024 [facility] Work Phone: Comment on above: Expected: 10/16/2023 , Expires: 01/15/2024 Start: 10-16-2023 End: 01-15-2024 Comprehensive metabolic 2000 panel - Serum or Plasma COMP METABOLIC PANEL Lab Routine Class 3 severe obesity due to excess calories without serious comorbidity with body mass index (BMI) greater than or equal to 70 in adult ([facility]) Pre-op testing Expected: 10/16/2023, Expires: 01/15/2024 [facility] Work Phone: Comment on above: Expected: 10/16/2023 , Expires: 01/15/2024 Start: 10-16-2023 End: 01-15-2024 Ferritin [Mass/volume] in Serum or Plasma FERRITIN BLD Lab Routine Class 3 severe obesity due to excess calories without serious comorbidity with body mass index (BMI) greater than or equal to 70 in adult ([facility]) Pre-op testing Expected: 10/16/2023, Expires: 01/15/2024 [facility] Work Phone: Comment on above: Expected: 10/16/2023 , Expires: 01/15/2024 Start: 10-16-2023 End: 01-15-2024 Folate [Mass/volume] in Serum or Plasma FOLATE SERUM Lab Routine Class 3 severe obesity due to excess calories without serious comorbidity with body mass index (BMI) greater than or equal to 70 in adult ([facility]) Pre-op testing Expected: 10/16/2023, Expires: 01/15/2024 [facility] Work Phone: Comment on above: Expected: 10/16/2023 , Expires: 01/15/2024 Start: 10-16-2023 End: 01-15-2024 Hemoglobin A1c in Blood HGB A1C Lab Routine Class 3 severe obesity due to excess calories without serious comorbidity with body mass index (BMI) greater than or equal to 70 in adult ([facility]) Pre-op testing Expected: 10/16/2023, Expires: 01/15/2024 [facility] Work Phone: Comment on above: Expected: 10/16/2023 , Expires: 01/15/2024 Start: 10-16-2023 End: 01-15-2024 Iron and Iron binding capacity panel - Serum or Plasma IRON + TIBC Lab Routine Class 3 severe obesity due to excess calories without serious comorbidity with body mass index (BMI) greater than or equal to 70 in adult ([facility]) Pre-op testing Expected: 10/16/2023, Expires: 01/15/2024 [facility] Work Phone: Comment on above: Expected: 10/16/2023 , Expires: 01/15/2024 Start: 10-16-2023 End: 01-15-2024 Lipid 1996 panel - Serum or Plasma LIPID PANEL BASIC Lab Routine Class 3 severe obesity due to excess calories without serious comorbidity with body mass index (BMI) greater than or equal to 70 in adult (HCC) Pre-op testing Expected: 10/16/2023, Expires: 01/15/2024 [facility] Work Phone: Comment on above: Expected: 10/16/2023 , Expires: 01/15/2024 Start: 10-16-2023 End: 01-15-2024 Natriuretic peptide.B prohormone N-Terminal [Mass/volume] in Serum or Plasma NT PRO BNP Lab Routine Class 3 severe obesity due to excess calories without serious comorbidity with body mass index (BMI) greater than or equal to 70 in adult ([facility]) Pre-op testing Expected: 10/16/2023, Expires: 01/15/2024 [facility] Work Phone: Comment on above: Expected: 10/16/2023 , Expires: 01/15/2024 Start: 10-16-2023 End: 01-15-2024 Thyrotropin [Units/volume] in Serum or Plasma TSH BLD Lab Routine Class 3 severe obesity due to excess calories without serious comorbidity with body mass index (BMI) greater than or equal to 70 in adult ([facility]) Pre-op testing Expected: 10/16/2023, Expires: 01/15/2024 [facility] Work Phone: Comment on above: Expected: 10/16/2023 , Expires: 01/15/2024 Start: 10-16-2023 End: 01-15-2024 VITAMIN B1 (THIAMINE), WHOLE BLOOD VITAMIN B1 (THIAMINE), WHOLE BLOOD Lab Routine Class 3 severe obesity due to excess calories without serious comorbidity with body mass index (BMI) greater than or equal to 70 in adult (HCC) Pre-op testing Expected: 10/16/2023, Expires: 01/15/2024 [facility] Work Phone: Comment on above: Expected: 10/16/2023 , Expires: 01/15/2024 Start: 08-14-2023 Depression Assessment Depression Ass essment [facility] Start: 07-13-2023 Acute hepatitis 2000 panel - Serum [facility] Start: 07-13-2023 Rcera-0-bnkwdufseyz. tumor marker [Units/volume] in Serum or Plasma [facility] Start: 07-13-2023 Angiotensin converti ng enzyme [Enzymatic activity/volume] in Serum or Plasma [facility] Start: 07-13-2023 Ceruloplasmin [Mass/volume] in Serum or Plasma [facility] Start: 07-13-2023 Copper [Moles/volume ] in Serum or Plasma [facility] Start: 07-13-2023 Haptoglobin [Mass/vo lume] in Serum or Plasma [facility] Start: 07-13-2023 Smooth muscle Ab [Presence] in Serum [facility] Start: 07-13-2023 Transferrin [Mass/vo lume] in Serum or Plasma [facility] Start: 07-13-2023 [facility] Start: 04-14-2023 Covid-19 Vaccine ( season) Covid-19 Vaccine () [facility] Start: 11-18-2021 Application of abdom inal corset [facility] Work Phone: Start: 11-18-2021 Patient discharge [facility] Work Phone: Start: 11-17-2021 Administration of medication [facility] Work Phone: Start: 11-17-2021 Ambulation therapy management [facility] Work Phone: Start: 11-17-2021 Application of device W [facility] Work Phone: Start: 11-17-2021 Application of intermittent pneumatic compression device [facility] Work Phone: Start: 11-17-2021 Assessment of risk o f venous thromboembolism [facility] Work Phone: Start: 11-17-2021 Catheterization of vein [facility] Work Phone: Start: 11-17-2021 Deep breathing and coughing exercises [facility] Work Phone: Start: 11-17-2021 Exercises [facility] Work Phone: Start: 11-17-2021 Incentive spirometry [facility] Work Phone: Start: 11-17-2021 Introduction of urin jonathan catheter [facility] Work Phone: Start: 11-17-2021 Measuring intake and output [facility] Work Phone: Start: 11-17-2021 Notification of physician [facility] Work Phone: Start: 11-17-2021 Procedure discontinued [facility] Work Phone: Start: 11-17-2021 Provision of activit y privileges [facility] Work Phone: Start: 11-17-2021 Vital signs measurements [facility] Work Phone: Start: 11-17-2021 Wound care [facility] Work Phone: Start: 11-17-2021 [facility] Work Phone: Start: 11-17-2021 Application of abdom inal corset [facility] Work Phone: Start: 11-17-2021 [facility] Work Phone: Start: 11-16-2021 Admission procedure [facility] Work Phone: Start: 11-12-2021 Nonstress test [facility] Work Phone: Start: 07-31-2020 End: 07-31-2020 Clinical Support 07/31/2020 Clinical Support Charisse Aviles, [facility] [place] [address] [phone] Genetics - Chirag Start: 04-14-2020 FLU (#1) FLU (#1) [facility] Start: 09-15-2016 Screening for malign ant neoplasm of cervix Pap Testing [facility] Start: 2016 Screening for malign ant neoplasm of cervix HPV Testing [facility] Start: 09-15-2014 Screening for malign ant neoplasm of cervix Cervical Cancer Screening [facility] Start: 2005 Hepatitis B (1 of 3 - Risk 3-dose series) Hepatitis B (1 of 3 - Risk 3-dose series) [facility] Start: 2005 Hepatitis B Vaccine (1 of 3 - 19+ 3-dose series) Hepatitis B Vaccine (1 of 3 - 19+ 3-dose series) [facility] Start: 2005 Urine microalbumin profile DTaP,Tdap,Td Vaccine (1 - Tdap) [facility] Start: 2004 Hepatitis C screening Hepatitis C Sc reening [facility] Start: 2002 MenB (1 of 2 - MenB 2-Dose Series) MenB (1 of 2 - MenB 2-Dose Series) [facility] Start: 1993 Tetanus Diphtheria a nd Pertussis Vaccines (1 - Tdap) Tetanus Diphtheria and Pertussis Vaccines (1 - Tdap) [facility] Start: 1987 Hepatitis A (1 of 2 - Risk 2-dose series) Hepatitis A (1 of 2 - Risk 2-dose series) [facility] Start: 1987 MMR (1 of 1 - Standa rd series) MMR (1 of 1 - Standard series) [facility] Start: 1987 Varicella (1 of 2 - 2-dose childhood series) Varicella (1 of 2 - 2-dose childhood series) [facility] Start: 1986 Hepatitis B Vaccine (1 of 3 - 3-dose series) Hepatitis B Vaccine (1 of 3 - 3-dose series) [facility] End: 10-15-2024 ECG COMPLETE ECG COMPLETE ECG Routine Class 3 severe obesity due to excess calories without serious comorbidity with body mass index (BMI) greater than or equal to 70 in adult (HCC) Pre-op testing 1 Occurrences starting 10/16/2023 until 10/15/2024 [facility] Work Phone: Comment on above: 1 Occurrences starti ng 10/16/2023 until 10/15/2024 End: 06-25-2020 Genetic Sendout: CancerNext Panel with RNA testing Genetic Sendout: CancerNext Panel with RNA testing Lab Timed Family history of breast cancer Family history of pancreatic cancer 1 Occurrences starting 06/25/2020 until 06/25/2020 [facility] Comment on above: 1 Occurrences starti ng 06/25/2020 until 06/25/2020 Genetic Sendout: CancerNext Panel with RNA testing Genetic Sendout: CancerNext Panel with RNA testing Lab Routine Family history of breast cancer Family history of pancreatic cancer 06/25/2020 12:19 PM EST [facility] Hepatitis A virus Ig M Ab [Presence] in Serum [facility] Hepatitis B core ant ibody measurement, IgM type [facility] Hepatitis B surface antigen measurement [facility] Hepatitis B virus genotype [Identifier] in Serum or Plasma by CINDY with probe detection [facility] Work Phone: Hepatitis C antibody measurement [facility] Work Phone: Hepatitis C antibody measurement [facility] Hepatitis C virus genotype [Identifier] in Blood by CINDY with probe detection [facility] Hepatitis C virus RN A assay [facility] Work Phone: Imaging of liver [facility] Neutrophil cytoplasm ic Ab.classic [Units/volume] in Serum [facility] P-ANCA measurement [facility] PAP TEST PAP TEST Lab Lalit franco Encounter for gynecological examination (general) (routine) without abnormal findings Screening for cervical cancer Encounter for screening for human papillomavirus (HPV) 10/08/2024 9:00 AM EST [facility] Work Phone: Patient Education [facility] ED False Labor OB Triage: Return to Hospital or Notify Physician if you Experience: [facility] Work Phone: Patient referral [facility] Work Phone: PCR for Hepatitis C [facility] REFER FOR ADMIT INTERVIEW REFER FOR ADMIT INTERVIEW Procedures Routine Class 3 severe obesity due to excess calories with body mass index (BMI) of 60.0 to 69.9 in adult, unspecified whether serious comorbidity present (HCC) Preoperative examination Ordered: 01/24/2024 [facility] Comment on above: Ordered: 01/24/2024 End: 11-14-2024 US Abdomen RUQ US ABD RIGHT UPPER QUADRANT Radiology Routine Class 3 severe obesity due to excess calories without serious comorbidity with body mass index (BMI) greater than or equal to 70 in adult ([facility]) Pre-op testing 1 Occurrences starting 10/16/2023 until 11/14/2024 [facility] Work Phone: Comment on above: 1 Occurrences starti ng 10/16/2023 until 11/14/2024 End: 11-14-2024 XR Chest PA and Lateral XR CHEST 2V FRONTAL/LAT Radiology Routine Class 3 severe obesity due to excess calories without serious comorbidity with body mass index (BMI) greater than or equal to 70 in adult ([facility]) Pre-op testing 1 Occurrences starting 10/16/2023 until 11/14/2024 [facility] Work Phone: Comment on above: 1 Occurrences starti ng 10/16/2023 until 11/14/2024 [facility] Immunizations Immunization Date Immunization Notes Care Provider [facility] 05-17-2024 influenza, seasonal, injectable, preservative free Dr. Andra Lino DO Work Phone: [facility] 06-08-2023 influenza, injectabl e, quadrivalent, preservative free Dr. Andra Lino Work Phone: [facility] 06-08-2023 influenza virus vaccine, unspecified formulation Reina Adan RN [facility] 06-06-2022 influenza, injectabl e, quadrivalent, preservative free Dr. Andra Lino Work Phone: [facility] 06-06-2022 influenza, seasonal, injectable [facility] 06-24-2021 influenza, injectabl e, quadrivalent, preservative free Dr. Andra Lino Work Phone: [facility] 06-24-2021 influenza, seasonal, injectable [facility] 10-01-2020 influenza, injectabl e, quadrivalent, preservative free Dr. Andra Lino Work Phone: [facility] 10-01-2020 influenza, seasonal, injectable [facility] 09-14-2020 Covid (Moderna) [facility] 08-17-2020 Covid (Moderna) [facility] 06-26-2019 influenza, injectabl e, quadrivalent, preservative free Dr. Andra Lino Work Phone: [facility] 06-26-2019 influenza, seasonal, injectable [facility] 05-28-2018 influenza, injectabl e, quadrivalent, preservative free Dr. Andra Lino Work Phone: [facility] 05-28-2018 influenza, seasonal, [facility] 06-07-2017 influenza, injectabl e, quadrivalent, preservative free Dr. Andra Lino Work Phone: [facility] 06-07-2017 influenza, seasonal, injectable [facility] 05-12-2016 influenza, injectabl e, quadrivalent, preservative free Dr. Andra Lino Work Phone: [facility] 05-12-2016 influenza, seasonal, injectable [facility] 06-29-2015 influenza, injectabl e, quadrivalent, preservative free Dr. Andra Lino Work Phone: [facility] 06-29-2015 influenza, seasonal, injectable [facility] 05-14-2014 influenza, injectabl e, quadrivalent, preservative free Dr. Andra Lino Work Phone: [facility] 05-14-2014 influenza, seasonal, injectable [facility] 06-13-2013 Influenza virus vaccine W [facility] 10-28-2008 human papilloma viru s vaccine, quadrivalent Belkys Nj MD Work Phone: [facility] Work Phone: 06-30-2008 human papilloma viru s vaccine, quadrivalent Belkys Nj MD Work Phone: [facility] Work Phone: 04-29-2008 human papilloma viru s vaccine, quadrivalent Belkys Nj MD Work Phone: [facility] Work Phone: Payers Date Payer Category Payer [facility] [id number] 2024 Self-pay [id number] 2022 Private Health Insurance DEO BAUM OAP [id number] 2022-Present [phone] [address] [place] [address] Open Access [id number] 2022 Private Health Insurance [id number] 2020 Unknown [id number] 2018 Unknown RAQUEL GARCÍA BC BS PPO [id number] 2018-Present [address] [place] [address] [id number] 2013 Unknown [id number] Unknown [id number] Unknown [id number] Unknown [id number] 62 Unknown [id number] 62 Unknown [id number] 62 Unknown [id number] 62 Unknown [id number] 62 Unknown [id number] 62 Unknown [id number] 62 Unknown [id number] 62 Social History Date Type Detail Facility Start: 06-25-2020 End: 11-27-2023 Tobacco smoking status NHIS Former smoker [facility] End: 08-14-2021 History of tobacco use Current smoker [facility] Start: 06-25-2020 End: 10-08-2024 Tobacco use and exposure Never used [facility] Start: 06-25-2020 Tobacco Comment social smoking in past [facility] Start: 1985 Sex Assigned At Not on file A [facility] Exposure to SARS-CoV -2 (event) Not sure [facility] Start: 07-01-2021 End: 07-13-2023 Tobacco smoking status [facility] Unknown if ever smoked [facility] Start: 1985 Sex Assigned At Female W [facility] End: 08-14-2021 History of tobacco use Cigarette Smoker [facility] Start: 08-25-2023 End: 01-08-2024 Cigarettes smoked current (pack per day) - Reported 0.5 [facility] Start: 09-20-2023 End: 10-08-2024 Alcohol intake Current drinker of alcohol (finding) [facility] Start: 08-25-2023 End: 09-20-2023 Tobacco use panel [facility] National Score (1-100), lower number is lower risk 64 [facility] Start: 08-25-2023 Education 17 [facility] Start: 08-25-2023 Tobacco Comment 5 cigs/day [facility] NEGATED: Highlighted rowStart: NINF History of tobacco use Passive smoker [facility] Goals Date Patient Goal Desired Activity /State Clinical Notes 08-25-2023 to 10-08-2024 Charisse Vergara MD - 10/08/2024 8:26 AM ESTTelephone Encounter - Reina Adan RN - 02/20/2024 4:27 PM EDTTelephone Encounter - Reina Adan RN - 02/20/2024 4:27 PM EDT Note Date & Type Note Facility 10-08-2024 Note HNO ID: [id number] Author: CHARISSE VERGARA MD Service: ? Author Type: Physician Type: Progress Notes Filed: 10/08/2024 08:56 Note Text: Boat Finisher offered: Patient declines. [place] is a 39 year old who presents for an annual gynecologic exam without complaints. Gets yearly mammogram for BRCA positive. Would like MRI but needs open MRI and has not found a facility yet Has lost 50 lbs so far. 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 PAST MEDICAL HISTORY Diagnosis Date Acne BRCA gene mutation positive in female Genital herpes 10/20/2010 Gestational diabetes mellitus (GDM) 08/25/2023 Localization-related (focal) (partial) epilepsy and epileptic syndromes with simple partial seizures, without mention of intractable epilepsy PAST SURGICAL HISTORY Procedure Laterality Date SECTION HX TONSILLECTOMY PRIMARY/SECONDARY Tonsillectomy FAMILY HISTORY Problem Relation Age of Onset Thyroid Mother Coronary Artery Disease Father Hypertension Father Lipids Father High Cholesterol Heart Father NV Diabetes Father type 2 No Known Problems Brother Stroke Maternal Grandmother Mild Stroke Breast Cancer Maternal Grandmother Diabetes Maternal Grandfather Cancer Paternal Grandmother Pancreatic Diabetes Paternal Grandmother type 2 Coronary Artery Disease Paternal Grandfather Hypertension Paternal Grandfather Heart Paternal Grandfather NV () SOCIAL HISTORY Social History Tobacco Use Smoking status: Former Current packs/day: 0.00 Types: Cigarettes Quit date: 2021 Years since quittin.1 Passive exposure: Never Smokeless tobacco: Never Tobacco comments: 5 cigs/day Vaping Use Vaping status: Never Used Substance Use Topics Alcohol use: Yes Comment: Rarely Drug use: No REVIEW OF SYSTEMS Abdomen: No abdominal pain, nausea, vomiting, diarrhea, or constipation. No bloating, early satiety, indigestion, or increased flatulence. Bladder: No dysuria, gross hematuria, urinary frequency, urinary urgency, or incontinence. Breast: No breast lumps, nipple d/c, overlying skin changes, redness or skin retraction. Allergies and current medication updated:Yes SENSITIVE EXAM: The sensitive examination was discussed with the Patient or Patient's Authorized Aerotriangulation Specialist. As applicable, any other physician, advance practice provider, medical student, or other health professional student that will be observing or involved in the sensitive examination for educational or training purposes was discussed with the Patient or Authorized Aerotriangulation Specialist. The Patient or Authorized Aerotriangulation Specialist has agreed to proceed with the sensitive examination. (Sensitive examination includes inspection and/or palpation of the breasts, pelvis, prostate and anorectal regions). EXAM: BP 110/70 Ht 5' 1 (1.55m) Wt 341 lb 12.8 oz (155.0kg) LMP 09/24/2012 BMI 64.62 kg/(m2). GENERAL: pleasant, female in no apparent distress HEENT: Normocephalic, atraumatic, mucus membranes moist, and no lesions NECK: Supple, full range of motion, no adenopathy, and thyroid normal DERMATOLOGY: Normal, without lesions, non-icteric, and non-hirsute BREAST: soft, non-tender, symmetric, no dominant mass, normal nipple-areolar complex, no lymphadenopathy, and no nipple discharge CHEST: Normal inspiratory effort ABDOMEN: soft, non-tender, and no masses PELVIC: external genitalia normal, normal Bartholin's glands, urethra, Conshohocken's glands, no vulvar lesions, no cervical lesions, good vaginal support, physiologic discharge present, normal appearing perineal body and perianal region, IUD strings visible BIMANUAL: deferred RECTOVAGINAL: deferred. NEURO: alert and oriented x3,exam grossly non-focal EXTREMITIES: normal ASSESSMENT/PLAN: 1) Health maintenance: Pap done with HPV. Mammogram ordered. 2) Contraception: IUD. Contraceptive options reviewed and information provided. 3) STD screening: Declined STD check. 4) Follow up one year or sooner as needed Charisse Vergara MD [facility] 10-08-2024 History of Presen t illness Narrative Boat Finisher offered: Patient declines. Alexandria is a 39 year old who presents for an annual gynecologic exam without complaints. Gets yearly mammogram for BRCA positive. Would like MRI but needs open MRI and has not found a facility yet Has lost 50 lbs so far. 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 PAST MEDICAL HISTORY Diagnosis Date Acne BRCA gene mutation positive in female Genital herpes 10/20/2010 Gestational diabetes mellitus (GDM) 08/25/2023 Localization-related (focal) (partial) epilepsy and epileptic syndromes with simple partial seizures, without mention of intractable epilepsy PAST SURGICAL HISTORY Procedure Laterality Date SECTION HX TONSILLECTOMY PRIMARY/SECONDARY <AGE 13 Tonsillectomy FAMILY HISTORY Problem Relation Age of Onset Thyroid Mother Coronary Artery Disease Father Hypertension Father Lipids Father High Cholesterol Heart Father [place] Diabetes Father type 2 No Known Problems Brother Stroke Maternal Grandmother Mild Stroke Breast Cancer Maternal Grandmother Diabetes Maternal Grandfather Cancer Paternal Grandmother Pancreatic Diabetes Paternal Grandmother type 2 Coronary Artery Disease Paternal Grandfather Hypertension Paternal Grandfather Heart Paternal Grandfather [place] () SOCIAL HISTORY Social History Tobacco Use Smoking status: Former Current packs/day: 0.00 Types: Cigarettes Quit date: 2021 Years since quittin.1 Passive exposure: Never Smokeless tobacco: Never Tobacco comments: 5 cigs/day Vaping Use Vaping status: Never Used Substance Use Topics Alcohol use: Yes Comment: Rarely Drug use: No REVIEW OF SYSTEMS Abdomen: No abdominal pain, nausea, vomiting, diarrhea, or constipation. No bloating, early satiety, indigestion, or increased flatulence. Bladder: No dysuria, gross hematuria, urinary frequency, urinary urgency, or incontinence. Breast: No breast lumps, nipple d/c, overlying skin changes, redness or skin retraction. Allergies and current medication updated:Yes SENSITIVE EXAM: The sensitive examination was discussed with the Patient or Patient's Authorized Aerotriangulation Specialist. As applicable, any other physician, advance practice provider, medical student, or other health professional student that will be observing or involved in the sensitive examination for educational or training purposes was discussed with the Patient or Authorized Aerotriangulation Specialist. The Patient or Authorized Aerotriangulation Specialist has agreed to proceed with the sensitive examination. (Sensitive examination includes inspection and/or palpation of the breasts, pelvis, prostate and anorectal regions). EXAM: BP 110/70 Ht 5' 1 (1.55m) Wt 341 lb 12.8 oz (155.0kg) LMP 09/24/2012 BMI 64.62 kg/(m^2). GENERAL: pleasant, female in no apparent distress HEENT: Normocephalic, atraumatic, mucus membranes moist, and no lesions NECK: Supple, full range of motion, no adenopathy, and thyroid normal DERMATOLOGY: Normal, without lesions, non-icteric, and non-hirsute BREAST: soft, non-tender, symmetric, no dominant mass, normal nipple-areolar complex, no lymphadenopathy, and no nipple discharge CHEST: Normal inspiratory effort ABDOMEN: soft, non-tender, and no masses PELVIC: external genitalia normal, normal Bartholin's glands, urethra, Conshohocken's glands, no vulvar lesions, no cervical lesions, good vaginal support, physiologic discharge present, normal appearing perineal body and perianal region, IUD strings visible BIMANUAL: deferred RECTOVAGINAL: deferred. NEURO: alert and oriented x3,exam grossly non-focal EXTREMITIES: normal ASSESSMENT/PLAN: 1) Health maintenance: Pap done with HPV. Mammogram ordered. 2) Contraception: IUD. Contraceptive options reviewed and information provided. 3) STD screening: Declined STD check. 4) Follow up one year or sooner as needed Charisse Vergara MD documented in this encounter [facility] 02-20-2024 Telephone encounter Note BMI SPECIALTY CARE COORDINATION TELEPHONE ENCOUNTER Third attempt to contact pt and r/s bariatric procedure. Pt was scheduled and cxd and asked project scheduler to be given another date. Unable to reach pt. LVM and contact info requesting to be notified if still interested in surgical intervention. Updated navigator and scheduling team. [facility] 02-20-2024 Miscellaneous Notes BMI SPECIALTY CARE COORDINATION TELEPHONE ENCOUNTER Third attempt to contact pt and r/s bariatric procedure. Pt was scheduled and cxd and asked project scheduler to be given another date. Unable to reach pt. LVM and contact info requesting to be notified if still interested in surgical intervention. Updated navigator and scheduling team. documented in this encounter [facility] 02-19-2024 Telephone encounter Note BMI SPECIALTY CARE COORDINATION TELEPHONE ENCOUNTER Second attempt to r/s sleeve gastrectomy. Pt contacted the office to request procedure be cancelled. LVM x2 without return call. Will try again. Team advised. [facility] 02-19-2024 Miscellaneous Notes [facility] SPECIALTY CARE COORDINATION TELEPHONE ENCOUNTER Second attempt to r/s sleeve gastrectomy. Pt contacted the office to request procedure be cancelled. LVM x2 without return call. Will try again. Team advised. documented in this encounter [facility] 01-22-2024 Telephone encounter Note [facility] SPECIALTY CARE COORDINATION SURGERY APPROVAL CALL Received e-mail confirmation of insurance approval for bariatric surgery.Pre-operative call placed to the patient, this RN spoke with patient and agreed upon a surgery date of March 04 2024. Surgical episode request sent to [facility] surgery scheduling. Patient understands that the surgery type is Sleeve Gastrectomy as approved by insurance. Creatinine level 0.72 Patient instructed to start pre-op 800 calorie total protein liquid diet Atkins (5) daily beginning 2 weeks prior to surgery. - Stop all ASA and NSAID products, [place] 3 fish oil, herbal products such as ginko etc. Stop vitamins EXCEPT B COMPLEX- take this up to the day before surgery - Medication List reviewed and patient will contact prescribing physician regarding use of diuretics - Talk with your prescribing MD- stop when doing the unaltered LD because of ketosis while on pre-operative diet. - Patient denies use of estrogen products . IUD Talk with your prescribing MD if you take the following - should be monitored closely during the preoperative liquid diet with most held at the start of the diet given them. ALL of these medications should AT LEAST be held the day prior to surgery Actos Amaryl Glipizide Glucophage Metformin Anti-obesity medications - stop 1 week before surgery Phentermine Qsymia Contrave Vyvanse Diethylproprion Phendimetrazine Saxenda Wegovy SGLT2 inhibitors should be stopped 3-4 days before surgery - avoid using during the first weeks following bariatric surgery because of the risk of dehydration Jardiance Farxiga Invokana Sleep apnea requiring treatment? Yes, Patient tolerating C-PAP and advised to bring C-PAP mask and tubing DOS. If you have been diagnosed with moderate/severe sleep apnea you must wear CPAP/BIPAP a minimum of 4 hours nightly 2 weeks before surgery,. It is very important to treat MUSHTAQ pre op as well as continuing to use the CPAP post operatively- Do not stop using the machine without prior testing. Patient will require FMLA forms to be completed? Yes, Pt instructed to fax FMLA forms to [phone] and allow 7-10 days for completion. - Helen video assigned. 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 - Patient case reviewed. All nutrition appointments completed, psychology clearance obtained, surgeon visit and procedure type verified, medical optimization obtained and all testing complete. Does patient have Con ABO? No, patient does not have Con ABO and it has been ordered. [facility] BioRepository - a research program mentioned to patient and the tipton points below reviewed: o Voluntary participation won t impact your care o You are being asked to donate your leftover blood and other bodily fluids that are collected during treatment and are normally thrown out to instead be collected and stored for future research o Future research could include genetic testing o Future research with your samples may be done by scientists or scientists at other institutions o All samples are stored without any identifiable private information, and your identity will not be released to anyone outside of without a special review process that is required by law Study Explained: Yes Patient info sent via My Chart: Yes Reina Adan RN [facility] 01-22-2024 Miscellaneous Notes [facility] SPECIALTY CARE COORDINATION SURGERY APPROVAL CALL Received e-mail confirmation of insurance approval for bariatric surgery.Pre-operative call placed to the patient, this RN spoke with patient and agreed upon a surgery date of March 04 2024. Surgical episode request sent to [facility] surgery scheduling. Patient understands that the surgery type is Sleeve Gastrectomy as approved by insurance. Creatinine level 0.72 Patient instructed to start pre-op 800 calorie total protein liquid diet Atkins (5) daily beginning 2 weeks prior to surgery. - Stop all ASA and NSAID products, [place] 3 fish oil, herbal products such as ginko etc. Stop vitamins EXCEPT B COMPLEX- take this up to the day before surgery - Medication List reviewed and patient will contact prescribing physician regarding use of diuretics - Talk with your prescribing MD- stop when doing the unaltered LD because of ketosis while on pre-operative diet. - Patient denies use of estrogen products . IUD Talk with your prescribing MD if you take the following - should be monitored closely during the preoperative liquid diet with most held at the start of the diet given them. ALL of these medications should AT LEAST be held the day prior to surgery Actos Amaryl Glipizide Glucophage Metformin Anti-obesity medications - stop 1 week before surgery Phentermine Qsymia Contrave Vyvanse Diethylproprion Phendimetrazine Saxenda Wegovy SGLT2 inhibitors should be stopped 3-4 days before surgery - avoid using during the first weeks following bariatric surgery because of the risk of dehydration Jardiance Farxiga Invokana Sleep apnea requiring treatment? Yes, Patient tolerating C-PAP and advised to bring C-PAP mask and tubing DOS. If you have been diagnosed with moderate/severe sleep apnea you must wear CPAP/BIPAP a minimum of 4 hours nightly 2 weeks before surgery,. It is very important to treat MUSHTAQ pre op as well as continuing to use the CPAP post operatively- Do not stop using the machine without prior testing. Patient will require FMLA forms to be completed? Yes, Pt instructed to fax FMLA forms to [phone] and allow 7-10 days for completion. - Helen video assigned. 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 - Patient case reviewed. All nutrition appointments completed, psychology clearance obtained, surgeon visit and procedure type verified, medical optimization obtained and all testing complete. Does patient have Con ABO? No, patient does not have Con ABO and it has been ordered. [facility] BioRepository - a research program mentioned to patient and the [place] points below reviewed: o Voluntary participation won t impact your care o You are being asked to donate your leftover blood and other bodily fluids that are collected during treatment and are normally thrown out to instead be collected and stored for future research o Future research could include genetic testing o Future research with your samples may be done by scientists or scientists at other institutions o All samples are stored without any identifiable private information, and your identity will not be released to anyone outside of without a special review process that is required by law Study Explained: Yes Patient info sent via My Chart: Yes Reina Adan RN documented in this encounter [facility] 01-15-2024 Note HNO ID: [id number] Author: JOCELIN CONLEY, PhD Service: ? Author Type: Psychologist Type: Progress Notes Filed: 01/15/2024 09:52 Note Text: Bariatric Behavioral Services Progress Note [facility] Name: Alexandria Contreras Date of service: 01/15/2024 Time: 9:14 AM - 9:46 AM Cost center: [facility] Billing code: Dread CPT code: - [id number] Virtual Psychotherapy 16-37 minutes Date of first session: 10/24/23 (initial evaluation) Session #: 2 I have communicated my name and active licensure. The patient's identity (name, ) and physical location were verified at the time of this visit. Either the patient or their legal market survey representative has been informed of the risks and benefits of -- and alternatives to -- treatment through a remote evaluation and consents to proceed with the evaluation remotely. Upon completion of risk/benefit analysis, the patient's presenting problem and apparent condition are considered appropriate for virtual format. The patient does appear to have sufficient knowledge and skills in the use of relevant technology to benefit from virtual format. Platform: [employer] Address of patient during visit: home Collateral parties present: none Subjective Type of therapy: Cognitive behavioral therapy Supportive therapy Modality: Individual Therapy Pt was given the following pre-surgical psychological requirements: Complete [facility] group (or equivalent individual treatment) to address disordered eating and INDIVIDUAL [facility] PSYCHOLOGY APPOINTMENT AFTER COMPLETION OF GROUP (To schedule with [facility] group, call [phone]) -completed Additional requirements may be necessary if further psychological contraindications arise during the process of behavioral health evaluation. Previously noted concerns: Subclinical symptoms of binge-eating disorder and night eating syndrome Emotional eating Graze eating Pt reports having made the following changes since last session: Keeping food diaries with MFP (doing mindfulness and motivation plan) Using protein shake as meal replacement for breakfast Increasing activity Watching portions Pt completed [facility] group. Per Dr. Meneses's session 4 note: Scores on objective measures of depression and anxiety suggest stability/improvements with symptoms. Scores on an objective measure of binge eating attitudes and behaviors suggest improvement from the moderate to minimal range. She tended to meet her behavioral goals. Patient increased her frequency of keeping food records, but noted not all were complete records. While she is more confident in her decision for surgery, she noted some concerns about sharing this decision with family andfriends; pt will try to role play these conversations with her to help her prepare. Alexandria was a great addition to this group and was open in sharing struggles and successes. Pt reports, It was really helpful. I actually really enjoyed it. Since I've been doing that, I've become more cognizant and mindful of decisions throughout the day. Developing a routine, planning, and self-monitoring have been helpful. Pt describes current mood as good. I think it's been more positive. Feels more motivated and optimistic. 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 Interactions were all positive, and she did not feel how I thought I was going to feel Psych meds: none reported Therapy: none reported Checked-in re: eating behaviors over the last 4 weeks: Emotional eating: I don't do it every day, but I do still have days where I have done it Meal skippin protein shake + 2 meals per day Graze eating: most likely to occur on weekends, especially if they are home/do not have plans; more mindful/aware of the behavior; using delay-distract (doing dishes, putting away laundry, playing with kids, planting kilpatrick) with success Eating between dinner and bedtime: kitchen closed at 8 PM; did have ice cream the other night but got a smaller serving Eating during nighttime awakenings: none reported Sleep: averages 6-8 hours/night; MUSHTAQ: Yes; CPAP: Has not been using as often, as she was awaiting new mask--arrived last week Checked-in re: substance use over the last 4 weeks: Alcohol: 1 mixed drink at graduation constitution party yesterday; I went back there with the intetion of saying, 'no, thanks' but made the choice to have 1, and it's not something I normally do; has been thinking about how to manage similar situations postop, as she does not wish to share her decision to pursue MBS with everyone Other substances: none reported Exercise: wa (more content not included)... [facility] 01-11-2024 Note HNO ID: [id number] Author: ASTON MENESES, PhD Service: ? Author Type: Physician Type: Progress Notes Filed: 01/11/2024 16:00 Note Text: Alexandria Contreras [id number] January 11, 2024 [facility] Bariatric and Metabolic [facility] M61 Binge Eating Group Cost Center: [facility] CPT: [id number] Virtual PSYTX PT AND/FAMILY 60 MINS (90 minute group intervention delivered individually) 6:00PM-7:35PM I have communicated my name and active licensure. The patient's identity and physical location were verified at the time of this visit. Either the patient or their legal market survey representative has been informed of the risks and benefits of -- and alternatives to -- treatment through a remote evaluation/session and consents to proceed with the group intervention remotely. Platform: [employer] Session 4: Coping with Social Situations (INDIVIDUAL Make up session from earlier this week) Reviewed food diaries with an emphasis on reviewing techniques to prevent binge eating. Discussed becoming mentally prepared for life after surgery and coping with relationship issues. Discussed how to make good food choices in social and restaurant situations and assertive communication. Summarized [place] strategies covered during the group. Guest speaker one year post-surgery discussed their weight loss journey. Ms. Contreras was an active participant in the session. She did verbalize an understanding of the material presented. Patient was adherent with keeping food diaries (6 records with [facility] since we last met). The past holiday weekend was also her 's birthday; she reportedly ate everything that I wanted but did not over-indulge. Over the course of this intervention, patient stated she has learned the importance of mindful eating, and identifying and addressing cognitive distortions (e.g., mind reading). She will continue to work on increasing mindfulness in the moment, food records, closing the kitchen, and continuing to learn. She hasn't shared this journey with many family members or friends (other than her ), but will do so once she is ready to submit to insurance for a surgery date (e.g., when she is sure surgery is happening!). S.M.A.R.T. Goal (session 1): Close the kitchen at 8:00 PM, 5x/week --MET S.M.A.R.T. Goal (session 2): Close the kitchen at 8:00 PM, 5x/week --MET Keep food records, 5x/week --MET with partial records S.M.A.R.T. Goal (session 3): Close the kitchen at 8:00 PM, 5x/week:-- MET Keep food records, 5x/week:-- MET Plan dinner, 3x/week:-- MET Objective: Administered post-session questionnaires. Patient Data Binge Eating Scale (BES) 10/23/2023 01/11/2024 Eating Habits Checklist Total Score 19 11 <18 = minimal binge eating, 18-26 = moderate binge eating, >27 = severe binge eating Generalized Anxiety Disorder Scale (TESS-7) 10/23/2023 12/12/2023 01/08/2024 TESS - 7 SCORES Score 3 2 2 2 (0-4) minimal anxiety, (5-9) mild anxiety, (10-14) moderate anxiety, (15-21) severe anxiety Patient Health Questionnaire (PHQ-9) 10/23/2023 12/12/2023 01/08/2024 PHQ-9 Score 5 5 2 2 (0-4) minimal depression, (5-9) mild depression, (10-14) moderate depression, (15-19) moderately severe depression, (20-27) severe depression Assessment: (E66.01, F54) Psychological factors affecting morbid obesity (HCC) (primary encounter diagnosis) (F50.89) Other disorder of eating (F33.42) Major depressive disorder, recurrent episode, in full remission (HCC) (F40.10) Social anxiety disorder Over the course of the intervention: Scores on objective measures of depression and anxiety suggest stability/improvements with symptoms. Scores on an objective measure of binge eating attitudes and behaviors suggest improvement from the moderate to minimal range. She tended to meet her behavioral goals. Patient increased her frequency of keeping food records, but noted not all were complete records. While she is more confident in her decision for surgery, she noted some concerns about sharing this decision with family and friends; pt will try to role play these conversations with her to help her prepare. Alexandria was a great addition to this group and was open in sharing struggles and successes. Patient may benefit from attending the virtual support groups. Plan: Follow up with individual psychology provider ([facility]). Aston Meneses, Ph.D., Psychologist [facility] 01-03-2024 Telephone encounter Note Spoke with patient and reviewed next steps towards bariatric surgery. Will have RN emergency care tech for Dr. Carolina reach out next week to update pt whether she needs EGD or not.- to reach out next week if needed to follow-up Needs to complete [facility] w psych and then have a follow-up. Advised pt to reach out to BMI med to see if she needs any additiona testing or follow-ups to be cleared for surgery. Informed pt to contact navigation when she believes she is cleared by the team. [facility] 01-03-2024 Miscellaneous Notes Spoke with patient and reviewed next steps towards bariatric surgery. Will have RN emergency care tech for Dr. Carolina reach out next week to update pt whether she needs EGD or not.- to reach out next week if needed to follow-up Needs to complete [facility] w psych and then have a follow-up. Advised pt to reach out to BMI med to see if she needs any additiona testing or follow-ups to be cleared for surgery. Informed pt to contact navigation when she believes she is cleared by the team. documented in this encounter [facility] 01-02-2024 Note HNO ID: [id number] Author: ASTON MENESES, PhD Service: ? Author Type: Physician Type: Progress Notes Filed: 01/03/2024 00:57 Note Text: Alexandria Ben [id number] January 02, 2024 [facility] Bariatric and Metabolic [facility] M61 Binge Eating Group Cost Center: 3BO CPT: 5891040 VIRTUAL VISIT GROUP PSYCHOTHERAPY 6:00PM-7:35PM I have communicated my name and active licensure. The patient's identity and physical location were verified at the time of this visit. Either the patient or their legal market survey representative has been informed of the risks and benefits of -- and alternatives to -- treatment through a remote evaluation/session and consents to proceed with the group intervention remotely. Platform: [employer] [facility] [address]/Babatunde Session 3: Behavioral Strategies for Eating and Exercise Reviewed food diaries with an emphasis on identifying attitudes that contribute to eating patterns. Discussed behavioral techniques for weight management including stimulus control, regular meal pattern (eating breakfast), skills for managing cravings and behavior chaining. Reviewed the importance of exercise and how to set up an exercise plan using the F.I.T.T. Principle (Frequency, Intensity, Time and Type). Introduced mindful eating and engaged patients in a mindful eating exercise. Ms. Contreras was an active participant in the session. She did verbalize an understanding of the material presented. Patient was adherent with keeping food diaries ( 5 partial records using [employer]). She noted that she needs to plan ahead for meals. Cues/triggers for overeating or eating poorly include who grocery shops, kids and their shacks, and the floor plan of the house making access to food convenient. Patient ate an almond for the mindful eating exercise and stated she didn't enjoy it as much. Patient states she does not typically eat foods this slowly and would likely practice mindful eating in the future. S.M.A.R.T. Goal (session 1): Close the kitchen at 8:00 PM, 5x/week --MET S.M.A.R.T. Goal (session 2): Close the kitchen at 8:00 PM, 5x/week --MET Keep food records, 5x/week --MET with partial records S.M.A.R.T. Goal (session 3): Close the kitchen at 8:00 PM, 5x/week Keep food records, 5x/week Plan dinner, 3x/week Assessment: (E66.01, F54) Psychological factors affecting morbid obesity (HCC) (primary encounter diagnosis) (F50.89) Other disorder of eating (F33.42) Major depressive disorder, recurrent episode, in full remission (HCC) (F40.10) Social anxiety disorder Plan: Return to complete Session 4 individually with me d/t scheduling conflict (Coping with social situations) Aston Meneses, Ph.D., Psychologist [facility] 12-26-2023 Note HNO ID: [id number] Author: ASTON MENESES, PhD Service: ? Author Type: Physician Type: Progress Notes Filed: 12/26/2023 20:38 Note Text: Alexandria Contreras [id number] December 26, 2023 [facility] Bariatric and Metabolic [facility] M61 Binge Eating Group Cost Center: 3BO CPT: 7633523 VIRTUAL VISIT GROUP PSYCHOTHERAPY 6:00PM-7:35PM I have communicated my name and active licensure. The patient's identity and physical location were verified at the time of this visit. Either the patient or their legal market survey representative has been informed of the risks and benefits of -- and alternatives to -- treatment through a remote evaluation/session and consents to proceed with the group intervention remotely. Platform: [employer] [address]2576/[employer] Session 2: Emotional Eating, Cognitive Strategies and Self-Image Reviewed food diaries with an emphasis on identifying binge episodes. Discussed antecedents for binges including emotions such as stress, depression and anger. Identified positive coping strategies for stress management. Demonstrated diaphragmatic breathing as a stress management technique and gave patients relaxation resources. Discussed cognitive behavorial treatment of weight issues and identified self-defeating vs. coping thoughts. Discussed body image and expectations for changes in self-worth post-surgery. Ms. Contreras was an active participant in the session. She did verbalize an understanding of the material presented. Patient does appear to be an appropriate group candidate. Patient was partially adherent with keeping food diaries (2 records with [employer]); pt kept records on Monday and after our group and then fell off due to having a busy week. She will try taking photos of her meals in real time. Patient's current stressors include him housework, and parenting. She yusuf by eating, taking breaks and asking for help. She understood the association between thoughts, feeling, and behaviors; pt endorsed Mind Reading, Emotional Reasoning, and Should Statements as the main cognitive distortions she engages in. S.M.A.R.T. Goal (session 1): Close the kitchen at 8:00 PM, 5x/week --MET S.M.A.R.T. Goal (session 2): Close the kitchen at 8:00 PM, 5x/week Keep food records 5x/week Assessment: (E66.01, F54) Psychological factors affecting morbid obesity (HCC) (primary encounter diagnosis) (F50.89) Other disorder of eating (F33.42) Major depressive disorder, recurrent episode, in full remission (HCC) (F40.10) Social anxiety disorder Plan: Return to group in 1 week (Stimulus Control and Mindful Eating) Aston Meneses, Ph.D., Psychologist [facility] 12-19-2023 Note HNO ID: [id number] Author: ASTON MENESES, PhD Service: ? Author Type: Physician Type: Progress Notes Filed: 12/24/2023 23:14 Note Text: Alexandria Contreras [id number] 12/19/2023 [facility] Bariatric and Metabolic [place] [facility] M61 Binge Eating Group Cost Center: 3BO CPT: 9363750 VIRTUAL VISIT GROUP PSYCHOTHERAPY [address] Brief Emotional/Behavioral Assessment with scoring/documentation 6:00PM-7:45PM I have communicated my name and active licensure. The patient's identity and physical location were verified at the time of this visit. Either the patient or their legal market survey representative has been informed of the risks and benefits of -- and alternatives to -- treatment through a remote evaluation/session and consents to proceed with the group intervention remotely. Platform: [employer] [facility] [address]/Babatunde Session 1: Developing a Regular Eating Pattern Patients attended the first session of a four week cognitive behavioral intervention for binge eating disorder. Patients were reminded of the limits of confidentiality in the group setting and agreed to hold in confidence all matters discussed in the group. Patients introduced themselves and discussed their motivation for bariatric surgery and their relationship with food. Discussed symptoms of eating disorders including binge eating, night eating and graze eating, in addition to tools to help manage different eating patterns. Discussed importance of self-monitoring and reviewed how to keep accurate self-monitoring records. Ms. Contreras was an active participant in the session. She did verbalize an understanding of the material presented. Patient does appear to be an appropriate group candidate. Patient is seeking LSG and is motivated by improving her health, living longer for her 2 and 9 year old children, decreasing future health risks, being more active with her kids, and improved comfort. She identified the following barriers to successful weight management in the past: stress, change in priorities, and decreased meal prepping Objective: Goal for group sessions Learn skills and strategies to help with habits Lean to recover when things don't go as planned Patient Data Binge Eating Scale (BES) 10/23/2023 Eating Habits Checklist Total Score 19 <18 = minimal binge eating, 18-26 = moderate binge eating, >27 = severe binge eating Generalized Anxiety Disorder Scale (TESS-7) 10/23/2023 12/12/2023 TESS - 7 SCORES Score 3 2 (0-4) minimal anxiety, (5-9) mild anxiety, (10-14) moderate anxiety, (15-21) severe anxiety Patient Health Questionnaire (PHQ-9) 10/23/2023 12/12/2023 PHQ-9 Score 5 5 (0-4) minimal depression, (5-9) mild depression, (10-14) moderate depression, (15-19) moderately severe depression, (20-27) severe depression Assessment: (E66.01, F54) Psychological factors affecting morbid obesity (HCC) (primary encounter diagnosis) (F50.89) Other disorder of eating (F33.42) Major depressive disorder, recurrent episode, in full remission (HCC) (F40.10) Social anxiety disorder Plan: RTC 1 wk grp; Review food diaries, emotional eating, cognitive and behavorial strategies and self -image. S.M.A.R.T. Goal (session 1): Close the kitchen at 8:00 PM, 5x/week Aston Meneses, Ph.D., Psychologist [facility] 12-08-2023 Note HNO ID: [id number] Author: TOM CAROLINA MD Service: ? Author Type: Physician Type: Progress Notes Filed: 12/08/2023 13:21 Note Text: BARIATRIC SURGERY NEW PATIENT CONSULTATION HISTORY AND PHYSICAL Date: December 08, 2023 Name: Alexandria Contreras BMI Surgical Pathway Visit type: Bariatric Surgeon Visit This is a 38 year old female with obesity (Body mass index is 68.72 kg/m?.) who presents to clinic for consideration of bariatric surgery. Past medical history significant for MUSHTAQ on CPAP, preDM. Past surgical history significant for x1. Denies reflux. Not a smoker, or exposed to secondhand smoke. Occasionally takes NSAIDs, but believes she is able to stop. Currently undecided on procedure PAST MEDICAL HISTORY: PAST MEDICAL HISTORY Diagnosis Date Acne BRCA gene mutation positive in female Genital herpes 10/20/2010 Gestational diabetes mellitus (GDM) 08/25/2023 Localization-related (focal) (partial) epilepsy and epileptic syndromes with simple partial seizures, without mention of intractable epilepsy PAST SURGICAL HISTORY: PAST SURGICAL HISTORY Procedure Laterality Date SECTION HX TONSILLECTOMY PRIMARY/SECONDARY Tonsillectomy FAMILY HISTORY: FAMILY HISTORY Problem Relation Age of Onset Thyroid Mother Coronary Artery Disease Father Hypertension Father Lipids Father High Cholesterol Heart Father NV Diabetes Father type 2 No Known Problems Brother Stroke Maternal Grandmother Mild Stroke Breast Cancer Maternal Grandmother Diabetes Maternal Grandfather Cancer Paternal Grandmother Pancreatic Diabetes Paternal Grandmother type 2 Coronary Artery Disease Paternal Grandfather Hypertension Paternal Grandfather Heart Paternal Grandfather NV () SOCIAL HISTORY: Social History Tobacco Use Smoking status: Former Packs/day: .5 Types: Cigarettes Quit date: 2021 Years since quittin.3 Passive exposure: Never Smokeless tobacco: Never Tobacco comments: 5 cigs/day Vaping Use Vaping Use: Never used Substance Use Topics Alcohol use: Yes Comment: Rarely Drug use: No MEDICATIONS: Prior to Admission Medications: metFORMIN (GLUCOPHAGE) 500 mg tablet Cholecalciferol, Vitamin D3, (D3-2000) 50 mcg (2,000 unit) cap multivitamin/iron/folic acid (CENTRUM WOMEN ORAL) semaglutide (OZEMPIC) 0.25 mg or 0.5 mg(2 mg/1.5 mL) pen Inject 0.25 mg subcutaneously one time a week. spironolactone (ALDACTONE) 100 mg tablet Take 100 mg by mouth once daily. levonorgestrel (LILETTA) 20.4 mcg/24 hrs (8 yrs) 52 mg IUD by INTRAUTERINE route. ALLERGIES: ALLERGIES No Known Allergies REVIEW OF SYSTEMS: Negative other than in HPI PHYSICAL EXAM: BP 133/80 Pulse 113 Ht 157 cm (5' 1.8) Wt (!) 169.3 kg (373 lb 4.8 oz) LMP 09/24/2012 BMI 68.72 kg/m? Physical Exam Constitutional: Appearance: She is obese. HENT: Head: Normocephalic and atraumatic. Mouth/Throat: Mouth: Mucous membranes are moist. Pharynx: Oropharynx is clear. Eyes: Extraocular Movements: Extraocular movements intact. Conjunctiva/sclera: Conjunctivae normal. Cardiovascular: Rate and Rhythm: Normal rate and regular rhythm. Pulmonary: Effort: Pulmonary effort is normal. Breath sounds: Normal breath sounds. Abdominal: General: Abdomen is flat. Palpations: Abdomen is soft. Musculoskeletal: General: Normal range of motion. Cervical back: Normal range of motion. Skin: General: Skin is warm. Neurological: Mental Status: She is alert. Mental status is at baseline. LABS AND IMAGING: WBC (k/uL) Date Value 10/17/2023 8.79 RBC (m/uL) Date Value 10/17/2023 4.52 Hemoglobin (g/dL) Date Value 10/17/2023 12.4 Hematocrit (%) Date Value 10/17/2023 40.1 MCV (fL) Date Value 10/17/2023 88.7 MCH (pg) Date Value 10/17/2023 27.4 MCHC (g/dL) Date Value 10/17/2023 30.9 RDW-CV (%) Date Value 10/17/2023 14.6 Platelet Count (k/uL) Date Value 10/17/2023 334 MPV (fL) Date Value 10/17/2023 11.6 Glucose (mg/dL) Date Value 10/17/2023 104 (H) BUN (mg/dL) Date Value 10/17/2023 16 Creatinine (mg/dL) Date Value 10/17/2023 0.72 Sodium (mmol/L) Date Value 10/17/2023 138 Potassium (mmol/L) Date Value 10/17/2023 4.3 Chloride (mmol/L) Date Value 10/17/2023 103 CO2 (mmol/L) Date Value 10/17/2023 22 Protein, Total (g/dL) Date Value 10/17/2023 7.6 Albumin (g/dL) Date Value 10/17/2023 3.9 Calcium, Total (mg/dL) Date Value 10/17/2023 9.4 Alkaline Phosphatase (U/L) Date Value 10/17/2023 75 Bilirubin, Total (mg/dL) Date Value 10/17/2023 0.3 AST (U/L) Date Value 10/17/2023 27 ALT (U/L) Date Value 10/17/2023 27 Hemoglobin A1C Date Value Ref Range Status 10/17/2023 5.6 4.3 - 5.6 % Final Comment: [place] [employer] guidelines indicate that patients with HgbA1c in the range 5.7-6.4% are at increased risk for develo (more content not included)... [facility] 12-08-2023 History of Presen t illness Narrative BARIATRIC SURGERY NEW PATIENT CONSULTATION HISTORY AND PHYSICAL Date: December 08, 2023 Name: Alexandria Contreras BMI Surgical Pathway Visit type: Bariatric Surgeon Visit This is a 38 year old female with obesity (Body mass index is 68.72 kg/m .) who presents to clinic for consideration of bariatric surgery. Past medical history significant for MUSHTAQ on CPAP, preDM. Past surgical history significant for x1. Denies reflux. Not a smoker, or exposed to secondhand smoke. Occasionally takes NSAIDs, but believes she is able to stop. Currently undecided on procedure PAST MEDICAL HISTORY: PAST MEDICAL HISTORY Diagnosis Date Acne BRCA gene mutation positive in female Genital herpes 10/20/2010 Gestational diabetes mellitus (GDM) 08/25/2023 Localization-related (focal) (partial) epilepsy and epileptic syndromes with simple partial seizures, without mention of intractable epilepsy PAST SURGICAL HISTORY: PAST SURGICAL HISTORY Procedure Laterality Date SECTION HX TONSILLECTOMY PRIMARY/SECONDARY <AGE 12 Tonsillectomy FAMILY HISTORY: FAMILY HISTORY Problem Relation Age of Onset Thyroid Mother Coronary Artery Disease Father Hypertension Father Lipids Father High Cholesterol Heart Father [place] Diabetes Father type 2 No Known Problems Brother Stroke Maternal Grandmother Mild Stroke Breast Cancer Maternal Grandmother Diabetes Maternal Grandfather Cancer Paternal Grandmother Pancreatic Diabetes Paternal Grandmother type 2 Coronary Artery Disease Paternal Grandfather Hypertension Paternal Grandfather Heart Paternal Grandfather [place] () SOCIAL HISTORY: Social History Tobacco Use Smoking status: Former Packs/day: .5 Types: Cigarettes Quit date: 2021 Years since quittin.3 Passive exposure: Never Smokeless tobacco: Never Tobacco comments: 5 cigs/day Vaping Use Vaping Use: Never used Substance Use Topics Alcohol use: Yes Comment: Rarely Drug use: No MEDICATIONS: Prior to Admission Medications: metFORMIN (GLUCOPHAGE) 500 mg tablet Cholecalciferol, Vitamin D3, (D3-2000) 50 mcg (2,000 unit) cap multivitamin/iron/folic acid (CENTRUM WOMEN ORAL) semaglutide (OZEMPIC) 0.25 mg or 0.5 mg(2 mg/1.5 mL) pen Inject 0.25 mg subcutaneously one time a week. spironolactone (ALDACTONE) 100 mg tablet Take 100 mg by mouth once daily. levonorgestrel (LILETTA) 20.4 mcg/24 hrs (8 yrs) 52 mg IUD by INTRAUTERINE route. ALLERGIES: ALLERGIES No Known Allergies REVIEW OF SYSTEMS: Negative other than in HPI PHYSICAL EXAM: BP 133/80 Pulse 113 Ht 157 cm (5' 1.8) Wt (!) 169.3 kg (373 lb 4.8 oz) LMP 09/24/2012 BMI 68.72 kg/m Physical Exam Constitutional: Appearance: She is obese. HENT: Head: Normocephalic and atraumatic. Mouth/Throat: Mouth: Mucous membranes are moist. Pharynx: Oropharynx is clear. Eyes: Extraocular Movements: Extraocular movements intact. Conjunctiva/sclera: Conjunctivae normal. Cardiovascular: Rate and Rhythm: Normal rate and regular rhythm. Pulmonary: Effort: Pulmonary effort is normal. Breath sounds: Normal breath sounds. Abdominal: General: Abdomen is flat. Palpations: Abdomen is soft. Musculoskeletal: General: Normal range of motion. Cervical back: Normal range of motion. Skin: General: Skin is warm. Neurological: Mental Status: She is alert. Mental status is at baseline. LABS AND IMAGING: WBC (k/uL) Date Value 10/17/2023 8.79 RBC (m/uL) Date Value 10/17/2023 4.52 Hemoglobin (g/dL) Date Value 10/17/2023 12.4 Hematocrit (%) Date Value 10/17/2023 40.1 MCV (fL) Date Value 10/17/2023 88.7 MCH (pg) Date Value 10/17/2023 27.4 MCHC (g/dL) Date Value 10/17/2023 30.9 RDW-CV (%) Date Value 10/17/2023 14.6 Platelet Count (k/uL) Date Value 10/17/2023 334 MPV (fL) Date Value 10/17/2023 11.6 Glucose (mg/dL) Date Value 10/17/2023 104 (H) BUN (mg/dL) Date Value 10/17/2023 16 Creatinine (mg/dL) Date Value 10/17/2023 0.72 Sodium (mmol/L) Date Value 10/17/2023 138 Potassium (mmol/L) Date Value 10/17/2023 4.3 Chloride (mmol/L) Date Value 10/17/2023 103 CO2 (mmol/L) Date Value 10/17/2023 22 Protein, Total (g/dL) Date Value 10/17/2023 7.6 Albumin (g/dL) Date Value 10/17/2023 3.9 Calcium, Total (mg/dL) Date Value 10/17/2023 9.4 Alkaline Phosphatase (U/L) Date Value 10/17/2023 75 Bilirubin, Total (mg/dL) Date Value 10/17/2023 0.3 AST (U/L) Date Value 10/17/2023 27 ALT (U/L) Date Value 10/17/2023 27 Hemoglobin A1C Date Value Ref Range Status 10/17/2023 5.6 4.3 - 5.6 % Final Comment: [place] [employer] guidelines indicate that patients with HgbA1c in the range 5.7-6.4% are at increased risk for development of diabetes, and intervention by lifestyle modification may be beneficial. HgbA1c greater or equal to 6.5% is considered diagnostic of diabetes. ] Assessment IMPRESSION: Alexandria Contreras is a 38 year old female with the following diagnosis and co-morbidities: Body mass index is 68.72 kg/m . Diagnosis noted as above, no additional diagnosis at this time. This patient does meet the criteria for a surgical weight loss procedure according to NIH guidelines. PLAN: The plan of treatment for Alexandria Contreras is to continue with the consultations and tests ordered today in hopes of qualifying for pre-operative clearance for bariatric surgery. I have reviewed with this patient needed nutritional changes, post-operative recovery, and the potential for excess skin following surgery and subsequent weight loss. Risks of nicotine before and after bariatric surgery and risks of postoperative adverse events (post-operative and beyond) were also discussed with patient. Furthermore, information regarding probable and potential postoperative complications, dietary and medical postoperative limitations, and potential cosmetic sequelae has been given to patient. Health risks associated with obesity, alternatives to surgery, alternative forms of surgery, pre-surgical strategies to reduce risks, potential psychological adjustment issues, post-surgical commitment (aftercare program) were also explained. All questions were answered. Patient understood the risks and benefits and agreed to proceed with surgery. Patient is interested in: Sleeve gastrectomy Continue with preoperative evaluation with our multidisciplinary team Pearl Jovel MD Advanced Laparoscopic and Bariatric Surgery Attending Note I evaluated the patient and personally participated in the [place] components. I agree with the resident's findings and plan as documented and have discussed the case and management of the patient's care with the resident. Signature: Tom Carolina MD Date: 12/08/2023 Time: 1:20 PM documented in this encounter [facility] 12-07-[address] - 12/07/2023 10:33 AM EDT Nutrition Intervention: Modify type and amount of foods consumed for meals and snacks Please call [phone], option 5. Leave a message for the navigation team when you are finished with all clearances (nutrition, psychology, medical, surgeon) 1. Protein goal: 72 grams protein/day 2. Fluid goal: 64 oz per day water (no calories, no caffeine, no carbonation, no alcohol) 3. Exercise goal: 150-250 minutes per week, including 10-20 min of strength/resistance exercise 2-3x/week 4. Practice mindful eating habits- eat protein first, take small portions, eat slowly, chew thoroughly 20-30x before swallowing, practice eating and drinking by 30 min. 5. Start the full liquid diet (3) weeks prior to surgery using 4-5 protein shakes per day, continue a minimum of 64 oz water per day during this time. No solid food. May have sugar free popsicle and sugar free jello. Choose from these options only: 4 bottles of Slim Fast High Protein shakes per day 5 cartons of Atkins 15 g shakes per day 4 bottles of Boost Glucose Control shakes per day 5 packets of Independence Breakfast Essentials Light Start mixed with fat free milk 4 bottles/cartons of Owyn 20 g protein shakes per day 6. During the 3 weeks before and after surgery, include a daily Super B-Complex vitamin with 75-100 mg Thiamine 7. Advance diet per guidebook post surgery (refer to page 49) 8. Begin taking vitamins/minerals after starting soft protein foods ~3 weeks after surgery: Daily multivitamin, iron 45-60 mg (morning), calcium citrate w/ Vit D 600 mg at lunch and 600 mg at dinner, Vit B12 500 mcg sublingual pill or liquid, Vit D3 3000 IU, B complex with 75-100 mg thiamin. Take multivitamin with iron 2 hours apart from calcium citrate, and take each dose of calcium 4 hours apart from each other It is ok to take a combination bariatric vitamin to limit pill volume. Here are a few options to consider: - Bariatric Fusion: 4 Complete Multivitamin chewables per day OR 1 Multivitamin capsule and 8104-0531 mg calcium citrate per day OR 2 Multivitamin soft chews per day + 3 calcium citrate soft chews + 1 iron soft chew per day [email or web address] - Bariatric Choice: 4 All-in-One Bariatric Multivitamin chewables per day OR 1 Once Daily Bariatric Multivitamin capsule and 9102-0632 mg calcium citrate per day www.[email or web address].[email or web address] - Bariatric Pal: 4 All-in-One Multivitamin chewables per day OR 1 Multivitamin One (chewable or capsule) and 0797-9909 mg calcium citrate per day www.[email or web address].[email or web address]/colle ctions/bariatric-vitamins - Bariatric Advantage: 1 Ultra Solo multivitamin w/ iron (chewable or capsule) OR 2 chewable Advanced Multi EA w/ iron and 9074-0129 mg calcium citrate per day OR 2 Multi Chewy Bites and 1394-9027 mg calcium citrate and 45-60 mg iron per day www.bariatricadvantage.[email or web address] - Procare Health: 1 Bariatric Multivitamin w/ iron (capsule or chewable) and 0375-8608 mg calcium citrate per day www.[email or web address] - Celebrate: 2 Multi-Complete (chewable or capsule) OR 1 CelebrateOne Multivitamin capsule and 6162-9479 mg calcium citrate per day OR 2 Multivitamin soft chews + 3 calcium citrate soft chews + 1 iron soft chew per day [email or web address] - Barilife: 1 Just One Bariatric Multivitamin w/ iron (chewable or capsule) and 2672-0261 mg calcium citrate per day www.[email or web address].[email or web address] - Barimelts: 2 Multivitamin w/ iron tablets and 3304-1463 mg calcium citrate per day www.[email or web address] Pre-op weight goal: 348 lbs Nutrition Monitoring & Evaluation: 1-2 lb weight loss per week prior to surgery Criteria: weight check and patient update Need for Follow up: 2 weeks pre op documented in this encounter [facility] 12-07-2023 History of Presen t illness Narrative AMBULATORY PATIENT EDUCATION NOTE- Shared Virtual Nutrition Group I have communicated my name and active licensure. The patient's identity and physical location were verified at the time of this visit. Either the patient or their legal market survey representative has been informed of the risks and benefits of -- and alternatives to -- treatment through a remote evaluation and consents to proceed with the evaluation remotely. Patient reports weight (as measured by home scale) of 368 pounds (undecided- Dr. Carolina) PROGRESS: Nutrition Intervention (date of last encounter 10/26/23): Modify type and amount of foods consumed for meals and snacks 1. Read Nutritional Guidelines Section of Your Guide to Surgery by next session [email or web address] la=en 2. Do not skip meals. 3. Use protein shake 1x per day to replace any skipped meals or for breakfast. Aim for shakes ~150-200 calories, ~15-20 grams of protein, <5 grams of total sugar. Choose from these options that are approved for the pre-op liquid diet: Slim Fast High Protein (20 g protein), Atkins (15 g protein), Boost Glucose Control (16 g protein), Owyn (20 g protein), Independence Breakfast Essentials Light Start mixed with fat free or 1% milk 4. Use the Healthy Plate Method of portion control for meals 1/4 plate (3-4 oz) lean meat, fish, chicken, pork tenderloin, turkey, seafood, eggs/cheese 1/2 plate non-starchy vegetables (salad, greens, cabbage, spinach, brussels sprouts, broccoli, carrots, celery, peppers, green beans, cauliflower) 1/4 plate (up to 1 cup) whole grain, starch/starchy vegetables (corn, peas, spencer beans, winter squash, sweet potato, rice, pasta, potato) 5. Physical activity: Aim for 150 minutes of physical activity per week. Include 10-20 minutes of strength/resistance exercise 2-3x/week. 6. Drink 64 ounces per day water. Fluids should follow these guidelines: No carbonation, no caffeine, no calories, no alcohol. 7. Start to explore post surgery bariatric vitamins/minerals: Daily multivitamin, iron 45-60 mg, calcium citrate w/ Vit D 4975-8558 mg, Vit B12 500 mcg sublingual pill or liquid, Vit D3 3000 international unit(s), B complex with 75-100 mg thiamin It is ok to take a combination bariatric vitamin to limit pill volume. Here are a few options to consider: - Bariatric Fusion: 4 Complete Multivitamin chewables per day OR 1 Multivitamin capsule and 4184-4406 mg calcium citrate per day OR 2 Multivitamin soft chews per day + 3 calcium citrate soft chews + 1 iron soft chew per day [email or web address] - Bariatric Choice: 4 All-in-One Bariatric Multivitamin chewables per day OR 1 Once Daily Bariatric Multivitamin capsule and 3685-8973 mg calcium citrate per day www.[email or web address].[email or web address] - Bariatric Pal: 4 All-in-One Multivitamin chewables per day OR 1 Multivitamin One (chewable or capsule) and 7557-8563 mg calcium citrate per day www.Parclick.combariatricpalU.[email or web address]. Silica/colle ctions/bariatric-vitamins - Bariatric Advantage: 1 Ultra Solo multivitamin w/ iron (chewable or capsule) OR 2 chewable Advanced Multi EA w/ iron and 6573-0593 mg calcium citrate per day OR 2 Multi Chewy Bites and 7796-4174 mg calcium citrate and 45-60 mg iron per day www.[email or web address].[email or web address] - Procare Health: 1 Bariatric Multivitamin w/ iron (capsule or chewable) and 2316-1457 mg calcium citrate per day www.[email or web address].[email or web address] - Celebrate: 2 Multi-Complete (chewable or capsule) OR 1 CelebrateOne Multivitamin capsule and 1184-5610 mg calcium citrate per day OR 2 Multivitamin soft chews + 3 calcium citrate soft chews + 1 iron soft chew per day [email or web address] - Barilife: 1 Just One Bariatric Multivitamin w/ iron (chewable or capsule) and 7964-0297 mg calcium citrate per day www.bariEkos Global.Kloneworld - Barimelts: 2 Multivitamin w/ iron tablets and 7005-3232 mg calcium citrate per day [email or web address] Pre-op goal weight: 348 pounds Protein needs: 72 gm per day CHANGES IN TREATMENT: Patient met goal(s): Yes Diagnosis: has not changed. Allergies: Patient has no known allergies. Medications: Current Outpatient Medications Medication Sig Dispense Refill semaglutide (OZEMPIC) 0.25 mg or 0.5 mg(2 mg/1.5 mL) pen Inject 0.25 mg subcutaneously one time a week. spironolactone (ALDACTONE) 100 mg tablet Take 100 mg by mouth once daily. levonorgestrel (LILETTA) 20.4 mcg/24 hrs (8 yrs) 52 mg IUD by INTRAUTERINE route. No current facility-administered medications for this visit. (currently taking) ; Anthropometrics: Height: Last 1 Encounter Ht Readings: Date: Ht: 10/26/2023 153.7 cm (5' 0.5) Current weight: Last 1 Encounter Wt Readings: Date: Wt: 10/26/2023 168.7 kg (372 lb) There is no height or weight on file to calculate BMI. Resting Metabolic Rate: 2303 Malnutrition Screening Significant unintentional weight loss? No Eating less than 75% of usual intake for more than 2 weeks? No Nutritional status: Educational materials provided: Nutritional Guidelines after Weight Loss Surgery READINESS TO LEARN Cognitive ability: Alert and oriented Motivation to learn: Interested Family support: Unable to assess - Family not present Instruction provided to: Patient Patient learns best by: Multiple Methods Factors affecting learning: None Physical limitations affecting learning: None Likelihood of Adherence: High Patient participated in preop bariatric surgery shared nutrition appointment. Patient participated actively in group. Since last visit patient -4 lbs (372 lbs). Diet recall reveals consistent intake with regular meals and snacks. Not skipped meals and using Slim Fast protein shake to replace breakfast. Meals are sensible and generally balanced with lean protein. Snacks are appropriate. Fluid intake is adequate in type and amount with water the primary beverage. She is practicing food and drink. Vitamins reviewed and plans to take Bariatric Fusion chewables post op. Physical activity includes walking daily however not meeting strength recommendation. Patient meets the National Institutes of Health guidelines for weight loss surgery and has [employer] therefore is required to complete 0 months of Nutrition Intervention for clearance for surgery. Today is visit 2 of 0 required. After session today, patient able to verbalize protein/fluid/exercise goals, recommendations for vitamin/minerals, use of protein shakes for meal replacement and for 2 week full liquid diet phase. Also able to demonstrate post op diet advancement/portion control using food models. Anticipate post op compliance. The patient meets NIH guidelines for weight loss surgery and has been thoroughly evaluated and educated on good dietary practices. Patient is capable of following these guidelines pre-and post-surgically. From nutrition standpoint, the patient is cleared for weight loss surgery. If the patient desires, she may continue to follow-up with the dietitian on a monthly basis until all surgical requirements are met. Nutrition Diagnosis: Overweight/obesity, related to, food/nutrition - related knowledge deficit, as evidenced by BMI above normative standard for age and gender. Nutrition Intervention: Modify type and amount of foods consumed for meals and snacks Please call [phone], option 5. Leave a message for the navigation team when you are finished with all clearances (nutrition, psychology, medical, surgeon) 1. Protein goal: 72 grams protein/day 2. Fluid goal: 64 oz per day water (no calories, no caffeine, no carbonation, no alcohol) 3. Exercise goal: 150-250 minutes per week, including 10-20 min of strength/resistance exercise 2-3x/week 4. Practice mindful eating habits- eat protein first, take small portions, eat slowly, chew thoroughly 20-30x before swallowing, practice eating and drinking by 30 min. 5. Start the full liquid diet (3) weeks prior to surgery using 4-5 protein shakes per day, continue a minimum of 64 oz water per day during this time. No solid food. May have sugar free popsicle and sugar free jello. Choose from these options only: 4 bottles of Slim Fast High Protein shakes per day 5 cartons of Atkins 15 g shakes per day 4 bottles of Boost Glucose Control shakes per day 5 packets of Independence Breakfast Essentials Light Start mixed with fat free milk 4 bottles/cartons of Owyn 20 g protein shakes per day 6. During the 3 weeks before and after surgery, include a daily Super B-Complex vitamin with 75-100 mg Thiamine 7. Advance diet per guidebook post surgery (refer to page 49) 8. Begin taking vitamins/minerals after starting soft protein foods ~3 weeks after surgery: Daily multivitamin, iron 45-60 mg (morning), calcium citrate w/ Vit D 600 mg at lunch and 600 mg at dinner, Vit B12 500 mcg sublingual pill or liquid, Vit D3 3000 IU, B complex with 75-100 mg thiamin. Take multivitamin with iron 2 hours apart from calcium citrate, and take each dose of calcium 4 hours apart from each other It is ok to take a combination bariatric vitamin to limit pill volume. Here are a few options to consider: - Bariatric Fusion: 4 Complete Multivitamin chewables per day OR 1 Multivitamin capsule and 8237-6454 mg calcium citrate per day OR 2 Multivitamin soft chews per day + 3 calcium citrate soft chews + 1 iron soft chew per day www.[email or web address] - Bariatric Choice: 4 All-in-One Bariatric Multivitamin chewables per day OR 1 Once Daily Bariatric Multivitamin capsule and 6667-0863 mg calcium citrate per day www.bariatricchoKey [facility].Kloneworld - Bariatric Pal: 4 All-in-One Multivitamin chewables per day OR 1 Multivitamin One (chewable or capsule) and 3787-1118 mg calcium citrate per day www.Parclick.combariatricpalU.S. Silica/colle ctions/bariatric-vitamins - Bariatric Advantage: 1 Ultra Solo multivitamin w/ iron (chewable or capsule) OR 2 chewable Advanced Multi EA w/ iron and 5496-5253 mg calcium citrate per day OR 2 Multi Chewy Bites and 7421-4141 mg calcium citrate and 45-60 mg iron per day www.bariatricadvantage.[email or web address] - ProcPurchasing Platform Health: 1 Bariatric Multivitamin w/ iron (capsule or chewable) and 8697-6696 mg calcium citrate per day www.Crossing [email or web address].[email or web address] - Celebrate: 2 Multi-Complete (chewable or capsule) OR 1 CelebrateOne Multivitamin capsule and 0908-2530 mg calcium citrate per day OR 2 Multivitamin soft chews + 3 calcium citrate soft chews + 1 iron soft chew per day [email or web address] - Barilife: 1 Just One Bariatric Multivitamin w/ iron (chewable or capsule) and 8774-1690 mg calcium citrate per day www.[email or web address].[email or web address] - Barimelts: 2 Multivitamin w/ iron tablets and 3144-6177 mg calcium citrate per day www.[email or web address].[email or web address] Pre-op weight goal: 348 lbs Nutrition Monitoring & Evaluation: 1-2 lb weight loss per week prior to surgery Criteria: weight check and patient update Need for Follow up: 2 weeks pre op Appointment Start Time: 9:45am Appointment End Time: 10:27am Time Spent on Consult: 42 minutes Signed by: Vidhi Saez RD, LD documented in this encounter [facility] 12-07-2023 Note HNO ID: [id number] Author: VIDHI SAEZ RD Service: ? Author Type: Registered Dietitian Type: Progress Notes Filed: 12/07/2023 10:33 Note Text: AMBULATORY PATIENT EDUCATION NOTE- Shared Virtual Nutrition Group I have communicated my name and active licensure. The patient's identity and physical location were verified at the time of this visit. Either the patient or their legal market survey representative has been informed of the risks and benefits of -- and alternatives to -- treatment through a remote evaluation and consents to proceed with the evaluation remotely. Patient reports weight (as measured by home scale) of 368 pounds (undecided- Dr. Carolina) PROGRESS: Nutrition Intervention (date of last encounter 10/26/23): Modify type and amount of foods consumed for meals and snacks 1. Read Nutritional Guidelines Section of Your Guide to Surgery by next [email or web address]/-/[email or web address] [email or web address] [email or web address]?la=en 2. Do not skip meals. 3. Use protein shake 1x per day to replace any skipped meals or for breakfast. Aim for shakes ~150-200 calories, ~15-20 grams of protein, <5 grams of total sugar. Choose from these options that are approved for the pre-op liquid diet: Slim Fast High Protein (20 g protein), Atkins (15 g protein), Boost Glucose Control (16 g protein), Owyn (20 g protein), Independence Breakfast Essentials Light Start mixed with fat free or 1% milk 4. Use the Healthy Plate Method of portion control for meals 1/4 plate (3-4 oz) lean meat, fish, chicken, pork tenderloin, turkey, seafood, eggs/cheese 1/2 plate non-starchy vegetables (salad, greens, cabbage, spinach, brussels sprouts, broccoli, carrots, celery, peppers, green beans, cauliflower) 1/4 plate (up to 1 cup) whole grain, starch/starchy vegetables (corn, peas, spencer beans, winter squash, sweet potato, rice, pasta, potato) 5. Physical activity: Aim for 150 minutes of physical activity per week. Include 10-20 minutes of strength/resistance exercise 2-3x/week. 6. Drink 64 ounces per day water. Fluids should follow these guidelines: No carbonation, no caffeine, no calories, no alcohol. 7. Start to explore post surgery bariatric vitamins/minerals: Daily multivitamin, iron 45-60 mg, calcium citrate w/ Vit D 9183-9561 mg, Vit B12 500 mcg sublingual pill or liquid, Vit D3 3000 international unit(s), B complex with 75-100 mg thiamin It is ok to take a combination bariatric vitamin to limit pill volume. Here are a few options to consider: - Bariatric Fusion: 4 Complete Multivitamin chewables per day OR 1 Multivitamin capsule and 6952-7303 mg calcium citrate per day OR 2 Multivitamin soft chews per day + 3 calcium citrate soft chews + 1 iron soft chew per day www.[email or web address].com - Bariatric Choice: 4 All-in-One Bariatric Multivitamin chewables per day OR 1 Once Daily Bariatric Multivitamin capsule and 3234-1769 mg calcium citrate per day www.[email or web address] - Bariatric Pal: 4 All-in-One Multivitamin chewables per day OR 1 Multivitamin One (chewable or capsule) and 9427-3345 mg calcium citrate per day www.MyTime.bariatricpal.Kloneworld/colle ctions/bariatric-vitamins - Bariatric Advantage: 1 Ultra Solo multivitamin w/ iron (chewable or capsule) OR 2 chewable Advanced Multi EA w/ iron and 7648-6231 mg calcium citrate per day OR 2 Multi Chewy Bites and 4239-0807 mg calcium citrate and 45-60 mg iron per day www.bariatricadvantage.Kloneworld - ProcPurchasing Platform Health: 1 Bariatric Multivitamin w/ iron (capsule or chewable) and 6192-2592 mg calcium citrate per day www.Virtify - Celebrate: 2 Multi-Complete (chewable or capsule) OR 1 CelebrateOne Multivitamin capsule and 1019-2664 mg calcium citrate per day OR 2 Multivitamin soft chews + 3 calcium citrate soft chews + 1 iron soft chew per day [email or web address]://[email or web address] - Barilife: 1 Just One Bariatric Multivitamin w/ iron (chewable or capsule) and 9887-2920 mg calcium citrate per day www.bariEk[employer].Kloneworld - Barimelts: 2 Multivitamin w/ iron tablets and 0846-0265 mg calcium citrate per day www.[email or web address].[email or web address] Pre-op goal weight: 348 pounds Protein needs: 72 gm per day CHANGES IN TREATMENT: Patient met goal(s): Yes Diagnosis: has not changed. Allergies: Patient has no known allergies. Medications: Current Outpatient Medications Medication Sig Dispense Refill semaglutide (OZEMPIC) 0.25 mg or 0.5 mg(2 mg/1.5 mL) pen Inject 0.25 mg subcutaneously one time a week. spironolactone (ALDACTONE) 100 mg tablet Take 100 mg by mouth once daily. levonorgestrel (LILETTA) 20.4 mcg/24 hrs (8 yrs) 52 mg IUD by INTRAUTERINE route. No current facility-administered medications for this visit. (currently taking) ; Anthropometrics: Height: Last 1 Encounter Ht Readings: Date: Ht: 10/26/2023 153.7 cm (5' 0.5) Current weight: Last 1 Encounter Wt Readings: Date: Wt: 10/26/2023 168.7 kg (372 lb) There is no height or weight (more content not included)... [facility] 11-10-2023 Note HNO ID: [id number] Author: ANNE WOODARD CT Service: Radiology Author Type: Technologist Type: Progress Notes Filed: 11/10/2023 09:04 Note Text: Radiology Service Progress Note PATIENT NAME: Alexandria Contreras DATE OF SERVICE: November 10, 2023 TIME: 9:04 AM PATIENT IDENTITY VERIFICATION COMPLETED USING TWO (2) IDENTIFIERS: Name and Date of confirmed by patient verbally. FALL SCREENING: Has the patient had 2 falls in the last year or 1 fall with injury or currently using an Ambulatory Assistive Device (Walker, Cane, Wheelchair, Crutches, etc.)? No PATIENT GENDER DATA: Female. status: : No status: NO. 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 Read Nutritional Guidelines Section of Your Guide to Surgery by next session [email or web address] la=en 2. Do not skip meals. 3. Use protein shake 1x per day to replace any skipped meals or for breakfast. Aim for shakes ~150-200 calories, ~15-20 grams of protein, <5 grams of total sugar. Choose from these options that are approved for the pre-op liquid diet: Slim Fast High Protein (20 g protein), Atkins (15 g protein), Boost Glucose Control (16 g protein), Owyn (20 g protein), Independence Breakfast Essentials Light Start mixed with fat free or 1% milk 4. Use the Healthy Plate Method of portion control for meals 1/4 plate (3-4 oz) lean meat, fish, chicken, pork tenderloin, turkey, seafood, eggs/cheese 1/2 plate non-starchy vegetables (salad, greens, cabbage, spinach, brussels sprouts, broccoli, carrots, celery, peppers, green beans, cauliflower) 1/4 plate (up to 1 cup) whole grain, starch/starchy vegetables (corn, peas, spencer beans, winter squash, sweet potato, rice, pasta, potato) 5. Physical activity: Aim for 150 minutes of physical activity per week. Include 10-20 minutes of strength/resistance exercise 2-3x/week. 6. Drink 64 ounces per day water. Fluids should follow these guidelines: No carbonation, no caffeine, no calories, no alcohol. 7. Start to explore post surgery bariatric vitamins/minerals: Daily multivitamin, iron 45-60 mg, calcium citrate w/ Vit D 1147-6819 mg, Vit B12 500 mcg sublingual pill or liquid, Vit D3 3000 international unit(s), B complex with 75-100 mg thiamin It is ok to take a combination bariatric vitamin to limit pill volume. Here are a few options to consider: - Bariatric Fusion: 4 Complete Multivitamin chewables per day OR 1 Multivitamin capsule and 1933-0918 mg calcium citrate per day OR 2 Multivitamin soft chews per day + 3 calcium citrate soft chews + 1 iron soft chew per day www.bariatricfusion.com - Bariatric Choice: 4 All-in-One Bariatric Multivitamin chewables per day OR 1 Once Daily Bariatric Multivitamin capsule and 5200-3450 mg calcium citrate per day www.bariatricchoice.Kloneworld - Bariatric Pal: 4 All-in-One Multivitamin chewables per day OR 1 Multivitamin One (chewable or capsule) and 1988-9447 mg calcium citrate per day www.Parclick.combariatricpalU.S. Silica/colle ctions/bariatric-vitamins - Bariatric Advantage: 1 Ultra Solo multivitamin w/ iron (chewable or capsule) OR 2 chewable Advanced Multi EA w/ iron and 5922-8738 mg calcium citrate per day OR 2 Multi Chewy Bites and 7629-9954 mg calcium citrate and 45-60 mg iron per day www.bariatricadvantage.Kloneworld - Procare Health: 1 Bariatric Multivitamin w/ iron (capsule or chewable) and 4906-7746 mg calcium citrate per day www.[employer].Kloneworld - Celebrate: 2 Multi-Complete (chewable or capsule) OR 1 CelebrateOne Multivitamin capsule and 5445-0251 mg calcium citrate per day OR 2 Multivitamin soft chews + 3 calcium citrate soft chews + 1 iron soft chew per day [email or web address]://[email or web address] - Barilife: 1 Just One Bariatric Multivitamin w/ iron (chewable or capsule) and 7007-3393 mg calcium citrate per day www.barilife.[email or web address] - Barimelts: 2 Multivitamin w/ iron tablets and 6893-9264 mg calcium citrate per day www.[email or web address] Pre-op goal weight: 348 pounds Protein needs: 72 gm per day Navigator: [email or web address] Please follow the below link to join our Navigation Welcome and Next Steps Meeting. Meetings are held weekly on Tuesdays from 12:00-1:00 pm. [email or web address] ([email or web address] [employer] [facility] [employer] [facility]\ Nutrition Monitoring & Evaluation: 1-2 lbs wt loss/week Need for Follow up: as scheduled 12/06 @ 9:45am, call [phone] if you need to reschedule documented in this encounter [facility] 10-26-2023 History of Presen t illness Narrative [facility] Nutrition Therapy: Virtual Consult - Initial Assessment I have communicated my name and active licensure. The patient s identity and physical location were verified at the time of this visit. Either the patient or their legal market survey representative has been informed of the risks and benefits of -- and alternatives to -- treatment through a remote evaluation and consents to proceed with the evaluation remotely. Nutrition Diagnosis: Overweight/obesity, related to, food/nutrition - related knowledge deficit, as evidenced by BMI above normative standard for age and gender. RECOMMENDED MALNUTRITION DIAGNOSIS: NO MALNUTRITION IDENTIFIED NUTRITION CARE PLAN Nutrition Intervention 10/26/2023: Modify type and amount of foods consumed for meals and snacks 1. Read Nutritional Guidelines Section of Your Guide to Surgery by next session [email or web address]? la=en 2. Do not skip meals. 3. Use protein shake 1x per day to replace any skipped meals or for breakfast. Aim for shakes ~150-200 calories, ~15-20 grams of protein, <5 grams of total sugar. Choose from these options that are approved for the pre-op liquid diet: Slim Fast High Protein (20 g protein), Atkins (15 g protein), Boost Glucose Control (16 g protein), Owyn (20 g protein), Independence Breakfast Essentials Light Start mixed with fat free or 1% milk 4. Use the Healthy Plate Method of portion control for meals 1/4 plate (3-4 oz) lean meat, fish, chicken, pork tenderloin, turkey, seafood, eggs/cheese 1/2 plate non-starchy vegetables (salad, greens, cabbage, spinach, brussels sprouts, broccoli, carrots, celery, peppers, green beans, cauliflower) 1/4 plate (up to 1 cup) whole grain, starch/starchy vegetables (corn, peas, spencer beans, winter squash, sweet potato, rice, pasta, potato) 5. Physical activity: Aim for 150 minutes of physical activity per week. Include 10-20 minutes of strength/resistance exercise 2-3x/week. 6. Drink 64 ounces per day water. Fluids should follow these guidelines: No carbonation, no caffeine, no calories, no alcohol. 7. Start to explore post surgery bariatric vitamins/minerals: Daily multivitamin, iron 45-60 mg, calcium citrate w/ Vit D 7341-3239 mg, Vit B12 500 mcg sublingual pill or liquid, Vit D3 3000 international unit(s), B complex with 75-100 mg thiamin It is ok to take a combination bariatric vitamin to limit pill volume. Here are a few options to consider: - Bariatric Fusion: 4 Complete Multivitamin chewables per day OR 1 Multivitamin capsule and 2478-9722 mg calcium citrate per day OR 2 Multivitamin soft chews per day + 3 calcium citrate soft chews + 1 iron soft chew per day [email or web address] - Bariatric Choice: 4 All-in-One Bariatric Multivitamin chewables per day OR 1 Once Daily Bariatric Multivitamin capsule and 2346-7278 mg calcium citrate per day www.[email or web address] - Bariatric Pal: 4 All-in-One Multivitamin chewables per day OR 1 Multivitamin One (chewable or capsule) and 2002-9617 mg calcium citrate per day www.[email or web address]/colle ctions/[email or web address]-vitamins - Bariatric Advantage: 1 Ultra Solo multivitamin w/ iron (chewable or capsule) OR 2 chewable Advanced Multi EA w/ iron and 2992-6099 mg calcium citrate per day OR 2 Multi Chewy Bites and 1619-6093 mg calcium citrate and 45-60 mg iron per day www.bariatricadthe Shelfage.com - Procare Health: 1 Bariatric Multivitamin w/ iron (capsule or chewable) and 9574-5761 mg calcium citrate per day www.Virtify - Celebrate: 2 Multi-Complete (chewable or capsule) OR 1 CelebrateOne Multivitamin capsule and 9869-2717 mg calcium citrate per day OR 2 Multivitamin soft chews + 3 calcium citrate soft chews + 1 iron soft chew per day [email or web address] - Barilife: 1 Just One Bariatric Multivitamin w/ iron (chewable or capsule) and 0809-6606 mg calcium citrate per day www.[email or web address] - Barimelts: 2 Multivitamin w/ iron tablets and 1232-0570 mg calcium citrate per day www.[email or web address] Pre-op goal weight: 348 pounds Protein needs: 72 gm per day Navigator: [email or web address] Please follow the below link to join our Navigation Welcome and Next Steps Meeting. Meetings are held weekly on Tuesdays from 12:00-1:00 pm. [email or web address]\ Nutrition Monitoring & Evaluation: 1-2 lbs wt loss/week Need for Follow up: as scheduled 12/06 @ 9:45am, call [phone] if you need to reschedule Patient presents for initial nutrition consult in preparation for bariatric surgery. Patient is interested in undecided (Dr. Carolina). Height and weight discussed today. Presents with Class III obesity, Body mass index is 71.46 kg/m . Significant medical comorbidities include MUSHTAQ, h/o binge eating disorder. Patient has slightly high (46 % TWL) weight loss expectations, anticipating weight loss of >172 lbs., with desired weight of <200 lbs. following surgery. Patient has fair understanding of weight loss surgery and nutritional implications following surgery. Previous diet attempts include dietitian, ANGELITA (current - Ozempic). Weight history significant for family history of obesity, childhood onset weight gain. Greatest barrier to weight loss in the past has been consumption of unhealthy foods, reduced physical activity. Greatest motivation for surgery includes QOL. Diet recall indicates consistent eating pattern with no skipped meals. Quality of meals is both healthy and unhealthy. Some meals are balanced while others are carb dense with inadequate protein and vegetable. Some processed snacks and sweets on occasion. Fluid intake inadequate with insufficient water and occasional coffee or pop. [place] body weight: 132 lbs. Excess body weight: 240 lbs. (Based on initial 372 lbs - Ld) Goal weight pre-op: 348 lbs. Protein needs estimated: 72 gm (1.2 g protein/kg IBW) Labs reveal low Vit D, Cr WNL Patient meets the National Institutes of Health guidelines for weight loss surgery and has [employer] Insurance therefore is required to complete 0 months of Nutrition Intervention for clearance for surgery. Today is visit 1 of 0 required. Patient needs to demonstrate consistent effort in making dietary changes before being cleared for surgery. It is anticipated that the patient will need at least 1-2 nutritional follow-up visits prior to clearance for surgery. 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 Resting Metabolic Rate: 2303 Malnutrition Screening Significant unintentional weight loss? No Eating less than 75% of usual intake for more than 2 weeks? No Potential Signs of Inflammation: no identifiable sources Education Materials Provided: BMI Nutrition Guidelines:Guide to Surgery and Required Vitamin Minerals after Weight Loss Surgery and Healthy Lunch/Dinner Plate and Snack Ideas READINESS TO LEARN Cognitive ability: Alert and oriented Motivation to learn: Interested Family support: Unable to assess - Family not present Instruction provided to: Patient Patient learns best by: Multiple Methods Factors affecting learning: None Physical limitations affecting learning: None Referred by: Ge URIARTE Billing Type: Initial Assess/15 min 2 units SIGNATURE: Vidhi Saez RD PATIENT NAME: Alexandria Contreras DATE: 10/26/2023 TIME: 11:35 AM documented in this encounter [facility] 10-26-2023 Note HNO ID: [id number] Author: VIDHI SAEZ RD Service: ? Author Type: Registered Dietitian Type: Progress Notes Filed: 10/26/2023 14:36 Note Text: [facility] Nutrition Therapy: Virtual Consult - Initial Assessment I have communicated my name and active licensure. The patient?s identity and physical location were verified at the time of this visit. Either the patient or their legal market survey representative has been informed of the risks and benefits of -- and alternatives to -- treatment through a remote evaluation and consents to proceed with the evaluation remotely. Nutrition Diagnosis: Overweight/obesity, related to, food/nutrition - related knowledge deficit, as evidenced by BMI above normative standard for age and gender. RECOMMENDED MALNUTRITION DIAGNOSIS: NO MALNUTRITION IDENTIFIED NUTRITION CARE PLAN Nutrition Intervention 10/26/2023: Modify type and amount of foods consumed for meals and snacks 1. Read Nutritional Guidelines Section of Your Guide to Surgery by next [email or web address]/-/[email or web address] [email or web address] [email or web address]?la=en 2. Do not skip meals. 3. Use protein shake 1x per day to replace any skipped meals or for breakfast. Aim for shakes ~150-200 calories, ~15-20 grams of protein, <5 grams of total sugar. Choose from these options that are approved for the pre-op liquid diet: Slim Fast High Protein (20 g protein), Atkins (15 g protein), Boost Glucose Control (16 g protein), Owyn (20 g protein), Independence Breakfast Essentials Light Start mixed with fat free or 1% milk 4. Use the Healthy Plate Method of portion control for meals 1/4 plate (3-4 oz) lean meat, fish, chicken, pork tenderloin, turkey, seafood, eggs/cheese 1/2 plate non-starchy vegetables (salad, greens, cabbage, spinach, brussels sprouts, broccoli, carrots, celery, peppers, green beans, cauliflower) 1/4 plate (up to 1 cup) whole grain, starch/starchy vegetables (corn, peas, spencer beans, winter squash, sweet potato, rice, pasta, potato) 5. Physical activity: Aim for 150 minutes of physical activity per week. Include 10-20 minutes of strength/resistance exercise 2-3x/week. 6. Drink 64 ounces per day water. Fluids should follow these guidelines: No carbonation, no caffeine, no calories, no alcohol. 7. Start to explore post surgery bariatric vitamins/minerals: Daily multivitamin, iron 45-60 mg, calcium citrate w/ Vit D 3630-4903 mg, Vit B12 500 mcg sublingual pill or liquid, Vit D3 3000 international unit(s), B complex with 75-100 mg thiamin It is ok to take a combination bariatric vitamin to limit pill volume. Here are a few options to consider: - Bariatric Fusion: 4 Complete Multivitamin chewables per day OR 1 Multivitamin capsule and 5652-2196 mg calcium citrate per day OR 2 Multivitamin soft chews per day + 3 calcium citrate soft chews + 1 iron soft chew per day www.bariatricfusion.com - Bariatric Choice: 4 All-in-One Bariatric Multivitamin chewables per day OR 1 Once Daily Bariatric Multivitamin capsule and 5394-9583 mg calcium citrate per day www.bariatricchoice.com - Bariatric Pal: 4 All-in-One Multivitamin chewables per day OR 1 Multivitamin One (chewable or capsule) and 4382-4448 mg calcium citrate per day www.[email or web address].[email or web address]/colle ctions/[email or web address]-vitamins - Bariatric Advantage: 1 Ultra Solo multivitamin w/ iron (chewable or capsule) OR 2 chewable Advanced Multi EA w/ iron and 0996-5139 mg calcium citrate per day OR 2 Multi Chewy Bites and 3224-9612 mg calcium citrate and 45-60 mg iron per day www.[email or web address] Shelfage.[email or web address] - AppTrigger Health: 1 Bariatric Multivitamin w/ iron (capsule or chewable) and 3407-8631 mg calcium citrate per day www.[email or web address].[email or web address] - Celebrate: 2 Multi-Complete (chewable or capsule) OR 1 CelebrateOne Multivitamin capsule and 9471-3969 mg calcium citrate per day OR 2 Multivitamin soft chews + 3 calcium citrate soft chews + 1 iron soft chew per day [email or web address] - Barilife: 1 Just One Bariatric Multivitamin w/ iron (chewable or capsule) and 3309-2381 mg calcium citrate per day www.bariEkos Global.Kloneworld - Barimelts: 2 Multivitamin w/ iron tablets and 8930-0303 mg calcium citrate per day www.[email or web address] Pre-op goal weight: 348 pounds Protein needs: 72 gm per day Navigator: [email or web address] Please follow the below link to join our Navigation Welcome and Next Steps Meeting. Meetings are held weekly on Tuesdays from 12:00-1:00 pm. [email or web address] ([email or web address] m Nutrition Monitoring AND Evaluation: 1-2 lbs wt loss/week Need for Follow up: as scheduled 12/06 @ 9:45am, call [phone] if you need to reschedule Patient presents for initial nutrition consult in preparation for bariatric surgery. Patient is interested in undecided (Dr. Carolina). Height and weight discussed today. Presents with Class III obesity, Body mas (more content not included)... [facility] 10-24-2023 Note HNO ID: [id number] Author: JOCELIN CONLEY, PhD Service: ? Author Type: Psychologist Type: Progress Notes Filed: 10/25/2023 08:15 Note Text: [facility] METABOLIC/BARIATRIC SURGERY (MBS) BEHAVIORAL HEALTH EVALUATION Patient name: Alexandria Contreras Date of service: October 24, 2023 Time of service: 3:03 PM - 4:03 PM Cost center: [facility] CPT code(s): - 24349 Brief Emotional/Behavioral Assessment with scoring/documentation - [id number] Virtual Psych Diagnostic Eval Session #: 1 Collateral parties present: none The patient e-signed the Informed Consent for Psychological Evaluation AND Care Form in preparation for this visit. [facility] health care insurance benefits, fees for service, emergency procedures, and limits to confidentiality were discussed with the patient, and she was given a chance to ask questions. The patient was provided with a copy of the consent form via Dealdrive. I have communicated my name and active licensure. The patient's identity (name, ) and physical location were verified at the time of this visit. Either the patient or their legal market survey representative has been informed of the risks and benefits of -- and alternatives to -- treatment through a remote evaluation and consents to proceed with the evaluation remotely. Upon completion of risk/benefit analysis, the patient's presenting problem and apparent condition are considered appropriate for virtual format. The patient does appear to have sufficient knowledge and skills in the use of relevant technology to benefit from virtual format. Platform: [employer] Address of patient during visit: parked car outside [facility] ([address] [place] [address]) IDENTIFYING INFORMATION Ms. Alexandria Contreras is a 38 year old, female who was referred by Dr. Carolina. She is seeking undecided for Class III obesity. WEIGHT HISTORY Ms. Contreras described her weight as a child as always overweight. Her self-reported weight at age 19 was ~200 lbs. The patient reports the following factors as having contributed to her weight: I think it's just I eat too much and mindless eating. The patient reports a family history of overweight/obesity. Estimated body mass index is 71.46 kg/m? as calculated from the following: Height as of 08/25/23: 153.7 cm (5' 0.5). Weight as of 10/16/23: 168.7 kg (372 lb). The patient has tried the following weight loss strategies in the past: self-directed diet, exercise, phentermine, Ozempic, working with dietitian, meal plans, Julissayossi Colmenares, Weight Watchers, intermittent fasting, ketogenic diet, low-carb diet, and [place] diet (strict meal plan). The most weight patient has lost is 40 lbs with [place] diet + working w dietitian. Ms. Contreras reported she has been considering MBS for 5 years or more. I know it's going to be my behaviors that's going to determine if it's going to be successful or not. CAPACITY TO CONSENT Ms. Contreras evidences the following concerns regarding capacity to consent: none noted. MEDICAL PROBLEMS ACTIVE PROBLEM LIST Genital Herpes Brca Gene Mutation Positive Class 3 Severe Obesity Due to Excess Calories Without Serious Comorbidity With Body Mass Index (Bmi) Greater Than Or Equal to 70 in Adult (Hcc) Acne Smoking History Mushtaq On Cpap Past surgeries? Yes PAST SURGICAL HISTORY Procedure Laterality Date SECTION HX TONSILLECTOMY PRIMARY/SECONDARY Tonsillectomy History of psychological complications post-surgery? No MEDICATIONS Current Outpatient Medications Medication Sig semaglutide (OZEMPIC) 0.25 mg or 0.5 mg(2 mg/1.5 mL) pen Inject 0.25 mg subcutaneously one time a week. spironolactone (ALDACTONE) 100 mg tablet Take 100 mg by mouth once daily. levonorgestrel (LILETTA) 20.4 mcg/24 hrs (8 yrs) 52 mg IUD by INTRAUTERINE route. No current facility-administered medications for this visit. ALLERGIES ALLERGIES No Known Allergies PSYCHOSOCIAL HISTORY FAMILY OF ORIGIN Ms. Contreras was born in [place], [place] and raised by biological parents. She described her childhood as normal. Both parents were involved. Grandparents were around. The patient had 1 brother. The patient's parents and brother are still living. She is currently semi-close with her family. I don't share a lot about stuff, so I haven't talked to them about this. MARITAL FAMILY/SIGNIFICANT RELATIONSHIPS Ms. Contreras is currently to first spouse of 10 years, Kvng. The patient has 2 children (9F, 1M). She does not wish to have additional children in the future. Ms. Contreras understands the impact of surgery on fertility and the need to avoid for 18-24 months post-surgery. The patient currently lives in [place], [place] with her and children. She describes her family life as good. Highly-dependent on daily routine. The patient's significant other is (more content not included)... [facility] 10-16-2023 History of Presen t illness Narrative BMI Obesity Medicine Initial Bariatric Surgery Consult [facility] Visit October 16, 2023 Virtual Visit (Audio/Visual)I have discussed the nature of this visit with the patient which will occur via Distance Health (Phone, Virtual Visit) and she agrees to proceed with this interaction. BMI Surgical Pathway Visit type: Obesity Medicine Visit I have communicated my name and active licensure. The patient's identity and physical location were verified at the time of this visit. Either the patient or their legal market survey representative has been informed of the risks and benefits of -- and alternatives to -- treatment through a remote evaluation and consents to proceed with the evaluation remotely. Patient Summary:: Alexandria Contreras is a 38 year old female who presents on October 16, 2023 for surgical evaluation and treatment of obesity. The patient is undecided on which surgical procedure to pursue Weight History: She reports a family history of obesity and childhood onset weight gain. She states her weight gain is related to the following factors, including reduced physical activity and consumption of unhealthy foods. Weight Graph: (please see graph scanned in chart) Obesigenic Medications: NO Diet: Quality of diet: 24hr recall suggests unhealthy diet. Breakfast: skips or cereal or eggs or sandwich or yogurt Lunch: leftover pizza Dinner: chicken thighs, stuffing, green beans Snacks: cake, chips Drinks: water, occasional milk ETOH: rare Characterization of diet:unhealthy snacking, evening snacking, skip meals, and unhealthy food choices. History of eating disorders: binge eating disorder Previous Obesity Treatments: commercial diets, self-directed, exercise program, dietitian, and anti-obesity medications Phentermine and Semaglutide (Ozempic). Currently taking Ozempic 0.25 mg weekly though PCP office. States higher doses caused nausea and diarrhea Exercise: Regular exercise: No Barriers to regular exercise? None Stress test: no Functional Status: Do heavy work around the house, such as scrubbing floors, lifting or moving heavy furniture (8.00 METs) Patient denies any chest pain or undue shortness of breath with the above physical activity. 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 NO ??Stress: Some Past Medical History PAST MEDICAL HISTORY Diagnosis Date Acne BRCA gene mutation positive in female Genital herpes 10/20/2010 Gestational diabetes mellitus (GDM) 08/25/2023 Localization-related (focal) (partial) epilepsy and epileptic syndromes with simple partial seizures, without mention of intractable epilepsy No history of NV, COPD, asthma, peptic ulcer disease, dyslipidemia, hypothyroidism, HTN, cancer, DVT, PE, CVA, T2DM, gout, kidney stones, CKD. Current Outpatient Medications on File Prior to Visit Medication Sig semaglutide (OZEMPIC) 0.25 mg or 0.5 mg(2 mg/1.5 mL) pen Inject 0.25 mg subcutaneously one time a week. spironolactone (ALDACTONE) 100 mg tablet Take 100 mg by mouth once daily. levonorgestrel (LILETTA) 20.4 mcg/24 hrs (8 yrs) 52 mg IUD by INTRAUTERINE route. No current facility-administered medications on file prior to visit. ALLERGIES No Known Allergies PAST SURGICAL HISTORY Procedure Laterality Date SECTION HX TONSILLECTOMY PRIMARY/SECONDARY <AGE 12 Tonsillectomy Any problems with anesthesia with the above surgeries: No FAMILY HISTORY Problem Relation Age of Onset Thyroid Mother Coronary Artery Disease Father Hypertension Father Lipids Father High Cholesterol Heart Father NV Diabetes Father type 2 No Known Problems Brother Stroke Maternal Grandmother Mild Stroke Breast Cancer Maternal Grandmother Diabetes Maternal Grandfather Cancer Paternal Grandmother Pancreatic Diabetes Paternal Grandmother type 2 Coronary Artery Disease Paternal Grandfather Hypertension Paternal Grandfather Heart Paternal Grandfather NV () Social History Tobacco Use Smoking status: Former Packs/day: .5 Types: Cigarettes Quit date: 2021 Years since quittin.1 Passive exposure: Never Smokeless tobacco: Never Tobacco comments: 5 cigs/day Vaping Use Vaping Use: Never used Substance Use Topics Alcohol use: Yes Comment: Rarely Drug use: No Review Of Systems Skin: acne Respiratory: No history of cough, hemoptysis, asthma, recent chest infection, wheezing Cardiovascular: No history of chest pain,palpitation,orthopnea,cynos is,pedel edema Gastrointestinal: No blood in stool, pain with BM, tarry stool, persistent diarrhea or constipation Genitourinary: No burning with urination, blood in urine or incontinence. Hematology/Lymphology Negative for prolonged bleeding, bruising easily or swollen nodes Musculoskeletal: no history of gout, NSAID use, or use of a mobility device Psychiatric: anxiety and depression Endocrine: No history of thyroid disorder,diabetes,cold intolerance,heat,intolerance,harjit ydypsia Neuro: No history of headaches, syncope, paralysis, or tremors. + seizure hx, last 18 years ago. No meds Physical Exam Virtual General appearance: NAD Mental status: awake and alert Pulm: not visibly SOB Neuro: speech fluent Impression Alexandria Contreras is a 38 year old female with Class III obesity She has the following metabolic complications of obesity obstructive sleep apnea and other medical conditions as below. We reviewed principles of energy metabolism, caloric intake and expenditure, and rationale for treatment program. We discussed the importance of healthy lifestyle modification. She is a candidate for bariatric and metabolic surgery. she will be evaluated by our multidisciplinary team in preparation for surgery. : Recommend that she should not become for 18-24 months after surgery due to increased risks of micronutrient deficiency. I counseled her on the perioperative use of estrogen therapy, instructing her not to take oral estrogen (eg OCPs) one month before and one month after surgery due to increased VTE risk. We reviewed alternate forms of contraception and encouraged the patient to speak with her physician/provider to formulate a perioperative plan. If she is considering a Car-en Y gastric bypass, I counseled her that oral methods of control may not be as effective after surgery and that they should consider alternate contraception to reduce the risk of . - IUD Patient Active Problem List Class 3 severe obesity due to excess calories without serious comorbidity with body mass index (BMI) greater than or equal to 70 in adult (HCC) Acne Smoking history MUSHTAQ on CPAP BRCA gene mutation positive Genital herpes Resolved Hospital Problems No resolved problems to display. Plan Based on the severity and resistance of the obesity to more conservative weight loss approaches, I believe a surgical intervention is the best and most appropriate intervention and is the pt's preferred method of treatment. She has a 0 month insurance requirement prior to surgery. Reviewed BMI Nutritional Tips for Bariatric Surgery pamphlet Encouraged the patient to improve physical activity. We discussed the benefits of both cardiovascular and strength exercises. Discussed the importance of taking post-operative vitamins and reviewed vitamin levels ordered today. Patient understands that any variations of B vitamins or Vitamin D will be corrected pre-operatively. Given her BMI, recommended continuing to work with her PCP on increasing the Ozempic as tolerated to optimize weight loss prior to bariatric surgery. - Continue working with multi-disciplinary team in preparation for bariatric surgery. Needs for medical clearance as follows: Chest x-ray, EKG, US: ordered Labs: ordered Sleep study: Known MUSHTAQ. Has CPAP, recommended ensuring she is using the CPAP at least 4 hours per night, 5 nights per week. Cardiology: not needed at this time. Pulmonary: not needed at this time. EGD: per surgeon I spent a total of 35 minutes on the date of the service which included preparing to see the patient, tryo-ci-coej patient care, completing clinical documentation, obtaining and/or reviewing separately obtained history, performing a medically appropriate examination, counseling and educating the patient/family/caregiver, and ordering medications, tests, or procedures. Ines Jaffe APRN.DEPARTMENT HELPER documented in this encounter [facility] 09-21-2023 Miscellaneous Notes Patient notified. BISI COY RN Left message for patient to call office. RR received records from [facility] genetic counselor regarding BRCA1 results. When patient calls back let her know that RR said we received the screening recommendations from them too so she does not need to schedule a genetics consult visit anymore. Amber Ayon RN documented in this encounter [facility] 09-20-2023 History of Presen t illness Narrative Alexandria Contreras is a 38 year old female who presents for problem visit for discussion of BRCA1. HPI: 38 YOF has completed child bearing. Mother w/ BRCA2 and breast cancer. She had genetic testing at [facility]. SHe has BRCA1. Only known ca on her paternal side is grandmother w/ pancreatic ca. She iks inquiring about risk reducing surgery. She has met w/ smooth plater in past about wt loss but never w/ bariatric medicine or weight manager management. She understands her weight is a significant health problem/risk for her. 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 History Comments: Sexual Activity: Yes; Male Contraception: Condom PAST MEDICAL HISTORY Diagnosis Date Acne BRCA gene mutation positive in female Genital herpes 10/20/2010 Gestational diabetes mellitus (GDM) 08/25/2023 Localization-related (focal) (partial) epilepsy and epileptic syndromes with simple partial seizures, without mention of intractable epilepsy PAST SURGICAL HISTORY Procedure Laterality Date SECTION HX TONSILLECTOMY PRIMARY/SECONDARY <AGE 12 Tonsillectomy FAMILY HISTORY Problem Relation Age of Onset Thyroid Mother Coronary Artery Disease Father Hypertension Father Lipids Father High Cholesterol Heart Father NV Diabetes Father type 2 No Known Problems Brother Stroke Maternal Grandmother Mild Stroke Breast Cancer Maternal Grandmother Diabetes Maternal Grandfather Cancer Paternal Grandmother Pancreatic Diabetes Paternal Grandmother type 2 Coronary Artery Disease Paternal Grandfather Hypertension Paternal Grandfather Heart Paternal Grandfather NV () Social History Tobacco Use Smoking status: Former Packs/day: .5 Types: Cigarettes Passive exposure: Never Smokeless tobacco: Never Tobacco comments: 5 cigs/day Vaping Use Vaping Use: Never used Substance Use Topics Alcohol use: Yes Comment: Rarely Drug use: No Current Outpatient Medications Medication Sig spironolactone (ALDACTONE) 100 mg tablet Take 100 mg by mouth once daily. levonorgestrel (LILETTA) 20.4 mcg/24 hrs (8 yrs) 52 mg IUD by INTRAUTERINE route. semaglutide (OZEMPIC) 0.25 mg or 0.5 mg (2 mg/3 mL) pen (Patient not taking: Reported on 09/20/2023) No current facility-administered medications for this visit. Allergies As of Date: 09/20/2023 (No Known Allergies) Fully Assessed 09/20/2023 REVIAllergies and current medication updated:Yes EXAM: BP 110/74 Wt 380 lb 6.4 oz (172.5kg) LMP 09/24/2012 GENERAL: pleasant, female in no apparent distress E66.01, Z68.45 Class 3 severe obesity due to excess calories without serious comorbidity with body mass index (BMI) greater than or equal to 70 in adult (HCC) (primary encounter diagnosis) Comment: I recommend referral to bariatric medicine to discuss wt loss plan. D/w her this may be SMA for intake, may include recommendation for surgery. She is receptive to this and accepting of consult Z15.01, Z15.09 BRCA1 genetic carrier Comment: recommend genetic counseling for discussion of screening recommendations. D/w her will recommend that she meet w/ breast institute as well but is not a surgical candidate at current BMI for risk reducing BSO or other surgery. Dw her Mirena protects from ovarian ca. combined hormonal contraceptives could reduce risk of ovarian ca. May be candidate for screening for pancreatic cancer as well. Recommend rediscuss options after genetic counseling and wt loss. She understands and agrees w/ plan Medical Decision Making: Problems: Moderate: 2+ stable chronic illnesses Data: Unique test result(s) reviewed: 1 Unique test(s) ordered: 2 Risk: Moderate: Moderate risk from testing/treatment Medical Decision Making Level: 4 - Moderate Belkys Nj MD documented in this encounter [facility] 08-25-2023 History of Past i llness Narrative Problem Noted Date Diagnosed Date Resolved Date Gestational diabetes mellitus (GDM) 08/25/202308/2508/25/2023 documented as of this encounter (statuses as of 09/20/2023) [facility]01-12-2024 History of Past illness Narrative* Problem Noted Date Diagnosed Date Resolved Date Gestational diabetes mellitus (GDM) 08/25/202308/2508/25/2023 documented as of this encounter (statuses as of 09/21/2023) [facility] History of Past illness Narrative* Problem Noted Date Diagnosed Date Resolved Date Gestational diabetes mellitus (GDM) 08/25/202308/2508/25/2023 documented as of this encounter (statuses as of 10/16/2023) [facility]01-[facility] History of Past illness Narrative* Problem Noted Date Diagnosed Date Resolved Date Gestational diabetes mellitus (GDM) 08/25/202308/2508/25/2023 documented as of this encounter (statuses as of 10/26/2023) [facility] noteNo assessment information availableWSelect [facility] [place] Work Phone: [facility] note* Diagnosis Onset Date Resolution Status acute [facility] Work Phone: Evaluation note* Diagnosis Onset Date Resolution Status acute 38 weeks gestation of acute delivery delivered acute Gestational diabetes acute Gestational hypertension acu te acute [facility] Work Phone: Evaluation note* Diagnosis Onset Date Resolution Status resolved delivery delivered acute 38 weeks gestation of resolved Gestational diabetes resolve d Gestational hypertension res olved resolved [facility] Work Phone: Evaluation note* Diagnosis Onset Date Resolution Status resolved delivery delivered acute 38 weeks gestation of resolved Gestational diabetes resolve d Gestational hypertension res olved resolved Care and examination of lactating mother noneactive Other disorders of noneactive HCV antibody positive acute [facility] Work Phone: Evaluation note* Diagnosis Onset Date Resolution Status HCV antibody positive acute [facility] Work Phone: Evaluation note* Diagnosis Onset Date Resolution Status Liver disease chronic [facility] Work Phone: Evaluation note* Diagnosis Class 3 severe obesity due to excess calories without serious comorbidity with body mass index (BMI) greater than or equal to 70 in adult ([facility])- Primary BRCA1 genetic carrier Genetic susceptibility to malignant neoplasm of breast documented in this encounter [facility] note* Diagnosis Class 3 severe obesity due to excess calories without serious comorbidity with body mass index (BMI) greater than or equal to 70 in adult ([facility])- Primary Pre-op testing Preoperative examination, unspecified MUSHTAQ on CPAP Obstructive sleep apnea (adult) (pediatric) documented in this encounter [facility] note* Diagnosis Body mass index (BMI) greater than 70 in adult ([facility])- Primary Dietary counseling and surveillance Dietary surveillance and counseling documented in this encounter [facility] note* Diagnosis Body mass index (BMI) greater than 70 in adult ([facility])- Primary Dietary counseling and surveillance Dietary surveillance and counseling documented in this encounter [facility] note* Diagnosis Morbid obesity due to excess calories ([facility])- Primary documented in this encounter [facility] note* Diagnosis Class 3 severe obesity due to excess calories with body mass index (BMI) of 60.0 to 69.9 in adult, unspecified whether serious comorbidity present ([facility])- Primary Preoperative examination Preoperative examination, unspecified Class 3 severe obesity due to excess calories with body mass index (BMI) of 60.0 to 69.9 in adult, unspecified whether serious comorbidity present (HCC) Preoperative examination Preoperative examination, unspecified [facility] Diagnosis Encounter for gynecological examination (general) (routine) without abnormal findings- Primary Screening for cervical cancer Screening for malignant neoplasm of the cervix Encounter for screening for human papillomavirus (HPV) Special screening examination for human papillomavirus (HPV) documented in this encounter [facility] for referral (narrative)* Diagnostic Procedure Only (Routine) - Pending Review Specialty Diagnoses / Procedures Referred By Marley bella Referred To Contact [facility] Diagnoses Class 3 severe obesity due to excess calories without serious comorbidity with body mass index (BMI) greater than or equal to 70 in adult (HCC) Pre-op testing Procedures US ABD RIGHT UPPER QUADRANT US ABDOMINAL REAL TIME W/IMAGE LIMITED Ines Jaffe APRN.CNP [address] [place] [address] [facility] [place] [address] Referral ID Status Reason Start Date Expiration Date Visits Requested Visits Authorized [id number] Pending Review Auto-Generat ed Referral 10/16/2023 11/14/2024 1 1 * Outpatient Procedure (Routine) - Pending Review Specialty Diagnoses / Procedures Referred By Marley bella Referred To Contact [facility] Diagnoses Class 3 severe obesity due to excess calories without serious comorbidity with body mass index (BMI) greater than or equal to 70 in adult (HCC) Pre-op testing Procedures ECG COMPLETE ECG ROUTINE ECG W/LEAST 12 LDS W/I&R Ines Jaffe APRN.CNP [address] [place] [address] [facility] [place] [facility] [place] [id number] Referral ID Status Reason Start Date Expiration Date Visits Requested Visits Authorized [id number] Pending Review Auto-Generat ed Referral 10/16/2023 10/15/2024 1 1 [facility] for referral (narrative)No reason for referral information availableWSelect [facility] [place] Work Phone: Reason for Referral Status Reason Specialty Diagnoses / Procedures Referred By Contact Referred To Contact [facility] Required Lab Diagnoses Family history of breast cancer Family history of pancreatic cancer Procedures Genetic Sendout: CancerNext Panel with RNA testing [place] [address] Specialty Diagnoses / Procedures Referred By Contac t Referred To Contact Diagnoses BRCA1 genetic carrier Procedures CONSULT TO MEDICAL GENETICS - CANCER MEDICAL GENETICS COUNSELING EACH 30 MINUTES Belkys Nj MD [address] [place] [address] [facility] [place] [address] [place] [id number] Referral ID Status Reason Start Date Expiration Date Visits Requested Visits Authorized [id number] Pending Review PCP Requested Referral Auto-Generate d Referral 09/20/2023 09/19/2024 1 1 Specialty Diagnoses / Procedures Referred By Contac t Referred To Contact Diagnoses Class 3 severe obesity due to excess calories without serious comorbidity with body mass index (BMI) greater than or equal to 70 in adult (HCC) Procedures CONSULT [facility] OFFICE/OUTPATIENT [facility] 60 MINUTES Belkys Nj MD [address] [place] [address] Referral ID Status Reason Start Date Expiration Date Visits Requested Visits Authorized [id number] Authorized PCP Requested Referral 09/20/2023 09/19/2024 1 1 Specialty Diagnoses / Procedures Referred By Contac t Referred To Contact Diagnoses Class 3 severe obesity due to excess calories with body mass index (BMI) of 60.0 to 69.9 in adult, unspecified whether serious comorbidity present (HCC) Preoperative examination Procedures REFER TO [facility] PREOPERATIVE OPTIMIZATION OFFICE/OUTPATIENT [facility] 60 MINUTES Tom Carolina MD [address] [place] [address] Referral ID Status Reason Start Date Expiration Date Visits Requested Visits Authorized [id number] Authorized PCP Requested Referral 01/24/2024 01/23/2025 1 1 Assessments Diagnosis Family history of breast cancer Family history of malignant neoplasm of breast Family history of pancreatic cancer Family history of malignant neoplasm of gastrointestinal tract Advance Directives No Advanced Directives Records FoundDocuments on File Type Date Recorded Patient Aerotriangulation Specialist Expl anation Power of Deburrer Advance Directive Response Recorded Date/ Time Living Will No September 24 018 2:17am Power of Deburrer No September 24, 2017 2:17am Advance Directive Response Recorded Date/ Time Living Will No November 16, 2021 8:21pm Power of Deburrer No November 16 8:21pm Advance Directive Response Recorded Date/ Time Living Will No November 16, 2021 7:21pm Power of Deburrer No November 16 7:21pm Chief Complaint and Reason for Visit Chief Complaint NON STRESS TEST Reason for Visit Chief Complaint NON STRESS TEST PRIMARY C SECTION Reason for Visit 38 weeks gestation of delivery delivered Gestational diabetes Gestational hypertension Chief Complaint NON STRESS TEST PRIMARY C SECTION mom possibly needs thyroid levels checked Reason for Visit delivery delivered 38 weeks gestation of Gestational diabetes Gestational hypertension Chief Complaint NON STRESS TEST PRIMARY C SECTION mom possibly needs thyroid levels checked Consult SCREENING Reason for Visit delivery delivered 38 weeks gestation of Gestational diabetes Gestational hypertension Care and examination of lactating mother Other disorders of HCV antibody positive Chief Complaint INCONCLUSIVE BI E-ORDER Chief Complaint INCONCLUSIVE BI E-ORDER FU Reason for Visit HCV antibody positiv e Chief Complaint INCONCLUSIVE BI E-ORDER FU FATTY LIVER ANNUAL SCREENING Reason for Visit HCV antibody positiv e Chief Complaint FU FATTY LIVER ANNUAL SCREENING HYPERSOMNIA, FATIGUE, SNORING MUSHTAQ; AUTO CPAP *DEVICE TAGGED Reason for Visit HCV antibody positiv e Chief Complaint HYPERSOMNIA, FATIGUE , SNORING MUSHTAQ; AUTO CPAP *DEVICE TAGGED 4 MO FU E-ORDER Reason for Visit Liver disease Chief Complaint Admit Date [employer] March 05, 2025 8:05 am SCREENING March 18, 2025 11: 47am Family History No Family History Records Found Relationship Condition Age at Onset Recorded Date/T joesph father Diabetes mellitus Unknown mother Disorder of thyroid Unknown Relationship Condition Age at Onset Recorded Date/T joesph father Diabetes mellitus Unknown Hyperlipidemia Unknown mother Disorder of thyroid Unknown grandmother Malignant neoplasm of pancreas Unknown aunt Malignant neoplasm of breast Unknown Summary Purpose Additional Source Comments Reason for Visit (unrecogniz ed section and content) Status Reason Specialty Diagnoses / Procedures Referred By Contact Referred To Contact [facility] Required Lab Diagnoses Family history of breast cancer Family history of pancreatic cancer Procedures Genetic Sendout: CancerNext Panel with RNA testing [place] [address] Reason Comments Follow Up Discuss hyst Reason Comments Received Outside Medical Records Reason Comments New Patient Obesity Specialty Diagnoses / Procedures Referred By Contac t Referred To Contact Diagnoses Class 3 severe obesity due to excess calories without serious comorbidity with body mass index (BMI) greater than or equal to 70 in adult (HCC) Procedures CONSULT [facility] OFFICE/OUTPATIENT [facility] 60 MINUTES Belkys Nj MD [address] [place] [address] Referral ID Status Reason Start Date Expiration Date V isits Requested Visits Authorized [id number] Closed PCP Requested Referral 09/20/2023 09/19/2024 1 1 Reason Comments Patient Education Assessment Reason Comments Patient Education Reassessment Reason Comments New Patient Reason Comments 03/04/2024 Reason Comments Approval Reason Comments Well Woman Goals (unrecognized section and content) Goals may be documented in a n alternate sectionGoals may be documented in an alternate sectionGoals may be documented in an alternate sectionGoals may be documented in an alternate sectionGoals may be documented in an alternate sectionGoals may be documented in an alternate sectionGoals may be documented in an alternate sectionGoals may be documented in an alternate sectionGoals may be documented in an alternate sectionGoals may be documented in an alternate sectionGoals may be documented in an alternate sectionGoals may be documented in an alternate section Care Teams (unrecognized sec tion and content) Team Status: Active Member Role Status Dates Dr. Andra Lino DO Family Provider Active Dr. Andra Lino , DO Primary Care Provider Active Team Status: Inactive Member Role Status Dates Dr. Andra Lino DO Primary Care Provider Active Dr. Latoya Lind , DO Attending Provider, Referrin g Provider Active Team Status: Inactive Member Role Status Dates Dr. Andra Lino DO Primary Care Provider Active Dr. Ibrahima Bansal , DO Attending Provider, Referring Provider Active Team Status: Inactive Member Role Status Dates Dr. Andra Lino DO Primary Care Provider, Referring P vania Active Dr. Ibrahima Bansal , DO Attending Provider Active Team Status: Inactive Member Role Status Dates Dr. Andra Lino DO Primary Care Provider Active Dr. Latoya Lind DO Attending Provider Active Team Status: Inactive Member Role Status Dates Dr. Andra Lino DO Primary Care Provider Active Dr. Ibrahima Bansal , DO Referring Provider Active Dr. Latoya iLnd DO Attending Provider Active Team Status: Active Member Role Status Dates Dr. Andra iLno DO Primary Care Provider Active Health Risk Assessment Attending Provider, Referring P rovider Active Team Status: Inactive Member Role Status Dates Dr. Andra Lino DO Primary Care Provide r, Attending Provider, Referring Provider Active Team Status: Inactive Member Role Status Dates Dr. Andra Lino DO Primary Care Provider, Attending P rovider Active Team Status: Active Member Role/Relationship Status Dates Dr. Andra Lion DO Primary Care Provider Active Team Status: Active Member Role/Relationship Status Dates Dr. Andra Lino DO Primary Care Provider Active Start: March 05, 2025 Health Risk Assessment Attending Provider Active Start: March 05, 2025 Health Risk Assessment Referring Provider Active Start: March 05, 2025 Team Status: Inactive Member Role/Relationship Status Dates Dr. Andra Lino DO Primary Care Provider Active Start: March 18, 2025 End: March 18, 2025 Dr. Charisse Vergara MD Attending Provider Active Start: March 18, 2025 End: March 18, 2025 Dr. Charisse Vergara MD Referring Provider Active Start: March 18, 2025 End: March 18, 2025 Source Comments (unrecognize d section and content) In the event this informatio n is protected by the Federal Confidentiality of Alcohol and Drug Abuse Patient Records regulations: The Federal rules restrict any use of the information to criminally investigate or prosecute any alcohol or drug abuse patient.[facility] the event this information is protected by the Federal Confidentiality of Alcohol and Drug Abuse Patient Records regulations: The Federal rules restrict any use of the information to criminally investigate or prosecute any alcohol or drug abuse patient.[facility] Hospital[facility] the event this information is protected by the Federal Confidentiality of Alcohol and Drug Abuse Patient Records regulations: The Federal rules restrict any use of the information to criminally investigate or prosecute any alcohol or drug abuse patient.[facility] Hospital[facility] the event this information is protected by the Federal Confidentiality of Alcohol and Drug Abuse Patient Records regulations: The Federal rules restrict any use of the information to criminally investigate or prosecute any alcohol or drug abuse patient.[facility] Hospital[facility] the event this information is protected by the Federal Confidentiality of Alcohol and Drug Abuse Patient Records regulations: The Federal rules restrict any use of the information to criminally investigate or prosecute any alcohol or drug abuse patient.[facility] Hospital[facility] the event this information is protected by the Federal Confidentiality of Alcohol and Drug Abuse Patient Records regulations: The Federal rules restrict any use of the information to criminally investigate or prosecute any alcohol or drug abuse patient.[facility] Hospital[facility] the event this information is protected by the Federal Confidentiality of Alcohol and Drug Abuse Patient Records regulations: The Federal rules restrict any use of the information to criminally investigate or prosecute any alcohol or drug abuse patient.[facility] Hospital[facility] the event this information is protected by the Federal Confidentiality of Alcohol and Drug Abuse Patient Records regulations: The Federal rules restrict any use of the information to criminally investigate or prosecute any alcohol or drug abuse patient.[facility] Hospital[facility] the event this information is protected by the Federal Confidentiality of Alcohol and Drug Abuse Patient Records regulations: The Federal rules restrict any use of the information to criminally investigate or prosecute any alcohol or drug abuse patient.[facility] HospitalIn the event this information is protected by the Federal Confidentiality of Alcohol and Drug Abuse Patient Records regulations: The Federal rules restrict any use of the information to criminally investigate or prosecute any alcohol or drug abuse patient.[facility] Hospital[facility] the event this information is protected by the Federal Confidentiality of Alcohol and Drug Abuse Patient Records regulations: The Federal rules restrict any use of the information to criminally investigate or prosecute any alcohol or drug abuse patient.[facility] HospitalIn the event this information is protected by the Federal Confidentiality of Alcohol and Drug Abuse Patient Records regulations: The Federal rules restrict any use of the information to criminally investigate or prosecute any alcohol or drug abuse patient.[facility] HospitalIn the event this information is protected by the Federal Confidentiality of Alcohol and Drug Abuse Patient Records regulations: The Federal rules restrict any use of the information to criminally investigate or prosecute any alcohol or drug abuse patient.[facility] HospitalIn the event this information is protected by the Federal Confidentiality of Alcohol and Drug Abuse Patient Records regulations: The Federal rules restrict any use of the information to criminally investigate or prosecute any alcohol or drug abuse patient.[facility] HospitalIn the event this information is protected by the Federal Confidentiality of Alcohol and Drug Abuse Patient Records regulations: The Federal rules restrict any use of the information to criminally investigate or prosecute any alcohol or drug abuse patient.[facility] INFORMATION SOURCE (unrecogn ized section and content) DATE CREATED AUTHOR 01/08/2024 [facility] DATE CREATED AUTHOR AUTHOR'S RICARDO ATION 10/19/2024 [facility] DATE CREATED AUTHOR AUTHOR'S ORGANIZ ATION 04/04/2025 [facility] FOR RECORDS PERTAINING TO PATIENTS WHO ARE OR HAVE BEEN ENROLLED IN A CHEMICAL DEPENDENCY/SUBSTANCEABUSE PROGRAM, SOME INFORMATION MAY BE OMITTED. This clinical summary was aggregated from multiple sources. Caution should be exercised in using it in the provision of clinical care. This summary normalizes information from multiple sources, and as a consequence, information in this document may materially change the coding, format and clinical context of patient data. In addition, data may be omitted in some cases. CLINICAL DECISIONS SHOULD BE BASED ON THE PRIMARY CLINICAL RECORDS. [facility]. provides no warranty or guarantee of the accuracy or completeness of information in this document.
[2025-04-05 10:39] LABS: Hematocrit 39.5 % (37-47); Hemoglobin 12.8 g/dL (12.0-15.0); Immature Granulocytes Count 0.040 X10^3/uL (0.0-0.0); Mean Corp Hgb Conc 32.4 g/dL (32-36); Mean Corpuscular Volume 86.6 fL (81-99); Mean Platelet Vol. 10.8 fl (6.2-12.0); NRBC Flagged by Analyzer 0 % (0-5); Platelet Count 291 K/mm3 (150-450); RBC Distribution Width CV 13.8 % (11.6-14.6); RBC Distribution Width SD 43.3 fl (35.1-43.9); Red Blood Count 4.56 M/mm3 (4.2-5.4); White Blood Count 7.5 K/mm3 (4.4-11.0)
[2025-04-05 11:41] LABS: AST(SGOT) 19 U/L (<=31); Alanine Aminotransfer ALT/SGPT 21 U/L (<=34); Albumin, Serum 3.9 g/dL (3.5-5.0); Alkaline Phosphatase 66 U/L (35-104); Anion Gap 14 (5-15); BUN 13 mg/dL (4-19); BUN/Creat Ratio 17.5 RATIO (10-20); Calcium,Total 9.3 mg/dL (7.6-11.0); Carbon Dioxide 22.3 mmol/L (21.0-32.0); Chloride 103 mmol/L (98-108); Cholesterol 201 mg/dL (<=200); Globulin 3.5 g/dL (2.2-4.2); Glucose 85 mg/dL (70-99); Low Density Lipoprotein Calc. 130 mg/dL; Potassium 4.1 mmol/L (3.3-5.1); Triglycerides 128 mg/dL; Very Low Density Lipoprotein 26 mg/dL (5-40); cholesterol:hdl ratio screen 4.38
== END | disposition home or self-care (01) ==
LOC: LAB 10:03
PROVIDERS: PCP Family Medicine; Referring Provider Internal Medicine; Visit Provider Internal Medicine
DX: K76.0 Fatty (change of) liver, not elsewhere classified (principal); K74.60 Unspecified cirrhosis of liver; R63.4 Abnormal weight loss
CPT/HCPCS: 36415; 80053; 80061; 83036; 84439; 84443; 85025

== ENCOUNTER → 2025-04-11 | Outpatient (CLI) | payer BC, SELFPAY ==
--- NOTE | 2025-04-11 08:54 | US_ITS ---
PROCEDURE: ABD LIMITED W/ ELASTOGRAPHY REASON FOR EXAM: LIVER FIBROSIS. COMPARISON: April 18, 2024. TECHNIQUE: Procedure Code: [id number] Modality: US Procedure: ABD LIMITED W/ ELASTOGRAPHY Right upper quadrant abdominal ultrasound. [facility] shear wave elastography for non-invasive assessment of liver tissue stiffness. [facility] EPI[facility]. FINDINGS: LIVER: Size: Enlarged (hepatomegaly) Length: 18.4 cm Echotexture: Diffusely echogenic suggesting fatty infiltration Contour: Normal Lesions: None identified Elastography: EQI Med: 8.3 kPa EQI Med David: 1.65 m/s IQR/Med: 21.5 %* GALLBLADDER: There are multiple gallstones. COMMON BILE DUCT: Normal measuring 5 mm. . PANCREAS: Normal Visualized portions of the right kidney are unremarkable. No right upper quadrant ascites. The spleen measures 11.3 cm 6.1 cm 4.7 cm. US/ABD Limited w/ Elastography IMPRESSION: Moderate hepatic fibrosis. Multiple gallstones. Reference Values: SRU <1.37 m/s (5.7kPa): No to mild fibrosis 1.37 m/s - 2.2 m/s: Moderate to severe fibrosis >2.2 m/s (15kPa): Significant fibrosis / cirrhosis METAVIR Score F2 or higher: 1.34 m/s (5.7kPa) F3 or higher: 1.55 m/s (7.3kPa) F4: 1.80 m/s (10kPa) * If the IQR/Med is >30%, the variance in the measurements is a large and the a ccuracy of the measurement may be in question. Reading Location: [id number]
== END | disposition home or self-care (01) ==
PROVIDERS: PCP Family Medicine; Referring Provider Internal Medicine; Visit Provider Internal Medicine
DX: K76.0 Fatty (change of) liver, not elsewhere classified (principal)
CPT/HCPCS: 76705; 76981